=== PATIENT | male | born 1950 | race Caucasian/White ===

== ENCOUNTER → 2017-10-02 10:00 | Outpatient (CLI) | payer MEDICARE, OTHER, MEDICAID, SELFPAY ==
--- NOTE | 2017-10-02 10:11 | CT_ITS ---
CT abdomen pelvis wo con CLINICAL INDICATION: Lower abdominal pain ITS.REASON: LOW BD PAIN ORDERING PHYSICIAN: Emir Almodovar MD PATIENT AGE: 66 years COMPARISON: None TECHNIQUE: Axial images obtained with sagittal and coronal reformats. PROCEDURE: Oral Contrast: None IV Contrast: None . FINDINGS: No acute finding in the lung bases. The liver, gallbladder, spleen, adrenal glands, and pancreas have an unremarkable unenhanced CT appearance. There is moderate to severe bilateral hydronephrosis and hydroureter. The ureters are dilated throughout their course. Urinary bladder is distended with mildly thickened wall. The prostate is not enlarged. No obstructing renal or ureteral calculi. There is mild fusiform dilatation of the infrarenal abdominal aorta measuring up to 3.3 cm. There is a moderate amount retained colonic feces. The appendix is unremarkable. No evidence of diverticulitis. There are scattered fluid-filled loops of small bowel nonspecific without significant distention. There are degenerative changes of the lumbar spine. No acute bony findings. IMPRESSION: Mildly distended gallbladder with concentrically thickened wall with moderate to severe bilateral hydronephrosis and hydroureter consistent with chronic bladder outlet obstruction/neurogenic bladder 3.3 cm fusiform infrarenal abdominal aortic aneurysm
== END ==
PROVIDERS: Family Provider Internal Medicine Adolescent Medicine; PCP Internal Medicine Adolescent Medicine; Visit Provider Internal Medicine Adolescent Medicine
DX: R10.30 Lower abdominal pain, unspecified (principal)
CPT/HCPCS: 74176

== ENCOUNTER → 2018-04-20 06:14 | Outpatient (CLI) | payer MEDICARE, OTHER, MEDICAID, SELFPAY ==
--- NOTE | 2018-04-20 06:29 | NM_ITS ---
History and Indications: Hyperlipidemia, tobacco use, chest pain, shortness of breath and syncope Procedure: Patient received a 0.4 mg of Lexiscan, resting heart rate was 67 bpm, resting blood pressure 116/70, with Lexiscan maximum heart rate achieved was 92 bpm which is less than 85% of the maximum predicted heart rate and a blood pressure was 85/51. With Lexiscan patient complained of dizziness. Electrocardiogram: Resting electrocardiogram showed sinus rhythm, with Lexiscan there is less than 1.[address] segment depression noted from the baseline EKG. The EKG portion of the Lexiscan Myoview is nondiagnostic. Cardiac stress and resting SPECT images: Cardiac stress and rest SPECT images were obtained using technetium 99 Myoview 31.5 mCi at stress and the 0.1 mCi at stress. Gated SPECT further analysis of segmental wall motion and calculation of the ejection fraction also done. Cardiac stress and rest SPECT images show a fixed defect involving the inferior, apex and posterobasal wall with normal contractility in the gated SPECT is likely secondary to soft tissue attenuation, no reversible ischemia seen. Computer derived ejection fraction is 50% with no obvious regional wall motion abnormality, right ventricle is mildly enlarged with normal contractility. Conclusion: 1. The EKG portion of the Lexiscan Myoview is nondiagnostic. 2. No obvious scintigraphic evidence of reversible ischemia seen, a fixed defect seen inferiorly is likely secondary to soft tissue attenuation, computer derived ejection fraction is 50% with no obvious regional wall motion abnormality, right ventricle is mildly enlarged with normal contractility.
--- NOTE | 2018-04-20 06:56 | CA_ITS ---
PROCEDURE: 2-D M-mode and color Doppler study INDICATIONS FOR THE TEST: Chest pain COPD Heart Murmur Tobacco Smoking + Palpitations Fatigue Syncope Edema Hypertension Diabetes Mellitus Rheumatic Fever SOB GRIFFIN Obesity Hyperlipidemia+ Family History HD Additional History PATIENT INFORMATION HEIGHT: 72 WEIGHT:189 GENDER: Male B/P:124/76 2-D/M-MODE INTERPRETATION: 2-D MEASUREMENTS OBSERVED VALUES IN CMS Right Ventricular Dimension (RVDd) 3.0 Interventricular Septum (Thickness)(IVsd) 1.8 Left Ventricular Internal Dimensions(LVIDd) 5.1 Left Ventricular Posterior Wall (Thickness)(LVPWd) 1.3 Aortic Root 4.5 Aortic Cusp Separation 1.9 Left Atrial Dimensions (LAD) 3.0 2D 1. Left atrium is mildly enlarged, left ventricle is normal size, there is mild concentric left ventricular hypertrophy, visually estimated ejection fraction 50% with no obvious regional wall motion abnormality. 2. The right atrium and right ventricle are mildly enlarged with normal contractility. 3. The aortic valve is thickened and calcified with restriction the leaflet mobility. 4. The mitral valve has mitral calcification, mitral leaflets are minimally thickened. 5. The tricuspid valve is minimally thickened. 6. The pulmonic valve is poorly visualized. 7. No significant pericardial effusion noted. DOPPLER INTERROGATION: Doppler interrogation of the aortic, mitral and tricuspid valvular presence of moderate to severe aortic insufficiency, moderate mitral regurgitation, there is mild tricuspid regurgitation noted, tricuspid regurgitant jet velocity is insufficient for calculation of the right ventricular systolic pressure. CONCLUSION: 1. Mildly enlarged left atrium, normal left ventricular size, mild concentric left ventricular hypertrophy, visually estimated ejection fraction 50% with no obvious regional wall motion abnormality. Diastolic parameters are inconclusive. 2. Thickened and calcified aortic valve without significant aortic stenosis, there is moderate to severe aortic insufficiency present. 3. Moderate mitral and mild tricuspid regurgitation 4. No significant pericardial effusion noted.
--- NOTE | 2018-04-20 07:42 | HMH.ITSHM ---
gabapentin LIVALO TAMSULOSIN ASA FINASTERIDE LEVOTHYROXINE BREO COMBIVENT
== END ==
PROVIDERS: Family Provider Internal Medicine Adolescent Medicine; PCP Internal Medicine Adolescent Medicine; Visit Provider Internal Medicine Adolescent Medicine
DX: R06.09 Other forms of dyspnea (principal); R42 Dizziness and giddiness; R94.31 Abnormal electrocardiogram [ECG] [EKG]
CPT/HCPCS: 78452; 93017; 93306; A9502; J2785

== ENCOUNTER → 2018-06-24 09:39 | Outpatient (CLI) | payer MEDICARE, OTHER, MEDICAID, SELFPAY ==
[2018-06-25 10:05] LABS: PSA, Free 0.11 ng/mL; Prostate Specific Ag 0.9 ng/mL (0.0-4.0)
== END ==
PROVIDERS: Family Provider Internal Medicine Adolescent Medicine; PCP Internal Medicine Adolescent Medicine; Visit Provider Urology
DX: Z12.5 Encounter for screening for malignant neoplasm of prostate (principal); N39.9 Disorder of urinary system, unspecified; N40.0 Benign prostatic hyperplasia without lower urinary tract symptoms
CPT/HCPCS: 36415; 84153; 84154

== ENCOUNTER → 2019-03-29 13:46 | Outpatient (CLI) | payer MEDICARE, OTHER, SELFPAY ==
--- NOTE | 2019-03-29 13:52 | XR_ITS ---
XR ribs LT min 3V w CXR1V HISTORY: Fall with pain, left posterior rib pain ITS.REASON: THORACIC BACK PAIN ORDERING PHYSICIAN: Emir Almodovar MD PATIENT AGE: 68 years Comparison: None FINDINGS: A frontal view of the chest shows no acute finding. Multiple views of the Left ribs were obtained. No fracture or dislocation. No lytic or blastic change. IMPRESSION: Negative RIBS. If pain persists, consider follow-up exam in 7-[address] with 3-D reformats.
--- NOTE | 2019-03-29 13:52 | XR_ITS ---
XR chest 2V HISTORY: ITS.REASON: THORACIC BACK PAIN ORDERING PHYSICIAN: Emir Almodovar MD PATIENT AGE: 68 years COMPARISON: None FINDINGS: The cardiomediastinal silhouette and pulmonary vascularity are within normal limits. Changes of COPD. The lungs are clear without infiltrates, suspicious nodules, or pleural effusions. No acute bony abnormalities. IMPRESSION: COPD, no acute finding
--- NOTE | 2019-03-29 13:52 | XR_ITS ---
EXAM: XR thoracic spine 3V HISTORY: ITS.REASON: THORACIC BACK PAIN Comparison: 06/27/2016 FINDINGS: There is mild kyphosis of the thoracic spine with minimal wedging of T11 T9 T8 and T7 probably unchanged from 06/27/2016 CT scan. There is generalized osteopenia. No acute fracture or dislocation. No lytic or blastic change. IMPRESSION: Chronic kyphosis with degenerative change in the midthoracic spine and minimal wedging of several dorsal vertebral bodies which do not appear significantly changed.
== END ==
PROVIDERS: PCP Internal Medicine Adolescent Medicine; Visit Provider Internal Medicine Adolescent Medicine
DX: M54.6 Pain in thoracic spine (principal)
CPT/HCPCS: 71046; 71101; 72072

== ENCOUNTER → 2019-09-28 08:03 | Outpatient (CLI) | payer MEDICARE, OTHER, MEDICAID, SELFPAY ==
--- NOTE | 2019-09-28 08:08 | CT_ITS ---
PROCEDURE: CT LUNG SCREENING CLINICAL INDICATION: CURRENT TOBACCO USE Ninety-four pack-year smoking history, asymptomatic for lung cancer COMPARISON: CHW CT CHEST W/ CONTRAST from 06/27/2016 TECHNIQUE: The exam was performed on a GE Light Speed [address] scanner using 2.90 mGy CTDI. A low dose helical CT CHEST was performed on a multi-detector scanner. All CT scans at the facility use one or more dose reduction, viz: automated exposure control, ma/kV adjustment per patient size (including targeted exams where dose is matched to indication, i.e. head), or iterative reconstruction technique. The LDCT was performed in a facility that meets the criteria for the screening program. Data regarding this exam was submitted to ACR which is an approved registry. The order for this exam indicates that it came as a result of a lung cancer screening counseling shard decision-making visit that included all the elements required of such a visit including smoking cessation. The radiologist interpreting this exam meets the CMS criteria for the LDCT lung cancer screening program. The exam is reported using the Lung-RADS classification scale and reported to the ACR registry. NOTE: This study was performed for the specific purposes of lung cancer screening and is not an alternative to diagnostic chest CT. RADIATION DOSE: CTDI vol(CT dose Index-volume) = 2.90mG DLP (Dose Length Product) = 109.82 mGcm Lung Rads Category FINDINGS: COPD changes. There are scattered small nodular opacities most of which are stable. There are 3 small nodular opacities in the right upper lobe centrally the largest of which measures approximately 6 mm. Image 38 series 4. There is a stable 6 mm nodule right lower lobe image 50 series 4. An additional stable 6 mm nodule right lower lobe posteriorly image 62 series 4. There are some mild atelectatic changes in the right lung base posteriorly. OTHER FINDINGS: There is a healing fracture involving the left 10th rib posteriorly which was not present on the previous exam. Upper abdominal images show bilateral hydronephrosis moderate to severe. There are degenerative changes in the thoracic spine there are coronary artery calcifications IMPRESSION: Lung rads category 3 probably benign. There are 3 new small nodular opacities in the right upper lobe centrally. The largest is at 6 mm. Recommend 3 month follow-up. Dictated by: Noe Bender MD 10/10/2019 07:25 Electronically signed by Noe Bender MD in [place] 10/10/2019 07:25
== END ==
PROVIDERS: PCP Internal Medicine Adolescent Medicine; Visit Provider Internal Medicine Adolescent Medicine
DX: Z87.891 Personal history of nicotine dependence (principal); Z12.2 Encounter for screening for malignant neoplasm of respiratory organs

== ENCOUNTER → 2019-10-20 15:17 | Outpatient (CLI) | payer MEDICARE, OTHER, MEDICAID, SELFPAY | PROVIDERS: Visit Provider Urology | DX: N13.9 Obstructive and reflux uropathy, unspecified (principal) | CPT/HCPCS: 87086; 87088; 87186 ==

== ENCOUNTER 2020-04-18 13:30 | Outpatient (RCR) | payer MEDICARE, OTHER, MEDICAID, SELFPAY ==
--- NOTE | 2020-04-18 14:45 | HMH.PTOPWND ---
Rehab Outpt Wound Evaluation Rehab OP Wound Evaluation Start: 04/18/20 14:08 Freq: Status: Active Protocol: Document 04/18/20 14:36 PHOSHASHI (Rec: 04/18/20 14:45 PHORNE [id number]) Electronically Signed By Elio Faithe, PT 04/18/20 14:36 Subjective/History History History Pt is 69 yowm who presents with c/o chronic B buttock sores x several years. He states, Sometimes they get hot and bust open and leak, but most of the time they are just sore. He reports hx of COPD, HL, HTN. He c/o tenderness to palpation in the eve-wound area, and only gets relief with laying down. Subjective Subjective No c/o pain at this time. Wound Eval Wound Right Buttock Wound Type Pressure Ulcer Is This a Chronic Wound Yes Wound Staging Stage II Query Text:Stage I - Unbroken, red skin, no blanching. Stage II - Skin broken, superficial skin loss involving epidermis alone or also dermis. Partial loss of skin layers. Stage III - Pressure area involves epidermis, dermis and subcutaneous tissue, full thickness skin loss. Stage IV - Pressure area involves epidermis, subcutaneous tissue, bone and other supportive tissue. Full thickness skin loss with extensive destruction of underlying tissue and structures. Wound Length (cm) 2.7 Wound Width (cm) 3.5 Wound Bed Appearance [place] Wound Margins Description Well Defined Surrounding Tissue Appearance [place] Drainage Description Serous Drainage Amount Small Primary Dressing Hydrocolloid Wound Debridement Amount of Tissue None Removed Left Buttock Wound Type Pressure Ulcer Is This a Chronic Wound Yes Wound Staging Stage I Query Text:Stage I - Unbroken, red skin, no blanching. Stage II - Skin broken, superficial skin loss involving epidermis alone or also dermis. Partial loss of skin layers. Stage III - Pressure area involves epidermis, dermis and subcutaneous tissue, full thickness skin loss. Stage IV - Pressure area involves epidermis, subcutaneous tissue, bone and other supportive tissue. Full thickness skin loss with extensive destr
== END 2020-04-18 13:35 | disposition home or self-care (01) ==
LOC: PT 13:30
PROVIDERS: PCP Internal Medicine Adolescent Medicine; Visit Provider Internal Medicine Adolescent Medicine
DX: L89.301 Pressure ulcer of unspecified buttock, stage 1 (principal)
CPT/HCPCS: 97162

== ENCOUNTER → 2020-07-04 14:07 | Outpatient (CLI) | payer MEDICARE, OTHER, SELFPAY ==
[2020-07-04 14:23] LABS: Basophils # 0.1 K/mm3 (0-0.2); Basophils % 0.4 % (0.1-2.0); Eosinophils # 0.3 K/mm3 (0.0-0.4); Hematocrit 36.9 % (42.0-52.0); Hemoglobin 11.3 g/dL (14.1-18.0); Lymphocytes # 2.4 K/mm3 (0.7-4.5); Lymphocytes % 18.1 % (10-50); Mean Corpuscular HGB Conc 30.7 g/dL (31.8-35.4); Mean Corpuscular Hemoglobin 28.9 pg (27.0-31.2); Mean Corpuscular Volume 93.9 fl (80-94); Monocytes # 0.6 K/mm3 (0.1-1.0); Monocytes % 4.3 % (1.7-9.3); Neutrophils # 9.9 K/mm3 (1.8-7.8); Neutrophils % 75.1 % (37.0-80.0); Platelet Count 278 K/mm3 (142-424); Red Blood Count 3.93 M/mm3 (4.60-6.20); Red Cell Distribution Width 15.1 % (11.5-17.5); White Blood Count 13.1 K/mm3 (4.8-10.8)
--- NOTE | 2020-07-04 14:31 | ECG_ITS ---
APPROVED REPORT Exam: Resting ECG HR:72 bpm ECG Measurements Heart Rate 72 AXES VT 114 P 40 QRSd 104 QRS 11 QT 406 T 79 QTc 444 Conclusion Normal sinus rhythm Late r wave progression Abnormal ECG Electronically signed by : Emir Almodovar, 07/05/2020 07:29:58
[2020-07-04 15:01] LABS: Alanine Aminotransferase 11 U/L (12-78); Albumin Level 3.9 g/dl (3.5-5.0); Albumin/Globulin Ratio 1.2 (1.1-1.8); Alkaline Phosphatase 91 U/L (38-126); Anion Gap 13.5 mEq/L (5-15); Aspartate Amino Transferase 22 U/L (17-59); Bilirubin,Total 0.3 mg/dl (0.2-1.3); Blood Urea Nitrogen 29 mg/dl (9-20); Calcium 8.9 mg/dl (8.4-10.2); Carbon Dioxide 23 mmol/L (22.0-30.0); Chloride 111 mmol/L (98-107); Estimated Glomerular Filt Rate 19 ml/min (>60); GFR (African American) 23 ML/MIN (>60); Globulin 3.3 g/dL (1.3-3.2); Glucose 96 mg/dl (74-100); Potassium 4.5 mmoL/L (3.5-5.1); Sodium 143 mmol/L (136-145); Total Protein,Serum 7.2 g/dl (6.3-8.2)
[2020-07-04 15:51] LABS: Coronavirus 19 IgG Antibody Negative (Negative); Coronavirus 19 IgM Antibody Negative (Negative)
== END ==
PROVIDERS: Visit Provider Surgery
DX: L73.2 Hidradenitis suppurativa (principal); Z01.818 Encounter for other preprocedural examination
CPT/HCPCS: 36415; 80053; 85025; 86328; 93005

== ENCOUNTER 2020-07-06 10:01 | Day surgery (SDC) | payer MEDICARE, OTHER, SELFPAY ==
[2020-07-06] VITALS (12 sets, daily range): BP systolic 106–155; BP diastolic 62–96; PULSE 61–69; RESP 14–20; TEMP 36.4–37.1; O2SAT 95–98; BMI 24.9
--- NOTE | 2020-07-06 13:01 | P.OP_ITS ---
Date of procedure: 07/06/20 Pre-op Diagnosis:: Abscessed hidradenitis of left buttock Post-op Diagnosis:: Same Procedure performed:: Incision and drainage of left buttock hidradenitis Surgeon:: Yousif Anglin MD [employer] COUNSEL:: Emir Flores Anesthesia: LMA Estimated blood loss (mL): 5 Operative findings:: Multiple coalescing pockets of purulence Operative note:: After informed consent was obtained the patient was taken to the operating room and placed in the supine position. General anesthesia with laryngeal mask airway was achieved. He was transferred to the right lateral decubitus position. His left buttock was prepped and draped in a sterile fashion. An elliptical incision around the central area was made after fluid was obtained for Gram stain/culture. The underlying tissue was carefully dissected. Multiple coalescing microabscesses were encountered. These were carefully evacuated. The remaining wound was packed open with moistened Kerlix. Dressings were applied and the patient was transferred to recovery in stable condition after removal of his laryngeal mask airway. Condition: stable Disposition: PACU Specimens:: Fluid for Gram stain/culture Left buttock tissue (abscessed hidradenitis) Complications:: No immediate
--- NOTE | 2020-07-06 13:05 | P.PN_ITS ---
[facility] Anesthesia Checklist - Patient Identification Patient Identification: Arm Band, Verbal (Name & ) - Structural Data Admitted From: Home Planned Operative Procedure/s: i and d butt Consent for Planned Operative Procedure(s) Verified: Yes Verified Documents: History and Physical - NPO Status Verified Time NPO: 00:00 - Chart Verification Results Verified: CBC, BMP - Additional verifications Patient : No Anesthesia Reactions: No Hx Blood Transfusions: No Blood Transfusion Reaction: No Cephalosporin Allergy: No Previous Colonoscopy: No - Cardiovascular Assessment Heart Sounds: S1 & S2 Pulse Strength: Baseline Pulse Rhythm: Regular Peripheral Edema: No - Airway Assessment C-Spine Mobility Assessed: Yes TMJ Mobility Assessed: Yes Dentition: Edentulous - Neurological Assessment Level of Consciousness: Awake, Alert, Appropriate Hx Seizures: No Numbness or tingling in extremities: No - Anesthesia Plan Anesthesia Risk discussed: Yes Anesthesia Plan: Verified ASA Class: III Anesthesia Type: General [facility] History I have reviewed the patient's past medical history: Yes Medical History: Reports:: Chronic Obstructive Pulmonary Disease (COPD), Hyperlipidemia, Hypertension, Lung Disease Denies:: Cancer, Diabetes Mellitus Type 1, Diabetes Mellitus Type 2, Internal Pacemaker, MRSA, Seizures *Have you ever received a pneumonia vaccine?: No *Have you received a flu vaccine this season?: Yes Other Medical History: Reports: Thyroid Disease. Denies: Blood Transfusion Reaction Anesthesia experience/problems:: none Other Surgeries: Yes: No Previous Surgery, Colonoscopy, Hernia Repair, Other. No: Pacemaker Amputation: No Fractures: No - *Social History Last grade of school completed: 9th or 10th Smoking Status: Current every day smoker Tobacco Type: cigarettes # Packs/Day (cigarettes): 1 Alcohol Intake: never Substance Use Type: denies use *Occupational Status:: retired Housing: house *Travel in the last 8 weeks: Inside the [facility] Family Hx:: Hyperlipidemia, Diabetes
--- NOTE | 2020-07-06 13:06 | HMH.ANESI ---
[facility] Anesthesia Record Part I Intake, IV Amount: 500 Estimated blood loss (mL): 10 Urine output (mL): 0 Blood Products used (#): none Blood Pressure: 106/66 SaO2: 95 Pulse Rate: 61 Respiratory Rate: 18 Temperature: 97.5 F Patient is:: Drowsy, Stable Stable to PACU at:: 13:04
--- NOTE | 2020-07-06 14:12 | SW/DCPLANNER ---
Addendum entered by Phuong Thompson 07/06/20 14:16: Prasanna from [facility] has stated that patient information has been reviewed and services will begin tomorrow. Original Note: Patient information and order for BID dressing changes has been faxed to [facility]. I did speak with patient and his this afternoon in post op. stated that she could be educated on dressing changes and complete when home health could not. and patient understand that home health will only come about three times a week. I will follow up with [facility] once patient information is reviewed.
--- NOTE | 2020-07-06 14:48 | SUR.PHASEII ---
working Home phone number- [phone]
--- NOTE | 2020-07-06 18:11 | P.PN_ITS ---
[facility] Anesthesia Record Part II Discharge Time: 12:29 Destination: Surgical Day Care (OP Surgery) PACU nurse assessment reviewed?: Yes Patient Condition:: Good Anesthesia Complications:: None Swallowing reflex intact?: Yes Cyanosis?: No Blood Pressure: 139/62 Pulse Rate: 67 Temperature: 98.7 F Mental Status: Alert & Oriented Pain level:: 8 Nausea and/or vomitting:: None Intake, IV Amount: 25
== END 2020-07-06 14:36 | disposition home or self-care (01) ==
LOC: OR 10:02
PROVIDERS: PCP Internal Medicine Adolescent Medicine; Visit Provider Surgery
PROC: (CPT 10061; principal; 2020-07-06 11:45)
DX: L73.2 Hidradenitis suppurativa (principal); L02.31 Cutaneous abscess of buttock; Z79.82 Long term (current) use of aspirin; Z79.899 Other long term (current) drug therapy; J44.9 Chronic obstructive pulmonary disease, unspecified; E78.5 Hyperlipidemia, unspecified; I10 Essential (primary) hypertension; E07.9 Disorder of thyroid, unspecified; Z72.0 Tobacco use; Z83.3 Family history of diabetes mellitus; Z83.438 Family history of other disorder of lipoprotein metabolism and other lipidemia
CPT/HCPCS: 10061; 87070; 87075; 87077; 87186; 87205; 88304; 96374; J2405

== ENCOUNTER → 2021-02-20 16:09 | Outpatient (CLI) | payer MEDICARE, OTHER, MEDICAID, SELFPAY ==
[2021-02-20 18:32] LABS: Basophils # 0.1 K/mm3 (0-0.2); Basophils % 0.6 % (0.1-2.0); Eosinophils # 0.1 K/mm3 (0.0-0.4); Eosinophils % 0.8 % (0.1-12.0); Hematocrit 38.5 % (42.0-52.0); Lymphocytes # 1.6 K/mm3 (0.7-4.5); Lymphocytes % 11.6 % (10-50); Mean Corpuscular Hemoglobin 29.9 pg (27.0-31.2); Mean Corpuscular Volume 96.5 fl (80-94); Mean Platelet Volume 11.1 fl (7.4-10.4); Monocytes # 0.6 K/mm3 (0.1-1.0); Monocytes % 4.1 % (1.7-9.3); Neutrophils # 11.7 K/mm3 (1.8-7.8); Neutrophils % 82.9 % (37.0-80.0); Platelet Count 265 K/mm3 (142-424); Red Cell Distribution Width 14.9 % (11.5-17.5); White Blood Count 14.2 K/mm3 (4.8-10.8)
[2021-02-20 19:34] LABS: Alanine Aminotransferase 12 U/L (12-78); Albumin Level 4.2 g/dl (3.5-5.0); Albumin/Globulin Ratio 1.3 (1.1-1.8); Alkaline Phosphatase 96 U/L (38-126); Anion Gap 16.4 mEq/L (5-15); Aspartate Amino Transferase 24 U/L (17-59); Bilirubin,Total 0.5 mg/dl (0.2-1.3); Blood Urea Nitrogen 36 mg/dl (9-20); Carbon Dioxide 23 mmol/L (22.0-30.0); Chloride 106 mmol/L (98-107); Chol/HDL Ratio 3.6 (1-3.5); Cholesterol 167 mg/dl (140-200); Estimated Glomerular Filt Rate 22 ml/min (>60); GFR (African American) 26 ML/MIN (>60); Globulin 3.2 g/dL (1.3-3.2); Glucose 96 mg/dl (74-100); HDL Cholesterol 46 mg/dl (40-60); Potassium 5.4 mmoL/L (3.5-5.1); Sodium 140 mmol/L (136-145); Total Protein,Serum 7.4 g/dl (6.3-8.2); Triglycerides 95 mg/dl (30-150); VLDL Cholesterol 19 mg/dL (0-40)
[2021-02-20 19:45] LABS: Direct LDL Cholesterol 85.54 mg/dL (100-129)
[2021-02-20 20:04] LABS: Prostate Specific Ag Screen 0.3 ng/ml (0.0-4.0)
[2021-02-20 20:07] LABS: Thyroid Stimulating Hormone 2.65 uIU/mL (0.465-4.68)
== END ==
PROVIDERS: Visit Provider Internal Medicine Adolescent Medicine
DX: E78.5 Hyperlipidemia, unspecified (principal); E03.9 Hypothyroidism, unspecified; N40.1 Benign prostatic hyperplasia with lower urinary tract symptoms; J43.1 Panlobular emphysema; Z12.5 Encounter for screening for malignant neoplasm of prostate
CPT/HCPCS: 80053; 80061; 84443; 85025; G0103

== ENCOUNTER → 2021-06-28 07:08 | Outpatient (CLI) | payer MEDICARE, OTHER, MEDICAID, SELFPAY ==
--- NOTE | 2021-06-28 07:12 | CT_ITS ---
PROCEDURE: CT LUNG SCREENING CLINICAL INDICATION: H/O NICOTINE DEPENDENCE COMPARISON: CT CT LUNG SCREENING from 09/28/2019 TECHNIQUE: The exam was performed on a GE Light Speed [address] scanner using 2.90 mGy CTDI. A low dose helical CT CHEST was performed on a multi-detector scanner. All CT scans at the facility use one or more dose reduction, viz: automated exposure control, ma/kV adjustment per patient size (including targeted exams where dose is matched to indication, i.e. head), or iterative reconstruction technique. The LDCT was performed in a facility that meets the criteria for the screening program. Data regarding this exam was submitted to ACR which is an approved registry. The order for this exam indicates that it came as a result of a lung cancer screening counseling shard decision-making visit that included all the elements required of such a visit including smoking cessation. The radiologist interpreting this exam meets the [facility] criteria for the LDCT lung cancer screening program. The exam is reported using the Lung-RADS classification scale and reported to the ACR registry. NOTE: This study was performed for the specific purposes of lung cancer screening and is not an alternative to diagnostic chest CT. RADIATION DOSE: CTDI vol(CT dose Index-volume) = 2.90mG DLP (Dose Length Product) = 116.20 mGcm FINDINGS: Previously noted small nodular opacities in the right upper lobe are not significantly changed. There are COPD changes. There is evidence of old granulomatous disease. There are 2 new small nodules in the right lower lobe posteriorly at 5 and 3 mm image 60 series 4 faint area of ground-glass attenuation is present in the superior segment of the right lower lobe posteriorly nonspecific. The there is a stable 5 mm nodule in the left lower lobe centrally image 74 series 4 OTHER FINDINGS: Mild prominence of the main pulmonary artery with a pulmonary artery/aorta ratio slightly greater than 1. Coronary artery calcifications present. COPD changes. Mild bronchial thickening. There is a small pneumatocele in the right upper lobe medially to the right lateral aspect of the esophagus. There is bilateral hydronephrosis IMPRESSION: Lung-RADS Category 3 Probably Benign Follow-up: Six-month CT follow-up without contrast suggested regarding the new pulmonary nodules. Faint infiltrate in the superior segment of the right lower lobe Dictated by: Neo Bender MD 07/16/2021 19:13 Noe Bender MD in [place] 07/16/2021 19:13
== END ==
PROVIDERS: PCP Internal Medicine Adolescent Medicine; Visit Provider Internal Medicine Adolescent Medicine
DX: Z87.891 Personal history of nicotine dependence (principal); Z12.2 Encounter for screening for malignant neoplasm of respiratory organs
CPT/HCPCS: 71271

== ENCOUNTER 2021-07-02 16:55 | Observation (INO) | payer MEDICARE, OTHER, MEDICAID, SELFPAY ==
[2021-07-02] VITALS (10 sets, daily range): BP systolic 114–159; BP diastolic 63–90; PULSE 68–87; RESP 18–20; TEMP 36.8–37.4; O2SAT 91–99; BMI 23.4; BMI 23.0
--- NOTE | 2021-07-02 16:56 | ECG_ITS ---
APPROVED REPORT Exam: Resting ECG HR:77 bpm ECG Measurements Heart Rate 77 AXES DC 148 P -22 QRSd 102 QRS 58 QT 392 T 82 QTc 443 Conclusion Normal sinus rhythm Old anteroseptal changes Abnormal ECG Electronically signed by : Emir Almodovar MD 07/03/2021 17:27:59
--- NOTE | 2021-07-02 17:03 | XR_ITS ---
PROCEDURE INFORMATION: Exam: XR Chest Exam date and time: 07/02/2021 5:03 PM Age: 70 years old Clinical indication: Left-sided; Patient HX: Left sided chest pain; . Smoker TECHNIQUE: Imaging protocol: XR of the chest. Views: 1 view. Total images: 2 COMPARISON: W CT CHEST W/ CONTRAST 06/27/2016 9:47 AM, CT lung screening 06/28/2021. FINDINGS: Lungs: Moderate hyperexpansion and hyperlucency with diaphragmatic flattening suggesting COPD. Mild central vascular congestion. No gross pulmonary infiltrates or edema pattern. Pleural spaces: No pleural effusion. No pneumothorax. Heart/Mediastinum: Heart size normal. No tracheal/mediastinal shift. Vasculature: The aorta demonstrates moderate ectasia/tortuosity and mild calcific atherosclerosis with aneurysmal dilatation of the ascending segment grossly unchanged. Bones/joints: No acute osseous abnormalities are identified. Osteopenia. IMPRESSION: 1. No acute process is evident. 2. Evidence of COPD. 3. Ascending aortic aneurysm appears grossly unchanged radiographically.
--- NOTE | 2021-07-02 17:05 | HMH.EDGENADL ---
ED Disposition Clinical Impression: Pancreatitis Qualifiers: Chronicity: acute Pancreatitis type: unspecified pancreatitis type Acute pancreatitis complication: no infection or necrosis Qualified Code(s): K85.90 - Acute pancreatitis without necrosis or infection, unspecified Disposition: Admitted as Observation Condition on Discharge: Fair Referrals: Provider,Referral, [Referring] - - Critical Care Critical Care Time: No Attestation: On 07/02/21, the high probability of a clinically significant, sudden or life threatening deterioration of the following system(s) required my full and direct attention, intervention and personal management. The time I documented below is in addition to time spent performing reported procedures but includes the following listed in this critical care notation. Medical Decision Making - Medical Records Medical records reviewed: Yes: I reviewed the patient's medical records. MR Comment: Reviewed prior abdominal/pelvic CT results from 2018, see below. - Frantz Inquiry Pt receiving controlled substance: Yes Frantz was queried for this patient: Yes Risks and benefits of using a controlled substance: were not discussed with pt by me Vital Signs: 07/02/21 16:57 07/02/21 17:30 07/02/21 18:40 Temperature 98.4 F Temperature Source Oral Pulse Rate 69 68 Pulse Rate [Radial] 83 Respiratory Rate 18 20 20 Blood Pressure 142/77 H 120/66 Blood Pressure [Right Arm] 159/90 H Blood Pressure Mean [Right Arm] 113 Blood Pressure Position Sitting Sitting Blood Pressure Position [Right Arm] Sitting 02 Sat by Pulse Oximetry 94 L 95 95 Oxygen Delivery Method Room Air Room Air Room Air - Lab Data Lab Results 07/02/21 17:03: WBC 15.6 H, RBC 3.93 L, Hgb 11.6 L, Hct 38.0 L, MCV 96.8 H, MCH 29.7, MCHC 30.6 L, RDW 14.1, Plt Count 292, MPV 7.9, Neut % (Auto) 77.9, Lymph % (Auto) 14.4, Caswell % (Auto) 6.0, Eos % (Auto) 1.4, Baso % (Auto) 0.4, Neut # (Auto) 12.2 H, Lymph # (Auto) 2.2, Caswell # (Auto) 0.9, Eos # (Auto) 0.2, Baso # (Auto) 0.1, Total Counted 100, Neutrophils % (Manual) 77 H, Lymphocytes % (Manual) 17, Monocytes % (Manual) 5, Eosinophils % (Manual) 1, Platelet Estimate Normal 07/02/21 17:03: Sodium 137, Potassium 4.2, Chloride 104, Carbon Dioxide 25, Anion Gap 12.2, BUN 28 H, Creatinine 2.40 H, Estimated Creat Clear 32, Estimated GFR 27 L, Est GFR ( Amer) 33 L, Glucose 95, Calcium 8.5, Troponin I < 0.01 07/02/21 17:03: Total Bilirubin 0.3, Direct Bilirubin 0.3, Conjugated Bilirubin 0.0, Indirect Bilirubin 0.0, Unconjugated Bilirubin 0.0, AST 27, ALT 13, Alkaline Phosphatase 78, Total Protein 7.1, Albumin 3.7, Lipase 532 H 07/02/21 18:32: SARS-CoV-2 (PCR) Not detected, Influenza A Untype (PCR) Not detected, Influenza Type B (PCR) Not detected Result diagrams: 07/02/21 17:03 07/02/21 17:03 Orders (Tests/Meds): ED MEDICATIONS Discontinued Medications Generic Name Dose Route Start Last Admin Trade Name Freq PRN Reason Stop Dose Admin Belladonna Alkaloids 60 ml 07/02/21 17:01 07/02/21 17:02 Gi Cocktail 60ml Udc PO 07/02/21 17:02 60 ml ONCE ONE Administration Hydromorphone HCl 1 mg 07/02/21 18:36 07/02/21 18:36 Hydromorphone 2mg/Ml Syringe IV 07/02/21 18:37 1 mg ONCE ONE Administration Morphine Sulfate 4 mg 07/02/21 17:24 07/02/21 17:30 Morphine 4mg/Ml Syringe IV 07/02/21 17:25 4 mg ONCE ONE Administration Ondansetron HCl 4 mg 07/02/21 17:24 07/02/21 17:30 Ondansetron 4mg/2ml Vial IV 07/02/21 17:25 4 mg ONCE ONE Administration ORDERS Category Date Time Status Troponin I Q3H Lab 07/02/21 20:00 Ordered Troponin I Q3H Lab 07/02/21 23:[address] ADOMEN/PELVIS: CT abdomen pelvis wo con CLINICAL INDICATION: Lower abdominal pain ITS.REASON: LOW BD PAIN ORDERING PHYSICIAN: Emir Almodovar MD PATIENT AGE: 66 years COMPARISON: None TECHNIQUE: Axial images obtained with sagittal and rubio
[2021-07-02 17:11] LABS: Basophils # 0.1 K/mm3 (0-0.2); Basophils % 0.4 % (0.1-2.0); Eosinophils # 0.2 K/mm3 (0.0-0.4); Eosinophils % 1.4 % (0.1-12.0); Hemoglobin 11.6 g/dL (14.1-18.0); Lymphocytes # 2.2 K/mm3 (0.7-4.5); Lymphocytes % 14.4 % (10-50); Mean Corpuscular HGB Conc 30.6 g/dL (31.8-35.4); Mean Corpuscular Hemoglobin 29.7 pg (27.0-31.2); Mean Corpuscular Volume 96.8 fl (80-94); Mean Platelet Volume 7.9 fl (7.4-10.4); Monocytes # 0.9 K/mm3 (0.1-1.0); Neutrophils # 12.2 K/mm3 (1.8-7.8); Neutrophils % 77.9 % (37.0-80.0); Platelet Count 292 K/mm3 (142-424); Red Blood Count 3.93 M/mm3 (4.60-6.20); Red Cell Distribution Width 14.1 % (11.5-17.5); White Blood Count 15.6 K/mm3 (4.8-10.8)
[2021-07-02 17:14] LABS: MANUAL DIFFERENTIAL MANUAL DIFFERENTIAL (MANUAL DIFF)
[2021-07-02 17:27] LABS: Chloride 104 mmol/L (98-107); Sodium 137 mmol/L (136-145)
[2021-07-02 17:28] LABS: Potassium 4.2 mmoL/L (3.5-5.1)
[2021-07-02 17:30] LABS: Blood Urea Nitrogen 28 mg/dl (9-20); Creatinine Clearance Estimated 32 mL/min (50-200); Estimated Glomerular Filt Rate 27 ml/min (>60); GFR (African American) 33 ML/MIN (>60)
[2021-07-02 17:31] LABS: Anion Gap 12.2 mEq/L (5-15); Calcium 8.5 mg/dl (8.4-10.2); Carbon Dioxide 25 mmol/L (22.0-30.0); Glucose 95 mg/dl (74-100)
[2021-07-02 17:35] LABS: Alanine Aminotransferase 13 U/L (12-78); Albumin Level 3.7 g/dl (3.5-5.0); Alkaline Phosphatase 78 U/L (38-126); Aspartate Amino Transferase 27 U/L (17-59); Bilirubin,Direct 0.3 mg/dl (0.0-0.4); Bilirubin,Total 0.3 mg/dl (0.2-1.3); Lipase 532 U/L (23-300); Total Protein,Serum 7.1 g/dl (6.3-8.2)
--- NOTE | 2021-07-02 17:37 | CT_ITS ---
PROCEDURE INFORMATION: Exam: CT Abdomen And Pelvis Without Contrast Exam date and time: 07/02/2021 5:37 PM Age: 70 years old Clinical indication: Abdominal pain; Epigastric; Prior surgery; Surgery date: 6+ months; Surgery type: Inguinal hernia repair; Additional info: Pancreatitis TECHNIQUE: Imaging protocol: Computed tomography of the abdomen and pelvis without contrast. Total images: 299 Radiation optimization: All CT scans at this facility use at least one of these dose optimization techniques: automated exposure control; mA and/or kV adjustment per patient size (includes targeted exams where dose is matched to clinical indication); or iterative reconstruction. COMPARISON: [facility] CT abdomen pelvis wo con 10/02/2017 10:24 AM FINDINGS: Lungs: Mild bilateral bronchial wall thickening suggesting an element of bronchitis or bronchial edema, with no evidence of bronchiectasis or bronchial occlusions. Moderate atelectasis in the lung bases. Heart: Heart size normal. Moderate coronary artery calcification.There is moderate calcification of the aortic valve. Mediastinal space: The visualized distal esophagus is largely contracted without gross abnormality. Liver: Normal contour. No mass lesions. No intrahepatic biliary ductal dilatation. Gallbladder and bile ducts: Normal. No calcified stones. No ductal dilation. Pancreas: Moderate pancreatic atrophy without acute abnormality. No pancreatic ductal dilatation. 5 mm cystic appearing lesion in the pancreatic neck on series 3, image 30 is not clearly identified on comparison exam 10/02/2017. Reimaging every 2 years for 10 years is recommended. (Reference: Eneida, 2017) Spleen: Granulomatous calcifications in the spleen without acute splenic abnormality. Adrenal glands: 18 mm left adrenal adenoma measuring -24 Hounsfield units. This does not require further evaluation. Right adrenal gland is unremarkable. Kidneys and ureters: Moderate-severe chronic bilateral hydronephrosis and ureterectasis again noted, similar to comparison exam 10/02/2017. Mild bilateral perinephric stranding is also similar to prior exam and may relate to chronic perirenal scarring or edema. No urolithiasis. Stomach and bowel: The stomach is unremarkable. The small bowel is nondilated with no gross abnormality. There is a moderate amount of stool and gas distributed throughout the colon suggesting possible constipation. Appendix: The appendix is normal in caliber and demonstrates no evidence of appendicitis. Intraperitoneal space: Trace intrapelvic simple free fluid. No free air. Vasculature: Moderate calcific atherosclerosis in the abdominal aorta and iliac vessels. Fusiform aneurysmal dilatation of the mid abdominal aortic segment measuring up to 4.2 cm transverse which is increased in size since 10/02/2017, previously 3.3 cm. No evidence of acute rupture or aortic dissection. Lymph nodes: No adenopathy. Urinary bladder: Severe bladder distension measuring 17.5 x 9.8 by 10.1 cm, estimated bladder volume 900 mL. Mild generalized bladder wall thickening is similar to 10/02/2017, likely chronic changes of bladder outlet obstruction. Reproductive: Mild-moderate prostate enlargement with central fluid density consistent with prior TURP. Given the changes of chronic bladder outlet obstruction and bilateral chronic postobstructive hydronephrosis, consider consultation and evaluation for ongoing or recurrent bladder outlet obstruction at the lower prostate or possibly urethral stricture. Bones/joints: No acute osseous abnormalities. Osteopenia and mild rightward convexity thoracolumbar scoliosis. Soft tissues: Unrema
--- NOTE | 2021-07-02 17:38 | PC.NURSE ---
Notified rad of CT
[2021-07-02 17:45] LABS: Troponin I < 0.01 ng/ml (0.00-0.034)
[2021-07-02 17:50] LABS: Eosinophils % 1 % (0-3); Lymphocytes % 17 % (10-50); Monocytes % 5 % (2-9); Neutrophils % 77 % (42-76); Total Cells Counted 100
[2021-07-02 17:51] LABS: Platelet Estimate Normal
[2021-07-02 18:37] LABS: Coronavirus 19, PCR Not Detected (NotDetected); Influenza A, PCR Not Detected (NotDetected); Influenza B, PCR Not Detected (NotDetected)
[2021-07-02 20:52] LABS: Microscopic, Urine URINE MICROSCOPIC (MICROSCOPIC)
[2021-07-02 20:57] LABS: Appearance,Urine SL CLOUDY (Clear); Bilirubin,Urine Negative (Negative); Blood, Urine TRACE-I (Negative); Color,Urine YELLOW (Yellow); Glucose,Urine (UA) Negative (Negative); Ketones,Urine Negative (Negative); Leukocyte Esterase,Urine 2+ (Negative); Nitrate,Urine Negative (Negative); Protein,Urine Negative (Negative); Urobilinogen,Urine 0.2 EU/dl (0.2)
--- NOTE | 2021-07-02 20:57 | PC.NURSE ---
PT ARRIVED TO FLOOR VIA STRETCHER FROM ED W/STAFF AT [id number]
[2021-07-02 21:15] LABS: Bacteria,Urine 1+ /lpf; RBC,Urine Occasional #/hpf (0-3); Squamous Epithelial Cell,Urine Occasional #/hpf (0-5)
[2021-07-02 21:26] LABS: Troponin I < 0.01 ng/ml (0.00-0.034)
[2021-07-03] VITALS (8 sets, daily range): BP systolic 106–134; BP diastolic 64–88; PULSE 86–100; RESP 16–20; TEMP 36.6–37.3; O2SAT 93–95; BMI 23.0
--- NOTE | 2021-07-03 06:39 | PC.NURSE ---
Per patient he straight caths himself at home 4 times daily.
--- NOTE | 2021-07-03 07:24 | P.CONPHA_ITS ---
[facility] Pharmacy VTE Monitoring - Patient Demographics Admission date: 07/02/21 Report Date: 07/03/21 Time: 07:24 Allergies/Adverse Reactions: Patient Allergies No Known Allergies Allergy (Verified 02/07/21 11:14) Height: 1.83 m Weight: 77.111 kg Patient Problems: Current Active Problems Pancreatitis (Acute) - VTE Risk Labs: VTE Related Lab Results Hgb 11.6 g/dL (14.1-18.0) L 07/02/21 17:03 Hct 38.0 % (42.0-52.0) L 07/02/21 17:03 Plt Count 292 K/mm3 (142-424) 07/02/21 17:03 BUN 28 mg/dl (9-20) H 07/02/21 17:03 Creatinine 2.40 mg/dl (0.66-1.25) H 07/02/21 17:03 Estimated Creat Clear 32 mL/min (50-200) 07/02/21 17:03 - Prophylaxis VTE Prophylaxis Ordered?: Yes Types of VTE Prophylaxis: TEDS Knee High Location of Applied Device: Bilateral Lower Extremeties
--- NOTE | 2021-07-03 07:31 | HMH.PHAINT ---
MEDICATION RECONCILIATION COMPLETE USING SURESCRIPTS AND PREVIOUS OFFICE VISIT
--- NOTE | 2021-07-03 07:39 | US_ITS ---
PROCEDURE: US ABDOMEN COMPLETE CLINICAL INDICATION: pancreatitis The COMPARISON: CT CT ABDOMEN PELVIS WO CON from 07/02/2021 FINDINGS: PANCREAS: Pancreas is not adequately demonstrated due to overlying bowel gas. LIVER: No focal liver lesion demonstrated. Liver evaluation is somewhat limited. There is hyper echogenicity of the portal triads with a starry night appearance of the liver which may be seen with hepatitis. RIGHT KIDNEY: Unremarkable. Previously noted hydronephrosis of the right kidney on the previous abdomen CT is not apparent on today's exam LEFT KIDNEY: Mild left hydronephrosis GALLBLADDER: Gallbladder is distended measuring 11 x 4 cm. No gallstones apparent. No pericholecystic fluid. Common bile duct is normal at 4 mm. AORTA: Mild dilatation of the mid abdominal aorta at 3.5 cm SPLEEN: Unremarkable. Normal size and echogenicity ASCITES: None demonstrated. IMPRESSION: Distended gallbladder with no stones apparent. Common bile duct is normal in diameter. Starry night appearance of the liver nonspecific but could be seen with hepatitis Improvement in bilateral hydronephrosis compared to the recent CT scan 3.5 cm abdominal aortic aneurysm Nonvisualization of the pancreas Dictated by: Noe Bender MD 07/03/2021 19:18 Noe Bender MD in [place] 07/03/2021 19:18
--- NOTE | 2021-07-03 07:39 | HMH.HP ---
*Admission Date: 07/02/21 *Chief complaint: Epigastric abdominal pain *History of present illness: 70-year-old white male with multiple medical problems including oxygen requiring COPD, chronic urinary retention with bladder outlet obstruction doing self caths 3 times a day at home along with chronic kidney disease stage IV with baseline creatinine 2.4, who came to the emergency department with upper epigastric pain and nausea with mild vomiting. Found to be in fairly significant pain, labs were at baseline with the exception of elevated lipase. Interestingly CT scan did not show evidence of pancreatitis, but given clinical symptoms and elevated lipase diagnosis of acute pancreatitis was made and he was admitted to hospital for IV pain control and fluids. Patient states that he feels a little better this morning but continues to have epigastric pain. Has tolerated clear liquids fairly well [facility] History I have reviewed the patient's past medical history: Yes Medical History: Reports:: Chronic Obstructive Pulmonary Disease (COPD), Diabetes Mellitus Type 2, Hyperlipidemia, Hypertension, Lung Disease Denies:: Cancer, Diabetes Mellitus Type 1, Internal Pacemaker, MRSA, Seizures *Have you ever received a pneumonia vaccine?: No *Have you received a flu vaccine this season?: No Other Medical History: Reports: Thyroid Disease. Denies: Blood Transfusion Reaction Other Surgeries: Yes: No Previous Surgery, Colonoscopy, Hernia Repair, Other. No: Pacemaker Amputation: No Fractures: No - *Social History Smoking Status: Current every day smoker Tobacco Type: cigarettes # Packs/Day (cigarettes): 1 Alcohol Intake: never Substance Use Type: denies use *Occupational Status:: retired Housing: house Household Members: spouse *Travel in the last 8 weeks: None Family Hx:: No significant family history Review of Systems - Review of Systems Review of systems:: pertinent systems reviewed and negative unless documented below Patient also notes a cough has been productive of green sputum. Meds Home Medications Medication Instructions Recorded Confirmed Type finasteride 1 mg tablet 1 mg PO ONCE 10/22/17 07/02/21 History Aspirin [Aspir 81] 81 mg PO DAILY 05/25/19 07/02/21 History budesonide-formoterol HFA 160 2 puffs INHALATION BID MDD . 01/02/21 07/02/21 History mcg-4.5 mcg/actuation aerosol inhaler gabapentin 800 mg tablet 800 mg PO TID tab 01/02/21 07/02/21 History ipratropium 20 mcg-albuterol 100 2 puffs INHALATION BID 01/02/21 07/02/21 History mcg/actuation mist for inhalation levothyroxine 50 mcg tablet 50 mcg PO DAILY tab 01/02/21 07/02/21 History oxybutynin chloride 5 mg tablet 10 mg PO HS tab 01/02/21 07/03/21 History Pitavastatin Calcium [Livalo] 4 mg PO DAILY 07/03/21 07/03/21 History Allergies Allergy/AdvReac Type Severity Reaction Status Date / Time No Known Allergies Allergy Verified 02/07/21 11:14 Exam Vital signs and Labs for Last 24 Hours: Temp Pulse Resp BP Pulse Ox 99.1 F 95 H 20 111/64 95 07/03/21 04:27 07/03/21 04:27 07/03/21 04:27 07/03/21 04:27 07/03/21 06:35 Laboratory Results - last 24 hr 07/02/21 17:03: WBC 15.6 H, RBC 3.93 L, Hgb 11.6 L, Hct 38.0 L, MCV 96.8 H, MCH 29.7, MCHC 30.6 L, RDW 14.1, Plt Count 292, MPV 7.9, Neut % (Auto) 77.9, Lymph % (Auto) 14.4, [place]arro % (Auto) 6.0, Eos % (Auto) 1.4, Baso % (Auto) 0.4, Neut # (Auto) 12.2 H, Lymph # (Auto) 2.2, [place]arro # (Auto) 0.9, Eos # (Auto) 0.2, Baso # (Auto) 0.1, Total Counted 100, Neutrophils % (Manual) 77 H, Lymphocytes % (Manual) 17, Monocytes % (Manual) 5, Eosinophils % (Manual) 1, Platelet Estimate Normal 07/02/21 17:03: Sodium 137, Potassium 4.2, Chloride 104, Carbon Dioxide 25, Anion Gap 12.2, BUN 28 H, Creatinine 2.40 H, Estimated Creat Clear 32, Estimated GFR 27 L, Est GFR ( Amer) 33 L, Glucose 95, Calcium 8.5, Troponin I < 0.01 07/02/21 17:03: Total Bilirubin 0.3, Direct Bilirubin 0.3, Conjugated Bilirubin 0.0, Indirect Biliru
--- NOTE | 2021-07-03 10:32 | ECG_ITS ---
APPROVED REPORT Exam: Resting ECG HR:94 bpm ECG Measurements Heart Rate 94 AXES QRSd 98 QRS 6 QT 348 T 17 QTc 435 Conclusion Accelerated Junctional rhythm Old anteroseptal changes Abnormal ECG Electronically signed by : Emir Almodovar MD 07/03/2021 17:27:37
[2021-07-03 11:48] LABS: Troponin I 0.03 ng/ml (0.00-0.034)
--- NOTE | 2021-07-03 12:05 | CA_ITS ---
APPROVED REPORT EXAM: Comprehensive 2D, Doppler, and color-flow Echocardiogram Car Ferrier: DADA Sanchez, RVS Ht: 6 ft 0 in Wt: 170lbs BSA: 1.99 BP: 106/65 mmHg Indications: Pancreatitis, Elevated troponin, COPD, HTN, HLD, DM,Smoker Echo Enhancing Agent Comments: Technically limited exam: Patient unable to be positioned, Lung impedence 2D Dimensions LVDd 5.42 cm LA Volume 54.50 mL Aortic Root 4.08 cm LA Volume Index 27.40 mL/m2 (M/F) 16-34 Left Atrium 2.82 cm LVOT 1.90 cm (M/F) 1.5-2.5 M-Mode Dimensions RVDd 4.27 cm (0.9-2.6) LA Diam 3.11 cm (1.9-4.0) LVDd 5.82 cm (3.5-5.7) Ao Diam 4.00 cm (2.0-3.7) LVDs 4.24 cm (3.5-5.7) IVSd 1.55 cm (0.6-1.1) PWd 1.13 cm (0.6-1.1) EF (Teich) 50.60% EPSs 2.17 cm FS 26.10% EDV (Teich) 162.60 mL TAPSE 1.66 (<1.7) ESV (Teich) 80.40 mL LV Diastology E Decel Time 202.00 (160-240 msec) E/A Ratio 1.06 MED E' 6.70 (< 7 cm/sec) MED A' 11.90 cm/s E'/MED E' Ratio 13.54 (>14) LAT E' 9.30 (<10 cm/sec) LAT A' 8.10 cm/s E/LAT E' Ratio 9.75 (>14) Aortic Valve LVOT Max 113.00 (70-110 cm/s) LVOT VTI 21.04 cm AoV Peak Arnold. 221.00 (50-130 cm/s) AI PHT 405.00 ms AO Peak GR. 19.50 mmHg AO Mean GR. 9.90 (<5 mmHg) AO VTI 39.47 (18-25 cm) CARLOS (VTI) 1.51 (2.5-4.5 cm2) Mitral Valve MV A Velocity 86.00 (40-130 cm/s) E/A Ratio 1.06 MV Decel. Time 202.00 (160-240 ms) MV Mean Gr. 1.90 (<2mmHg) Tricuspid Valve TR P. Velocity 221.00 cm/s RAP Estimate 10.00 mmHg RVSP 29.60 mmHg Left Ventricle Left atrium is mildly enlarged, left ventricle is normal size, mild concentric left ventricular hypertrophy, visually estimated ejection fraction 50% with no regional wall motion abnormality, endocardial surfaces are poorly visualized, grade 1 diastolic dysfunction seen without tissue Doppler evidence of raise left atrial pressure. Right Ventricle Right atrium and right ventricle are mildly enlarged with normal contractility. Aortic Valve Aortic valve is thickened and calcified, mean gradient across valve is 10, valve area is 1.51 cm??? represents mild aortic stenosis, there is mild aortic insufficiency. Mitral Valve Mitral valve leaflets are minimally thickened, there is mild mitral regurgitation. Tricuspid Valve Tricuspid valve grossly normal, there is mild tricuspid regurgitation, tricuspid regurgitation jet velocity is inadequate for calculation of the right ventricular systolic pressure. Pulmonic Valve Pulmonic valve is poorly visualized. Great Vessels Aortic root is normal size. Inferior vena cava is mildly dilated without significant inspiratory collapse. Pericardium No significant pericardial effusion noted. Conclusion 1. Biatrial enlargement, normal left ventricular size, mild concentric left ventricular hypertrophy, visually estimated ejection fraction 50% with no regional wall motion abnormality, grade 1 diastolic dysfunction seen without tissue Doppler evidence of raise left atrial pressure. 2. Mildly enlarged right ventricle with normal contractility. 3. Thickened and calcified aortic valve with mild aortic stenosis, there is mild aortic insufficiency. 4. No significant pericardial effusion noted. 5. Inferior vena cava is mildly dilated without significant inspiratory collapse. Electronically signed by : Zion Davila MD 07/04/2021 10:16:05
--- NOTE | 2021-07-03 12:31 | HMH.CNCARD ---
History of Present Illness Consult date: 07/03/21 Requesting physician: Emir Almodovar Chief complaint: Elevated troponin History of present illness: 70-year-old male admitted to [facility] with epigastric pain and nausea. Patient has had some vomiting. Patient is poor historian. Patient was giving pain medication prior to this assessment, therefore patient was very drowsy and was very limited on answering questions. Nursing staff states patient had been transported to imaging for ultrasound of the gallbladder. While patient was at imaging, he developed chest pain in which he pointed to the epigastric area. Patient denies chest pain tightness or pressure at this time. Patient does have dyspnea. Patient does have chronic obstructive pulmonary disease in which she requires continuous O2 supplement. No swelling noted of the lower extremities. Patient does have chronic urinary retention in which he does have to catheterize himself 3 times a day. Patient denies any dizziness or palpitations. Patient denies any history of coronary artery disease. Last Myoview stress test was in 2018 which was read as normal. Last echocardiogram was in 2018 which revealed EF 50% with no regional wall motion abnormality. Moderate to severe aortic insufficiency. Moderate mitral and mild TR noted. Patient does have history of diabetes. History of hyperlipidemia and hypertension. EKG reveals sinus rhythm with a heart rate of 80 bpm. patient is hypotensive. Patient is receiving IV fluids and pain medications. This is managed by PCP. Patient does have history of abdominal aortic aneurysm measuring up to 4.2 cm in diameter which has increased in size since 2018. Cardiology was consulted due to slight elevated troponin and patient's complaint of chest pain. There is a small leak troponin possibly due to episodes of hypotension and moderate to severe aortic insufficiency. Lipase noted as elevated. Creatinine level elevated 2.4. This may be the baseline creatinine level for patient. Patient does have history of chronic kidney disease. WBC is elevated at 15.6. Patient states he is a smoker. States he may smoke 1 to 2 packs/day of cigarettes. Patient states while he has been in the hospital he has not smoked. CTA:IMPRESSION: 1. No gross changes of acute pancreatitis. No pancreatic ductal dilatation or fluid collections. 2. Severe bladder distension with estimated bladder volume 900 mL. Generalized bladder wall thickening probably representing chronic changes of bowel obstruction. There is severe bilateral chronic hydronephrosis/hydroureter which is not substantially changed from 2018 and is likely postobstructive in nature. There is evidence of prior TURP in the prostate. Consider the possibility of ongoing chronic or recurrent bladder outlet obstruction , which might be due to extrinsic compression in the lower prostate or possibly urethral stricture, consider consultation. Nonemergent VCUG or RUG may be helpful. 3. Abdominal aortic aneurysm measuring up to 4.2 cm diameter, increased in size since 10/02/2017. No evidence of acute rupture or dissection. 4. Moderate gas and stool throughout the colon suggesting constipation. 5. There is a 5 mm cystic lesion in the pancreatic neck which is new since 2018. Please see follow-up recommendations above. 6. Age indeterminate mild bronchial wall thickening in the lung bases suggesting an element of bronchitis or bronchial edema. 7. Additional nonemergent findings detailed above. CXR:IMPRESSION: 1. No acute process is evident. 2. Evidence of COPD. 3. Ascending aortic aneurysm appears grossly unchanged radiographically. Discussed plan of care with Dr. Garcia. Orders and recommendations received from Dr. Garcia. Due to patient being hemodynamically unstable, due to elevated renal function and hypotension, will defer left heart catheterization at t
--- NOTE | 2021-07-03 14:51 | PC.NURSE ---
PT IS RESTING IN BED. PT HAS BEEN VERY DROWSY THIS SHIFT. WHILE OFF THE FLOOR FOR ULTRASOUND PT STARTED TO COMPLAIN OF CHEST PAIN. RADIOLOGY BROUGHT PT BACK TO THE FLOOR. STAFF DID A STAT EKG, VSS, AND MEDICATED PT FOR PAIN. NO COMPLAINTS OF SOA AND PAIN WAS NOT RADIATING TO JAW/ARM. AFTER DOSE OF DILAUDID PT'S BP WAS LOW 80'S SYSTOLIC. NOTIFIED PCP. ORDERS RECEIVED TO GET TROPONINS, 2 L IVF BOLUS AND CARDIOLOGY CONSULT. PT WILL HAVE A REPEAT TROPONIN AT 1600. BP 107/71 AFTER 2 L IVF BOLUS'S. PT IS STILL VERY DROWSY BUT WILL AWAKEN EASILY. ULTRASOUND AND ECHO WAS DONE AT BEDSIDE. WILL CONTINUE TO MONITOR.
[2021-07-03 16:58] LABS: Troponin I 0.05 ng/ml (0.00-0.034)
[2021-07-04] VITALS: BP 102/68; PULSE 84; PULSE 90; RESP 23; TEMP 36.7; O2SAT 92
[2021-07-04 04:00] VITALS: BP 116/73; PULSE 80; RESP 15; TEMP 38; O2SAT 95
--- NOTE | 2021-07-04 04:52 | PC.NURSE ---
pt A&Ox4, has remained on 2L NC with no complaints of soa and O2 sats 92-95%, no complaints of abdominal pain or chest pain, systolic BPs 102-134, HR 80-93, telemetry shows junctional rhythm
[2021-07-04 05:00] VITALS: BMI 24.3
[2021-07-04 06:16] LABS: Basophils # 0.1 K/mm3 (0-0.2); Basophils % 0.4 % (0.1-2.0); Eosinophils # 0.1 K/mm3 (0.0-0.4); Eosinophils % 0.4 % (0.1-12.0); Hematocrit 33.6 % (42.0-52.0); Hemoglobin 10.1 g/dL (14.1-18.0); Lymphocytes # 1.8 K/mm3 (0.7-4.5); Lymphocytes % 11.1 % (10-50); Mean Corpuscular HGB Conc 30.1 g/dL (31.8-35.4); Mean Corpuscular Hemoglobin 29.6 pg (27.0-31.2); Mean Corpuscular Volume 98.5 fl (80-94); Mean Platelet Volume 7.8 fl (7.4-10.4); Monocytes # 1.2 K/mm3 (0.1-1.0); Monocytes % 7.7 % (1.7-9.3); Neutrophils # 12.8 K/mm3 (1.8-7.8); Neutrophils % 80.4 % (37.0-80.0); Platelet Count 202 K/mm3 (142-424); Red Blood Count 3.41 M/mm3 (4.60-6.20); Red Cell Distribution Width 14.1 % (11.5-17.5)
[2021-07-04 06:20] VITALS: O2SAT 97
[2021-07-04 06:23] LABS: MANUAL DIFFERENTIAL MANUAL DIFFERENTIAL (MANUAL DIFF)
[2021-07-04 06:26] LABS: Chloride 111 mmol/L (98-107)
[2021-07-04 06:27] LABS: Potassium 4.6 mmoL/L (3.5-5.1); Sodium 137 mmol/L (136-145)
[2021-07-04 06:29] LABS: Alanine Aminotransferase 9 U/L (12-78); Alkaline Phosphatase 79 U/L (38-126); Anion Gap 12.6 mEq/L (5-15); Aspartate Amino Transferase 28 U/L (17-59); Bilirubin,Total 0.3 mg/dl (0.2-1.3); Blood Urea Nitrogen 31 mg/dl (9-20); Carbon Dioxide 18 mmol/L (22.0-30.0); Creatinine Clearance Estimated 28 mL/min (50-200); Estimated Glomerular Filt Rate 23 ml/min (>60); GFR (African American) 27 ML/MIN (>60)
[2021-07-04 06:30] LABS: Calcium 8.5 mg/dl (8.4-10.2); Globulin 3.1 g/dL (1.3-3.2); Glucose 87 mg/dl (74-100); Total Protein,Serum 6.1 g/dl (6.3-8.2)
[2021-07-04 07:31] LABS: Eosinophils % 1 % (0-3); Lymphocytes % 6 % (10-50); Monocytes % 4 % (2-9); Neutrophils % 89 % (42-76); Platelet Estimate Normal; RBC Morphology Normal; Total Cells Counted 100
[2021-07-04 08:00] VITALS: BP 107/70; PULSE 80; PULSE 83; RESP 18; TEMP 36.9; O2SAT 88
--- NOTE | 2021-07-04 08:49 | HMH.DCSUM ---
General - General Admission date:: 07/02/21 Discharge date: 07/04/21 HPI HPI: 70-year-old white male with multiple medical problems including oxygen requiring COPD, chronic urinary retention with bladder outlet obstruction doing self caths 3 times a day at home along with chronic kidney disease stage IV with baseline creatinine 2.4, who came to the emergency department with upper epigastric pain and nausea with mild vomiting. Found to be in fairly significant pain, labs were at baseline with the exception of elevated lipase. Interestingly CT scan did not show evidence of pancreatitis, but given clinical symptoms and elevated lipase diagnosis of acute pancreatitis was made and he was admitted to hospital for IV pain control and fluids. Patient states that he feels a little better this morning but continues to have epigastric pain. Has tolerated clear liquids fairly well Hospital Course Hospital Course: Patient was admitted, found to have elevation of lipase, ER evaluation revealed pancreas was normal on CT scan with no evidence of acute pancreatitis. Following morning patient was subjected to abdominal ultrasound which revealed no biliary ductal dilatation, dilated gallbladder but without stones or wall thickening. Pancreas was not visualized. Patient did have an episode of some very atypical chest pain with some dyspnea. Cardiac enzymes showed a very slight bump in his troponin levels but this was in the context of pancreatitis as well as his chronic renal insufficiency with elevated creatinine. Cardiology consult was obtained, appreciate the input, echocardiogram was obtained which revealed EF of 45%. Not significantly changed from prior, along with aortic and mitral insufficiency/regurgitation respectively. Patient improved very nicely with fluids and his abdominal pain resolved and he was able to tolerate a full liquid diet yesterday and this morning. Wishes to be discharged home and his exam has nicely improved. Plan okay to discharge home, low-fat diet. Tylenol for pain control. I will see him in my office on next Thursday and we will set up follow-up with cardiology for his heart failure with reduced ejection fraction, his creatinine chronic elevation certainly will make treatment somewhat challenging, we will also discuss possible HIDA scan of his gallbladder to evaluate whether or not his pancreatitis was from this. Objective Vital signs: Temp Pulse Resp BP Pulse Ox 100.4 F H 80 15 116/73 97 07/04/21 04:00 07/04/21 04:00 07/04/21 04:00 07/04/21 04:00 07/04/21 06:20 no acute distress - *Routine HEENT Exam Head: Present: normocephalic Eye: Present: EOMI, PERRL ENT: Present: mucous membranes moist - *Routine Neck Exam Present: supple - *Routine Respiratory Exam Present: rhonchi Comments: Bronchitic rhonchi are at baseline. - *Routine Cardiovascular Exam Present: RRR - *Routine Abdominal Exam Present: soft, normoactive bowel sounds. Absent: tenderness - *Routine Exam Comments: Juárez catheter draining clear urine. - *Routine Extremities Exam Absent: cyanosis, clubbing, edema - *Routine Skin Exam Present: warm. Absent: rash - Detailed Eye Exam Eyelids: Bilateral normal inspection Results Labs on day of discharge: Labs from last 24 hours 07/04/21 07/04/21 07/03/21 05:26 05:26 23:04 WBC 16.0 H RBC 3.41 L Hgb 10.1 L Hct 33.6 L MCV 98.5 H MCH 29.6 MCHC 30.1 L RDW 14.1 Plt Count 202 D MPV 7.8 Neut % (Auto) 80.4 H Lymph % (Auto) 11.1 Candler % (Auto) 7.7 Eos % (Auto) 0.4 Baso % (Auto) 0.4 Neut # (Auto) 12.8 H Lymph # (Auto) 1.8 Candler # (Auto) 1.2 H Eos # (Auto) 0.1 Baso # (Auto) 0.1 Total Counted 100 Neutrophils % (Manual) 89 H Lymphocytes % (Manual) 6 L Monocytes % (Manual) 4 Eosinophils % (Manual) 1 Platelet Estimate Normal RBC Morphology Normal Sodium 137 Pota
[2021-07-04 09:20] LABS: Chol/HDL Ratio 2.8 (1-3.5); Cholesterol 119 mg/dl (140-200); HDL Cholesterol 42 mg/dl (40-60); Triglycerides 105 mg/dl (30-150); VLDL Cholesterol 21 mg/dL (0-40)
[2021-07-04 09:31] LABS: Direct LDL Cholesterol 40.64 mg/dL (100-129)
--- NOTE | 2021-07-04 09:42 | HMH.PHAINT ---
MEDICATION DISCHARGE EDUCATION COMPLETE. PATIENT DID NOT HAVE ANY QUESTIONS
[2021-07-04 12:00] VITALS: BP 142/79; PULSE 80; PULSE 84; RESP 17; TEMP 36.7; O2SAT 88
--- NOTE | 2021-07-04 14:20 | PC.NURSE ---
PT HAS BEEN RESTING IN BED T/O THE MORNING . TOLERATED FULL LIQUIDS FOR BREAKFAST. DIET WAS ADVANCED TO LOW FAT AT LUNCH TIME. PT ATE 50% AND STARTED TO HAVE RUQ PAIN. NOTIFIED PCP AND HE STATED PT COULD TAKE TYLENOL FOR PAIN AND TO ONLY EAT A FULL LIQUID DIET WHEN HE WENT HOME. FOLLOW UP ON THURSDAY. PT RECEIVED 1300 DOSE OF GABAPENTIN AND TYLENOL BEFORE DISCHARGE.
== END 2021-07-04 13:55 | disposition home or self-care (01) ==
LOC: ER 20:04 → 2ND 21:04
PROVIDERS: Admitting Provider Emergency Medicine; Emergency Provider Emergency Medicine; PCP Internal Medicine Adolescent Medicine; Visit Provider Internal Medicine Adolescent Medicine
DX: K85.90 Acute pancreatitis without necrosis or infection, unspecified (principal); E11.22 Type 2 diabetes mellitus with diabetic chronic kidney disease; J44.0 Chronic obstructive pulmonary disease with (acute) lower respiratory infection; Z99.81 Dependence on supplemental oxygen; F17.210 Nicotine dependence, cigarettes, uncomplicated; Z79.899 Other long term (current) drug therapy; E03.9 Hypothyroidism, unspecified; Z20.822 Contact with and (suspected) exposure to COVID-19; N18.4 Chronic kidney disease, stage 4 (severe); I13.0 Hypertensive heart and chronic kidney disease with heart failure and stage 1 through stage 4 chronic kidney disease, or unspecified chronic kidney disease; J20.9 Acute bronchitis, unspecified; N32.0 Bladder-neck obstruction; I50.22 Chronic systolic (congestive) heart failure
CPT/HCPCS: G0378; 36415; 71045; 74176; 76700; 80048; 80053; 80061; 80076; 81001; 83690; 84484; 85007; 85025; 87086; 93005; 93306; 94640; 94760; 96374; 96375; 99284; C9803; J1956; J2405; U0003; U0005

== ENCOUNTER → 2021-07-10 07:27 | Outpatient (CLI) | payer MEDICARE, OTHER, MEDICAID, SELFPAY ==
[2021-07-10 07:53] LABS: Basophils # 0.1 K/mm3 (0-0.2); Basophils % 0.6 % (0.1-2.0); Eosinophils # 0.3 K/mm3 (0.0-0.4); Hematocrit 34.8 % (42.0-52.0); Hemoglobin 10.7 g/dL (14.1-18.0); Lymphocytes # 1.8 K/mm3 (0.7-4.5); Lymphocytes % 11.7 % (10-50); Mean Corpuscular HGB Conc 30.8 g/dL (31.8-35.4); Mean Corpuscular Volume 97.4 fl (80-94); Mean Platelet Volume 9.2 fl (7.4-10.4); Monocytes # 1.2 K/mm3 (0.1-1.0); Neutrophils # 11.8 K/mm3 (1.8-7.8); Neutrophils % 77.7 % (37.0-80.0); Platelet Count 358 K/mm3 (142-424); Red Blood Count 3.57 M/mm3 (4.60-6.20); Red Cell Distribution Width 14.1 % (11.5-17.5); White Blood Count 15.3 K/mm3 (4.8-10.8)
[2021-07-10 07:57] LABS: MANUAL DIFFERENTIAL MANUAL DIFFERENTIAL (MANUAL DIFF)
[2021-07-10 08:24] LABS: Eosinophils % 5 % (0-3); Hypochromasia 1+; Lymphocytes % 17 % (10-50); Macrocytosis 1+; Monocytes % 3 % (2-9); Neutrophils % 75 % (42-76); Platelet Estimate Normal; Total Cells Counted 100
[2021-07-10 08:57] LABS: Chloride 102 mmol/L (98-107)
[2021-07-10 08:58] LABS: Sodium 135 mmol/L (136-145)
[2021-07-10 09:00] LABS: Alanine Aminotransferase 17 U/L (12-78); Aspartate Amino Transferase 31 U/L (17-59); Blood Urea Nitrogen 26 mg/dl (9-20); Estimated Glomerular Filt Rate 27 ml/min (>60); GFR (African American) 33 ML/MIN (>60)
[2021-07-10 09:01] LABS: Albumin Level 3.5 g/dl (3.5-5.0); Albumin/Globulin Ratio 1.1 (1.1-1.8); Alkaline Phosphatase 88 U/L (38-126); Bilirubin,Total 0.2 mg/dl (0.2-1.3); Calcium 8.8 mg/dl (8.4-10.2); Carbon Dioxide 22 mmol/L (22.0-30.0); Globulin 3.3 g/dL (1.3-3.2); Glucose 100 mg/dl (74-100); Total Protein,Serum 6.8 g/dl (6.3-8.2)
== END ==
PROVIDERS: Visit Provider Internal Medicine Adolescent Medicine
DX: R07.9 Chest pain, unspecified (principal)
CPT/HCPCS: 36415; 80053; 85007; 85025

== ENCOUNTER 2021-07-11 10:59 | Day surgery (SDC) | payer MEDICARE, OTHER, SELFPAY ==
[2021-07-11] VITALS (10 sets, daily range): BP systolic 106–119; BP diastolic 63–77; PULSE 61–74; RESP 17–20; TEMP 36.6; O2SAT 95–99; BMI 23.4
--- NOTE | 2021-07-11 | IR_ITS ---
APPROVED REPORT Patient Location: Outpatient Word Processor Operator: DELROY Cardenas RT (R) PROCEDURES Left heart catheterization Left ventriculogram Selective coronary angiogram INDICATION Angina pectoris, High pretest likelihood for coronary disease Informed consent was obtained prior to the procedure. COMPLICATIONS NONE Estimated Blood Loss: LESS THAN 10 ML TECHNIQUE One percent lidocaine used to anesthetize the right anterior aspect of the wrist. The right radial artery was accessed via the Seldinger technique. A 6 Ghanaian sheath was placed in the right radial artery. 2.5 mg of verapamil, 800 mcg of nitroglycerin, 1mg Lidocaine and 5000 U Heparin were given through the arterial sheath. The trap catheter and 6 Ghanaian JL 3 guide catheter were also used to perform left heart catheterization, left ventriculogram and selective coronary angiogram. At the end of the procedure the sheath was removed good hemostasis was achieved using Traclet band, patient was transferred to the postop holding area in stable condition. ANGIOGRAPHIC RESULTS The left main artery Normal and gives rise to an LAD moderate sized ramus intermedius and a small nondominant circumflex artery. The ramus intermedius is normal The left anterior descending artery Mild 10% proximal mid vessel luminal irregularities The circumflex artery Is a nondominant vessel and occluded after a small first obtuse marginal artery. The occluded vessel was small in caliber and supplies a small amount of myocardium and fills via left to left collaterals. The right coronary artery Is a large dominant vessel and has mild mid vessel 10 to 20% stenoses with distal 10 to 20% stenoses and one focal 30% stenosis The EDDY ventriculogram reveals Slight dilatation with ejection fraction of 45% The left ventricular end-diastolic pressure 10 mmHg IMPRESSION Occluded small nondominant right coronary artery which fills via left to left collaterals with otherwise nonflow limiting coronary artery disease Left ventricular dilatation with reduced ejection fraction likely secondary to chronic nonischemic disease such as hypertensive heart disease etc. Normal left ventricular end-diastolic pressure PLAN 1. Given the degree of patient's renal failure as well as the small amount of myocardium supplied by the occluded circumflex artery, I strongly recommend medical management. There is no survival benefit to attempting revascularizing such as small occluded vessel. Furthermore left to left collaterals have already formed and patient has only mild mitral regurgitation therefore there is no evidence that this lesion is producing papillary muscle ischemia which would otherwise be an indication to open a chronically occluded vessel. 2. Patient should respond favorably to medical management and this should be maximized 3. It is unlikely the atypical chest pain patient is experiencing stems from angina pectoris 4. Aggressive risk factor modification with goal DL less than 55 Electronically signed by : Zach Gallo MD 07/11/2021 12:44:52
== END 2021-07-11 15:01 | disposition home or self-care (01) ==
LOC: CATHLAB 11:02
PROVIDERS: PCP Internal Medicine Adolescent Medicine; Visit Provider Internal Medicine
DX: I25.119 Atherosclerotic heart disease of native coronary artery with unspecified angina pectoris (principal); I10 Essential (primary) hypertension; E78.5 Hyperlipidemia, unspecified; J44.9 Chronic obstructive pulmonary disease, unspecified; F17.201 Nicotine dependence, unspecified, in remission
CPT/HCPCS: 93458; 99152; C1725; C1769; J1644; Q9967

== ENCOUNTER → 2021-07-26 09:18 | Outpatient (CLI) | payer MEDICARE, OTHER, SELFPAY ==
--- NOTE | 2021-07-26 09:18 | US_ITS ---
PROCEDURE: US ABD. AORTA SCREENING CLINICAL INDICATION: known aaa 4.2 cm, creatinine too elevated for cta COMPARISON: CT CT ABDOMEN PELVIS WO CON from 07/02/2021 FINDINGS: There is fusiform aneurysmal dilatation the mid abdominal aorta measuring up to 3.7 cm in maximum AP dimension. There is a mild amount plaque present within the aorta. Proximal common iliacs are nondilated. IMPRESSION: Fusiform abdominal aortic aneurysm measuring up to 3.7 cm in maximum dimension. Dictated by: Noe Bender MD 07/27/2021 07:41 Noe Bender MD in OV 07/27/2021 07:41
== END ==
PROVIDERS: PCP Internal Medicine Adolescent Medicine; Visit Provider Nurse Practitioner Family
DX: I25.10 Atherosclerotic heart disease of native coronary artery without angina pectoris (principal); I34.0 Nonrheumatic mitral (valve) insufficiency; I35.1 Nonrheumatic aortic (valve) insufficiency; I50.22 Chronic systolic (congestive) heart failure; I71.4 Abdominal aortic aneurysm, without rupture; I73.9 Peripheral vascular disease, unspecified; N18.9 Chronic kidney disease, unspecified; R10.9 Unspecified abdominal pain; R42 Dizziness and giddiness; R94.31 Abnormal electrocardiogram [ECG] [EKG]
CPT/HCPCS: 76705

== ENCOUNTER → 2022-03-27 20:06 | Outpatient (CLI) | payer MEDICARE, SELFPAY ==
[2022-03-27 21:09] LABS: Anion Gap 14.7 mEq/L (5-15); Blood Urea Nitrogen 35 mg/dl (9-20); Calcium 8.7 mg/dl (8.4-10.2); Carbon Dioxide 22 mmol/L (22.0-30.0); Chloride 101 mmol/L (98-107); Estimated Glomerular Filt Rate 23 ml/min (>60); GFR (African American) 28 ML/MIN (>60); Glucose 98 mg/dl (74-100); Potassium 4.7 mmoL/L (3.5-5.1); Sodium 133 mmol/L (136-145)
== END ==
PROVIDERS: PCP Internal Medicine Adolescent Medicine; Visit Provider Internal Medicine Adolescent Medicine
DX: I10 Essential (primary) hypertension (principal)
CPT/HCPCS: 80048

== ENCOUNTER → 2022-06-25 08:45 | Outpatient (CLI) | payer MEDICARE, SELFPAY ==
[2022-06-25 19:57] LABS: Basophils # 0.1 K/mm3 (0-0.2); Basophils % 0.8 % (0.1-2.0); Eosinophils # 0.1 K/mm3 (0.0-0.4); Eosinophils % 0.8 % (0.1-12.0); Hematocrit 37.4 % (42.0-52.0); Hemoglobin 11.7 g/dL (14.1-18.0); Lymphocytes # 1.8 K/mm3 (0.7-4.5); Lymphocytes % 11.8 % (10-50); Mean Corpuscular HGB Conc 31.3 g/dL (31.8-35.4); Mean Corpuscular Hemoglobin 29.2 pg (27.0-31.2); Mean Corpuscular Volume 93.3 fl (80-94); Mean Platelet Volume 9.6 fl (7.4-10.4); Monocytes # 0.8 K/mm3 (0.1-1.0); Monocytes % 5.4 % (1.7-9.3); Neutrophils # 12.3 K/mm3 (1.8-7.8); Neutrophils % 81.3 % (37.0-80.0); Platelet Count 396 K/mm3 (142-424); Red Blood Count 4.01 M/mm3 (4.60-6.20); Red Cell Distribution Width 14.5 % (11.5-17.5); White Blood Count 15.1 K/mm3 (4.8-10.8)
[2022-06-25 20:01] LABS: MANUAL DIFFERENTIAL MANUAL DIFFERENTIAL (MANUAL DIFF)
[2022-06-25 20:05] LABS: Alanine Aminotransferase 13 U/L (12-78); Albumin Level 3.6 g/dl (3.5-5.0); Albumin/Globulin Ratio 1.1 (1.1-1.8); Alkaline Phosphatase 101 U/L (38-126); Anion Gap 14.8 mEq/L (5-15); Aspartate Amino Transferase 27 U/L (17-59); Bilirubin,Total 0.5 mg/dl (0.2-1.3); Blood Urea Nitrogen 38 mg/dl (9-20); Calcium 8.6 mg/dl (8.4-10.2); Carbon Dioxide 24 mmol/L (22.0-30.0); Chloride 97 mmol/L (98-107); Chol/HDL Ratio 3.3 (1-3.5); Cholesterol 155 mg/dl (140-200); Estimated Glomerular Filt Rate 24 ml/min (>60); GFR (African American) 30 ML/MIN (>60); Globulin 3.4 g/dL (1.3-3.2); Glucose 105 mg/dl (74-100); HDL Cholesterol 47 mg/dl (40-60); Potassium 4.8 mmoL/L (3.5-5.1); Sodium 131 mmol/L (136-145); Triglycerides 65 mg/dl (30-150); VLDL Cholesterol 13 mg/dL (0-40)
[2022-06-25 20:15] LABS: Direct LDL Cholesterol 78.43 mg/dL (100-129)
[2022-06-25 20:33] LABS: Thyroid Stimulating Hormone 2.65 uIU/mL (0.465-4.68)
[2022-06-25 21:47] LABS: Eosinophils % 2 % (0-3); Lymphocytes % 16 % (10-50); Monocytes % 4 % (2-9); Neutrophils % 78 % (42-76); Total Cells Counted 100
[2022-06-25 21:48] LABS: Burr Cells 1+; Platelet Estimate Normal
== END ==
PROVIDERS: PCP Family Medicine; Visit Provider Family Medicine
DX: E03.9 Hypothyroidism, unspecified (principal); E78.5 Hyperlipidemia, unspecified; Z00.00 Encounter for general adult medical examination without abnormal findings; I10 Essential (primary) hypertension
CPT/HCPCS: 80053; 80061; 84443; 85007; 85025

== ENCOUNTER → 2022-07-02 13:40 | Outpatient (CLI) | payer MEDICARE, SELFPAY ==
--- NOTE | 2022-07-02 | US_ITS ---
FINAL REPORT CLINICAL HISTORY: RT ed=1.0 RT TPI=0.67 Pulses and waveforms WNL-bilaterally. Lt ED=1.06 LT TPI=0.63 FINDINGS: ANKLE-BRACHIAL PRESSURE INDICES Pressure indices are as follows: RIGHT LOWER EXTREMITY: Ankle-brachial pressure index: 1.07 Comments: Normal LEFT LOWER EXTREMITY: Ankle-brachial pressure index: 1.09 Comments: Normal CONCLUSION: No evidence of significant obstructive peripheral vascular disease of the lower extremities Reviewed, Interpreted and Dictated by Clay Morales III, MD Transcribed by Carolyn Phelps Authenticated and [facility]
--- NOTE | 2022-07-02 13:46 | CT_ITS ---
FINAL REPORT TECHNIQUE: Axial CT images were performed from the lung apices through the upper abdomen. Coronal reformats were submitted. This study was performed with techniques to keep radiation doses as low as reasonably achievable (ALARA). Individualized dose reduction techniques using automated exposure control or adjustment of mA and/or kV according to the patient's size were employed. CLINICAL HISTORY: ascending aortic aneurysm f/u,ckr, no contrast due to labs COMPARISON: [id number] FINDINGS: There is no axillary adenopathy. There is no hilar or mediastinal mass or adenopathy. Heart size is normal. There is no pericardial or pleural effusion. There is ectasia of the abdominal aorta measuring 4 cm, stable. There is moderate coronary artery calcification. There is diffuse bronchial wall thickening, likely bronchitis. Mild atelectasis or scar is seen in the lung bases. There are multiple small pulmonary nodules which are stable. IMPRESSION: Stable ectasia of the abdominal aorta. Diffuse bronchial wall thickening, likely bronchitis. Multiple small pulmonary nodules, stable. Reviewed, Interpreted and Dictated by Clay Morales III, MD Transcribed by Pallavi Aguilar Authenticated and [facility]
--- NOTE | 2022-07-02 13:46 | CT_ITS ---
FINAL REPORT TECHNIQUE: Axial images through the abdomen and pelvis were performed without contrast. This study was performed with techniques to keep radiation doses as low as reasonably achievable, (ALARA). Individualized dose reduction techniques using automated exposure control or adjustment of mA and/or kV according to the patient's size were employed. CLINICAL HISTORY: AAA f/u, ckr, no contrast due to labs COMPARISON: 07/02/2021 FINDINGS: ABDOMEN: The heart size is normal. Limited images of the liver are unremarkable. The gallbladder is present. The spleen is normal. No adrenal mass is identified. There is a 4.1 cm infrarenal abdominal aortic aneurysm, stable. There is no significant free fluid or adenopathy. There is no nephrolithiasis. There is moderate bilateral hydronephrosis and hydroureter, partially improved. Moderate vascular calcification is identified. PELVIS: The appendix is not identified. There is diffuse bladder wall thickening, likely inflammatory. There is no significant free fluid or adenopathy. IMPRESSION: Stable infrarenal abdominal aortic aneurysm. Bilateral hydronephrosis and hydroureter, partially improved. Reviewed, Interpreted and Dictated by Clay Morales III, MD Transcribed by Pallavi Aguilar Authenticated and [facility]
== END ==
PROVIDERS: PCP Family Medicine; Visit Provider Family Medicine
DX: I71.21 Aneurysm of the ascending aorta, without rupture (principal); I70.213 Atherosclerosis of native arteries of extremities with intermittent claudication, bilateral legs
CPT/HCPCS: 71250; 74176; 93923

== ENCOUNTER → 2022-10-31 09:24 | Outpatient (CLI) | payer MEDICARE, SELFPAY ==
--- NOTE | 2022-10-31 09:28 | XR_ITS ---
FINAL REPORT CLINICAL HISTORY: low back pain COMPARISON: none FINDINGS: Three views of the lumbar spine were obtained. There is no prior exam for comparison. There is no acute fracture or malalignment. There is multilevel degenerative disc disease. There is large amount of retained stool. The paraspinal soft tissues are normal. IMPRESSION: Degenerative changes with no acute osseous abnormality of the lumbar spine. Large amount of retained stool. Reviewed, Interpreted and Dictated by Yesica Wright MD Transcribed by Keya Jiang Authenticated and [facility]
== END ==
LOC: RAD 09:25
PROVIDERS: PCP Family Medicine; Visit Provider Family Medicine
DX: M54.50 Low back pain, unspecified (principal)
CPT/HCPCS: 72100

== ENCOUNTER → 2022-12-01 23:29 | Outpatient (CLI) | payer MEDICARE, SELFPAY ==
[2022-12-01 16:52] LABS: Basophils # 0.2 K/mm3 (0-0.2); Chloride 96 mmol/L (98-107); Eosinophils # 0.5 K/mm3 (0.0-0.4); Eosinophils % 3.2 % (0.1-12.0); Hematocrit 38.3 % (42.0-52.0); Hemoglobin 12.5 g/dL (14.1-18.0); Lymphocytes # 1.4 K/mm3 (0.7-4.5); Lymphocytes % 9.2 % (10-50); Mean Corpuscular HGB Conc 32.8 g/dL (31.8-35.4); Mean Corpuscular Hemoglobin 30.2 pg (27.0-31.2); Mean Corpuscular Volume 92.1 fl (80-94); Mean Platelet Volume 8.5 fl (7.4-10.4); Monocytes # 0.7 K/mm3 (0.1-1.0); Monocytes % 4.9 % (1.7-9.3); Neutrophils # 12.1 K/mm3 (1.8-7.8); Neutrophils % 81.7 % (37.0-80.0); Platelet Count 216 K/mm3 (142-424); Red Blood Count 4.15 M/mm3 (4.60-6.20); Red Cell Distribution Width 14.1 % (11.5-17.5); Sodium 130 mmol/L (136-145); White Blood Count 14.8 K/mm3 (4.8-10.8)
[2022-12-01 16:53] LABS: Potassium 4.8 mmoL/L (3.5-5.1)
[2022-12-01 16:55] LABS: Blood Urea Nitrogen 36 mg/dl (9-20); Estimated Glomerular Filt Rate 26 ml/min (>60); GFR (African American) 31 ML/MIN (>60)
[2022-12-01 16:56] LABS: Anion Gap 12.8 mEq/L (5-15); Calcium 7.7 mg/dl (8.4-10.2); Carbon Dioxide 26 mmol/L (22.0-30.0); Glucose 103 mg/dl (74-100)
[2022-12-01 17:01] LABS: C-Reactive Protein 2.6 mg/L (0-4)
[2022-12-01 17:51] LABS: Erythrocyte Sedimentation Rate 19 mm/hr (0-20)
[2022-12-04 23:52] LABS: Antinuclear Antibodies (ANA) NEGATIVE
== END ==
PROVIDERS: PCP Family Medicine; Visit Provider Family Medicine
DX: M79.89 Other specified soft tissue disorders (principal)
CPT/HCPCS: 80048; 85025; 85651; 86038; 86140

== ENCOUNTER → 2023-01-27 16:25 | Outpatient (CLI) | payer MEDICARE, SELFPAY | PROVIDERS: PCP Family Medicine; Visit Provider Family Medicine | DX: R10.9 Unspecified abdominal pain (principal) | CPT/HCPCS: 87086 ==

== ENCOUNTER → 2023-01-28 14:12 | Outpatient (CLI) | payer MEDICARE, SELFPAY ==
--- NOTE | 2023-01-28 14:13 | CA_ITS ---
FINAL REPORT CLINICAL HISTORY: ACUTE discoloration of fingers today with resolve. No Pain, smoker COMPARISON: none FINDINGS: Spectral and Doppler waveform evaluations of the bilateral wrists were performed. Spectral analysis was performed. Waveforms are triphasic throughout the bilateral upper extremities without evidence of significant stenosis. IMPRESSION: No evidence of significant stenosis. If symptoms persist CTA may be helpful. Reviewed, Interpreted and Dictated by Clay Morales III, MD Transcribed by Keya Jiang Authenticated and [facility]
== END ==
LOC: RT 14:13
PROVIDERS: PCP Family Medicine; Visit Provider Family Medicine
DX: I73.9 Peripheral vascular disease, unspecified (principal)
CPT/HCPCS: 93930

== ENCOUNTER → 2023-03-18 09:05 | Outpatient (CLI) | payer MEDICARE, SELFPAY ==
[2023-03-18 17:24] LABS: Alanine Aminotransferase 14 U/L (12-78); Albumin Level 3.7 g/dl (3.5-5.0); Albumin/Globulin Ratio 1.2 (1.1-1.8); Alkaline Phosphatase 95 U/L (38-126); Anion Gap 19.3 mEq/L (5-15); Aspartate Amino Transferase 22 U/L (17-59); Bilirubin,Total 0.4 mg/dl (0.2-1.3); Blood Urea Nitrogen 36 mg/dl (9-20); Calcium 8.8 mg/dl (8.4-10.2); Carbon Dioxide 19 mmol/L (22.0-30.0); Chloride 100 mmol/L (98-107); Chol/HDL Ratio 3.8 (1-3.5); Cholesterol 152 mg/dl (140-200); Estimated Glomerular Filt Rate 23 ml/min (>60); GFR (African American) 28 ML/MIN (>60); Globulin 3.2 g/dL (1.3-3.2); Glucose 96 mg/dl (74-100); HDL Cholesterol 40 mg/dl (40-60); Potassium 5.3 mmoL/L (3.5-5.1); Sodium 133 mmol/L (136-145); Total Protein,Serum 6.9 g/dl (6.3-8.2); Triglycerides 108 mg/dl (30-150); VLDL Cholesterol 22 mg/dL (0-40)
[2023-03-18 17:30] LABS: Basophils # 0.1 K/mm3 (0-0.2); Basophils % 0.3 % (0.1-2.0); Eosinophils # 0.2 K/mm3 (0.0-0.4); Eosinophils % 0.8 % (0.1-12.0); Hematocrit 37.5 % (42.0-52.0); Hemoglobin 11.9 g/dL (14.1-18.0); Lymphocytes # 1.3 K/mm3 (0.7-4.5); Lymphocytes % 6.7 % (10-50); Mean Corpuscular HGB Conc 31.8 g/dL (31.8-35.4); Mean Corpuscular Hemoglobin 29.2 pg (27.0-31.2); Mean Corpuscular Volume 91.9 fl (80-94); Mean Platelet Volume 9.8 fl (7.4-10.4); Monocytes # 1.5 K/mm3 (0.1-1.0); Monocytes % 7.8 % (1.7-9.3); Neutrophils % 84.4 % (37.0-80.0); Platelet Count 322 K/mm3 (142-424); Red Blood Count 4.08 M/mm3 (4.60-6.20); Red Cell Distribution Width 15.3 % (11.5-17.5)
[2023-03-18 17:33] LABS: MANUAL DIFFERENTIAL MANUAL DIFFERENTIAL (MANUAL DIFF)
[2023-03-18 17:54] LABS: Thyroid Stimulating Hormone 1.06 uIU/mL (0.465-4.68)
[2023-03-18 18:17] LABS: Lymphocytes % 11 % (10-50); Monocytes % 8 % (2-9); Neutrophils % 81 % (42-76); Platelet Estimate Normal; RBC Morphology Normal; Total Cells Counted 100
[2023-03-21 15:51] LABS: Peripheral Smear Review Scanned Result
== END ==
PROVIDERS: PCP Family Medicine; Visit Provider Family Medicine
DX: L73.2 Hidradenitis suppurativa (principal); I50.22 Chronic systolic (congestive) heart failure; I25.10 Atherosclerotic heart disease of native coronary artery without angina pectoris
CPT/HCPCS: 80053; 80061; 84443; 85007; 85025

== ENCOUNTER → 2023-03-27 11:00 | Outpatient (CLI) | payer MEDICARE, SELFPAY | PROVIDERS: PCP Family Medicine; Visit Provider Family Medicine | DX: D72.829 Elevated white blood cell count, unspecified (principal) ==

== ENCOUNTER → 2023-03-27 16:26 | Outpatient (CLI) | payer MEDICARE, SELFPAY ==
[2023-03-27 16:18] LABS: Basophils # 0.1 K/mm3 (0-0.2); Basophils % 0.4 % (0.1-2.0); Eosinophils # 0.2 K/mm3 (0.0-0.4); Hematocrit 33.2 % (42.0-52.0); Hemoglobin 10.4 g/dL (14.1-18.0); Lymphocytes # 1.7 K/mm3 (0.7-4.5); Lymphocytes % 7.6 % (10-50); Mean Corpuscular HGB Conc 31.4 g/dL (31.8-35.4); Mean Corpuscular Hemoglobin 28.2 pg (27.0-31.2); Mean Platelet Volume 10.3 fl (7.4-10.4); Monocytes # 1.5 K/mm3 (0.1-1.0); Monocytes % 6.8 % (1.7-9.3); Neutrophils # 18.3 K/mm3 (1.8-7.8); Neutrophils % 84.2 % (37.0-80.0); Platelet Count 368 K/mm3 (142-424); Red Blood Count 3.69 M/mm3 (4.60-6.20); Red Cell Distribution Width 15.2 % (11.5-17.5); White Blood Count 21.8 K/mm3 (4.8-10.8)
[2023-03-27 16:26] LABS: MANUAL DIFFERENTIAL MANUAL DIFFERENTIAL (MANUAL DIFF)
[2023-03-27 16:38] LABS: Chloride 94 mmol/L (98-107); Potassium 5.1 mmoL/L (3.5-5.1); Sodium 125 mmol/L (136-145)
[2023-03-27 16:40] LABS: Blood Urea Nitrogen 44 mg/dl (9-20); Estimated Glomerular Filt Rate 23 ml/min (>60); GFR (African American) 28 ML/MIN (>60)
[2023-03-27 16:41] LABS: Alanine Aminotransferase 14 U/L (12-78); Albumin Level 3.3 g/dl (3.5-5.0); Albumin/Globulin Ratio 1.1 (1.1-1.8); Alkaline Phosphatase 84 U/L (38-126); Anion Gap 15.1 mEq/L (5-15); Aspartate Amino Transferase 21 U/L (17-59); Calcium 8.4 mg/dl (8.4-10.2); Carbon Dioxide 21 mmol/L (22.0-30.0); Glucose 87 mg/dl (74-100); Total Protein,Serum 6.3 g/dl (6.3-8.2)
[2023-03-27 16:44] LABS: Bilirubin,Total 0.1 mg/dl (0.2-1.3)
[2023-03-27 17:42] LABS: Eosinophils % 2 % (0-3); Lymphocytes % 16 % (10-50); Monocytes % 4 % (2-9); Neutrophils % 78 % (42-76); Total Cells Counted 100
[2023-03-27 17:43] LABS: Burr Cells 1+; Platelet Estimate Normal
== END ==
PROVIDERS: PCP Family Medicine; Visit Provider Family Medicine
DX: D72.829 Elevated white blood cell count, unspecified (principal); N18.9 Chronic kidney disease, unspecified
CPT/HCPCS: 80053; 85007; 85025

== ENCOUNTER 2023-03-31 09:28 | Observation (INO) | payer MEDICARE, SELFPAY ==
[2023-03-31] VITALS (15 sets, daily range): BP systolic 102–162; BP diastolic 58–77; PULSE 61–74; RESP 11–20; TEMP 36.5–36.8; O2SAT 96–100; BMI 20.9; BMI 21.2
--- NOTE | 2023-03-31 09:32 | PC.NURSE ---
pt ambulatory to ED room 5 without complications. Pt hooked up to monitor and Farnaz Mayo, RN at for traige
--- NOTE | 2023-03-31 09:35 | PC.NURSE ---
BIB SHEPHERD at
--- NOTE | 2023-03-31 09:36 | CT_ITS ---
FINAL REPORT TECHNIQUE: Thin section axial images were obtained from the lung apices through the upper abdomen without contrast. This study was performed with techniques to keep radiation doses as low as reasonably achievable (ALARA). Individualized dose reduction techniques using automated exposure control or adjustment of mA and/or kV according to the patient's size were employed. CLINICAL HISTORY: soa, increased wbc, hx smoking COMPARISON: 07/02/2022 FINDINGS: There is a stable 2.2 cm anterior mediastinal node present. There are trace bilateral pleural effusions, with no evidence of a pericardial effusion. The heart is enlarged. 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 There is a stable less than 5 mm in size right upper lobe nodule seen best on axial image #19. There is a subpleural right upper lobe nodule of 5 mm, seen best on image #40, also stable. There are new ground glass opacities noted in the right lower lobe, compatible with infection or inflammatory process. There is incomplete imaging of the upper abdomen, and intravenous contrast was not administered secondary to the patient's low GFR. Bilateral hydronephrosis is present. There is a large amount of stool noted in the colon. There is no acute osseous abnormality. IMPRESSION: Stable subcentimeter nodules as described above. New ground glass opacity in the right lower lobe, may represent pneumonia. Incomplete imaging of the upper abdomen, but bilateral hydronephrosis is present. There is also a large amount of stool present in the colon. Reviewed, Interpreted and Dictated by Yesica Wright MD Transcribed by Celia Saha Authenticated and [facility]
--- NOTE | 2023-03-31 09:36 | XR_ITS ---
FINAL REPORT CLINICAL HISTORY: soa COMPARISON: 07/02/2021 FINDINGS: A portable view of the chest was obtained. Cardiac and mediastinal silhouettes are within normal limits. The lungs are clear. There is no pleural effusion or pneumothorax. IMPRESSION: No acute process on this portable exam. Reviewed, Interpreted and Dictated by Yesica Wright MD Transcribed by Aldo Martinez Authenticated and [facility]
--- NOTE | 2023-03-31 09:41 | ECG_ITS ---
APPROVED REPORT Exam: Resting ECG HR:60 bpm ECG Measurements Heart Rate 60 AXES QRSd 114 QRS 31 QT 434 T 156 QTc 434 Conclusion Junctional rhythm MODERATE INTRAVENTRICULAR CONDUCTION DELAY [110+ ms QRS DURATION] Poor r wave progression NONSPECIFIC T-WAVE ABNORMALITY ABNORMAL ECG UNCONFIRMED REPORT Electronically signed by : Emir Almodovar MD 04/01/2023 21:22:22
--- NOTE | 2023-03-31 09:48 | PC.NURSE ---
respiratory aware of green top in lab
[2023-03-31 09:55] LABS: VBG Base Excess -7.5 mmol/L (-2.4-2.3); VBG HCO3 19.4 mmol/L (23-30); VBG Oxygen Saturation 62.6 % (50-70); VBG PCO2 42.9 mmol/L (35-51); VBG PH 7.27 mmol/L (7.31-7.41); VBG PO2 32.5 mmol/L (28-40); VBG Total CO2 20.7 mmol/L (23-27)
[2023-03-31 09:59] LABS: Basophils # 0.1 K/mm3 (0-0.2); Basophils % 0.4 % (0.1-2.0); Eosinophils # 0.1 K/mm3 (0.0-0.4); Eosinophils % 0.5 % (0.1-12.0); Hematocrit 35.9 % (42.0-52.0); Hemoglobin 11.3 g/dL (14.1-18.0); Lymphocytes # 1.4 K/mm3 (0.7-4.5); Lymphocytes % 6.2 % (10-50); Mean Corpuscular HGB Conc 31.6 g/dL (31.8-35.4); Mean Corpuscular Hemoglobin 28.6 pg (27.0-31.2); Mean Corpuscular Volume 90.5 fl (80-94); Mean Platelet Volume 8.1 fl (7.4-10.4); Monocytes % 4.4 % (1.7-9.3); Neutrophils # 20.3 K/mm3 (1.8-7.8); Neutrophils % 88.5 % (37.0-80.0); Platelet Count 343 K/mm3 (142-424); Red Blood Count 3.96 M/mm3 (4.60-6.20); Red Cell Distribution Width 15.2 % (11.5-17.5)
[2023-03-31 10:00] LABS: MANUAL DIFFERENTIAL MANUAL DIFFERENTIAL (MANUAL DIFF)
[2023-03-31 10:14] LABS: Alanine Aminotransferase 17 U/L (12-78); Albumin Level 3.7 g/dl (3.5-5.0); Albumin/Globulin Ratio 1.1 (1.1-1.8); Alkaline Phosphatase 89 U/L (38-126); Anion Gap 12.5 mEq/L (5-15); Aspartate Amino Transferase 22 U/L (17-59); Bilirubin,Total 0.2 mg/dl (0.2-1.3); Blood Urea Nitrogen 32 mg/dl (9-20); Calcium 8.4 mg/dl (8.4-10.2); Carbon Dioxide 24 mmol/L (22.0-30.0); Chloride 97 mmol/L (98-107); Creatinine Clearance Estimated 25 mL/min (50-200); Estimated Glomerular Filt Rate 24 ml/min (>60); GFR (African American) 30 ML/MIN (>60); Globulin 3.4 g/dL (1.3-3.2); Glucose 99 mg/dl (74-100); Potassium 4.5 mmoL/L (3.5-5.1); Sodium 129 mmol/L (136-145); Total Protein,Serum 7.1 g/dl (6.3-8.2)
[2023-03-31 10:15] LABS: Lymphocytes % 7 % (10-50); Monocytes % 2 % (2-9); Neutrophils % 91 % (42-76); Platelet Estimate Normal; RBC Morphology Normal; Total Cells Counted 100
--- NOTE | 2023-03-31 10:19 | PC.NURSE ---
pt given a warm blanket. No other needs at this time. Call kendall within reach
--- NOTE | 2023-03-31 10:19 | PC.NURSE ---
per radiology pt GFR is 24, unable to perform scan order with contrast, MD aware, change order to do without contrast.
[2023-03-31 10:26] LABS: NT Pro Brain Natriuretic Pep. 2600 pg/mL (0-125)
[2023-03-31 10:27] LABS: Troponin I < 0.01 ng/ml (0.00-0.034)
--- NOTE | 2023-03-31 10:33 | PC.NURSE ---
BIB SHEPHERD at for update on POC
--- NOTE | 2023-03-31 10:40 | HMH.EDGENADL ---
Discharge Plan Disposition Chief Complaint: Shortness of Breath/Dyspnea Discharge ED Provider: Nelia Ellis Adult HPI General Chief complaint: Shortness of Breath/Dyspnea Stated complaint: follow up on blood work Time Seen by Provider: 03/31/23 09:32 Mode of Arrival: Ambulatory Source of Information: Patient Limitations: No Limitations Description of Symptoms (Recalled from ER Triage Doc. by RN): c/o change in Na and WBC at MD office. PER PCP pt had labs on 03/18 and 03/27 with a NA change of 133-125 and WBC 19-21.8, pt states that he has been feeling weak and soa and chest pains at times, denies any coughing, fever at this time. History of Present Illness HPI narrative: This 72-year-old male with a history of COPD, CKD, CAD with multiple stents, CHF, abdominal aortic aneurysm presents to the emergency department with concerns of shortness of breath, intermittent chest pain. He also has concerns from his PCP of sodium changes and elevated white count. Reportedly per his PCP he had labs on 03/18 and 03/27. His sodium went from 133-125 in that time and his WBC went from 19-21.8. Patient reports feeling of generalized fatigue, however no fevers. Patient does not have any chest pain at rest. He describes intermittent, random chest pain with exertion. He states he has COPD and is currently out of his red inhaler which we believed to be albuterol. He states he is taking his other medications as prescribed. Related Data Home Medications Medication Instructions Recorded Confirmed aspirin 81 mg tablet,delayed 81 mg PO DAILY Blood thinner 05/25/19 03/31/23 release ascorbate calcium (vitamin C) 500 500 mg PO DAILY . 03/27/22 03/31/23 mg tablet docusate sodium 50 mg capsule 100 mg PO DAILY . 03/27/22 03/31/23 tamsulosin 0.4 mg capsule 0.4 mg PO DAILY . 03/27/22 03/31/23 budesonide-formoterol HFA 160 1 puff inhalation BID . 11/27/22 03/31/23 mcg-4.5 mcg/actuation aerosol inhaler diclofenac sodium 25 mg 25 mg PO TID PRN Pain 03/31/23 03/31/23 tablet,delayed release fluticasone furoate 200 1 inh inhalation DAILY . 03/31/23 03/31/23 mcg-vilanterol 25 mcg/dose inhalation powder (Breo Ellipta) levothyroxine 50 mcg tablet 50 mcg PO DAILY Thyroid 03/31/23 03/31/23 lovastatin 20 mg tablet 20 mg PO HS Cholesterol 03/31/23 03/31/23 metoprolol succinate 25 mg 25 mg PO DAILY Blood Pressure 03/31/23 03/31/23 tablet,extended release 24 hr omeprazole 40 mg capsule,delayed 40 mg PO DAILY Acid Reflux 03/31/23 03/31/23 release oxybutynin chloride 10 mg 10 mg PO DAILY Bladder 03/31/23 03/31/23 tablet,extended release 24 hr pregabalin 25 mg capsule (Lyrica) 25 mg PO BID Pain 03/31/23 03/31/23 Previous Rx's Medication Instructions Recorded finasteride 5 mg tablet 5 mg PO DAILY PROSTATE 90 days #90 09/11/22 tabs ipratropium 20 mcg-albuterol 100 2 puff inhalation BID UNKNOWN 30 01/12/23 mcg/actuation mist for inhalation days #4 grams tizanidine 2 mg capsule (Zanaflex) 2 mg PO TID PRN muscle pain 30 02/19/23 days #90 caps Allergies Allergy/AdvReac Type Severity Reaction Status Date / Time No Known Allergies Allergy Verified 03/18/23 08:19 [facility] Disclaimer: The information contained in this section may have been updated after the patient was seen, as this information can be updated by other users. Medical History Abdominal aortic aneurysm (AAA) Abnormal electrocardiography Aortic insufficiency Bladder outlet obstruction Chronic kidney disease COPD (chronic obstructive pulmonary disease) with acute bronchitis Coronary artery disease Medical mgt JUN 2021 Elevated troponin Hidradenitis suppurativa Hidradenitis alone bilateral buttock and upper thigh region. Abscessed hidradenitis along mid left buttock. History of inguinal hernia Hypotension Mitral regurgitation PAD (peripheral artery disease) Pancreatitis Personal history of nicotine dependence
[2023-03-31 10:52] LABS: Microscopic, Urine URINE MICROSCOPIC (MICROSCOPIC)
[2023-03-31 10:55] LABS: Appearance,Urine SL CLOUDY (Clear); Bilirubin,Urine Negative (Negative); Blood, Urine 1+ (Negative); Color,Urine YELLOW (Yellow); Glucose,Urine (UA) Negative (Negative); Ketones,Urine Negative (Negative); Leukocyte Esterase,Urine 3+ (Negative); Nitrate,Urine POSITIVE (Negative); Protein,Urine 1+ (Negative); Urobilinogen,Urine 0.2 EU/dl (0.2)
[2023-03-31 10:57] LABS: Lactic Acid 0.8 mmol/L (0.7-2.1)
[2023-03-31 11:06] LABS: WBC,Urine TNTC #/hpf (0-3)
[2023-03-31 11:07] LABS: Squamous Epithelial Cell,Urine Occasional #/hpf (0-5)
--- NOTE | 2023-03-31 11:25 | PC.NURSE ---
Rounded on patient; no needs at this time. Family at BS and call kendall within reach
[2023-03-31 11:45] LABS: Coronavirus 19, PCR Not Detected (NotDetected); Influenza A, PCR Not Detected (NotDetected); Influenza B, PCR Not Detected (NotDetected)
--- NOTE | 2023-03-31 12:22 | PC.NURSE ---
DR SMITH SPEAKING WITH HOSPITALIST FOR ADMISSION
--- NOTE | 2023-03-31 12:26 | PC.NURSE ---
CARE MANAGEMENT NOTIFIED OF ADMISSION
--- NOTE | 2023-03-31 13:32 | PC.NURSE ---
Rounded on patient; no needs at this time. Awaiting to be transferred to 2nd floor for hospital stay. Call light within reach
[2023-03-31 13:42] LABS: Troponin I < 0.01 ng/ml (0.00-0.034)
--- NOTE | 2023-03-31 14:12 | PC.NURSE ---
CALLED REPORT TO MARIA DEL CARMEN CASTELLANO.
--- NOTE | 2023-03-31 14:51 | HMH.PHAINT1 ---
Pharmacy Intervention Comments: Patient's home medications reviewed and verified with external pharmacy and patient. -Ge Melo, Pharm Student
--- NOTE | 2023-03-31 16:20 | EXP.HP ---
History of Present Illness *Admission Date: 03/31/23 *History of present illness: Mr. Ryder is a 72 year old male with a past medical history of CAD, HFpEF, AAA, PAD, stage 4 CKD, htn, hld, BPH, bladder outlet obstruction (self catheterizes QID), COPD, active cigarette smoker (1ppd x 50 years), hydradenitis suppurativa, and hypothyroidism. He presented to the ED because his PCP had instructed him because of a CXR concerning for pneumonia. CT Chest obtained in the ER reveals RLL pneumonia. He denies any new symptoms. No new cough, fever or shortness of breath. No recent hospitalization. He hasn't recently taken any antibiotics. Initial vitals: BP 128/65- P 61 - RR18 - T 97.8 F - SpO2 100% RA Initial workup: CBC with 23k WBCs, hgb 11.3 vbg ph 7.27 pco2 42 cmp with na 129, cr 2.6 (baseline cr ~2.6) troponin <0.01 - <0.01 ProBNP 2600 UA TNTC wbcs covid/flu pcr studies are negative Chest ct: Stable subcentimeter nodules as described above. New ground glass opacity in the right lower lobe, may represent pneumonia. Incomplete imaging of the upper abdomen, but bilateral hydronephrosis is present. There is also a large amount of stool present in the colon. urine and blood cultures were collected ekg possible afib [facility] Disclaimer: The information contained in this section may have been updated after the patient was seen, as this information can be updated by other users. Medical History Abdominal aortic aneurysm (AAA) Abnormal electrocardiography Aortic insufficiency Bladder outlet obstruction Chronic kidney disease COPD (chronic obstructive pulmonary disease) with acute bronchitis Coronary artery disease Medical mgt JUN 2021 Elevated troponin Hidradenitis suppurativa Hidradenitis alone bilateral buttock and upper thigh region. Abscessed hidradenitis along mid left buttock. History of inguinal hernia Hypotension Mitral regurgitation PAD (peripheral artery disease) Pancreatitis Personal history of nicotine dependence Systolic CHF, chronic Surgical History No significant past surgical history Family History (Updated 03/31/23 @ 14:35 by Katie Jackson RN) Other No significant family history Social History (Updated 03/31/23 @ 14:35 by Katie Jackson RN) Smoking Status: Current every day smoker tobacco type: cigarettes packs per day: 1 second hand exposure: No alcohol intake: never substance use type: denies use current occupational status: retired Travel in the last 8 weeks: None household members: spouse housing: house current occupational exposures/hazards: No caffeine: No Review of Systems Review of Systems Review of systems:: pertinent systems reviewed and negative unless documented below Constitutional Constitutional: Denies headache(s) and Reports weakness (Generalized) ENT Ears, Nose, Mouth, and Throat: Denies dizziness and Denies headache(s) *Musculoskeletal Musculoskeletal: Denies numbness and Denies tingling *Neurologic Neurologic: Denies dizziness, Denies headache(s), Denies numbness, Denies tingling and Reports weakness (Generalized) Meds Home Medications and Allergies Home Medications Medication Instructions Recorded Confirmed Type aspirin 81 mg tablet,delayed 81 mg PO DAILY Heart Health 05/25/19 03/31/23 History release ascorbate calcium (vitamin C) 500 500 mg PO DAILY Supplement 03/27/22 03/31/23 History mg tablet docusate sodium 50 mg capsule 100 mg PO DAILY Constipation 03/27/22 03/31/23 History tamsulosin 0.4 mg capsule 0.4 mg PO DAILY Bladder 03/27/22 03/31/23 History finasteride 5 mg tablet 5 mg PO DAILY PROSTATE 90 days #90 09/11/22 03/31/23 Rx tabs tizanidine 2 mg capsule (Zanaflex) 2 mg PO TID PRN muscle pain 30 02/19/23 03/31/23 Rx days #90 caps diclofenac sodium 25 mg 25 mg PO TID PRN Pain 03/31/23 03/31/23 History tabl
[2023-03-31 16:24] LABS: Troponin I < 0.01 ng/ml (0.00-0.034)
--- NOTE | 2023-03-31 19:43 | ECG_ITS ---
APPROVED REPORT Exam: Resting ECG HR:71 bpm ECG Measurements Heart Rate 71 AXES OH 194 P 98 QRSd 114 QRS 40 QT 397 T 86 QTc 420 Conclusion SINUS RHYTHM PROBABLE INFERIOR MYOCARDIAL INFARCTION , PROBABLY OLD [35 ms Q WAVE IN II/aVF] ABNORMAL ECG UNCONFIRMED REPORT Electronically signed by : Emir Almodovar MD 04/01/2023 21:18:29
[2023-04-01 04:00] VITALS: BP 99/66; PULSE 70; RESP 18; TEMP 36.7; O2SAT 97; BMI 20.5
[2023-04-01 06:47] LABS: Basophils # 0.1 K/mm3 (0-0.2); Basophils % 0.4 % (0.1-2.0); Eosinophils # 0.1 K/mm3 (0.0-0.4); Eosinophils % 0.8 % (0.1-12.0); Hematocrit 34.5 % (42.0-52.0); Hemoglobin 10.7 g/dL (14.1-18.0); Lymphocytes % 11.9 % (10-50); Mean Corpuscular HGB Conc 30.9 g/dL (31.8-35.4); Mean Corpuscular Volume 90.5 fl (80-94); Mean Platelet Volume 8.2 fl (7.4-10.4); Monocytes # 1.1 K/mm3 (0.1-1.0); Monocytes % 6.6 % (1.7-9.3); Neutrophils # 13.3 K/mm3 (1.8-7.8); Neutrophils % 80.2 % (37.0-80.0); Platelet Count 359 K/mm3 (142-424); Red Blood Count 3.81 M/mm3 (4.60-6.20); Red Cell Distribution Width 15.1 % (11.5-17.5); White Blood Count 16.6 K/mm3 (4.8-10.8)
[2023-04-01 06:49] LABS: MANUAL DIFFERENTIAL MANUAL DIFFERENTIAL (MANUAL DIFF)
[2023-04-01 07:00] LABS: Blood Urea Nitrogen 40 mg/dl (9-20); Calcium 8.7 mg/dl (8.4-10.2); Carbon Dioxide 24 mmol/L (22.0-30.0); Chloride 103 mmol/L (98-107); Creatinine Clearance Estimated 23 mL/min (50-200); Estimated Glomerular Filt Rate 22 ml/min (>60); GFR (African American) 27 ML/MIN (>60); Glucose 98 mg/dl (74-100); Sodium 135 mmol/L (136-145)
[2023-04-01 07:10] VITALS: BP 119/71; PULSE 71; RESP 16; TEMP 37.1; O2SAT 97
[2023-04-01 07:18] LABS: Lymphocytes % 4 % (10-50); Monocytes % 2 % (2-9); Neutrophils % 94 % (42-76); Platelet Estimate Normal; RBC Morphology Normal; Total Cells Counted 100
[2023-04-01 10:45] VITALS: BP 134/72; PULSE 66; RESP 16; TEMP 36.8; O2SAT 96
--- NOTE | 2023-04-01 11:24 | PC.NURSE ---
courtesy tech round: pt states he does not want a bath with hopes of going home. he also states that is he doesn't go home then he will take one. staff will ask about bathing again in a few hours. family is at BS and pt is resting sitting up in the bed.
--- NOTE | 2023-04-01 11:56 | EXP.DC.SUM ---
General Admission date:: 03/31/23 Discharge date: 04/01/23 HPI HPI HPI: Mr. Ryder is a 72 year old male with a past medical history of CAD, HFpEF, AAA, PAD, stage 4 CKD, htn, hld, BPH, bladder outlet obstruction (self catheterizes QID), COPD, active cigarette smoker (1ppd x 50 years), hydradenitis suppurativa, and hypothyroidism. He presented to the ED because his PCP had instructed him because of a CXR concerning for pneumonia. CT Chest obtained in the ER reveals RLL pneumonia. He denies any new symptoms. No new cough, fever or shortness of breath. No recent hospitalization. He hasn't recently taken any antibiotics. Initial vitals: BP 128/65- P 61 - RR18 - T 97.8 F - SpO2 100% RA Initial workup: CBC with 23k WBCs, hgb 11.3 vbg ph 7.27 pco2 42 cmp with na 129, cr 2.6 (baseline cr ~2.6) troponin <0.01 - <0.01 ProBNP 2600 UA TNTC wbcs covid/flu pcr studies are negative Chest ct: Stable subcentimeter nodules as described above. New ground glass opacity in the right lower lobe, may represent pneumonia. Incomplete imaging of the upper abdomen, but bilateral hydronephrosis is present. There is also a large amount of stool present in the colon. urine and blood cultures were collected ekg possible afib Hospital Course Hospital Course Hospital Course: #acute right lower lobe pneumonia #asymptomatic pyuria #pulmonary nodules, stable #leukocytosis #hyponatremia #hypothyroidism #cigarette nicotine dependence The patient received azithromycin and Rocephin x 2 days. wbc count decreased from 23K to 16k, na increased from 129 to 135. On day of discharge the patient did not have any complaints. He did not develop any worsening shortness of breath or cough. He will need to take 3 more days of azithromycin to complete a 5 day course; and will need to take 5 days of augmentin (renally dosed) starting tomorrow. He will need to f/u with his pcp in 1 week. Exam Data for Last 24 hours Vital signs and Labs for Last 24 Hours: Temp Pulse Resp BP Pulse Ox O2 Del Method 98.3 F 66 16 134/72 96 Room Air 04/01/23 10:45 04/01/23 10:45 04/01/23 10:45 04/01/23 10:45 04/01/23 10:45 04/01/23 11:00 Laboratory Results - last 24 hr 03/31/23 12:49: Troponin I < 0.01 03/31/23 15:43: Troponin I < 0.01 04/01/23 05:39: WBC 16.6 H D, RBC 3.81 L, Hgb 10.7 L, Hct 34.5 L, MCV 90.5, MCH 28.0, MCHC 30.9 L, RDW 15.1, Plt Count 359, MPV 8.2, Neut % (Auto) 80.2 H, Lymph % (Auto) 11.9, [place] % (Auto) 6.6, Eos % (Auto) 0.8, Baso % (Auto) 0.4, Neut # (Auto) 13.3 H, Lymph # (Auto) 2.0, [place] # (Auto) 1.1 H, Eos # (Auto) 0.1, Baso # (Auto) 0.1, Total Counted 100, Neutrophils % (Manual) 94 H, Lymphocytes % (Manual) 4 L, Monocytes % (Manual) 2, Platelet Estimate Normal, RBC Morphology Normal, Sodium 135 L, Potassium 5.0, Chloride 103, Carbon Dioxide 24, Anion Gap 13.0, BUN 40 H, Creatinine 2.80 H, Estimated Creat Clear 23, Estimated GFR 22 L, Est GFR ( Amer) 27 L, Glucose 98, Calcium 8.7 I & O for Last 24 hours: Intake & Output 03/29/23 03/30/23 03/31/23 04/01/23 23:59 23:59 23:59 23:59 Intake Total 240 / 240 240 / 240 Output Total 0 / 0 0 / 0 Balance 240 / 240 240 / 240 Weight 70.789 kg 68.634 kg Microbiology Reports for the Last 24 Hours: Microbiology 03/31/23 10:49 Urine,Catheterized Urine Culture - Preliminary NO GROWTH AFTER 24 HOURS 03/31/23 10:49 Urine,Catheterized Urine Culture - Preliminary NO GROWTH AFTER 24 HOURS Constitutional Constitutional: no acute distress *Routine HEENT Exam Head: Present normocephalic Eye: Present EOMI and PERRL ENT: Present mucous membranes moist *Routine Neck Exam Neck: Present supple; Absent lymphadenopathy *Routine Respiratory Exam Respiratory: Present CTA bilaterally *Routine Cardiovascular Exam Cardiovascular: Present RRR *Routine Abdominal Exam Abdominal: Present soft and normoactive bowel sounds; Absent te
--- NOTE | 2023-04-01 12:13 | HMH.PHAINT1 ---
Pharmacy Intervention Comments: Patient home discharge medications discussed and reviewed with patient and patient's : - Augmentin (Antibiotic, take until completion, may cause GI upset) - Azithromycin (Antibiotic, take until completion, may cause GI upset) Patient had no further questions. -Ge Melo, Pharm Student
--- NOTE | 2023-04-03 14:26 | CARE MANAGER ---
Attempted to contact patient x2 related to hospital discharge. No VM option. GRAY Hendrix
== END 2023-04-01 12:45 | disposition home or self-care (01) ==
LOC: ER 09:47 → 2ND 12:53
PROVIDERS: Admitting Provider Internal Medicine; Emergency Provider Emergency Medicine; PCP Family Medicine; Visit Provider Internal Medicine
DX: J18.9 Pneumonia, unspecified organism (principal); E03.9 Hypothyroidism, unspecified; N32.0 Bladder-neck obstruction; J44.0 Chronic obstructive pulmonary disease with (acute) lower respiratory infection; J20.9 Acute bronchitis, unspecified; N18.4 Chronic kidney disease, stage 4 (severe); I25.118 Atherosclerotic heart disease of native coronary artery with other forms of angina pectoris; Z79.899 Other long term (current) drug therapy; F17.210 Nicotine dependence, cigarettes, uncomplicated; I70.213 Atherosclerosis of native arteries of extremities with intermittent claudication, bilateral legs; R06.9 Unspecified abnormalities of breathing
CPT/HCPCS: G0378; 36415; 71045; 71250; 80048; 80053; 81001; 82803; 83605; 83880; 84484; 85007; 85025; 87040; 87086; 87636; 93005; 94640; 99285; J0696

== ENCOUNTER → 2023-04-08 23:23 | Outpatient (CLI) | payer MEDICARE, SELFPAY ==
[2023-04-08 18:38] LABS: Basophils # 0.1 K/mm3 (0-0.2); Basophils % 0.3 % (0.1-2.0); Eosinophils # 0.1 K/mm3 (0.0-0.4); Eosinophils % 0.7 % (0.1-12.0); Hematocrit 32.8 % (42.0-52.0); Hemoglobin 10.2 g/dL (14.1-18.0); Lymphocytes % 13.5 % (10-50); Mean Corpuscular HGB Conc 31.1 g/dL (31.8-35.4); Mean Corpuscular Hemoglobin 28.5 pg (27.0-31.2); Mean Corpuscular Volume 91.5 fl (80-94); Mean Platelet Volume 9.7 fl (7.4-10.4); Monocytes # 0.6 K/mm3 (0.1-1.0); Monocytes % 4.2 % (1.7-9.3); Neutrophils # 12.2 K/mm3 (1.8-7.8); Neutrophils % 81.4 % (37.0-80.0); Platelet Count 294 K/mm3 (142-424); Red Blood Count 3.58 M/mm3 (4.60-6.20); Red Cell Distribution Width 15.6 % (11.5-17.5)
[2023-04-08 19:05] LABS: White Blood Count 14.9 K/mm3 (4.8-10.8)
[2023-04-08 19:08] LABS: NT Pro Brain Natriuretic Pep. 2910 pg/mL (0-125)
== END ==
PROVIDERS: PCP Family Medicine; Visit Provider Family Medicine
DX: I50.22 Chronic systolic (congestive) heart failure (principal); I25.10 Atherosclerotic heart disease of native coronary artery without angina pectoris; L73.2 Hidradenitis suppurativa; R79.89 Other specified abnormal findings of blood chemistry
CPT/HCPCS: 83880; 85025

== ENCOUNTER → 2023-04-15 18:35 | Outpatient (CLI) | payer MEDICARE, SELFPAY ==
[2023-04-15 18:59] LABS: Chloride 94 mmol/L (98-107); Sodium 127 mmol/L (136-145)
[2023-04-15 19:00] LABS: Basophils # 0.1 K/mm3 (0-0.2); Basophils % 0.4 % (0.1-2.0); Eosinophils # 0.2 K/mm3 (0.0-0.4); Eosinophils % 1.3 % (0.1-12.0); Hematocrit 35.1 % (42.0-52.0); Hemoglobin 10.9 g/dL (14.1-18.0); Lymphocytes # 1.6 K/mm3 (0.7-4.5); Lymphocytes % 9.1 % (10-50); Mean Corpuscular HGB Conc 31.1 g/dL (31.8-35.4); Mean Corpuscular Hemoglobin 28.4 pg (27.0-31.2); Mean Corpuscular Volume 91.3 fl (80-94); Mean Platelet Volume 10.4 fl (7.4-10.4); Monocytes # 1.1 K/mm3 (0.1-1.0); Monocytes % 6.4 % (1.7-9.3); Neutrophils # 14.6 K/mm3 (1.8-7.8); Neutrophils % 82.8 % (37.0-80.0); Platelet Count 301 K/mm3 (142-424); Potassium 4.9 mmoL/L (3.5-5.1); Red Blood Count 3.84 M/mm3 (4.60-6.20); White Blood Count 17.7 K/mm3 (4.8-10.8)
[2023-04-15 19:02] LABS: Blood Urea Nitrogen 32 mg/dl (9-20); Estimated Glomerular Filt Rate 24 ml/min (>60); GFR (African American) 30 ML/MIN (>60)
[2023-04-15 19:03] LABS: Anion Gap 15.9 mEq/L (5-15); Calcium 8.6 mg/dl (8.4-10.2); Carbon Dioxide 22 mmol/L (22.0-30.0); Glucose 85 mg/dl (74-100)
[2023-04-15 19:09] LABS: MANUAL DIFFERENTIAL MANUAL DIFFERENTIAL (MANUAL DIFF)
[2023-04-15 19:12] LABS: NT Pro Brain Natriuretic Pep. 4570 pg/mL (0-125)
[2023-04-15 20:21] LABS: Eosinophils % 1 % (0-3); Lymphocytes % 16 % (10-50); Monocytes % 4 % (2-9); Neutrophils % 79 % (42-76); Total Cells Counted 100
[2023-04-15 20:22] LABS: Platelet Estimate Normal; RBC Morphology Normal
== END ==
PROVIDERS: PCP Family Medicine; Visit Provider Family Medicine
DX: I73.9 Peripheral vascular disease, unspecified (principal); I25.118 Atherosclerotic heart disease of native coronary artery with other forms of angina pectoris; I50.22 Chronic systolic (congestive) heart failure; R06.09 Other forms of dyspnea
CPT/HCPCS: 80048; 83880; 85007; 85025

== ENCOUNTER → 2023-04-20 17:20 | Outpatient (CLI) | payer MEDICARE, SELFPAY ==
[2023-04-20 16:39] LABS: Basophils # 0.1 K/mm3 (0-0.2); Basophils % 0.4 % (0.1-2.0); Eosinophils # 0.2 K/mm3 (0.0-0.4); Eosinophils % 1.1 % (0.1-12.0); Hematocrit 35.5 % (42.0-52.0); Hemoglobin 11.1 g/dL (14.1-18.0); Lymphocytes # 2.1 K/mm3 (0.7-4.5); Lymphocytes % 11.8 % (10-50); MANUAL DIFFERENTIAL MANUAL DIFFERENTIAL (MANUAL DIFF); Mean Corpuscular HGB Conc 31.3 g/dL (31.8-35.4); Mean Corpuscular Hemoglobin 28.8 pg (27.0-31.2); Mean Platelet Volume 10.1 fl (7.4-10.4); Monocytes # 1.3 K/mm3 (0.1-1.0); Monocytes % 7.3 % (1.7-9.3); Neutrophils # 14.1 K/mm3 (1.8-7.8); Neutrophils % 79.3 % (37.0-80.0); Platelet Count 310 K/mm3 (142-424); Red Blood Count 3.85 M/mm3 (4.60-6.20); Red Cell Distribution Width 15.9 % (11.5-17.5); White Blood Count 17.8 K/mm3 (4.8-10.8)
[2023-04-20 16:46] LABS: Anion Gap 12.5 mEq/L (5-15); Blood Urea Nitrogen 29 mg/dl (9-20); Calcium 8.7 mg/dl (8.4-10.2); Carbon Dioxide 22 mmol/L (22.0-30.0); Chloride 101 mmol/L (98-107); Estimated Glomerular Filt Rate 24 ml/min (>60); GFR (African American) 30 ML/MIN (>60); Glucose 101 mg/dl (74-100); Potassium 5.5 mmoL/L (3.5-5.1); Sodium 130 mmol/L (136-145)
[2023-04-20 16:52] LABS: NT Pro Brain Natriuretic Pep. 4340 pg/mL (0-125)
[2023-04-20 17:28] LABS: Lymphocytes % 23 % (10-50); Monocytes % 2 % (2-9); Neutrophils % 75 % (42-76); Platelet Estimate Normal; RBC Morphology Normal; Total Cells Counted 100
== END ==
PROVIDERS: PCP Family Medicine; Visit Provider Family Medicine
DX: I25.118 Atherosclerotic heart disease of native coronary artery with other forms of angina pectoris (principal); I50.22 Chronic systolic (congestive) heart failure
CPT/HCPCS: 80048; 83880; 85007; 85025

== ENCOUNTER → 2023-05-07 09:20 | Outpatient (CLI) | payer MEDICARE, SELFPAY ==
--- NOTE | 2023-05-07 09:24 | XR_ITS ---
FINAL REPORT CLINICAL HISTORY: bilateral leg pains, mainly right leg COMPARISON: 10/31/2022 FINDINGS: LUMBOSACRAL SPINE SERIES Five views of the lumbosacral spine were obtained. There is no fracture present. There is no malalignment. Vertebrae are normal in height. There is mild anterior osteophyte formation at L1-2 and L2-3. There is mild lumbar scoliosis convex to the right measuring about 15 degrees. IMPRESSION: Degenerative changes without acute process. Reviewed, Interpreted and Dictated by Jordan Van MD Transcribed by Keya Jiang Authenticated and [facility]
== END ==
LOC: RAD 09:22
PROVIDERS: PCP Family Medicine; Visit Provider Family Medicine
DX: M54.50 Low back pain, unspecified (principal); M79.604 Pain in right leg; M79.605 Pain in left leg
CPT/HCPCS: 72110

== ENCOUNTER → 2023-05-25 23:35 | Outpatient (CLI) | payer MEDICARE, SELFPAY | PROVIDERS: PCP Family Medicine; Visit Provider Family Medicine | DX: L73.2 Hidradenitis suppurativa (principal); R82.90 Unspecified abnormal findings in urine | CPT/HCPCS: 87086 ==

== ENCOUNTER 2023-10-08 08:45 | Outpatient (CLI) | payer MEDICARE, SELFPAY ==
--- NOTE | 2023-10-08 08:49 | XR_ITS ---
FINAL REPORT TECHNIQUE: Chest PA & Lateral CLINICAL HISTORY: sternal pain x 3 days Shortness of breath smoker x 52 yrs COMPARISON: 03/31/2023 FINDINGS: 2 views of the chest were performed. The heart size is normal. The mediastinum is within normal limits. There are mild chronic changes in both lung bases. There is no acute cardiopulmonary process. There are no pleural effusions. There is no pneumothorax. The bony thorax appears intact. IMPRESSION: Changes without acute cardiopulmonary process. Reviewed, Interpreted and Dictated by Jordan Van MD Transcribed by Keya Jiang Authenticated and . [facility]
== END 2023-10-08 23:59 ==
LOC: RAD 08:47
PROVIDERS: PCP Family Medicine; Visit Provider Family Medicine
DX: R07.9 Chest pain, unspecified (principal)
CPT/HCPCS: 71046

== ENCOUNTER 2023-10-30 19:46 | Outpatient (CLI) | payer MEDICARE, SELFPAY ==
[2023-10-30 17:21] LABS: Alanine Aminotransferase 12 U/L (12-78); Albumin/Globulin Ratio 1.4 (1.1-1.8); Alkaline Phosphatase 89 U/L (38-126); Anion Gap 13.5 mEq/L (5-15); Aspartate Amino Transferase 22 U/L (17-59); Bilirubin,Total 0.4 mg/dl (0.2-1.3); Blood Urea Nitrogen 40 mg/dl (9-20); Calcium 8.8 mg/dl (8.4-10.2); Carbon Dioxide 23 mmol/L (22.0-30.0); Chloride 102 mmol/L (98-107); Estimated Glomerular Filt Rate 22 ml/min (>60); GFR (African American) 27 ML/MIN (>60); Globulin 2.8 g/dL (1.3-3.2); Glucose 93 mg/dl (74-100); Potassium 5.5 mmoL/L (3.5-5.1); Sodium 133 mmol/L (136-145); Total Protein,Serum 6.8 g/dl (6.3-8.2)
[2023-10-30 17:35] LABS: Basophils # 0.1 K/mm3 (0-0.2); Basophils % 0.3 % (0.1-2.0); Eosinophils # 0.1 K/mm3 (0.0-0.4); Eosinophils % 0.9 % (0.1-12.0); Hematocrit 38.1 % (42.0-52.0); Hemoglobin 12.7 g/dL (14.1-18.0); Lymphocytes # 2.5 K/mm3 (0.7-4.5); Lymphocytes % 16.3 % (10-50); Mean Corpuscular HGB Conc 33.3 g/dL (31.8-35.4); Mean Platelet Volume 9.3 fl (7.4-10.4); Monocytes # 0.7 K/mm3 (0.1-1.0); Monocytes % 4.4 % (1.7-9.3); Neutrophils # 12.2 K/mm3 (1.8-7.8); Neutrophils % 78.1 % (37.0-80.0); Platelet Count 215 K/mm3 (142-424); Red Blood Count 4.09 M/mm3 (4.60-6.20); Red Cell Distribution Width 14.9 % (11.5-17.5); White Blood Count 15.6 K/mm3 (4.8-10.8)
[2023-10-30 17:37] LABS: MANUAL DIFFERENTIAL MANUAL DIFFERENTIAL (MANUAL DIFF)
[2023-10-30 18:08] LABS: Vitamin B12 622 pg/mL (239-931)
[2023-10-30 19:43] LABS: Eosinophils % 1 % (0-3); Lymphocytes % 21 % (10-50); Monocytes % 1 % (2-9); Neutrophils % 77 % (42-76); Platelet Estimate Normal; RBC Morphology Normal; Total Cells Counted 100
[2023-10-30 19:52] LABS: Hemoglobin A1C 5.5 % (4.0-6.0)
== END 2023-10-30 23:59 ==
PROVIDERS: PCP Nurse Practitioner Family; Visit Provider Nurse Practitioner Family
DX: R20.2 Paresthesia of skin (principal); R73.09 Other abnormal glucose
CPT/HCPCS: 80053; 82607; 83036; 85007; 85025

== ENCOUNTER 2023-11-09 11:57 | Outpatient (CLI) | payer MEDICARE, SELFPAY ==
--- NOTE | 2023-11-09 12:06 | XR_ITS ---
FINAL REPORT CLINICAL HISTORY: Foot Pain..pain at toenails COMPARISON: None FINDINGS: AP, oblique and lateral views of the left foot were obtained. There is no prior exam for comparison. There is no acute fracture or dislocation. Multijoint degenerative change, mild, is present. Soft tissues are normal. IMPRESSION: No acute osseous abnormality of the left foot. Mild degenerative change left foot. Reviewed, Interpreted and Dictated by Yesica Wright MD Transcribed by Celia Saha Authenticated and [facility]
--- NOTE | 2023-11-09 12:06 | XR_ITS ---
FINAL REPORT CLINICAL HISTORY: Foot Pain..pain at toenails COMPARISON: None FINDINGS: AP, oblique and lateral views of the right foot were obtained. There is no prior exam for comparison. There is no acute fracture or dislocation. There is slight deformity of the distal tuft of the great toe, favor chronic. The joint spaces are preserved. Soft tissues are normal. IMPRESSION: No acute osseous abnormality of the right foot. Slight deformity of the distal tuft of the great toe, favor chronic. Reviewed, Interpreted and Dictated by Yesica Wright MD Transcribed by Celia Saha Authenticated and [facility]
== END 2023-11-09 23:59 ==
PROVIDERS: PCP Family Medicine; Visit Provider Podiatrist
DX: M79.671 Pain in right foot (principal); M79.672 Pain in left foot
CPT/HCPCS: 73630

== ENCOUNTER 2023-11-16 15:15 | Outpatient (CLI) | payer MEDICARE, SELFPAY ==
--- NOTE | 2023-11-16 15:16 | US_ITS ---
FINAL REPORT CLINICAL HISTORY: Peripheral Artery Disease, current smoker, bilateral rest pain, bilateral ingrown toenails great toes with inflammation noted. COMPARISON: None FINDINGS: ANKLE-BRACHIAL PRESSURE INDICES Pressure indices are as follows: RIGHT LOWER EXTREMITY: Ankle-brachial pressure index: 1.1 Comments: Normal LEFT LOWER EXTREMITY: Ankle-brachial pressure index: 1.0 Comments: Normal IMPRESSION: No evidence of significant obstructive peripheral vascular disease of the lower extremities Reviewed, Interpreted and Dictated by Clay Morales III, MD Transcribed by Keya Jiang Authenticated and [facility]
== END 2023-11-16 23:59 ==
PROVIDERS: PCP Family Medicine; Visit Provider Podiatrist
DX: R09.89 Other specified symptoms and signs involving the circulatory and respiratory systems (principal); I73.9 Peripheral vascular disease, unspecified
CPT/HCPCS: 93923

== ENCOUNTER 2024-03-01 11:06 | Outpatient (CLI) | payer MEDICARE, SELFPAY ==
[2024-03-01 12:06] LABS: Basophils # 0.1 K/mm3 (0-0.2); Basophils % 0.4 % (0.1-2.0); Eosinophils # 0.1 K/mm3 (0.0-0.4); Eosinophils % 0.5 % (0.1-12.0); Hemoglobin 11.5 g/dL (14.1-18.0); Lymphocytes # 1.7 K/mm3 (0.7-4.5); Lymphocytes % 9.3 % (10-50); Mean Corpuscular HGB Conc 32.8 g/dL (31.8-35.4); Mean Corpuscular Hemoglobin 30.5 pg (27.0-31.2); Mean Corpuscular Volume 93.2 fl (80-94); Mean Platelet Volume 8.4 fl (7.4-10.4); Monocytes # 0.7 K/mm3 (0.1-1.0); Neutrophils # 15.4 K/mm3 (1.8-7.8); Neutrophils % 85.8 % (37.0-80.0); Platelet Count 245 K/mm3 (142-424); Red Blood Count 3.75 M/mm3 (4.60-6.20); Red Cell Distribution Width 15.5 % (11.5-17.5)
[2024-03-01 12:08] LABS: INR 1.07 (0.9-1.1); Prothrombin Time 11.5 seconds (10.1-12.5)
[2024-03-01 12:14] LABS: MANUAL DIFFERENTIAL MANUAL DIFFERENTIAL (MANUAL DIFF)
[2024-03-01 12:22] LABS: Alanine Aminotransferase 12 U/L (12-78); Albumin Level 3.9 g/dl (3.5-5.0); Albumin/Globulin Ratio 1.4 (1.1-1.8); Alkaline Phosphatase 84 U/L (38-126); Anion Gap 18.8 mEq/L (5-15); Aspartate Amino Transferase 21 U/L (17-59); Bilirubin,Total 0.6 mg/dl (0.2-1.3); Blood Urea Nitrogen 53 mg/dl (9-20); Calcium 8.8 mg/dl (8.4-10.2); Carbon Dioxide 16 mmol/L (22.0-30.0); Chloride 104 mmol/L (98-107); Estimated Glomerular Filt Rate 15 ml/min (>60); GFR (African American) 18 ML/MIN (>60); Globulin 2.8 g/dL (1.3-3.2); Glucose 87 mg/dl (74-100); Potassium 4.8 mmoL/L (3.5-5.1); Sodium 134 mmol/L (136-145); Total Protein,Serum 6.7 g/dl (6.3-8.2)
[2024-03-01 12:27] LABS: C-Reactive Protein 6.3 mg/L (0-4)
[2024-03-01 12:37] LABS: Iron 71 ug/dL (49-181)
[2024-03-01 12:38] LABS: Lymphocytes % 18 % (10-50); Monocytes % 4 % (2-9); Neutrophils % 78 % (42-76); RBC Morphology Normal; Total Cells Counted 100
[2024-03-01 12:39] LABS: Platelet Estimate Normal
[2024-03-01 12:41] LABS: Free Thyroxine Index 3.5 ug/dL (5.93-13.13); T4 (Thyroxine) 8.4 ug/dl (5.53-11.0); Triiodothryronine (T3) Uptake 42 % (23.5-40.5)
[2024-03-01 12:46] LABS: Total Iron Binding Capacity 277 ug/dL (261-462)
[2024-03-01 12:49] LABS: Erythrocyte Sedimentation Rate 49 mm/hr (0-20)
[2024-03-01 12:52] LABS: Prostate Specific Ag Screen 0.3 ng/ml (0.0-4.0)
[2024-03-01 12:55] LABS: Thyroid Stimulating Hormone 1.69 uIU/mL (0.465-4.68)
[2024-03-01 13:11] LABS: Vitamin B12 761 pg/mL (239-931)
[2024-03-02 08:56] LABS: Testosterone,Total 456 ng/dL (264-916)
[2024-03-03 15:16] LABS: Erythropoietin 7.2 mIU/mL (2.6-18.5)
== END 2024-03-01 23:59 | disposition home or self-care (01) ==
LOC: LAB 13:16
PROVIDERS: PCP Family Medicine; Visit Provider Nurse Practitioner Family
DX: Z12.5 Encounter for screening for malignant neoplasm of prostate (principal); R53.83 Other fatigue; D64.9 Anemia, unspecified; N18.4 Chronic kidney disease, stage 4 (severe); R58 Hemorrhage, not elsewhere classified; Z79.01 Long term (current) use of anticoagulants
CPT/HCPCS: 36415; 80053; 82607; 82668; 83540; 83550; 84403; 84436; 84443; 84479; 85007; 85025; 85027; 85044; 85610; 85651; 86140; G0103

== ENCOUNTER 2024-03-21 17:28 | Observation (INO) | payer MEDICARE, SELFPAY ==
[2024-03-21] VITALS (13 sets, daily range): BP systolic 98–144; BP diastolic 56–74; PULSE 60–92; RESP 16–18; TEMP 37.3–39.7; O2SAT 92–97; BMI 21.7
--- NOTE | 2024-03-21 18:01 | HMH.EDGENADL ---
Discharge Plan Disposition Patient Disposition: Xfer Short-Term Hosp Prescriptions Prescriptions: No Action gentamicin 0.1 % ointment 1 applic topical TID 30 Days Qty: 30 1RF ascorbate calcium (vitamin C) 500 mg tablet 500 mg PO DAILY lovastatin 20 mg tablet 20 mg PO HS 90 Days Qty: 90 1RF levothyroxine 50 mcg tablet See Rx Instructions PO DAILY Qty: 90 1RF Rx Instructions: TAKE 1 TABLET BY MOUTH EVERY MORNING ON AN EMPTY STOMACH orally daily; omeprazole 40 mg capsule,delayed release(DR/EC) 40 mg PO DAILY 90 Days Qty: 90 0RF sildenafil [Viagra] 100 mg tablet 100 mg PO DAILY Qty: 30 2RF metoprolol succinate 25 mg tablet extended release 24 hr 25 mg PO DAILY 30 Days Qty: 90 2RF oxybutynin chloride 10 mg tablet extended release 24hr 10 mg PO DAILY 30 Days Qty: 30 2RF pregabalin [Lyrica] 25 mg capsule 25 mg PO BID Qty: 60 2RF tizanidine [Zanaflex] 2 mg capsule 2 mg PO TID PRN (Reason: muscle pain) 30 Days Qty: 90 2RF Combivent Respimat 20-100 mcg/actuation mist See Rx Instructions .ROUTE .COMPLEX Qty: 4 1RF Dose Instruction: 2 PUFF INHALED TWICE A DAY FOR COPD FOR 30 DAYS Rx Instructions: 2 PUFF INHALED TWICE A DAY FOR COPD FOR 30 DAYS fluticasone furoate-vilanterol [Breo Ellipta] 200-25 mcg/dose blister with device See Rx Instructions .ROUTE .COMPLEX Qty: 60 1RF Dose Instruction: 1 INHALATIONS INHALED DAILY FOR COPD FOR 30 DAYS Rx Instructions: 1 INHALATIONS INHALED DAILY FOR COPD FOR 30 DAYS finasteride 5 mg tablet 5 mg PO DAILY 90 Days Qty: 90 2RF aspirin 81 MG tablet,delayed release (DR/EC) 81 mg PO DAILY Referrals Follow up/Referrals: David Mark MD [Primary Care Provider] - See instructions Clinical Impressions Clinical Impression: Sepsis, Hydronephrosis, Acute UTI, Neurogenic bladder, Acute hyponatremia Discharge ED Provider: Jonathan Douglas General Adult HPI General Chief complaint: Weakness Stated complaint: Fever,shaking Time Seen by Provider: 03/21/24 17:41 Mode of Arrival: Wheelchair Source of Information: Patient and Spouse Limitations: No Limitations Description of Symptoms (Recalled from ER Triage Doc. by RN): pt reports shakiness, weakness, cough and chest congestion since this am. pt also reports R lower back pain x2-3wks. pt has a hx of COPD, CKD, and self caths 2-3x daily. pt is hot to the touch but his oral temp is 99.1 F History of Present Illness HPI narrative: Patient is a 73-year-old male past medical history of CKD, hyperlipidemia, bladder outlet obstruction and neurogenic bladder of undetermined etiology that self caths who presents emergency department for evaluation of shakiness and abdominal pain. He has had worsening abdominal pain over the last 48 hours, he self caths 3 times a day and has had decreased urine output compared to baseline. He has history of abdominal aortic aneurysm. He had some shakiness and warmth of the bilateral upper extremities and due to all the symptoms presents here for continued evaluation. No chest pain. No trauma. No anticoagulants. There is a slight cough since this morning. Related Data Home Medications Medication Instructions Recorded Confirmed aspirin 81 mg tablet,delayed 81 mg PO DAILY Heart Health 05/25/19 03/09/24 release ascorbate calcium (vitamin C) 500 500 mg PO DAILY Supplement 03/27/22 03/09/24 mg tablet Previous Rx's Medication Instructions Recorded levothyroxine 50 mcg tablet See Rx Instructions PO DAILY 11/04/23 thyroid #90 tabs lovastatin 20 mg tablet 20 mg PO HS Cholesterol 90 days 11/04/23 #90 tabs gentamicin 0.1 % topical ointment 1 applic topical TID cellulitis 30 11/16/23 days #30 grams omeprazole 40 mg capsule,delayed 40 mg PO DAILY Acid Reflux 90 days 01/04/24 release #90 caps sildenafil 100 mg tablet (Viagra) 100 mg PO DAILY #30 tabs 01/04/24 metoprolol succinate 25 mg 25 mg PO DAILY Blood Pressure 30 01/29/24 tablet,extended release 24 hr days #90 tabs oxybutynin chloride 10 mg 10 mg PO DAILY Bladder 30 days #30 02/02/24 tablet,extended release 24 hr tabs pregabalin 25 mg capsule (Lyrica) 25 mg PO BID Pain #60 caps 02/03/24 tizanidine 2 mg capsule (Zanaflex) 2 mg PO TID PRN muscle pain 30 02/03/24 days #90 caps fluticasone furoate 200 See Rx Instructions .Route 02/25/24 mcg-vilanterol 25 mcg/dose .COMPLEX #60 ea inhalation powder (Breo Ellipta) ipratropium 20 mcg-albuterol 100 See Rx Instructions .Route 02/25/24 mcg/actuation mist for inhalation .COMPLEX #4 grams (Combivent Respimat) finasteride 5 mg tablet 5 mg PO DAILY PROSTATE 90 days #90 03/04/24 tabs Allergies Allergy/AdvReac Type Severity Reaction Status Date / Time No Known Allergies Allergy Verified 03/21/24 17:50 [facility] Disclaimer: The information contained in this section may have been updated after the patient was seen, as this information can be updated by other users. Medical History History of inguinal hernia Abdominal aortic aneurysm (AAA) PAD (peripheral artery disease) Coronary artery disease Medical mgt JUN 2021 Abnormal electrocardiography Systolic CHF, chronic Elevated troponin Hypotension Aortic insufficiency Mitral regurgitation Bladder outlet obstruction Personal history of nicotine dependence COPD (chronic obstructive pulmonary disease) with acute bronchitis Chronic kidney disease Pancreatitis Hidradenitis suppurativa Hidradenitis alone bilateral buttock and upper thigh region. Abscessed hidradenitis along mid left buttock. Surgical History No significant past surgical history Family History Other No significant family history Social History Smoking Status: Heavy tobacco smoker tobacco type: cigarettes packs per day: 1 second hand exposure: No alcohol intake: never substance use type: denies use current occupational status: retired Travel in the last 8 weeks: None household members: spouse housing: house current occupational exposures/hazards: No caffeine: No ROS Obtained: Yes Systems reviewed as appropriate & no additional complaints except as documented Physical Exam General General appearance: alert and in no apparent distress Head Head exam: atraumatic and normocephalic Eye Eye exam: Present PERRL and EOMI ENT ENT exam: Present mucous membranes moist Neck Neck exam: Present normal inspection Chest Chest inspection: Present normal inspection and symmetric chest wall rise Respiratory Respiratory exam: Present normal lung sounds bilaterally; Absent respiratory distress Cardiovascular Cardiovascular exam: Present regular rate and normal rhythm Abdominal Exam Abdominal exam: Present soft and tenderness (Mild, diffuse, slightly worse in the lower quadrants); Absent guarding or rebound Extremities Exam Extremities exam: Present normal inspection Neurological Exam Neurological exam: Present alert Psychiatric Psychiatric exam: Present normal affect Skin Skin exam: Present warm and dry Medical Decision Making Frantz Inquiry Pt receiving controlled substance: No Vital Signs: 03/21/24 17:38 03/21/24 17:42 03/21/24 18:00 Temperature 99.1 F Temperature Source Oral Pulse Rate 81 88 Pulse Rate [Right] 92 H Respiratory Rate 18 Blood Pressure 144/72 H 120/73 Blood Pressure [Right Arm] 144/72 H Blood Pressure Mean 89 Blood Pressure Mean [Right Arm] 96 Blood Pressure Source [Right Arm] Automatic Cuff Blood Pressure Position [Right Arm] Sitting 02 Sat by Pulse Oximetry 94 L 96 95 Oxygen Delivery Method Room Air Room Air Room Air 03/21/24 18:30 03/21/24 18:48 03/21/24 20:00 Temperature 103.5 F H Temperature Source Rectal Pulse Rate 82 78 Pulse Rate [Right] Respiratory Rate 18 Blood Pressure 123/56 L 115/64 Blood Pressure [Right Arm] Blood Pressure Mean 78 Blood Pressure Mean [Right Arm] Blood Pressure Source [Right Arm] Blood Pressure Position [Right Arm] 02 Sat by Pulse Oximetry 92 L 96 Oxygen Delivery Method Room Air Room Air 03/21/24 20:30 03/21/24 21:00 03/21/24 21:30 Temperature Temperature Source Pulse Rate 73 71 70 Pulse Rate [Right] Respiratory Rate 18 17 18 Blood Pressure 118/61 118/58 L 112/60 Blood Pressure [Right Arm] Blood Pressure Mean Blood Pressure Mean [Right Arm] Blood Pressure Source [Right Arm] Blood Pressure Position [Right Arm] 02 Sat by Pulse Oximetry 95 95 93 L Oxygen Delivery Method Room Air Room Air Room Air 03/21/24 22:00 Temperature Temperature Source Pulse Rate 60 Pulse Rate [Right] Respiratory Rate 16 Blood Pressure 98/57 L Blood Pressure [Right Arm] Blood Pressure Mean Blood Pressure Mean [Right Arm] Blood Pressure Source [Right Arm] Blood Pressure Position [Right Arm] 02 Sat by Pulse Oximetry 95 Oxygen Delivery Method Room Air Lab Data Lab Results 03/21/24 18:38: WBC 19.0 H, RBC 3.66 L, Hgb 11.3 L, Hct 34.0 L, MCV 92.9, MCH 30.9, MCHC 33.3, RDW 14.9, Plt Count 189, MPV 8.3, Neut % (Auto) 91.1 H, Lymph % (Auto) 3.6 L, Winston % (Auto) 4.5, Eos % (Auto) 0.6, Baso % (Auto) 0.2, Neut # (Auto) 17.3 H, Lymph # (Auto) 0.7, Winston # (Auto) 0.9, Eos # (Auto) 0.1, Baso # (Auto) 0.0, Total Counted 100, Neutrophils % (Manual) 93 H, Lymphocytes % (Manual) 3 L, Monocytes % (Manual) 4, Platelet Estimate Normal, RBC Morphology Normal, Sodium 128 L, Potassium 4.2, Chloride 100, Carbon Dioxide 17 L, Anion Gap 15.2 H, BUN 66 H, Creatinine 4.30 H, Estimated Creat Clear 16, Estimated GFR 14 L*, Est GFR ( Amer) 16 L*, Glucose 101 H, Calcium 8.9, Total Bilirubin 0.6, AST 27, ALT 15, Alkaline Phosphatase 74, Total Protein 7.1, Albumin 3.7, Globulin 3.4 H, Albumin/Globulin Ratio 1.1, Lipase 104 03/21/24 18:59: SARS-CoV-2 (PCR) Not detected, Influenza A Untype (PCR) Not detected, Influenza Type B (PCR) Not detected 03/21/24 19:52: Urine Color Yellow, Urine Appearance Clear, Urine pH 6.0, Ur Specific Bryant <= 1.005, Urine Protein 2+, Urine Glucose (UA) Negative, Urine Ketones Negative, Urine Blood 2+, Urine Nitrate Positive, Urine Bilirubin Negative, Urine Urobilinogen 0.2, Ur Leukocyte Esterase 3+ A, Urine RBC 10-20, Urine WBC 20-50, Ur Squamous Epith Cells Occasional, Urine Bacteria 2+ 03/21/24 18:38 03/21/24 18:38 Orders (Tests/Meds): ED MEDICATIONS Generic Name Dose Route Start Last Admin Trade Name Freq PRN Reason Stop Dose Admin Miscellaneous 1 each 03/21/24 19:15 03/21/24 19:17 Vancomycin Consult Request NOTAPPLIC 04/20/24 19:14 1 each CONSULT PHARMACY ANITA Administration Sodium Chloride 10 ml 03/21/24 19:30 03/21/24 19:31 Sodium Chloride 0.9% 10ml Syr (Rad Only) IV 04/20/24 19:29 10 ml NEEDED PRN Administration Maintain IV Site Discontinued Medications Generic Name Dose Route Start Last Admin Trade Name Jeanmarieq PRN Reason Stop Dose Admin Acetaminophen 1,000 mg 03/21/24 17:58 03/21/24 18:38 Acetaminophen 1,000mg/100ml Vial IV 03/21/24 17:59 1,000 mg ONCE ONE Administration Lactated Ringer's 1,000 mls @ 999 mls/hr 03/21/24 17:57 03/21/24 18:38 Lactated Ringer's 1000 Ml Bag IV 03/21/24 18:57 999 mls/hr .Q1H1M ONE Administration Lactated Ringer's 1,000 mls @ 999 mls/hr 03/21/24 19:12 03/21/24 19:26 Lactated Ringer's 1000 Ml Bag IV 03/21/24 20:12 999 mls/hr .Q1H1M ONE Administration Piperacillin Sod/Tazobactam 50 mls @ 100 mls/hr 03/21/24 19:13 03/21/24 19:26 Sod 3.375 gm/ Sodium Chloride IV 03/21/24 19:42 100 mls/hr ONCE ONE Administration Vancomycin/PEG/NADA/Lysine/Water 1.5 gm in 300 mls @ 150 mls/hr 03/21/24 19:30 03/21/24 19:40 Vancomycin 1.5gm/300ml (Peg) Premix IV 03/21/24 21:29 150 mls/hr ONCE ONE Administration Iopamidol 75 ml 03/21/24 19:30 03/21/24 19:31 Iopamidol-370 (76%);100ml Bottle IV 03/21/24 19:31 75 ml ONCE ONE Administration ORDERS Category Date Time Status CT abdomen pelvis w con Stat Cat Scan 03/21/24 18:04 Completed CXR --portable [XR chest portable] Stat Exams 03/21/24 18:20 Completed CBC w/Auto Diff [Complete Blood Count Auto Diff] Stat Lab 03/21/24 18:38 Completed CMP [Comprehensive Metabolic Panel] Stat Lab 03/21/24 18:38 Completed Lipase Stat Lab 03/21/24 18:38 Completed Rapid PCR Covid and Flu A/B Stat Lab 03/21/24 18:59 Completed UA [Urinalysis and Microscopic] Stat Lab 03/21/24 19:52 Completed Blood Culture Stat Micro 03/21/24 18:59 Received Urine Culture Stat Micro 03/21/24 19:52 Received Medical Decision Narrative: In summary patient is a 73-year-old male past medical history described above presents emergency department for evaluation of abdominal pain in setting of self-catheterization and AAA. Patient is hemodynamically stable nontoxic-appearing upon arrival, afebrile. Differential diagnosis includes appendicitis, intra-abdominal abscess, urinary tract infection, among others. Given the patient is febrile and diffusely tender with urinary symptoms much less likely ruptured AAA and workup will be conducted with hematologic labs, CT abdomen pelvis IV contrast, urinalysis. Initial inventions include crystalloid bolus, IV Ofirmev. Initial workup reviewed by me, hematologic labs remarkable for leukocytosis 19.0, hyponatremia sodium 128, creatinine 4.3, urinalysis pending. Patient has core temperature 103.5 degrees. At this point broad-spectrum antibiotics will be initiated with vancomycin and Zosyn. The benefits outweigh the risk for CT imaging which we will proceed with contrast. Sepsis bolus fluids were considered however we will be judicious given his significant elevated creatinine in an effort to not acutely volume overload him intravascularly. Juárez was anchored with 2000 out. Urinalysis interpreted by me, bacteria white blood cells, night trait positive consistent with overt infection. CT of the abdomen pelvis shows severe bilateral hydroureteronephrosis increased from comparison study. Moderate urinary bladder distention with bladder wall lobulation suggestive of neurogenic bladder. Given his significant metabolic derangement and obstructive uropathy. Interval update discussion with Dr. Garcia [facility] at approximately 9:30 PM they are on divert and cannot accept this patient. [facility] was contacted approximate 9:31 PM and they are on wait list as well. [facility] will be contacted. [facility] return my call at approximately 10:28 PM, Dr. Suarez graciously accepted patient for transfer for continued evaluation at this time. Critical Care Critical Care Time Critical Care Time: Yes Attestation: On 03/21/24, the high probability of a clinically significant, sudden or life threatening deterioration of the following system(s) required my full and direct attention, intervention and personal management. The time I documented below is in addition to time spent performing reported procedures but includes the following listed in this critical care notation. Total Time Total Critical Care Time: 40
--- NOTE | 2024-03-21 18:04 | CT_ITS ---
PROCEDURE INFORMATION: Exam: CT Abdomen And Pelvis With Contrast Exam date and time: 03/21/2024 7:27 PM Age: 73 years old Clinical indication: Abdominal pain; Additional info: Aaa, diffuse abd pain, inability to void self cath TECHNIQUE: Imaging protocol: Computed tomography of the abdomen and pelvis with contrast. Radiation optimization: All CT scans at this facility use at least one of these dose optimization techniques: automated exposure control; mA and/or kV adjustment per patient size (includes targeted exams where dose is matched to clinical indication); or iterative reconstruction. Contrast material: ISOVUE; Contrast volume: 75 ml; Contrast route: IV; COMPARISON: CT ABDOMEN PELVIS WO CON 07/02/2022 1:55 PM FINDINGS: Pleural spaces: Small bilateral pleural effusions with associated atelectasis. Liver: Mild hepatomegaly. Gallbladder and biliary ducts: Normal. Pancreas: Normal. Spleen: Splenic calcifications, compatible with prior granulomatous disease. Adrenal glands: Normal. No mass. Kidneys and ureters: Severe bilateral hydroureteronephrosis, increased from comparison study. Moderate bilateral renal cortical thinning, likely secondary to chronic bilateral hydroureteronephrosis. Stomach and bowel: Normal. Appendix: Appendix normal. Intraperitoneal space: Unremarkable. No free air. No significant fluid collection. Vasculature: Atherosclerotic calcification of the visualized right coronary artery and distal thoracic aorta. Atherosclerotic disease of the abdominal aorta and iliac arteries, with infrarenal fusiform abdominal aortic aneurysm measuring approximately 4.5 cm in AP diameter by 4.7 cm in transverse dimension. No evidence of leakage or rupture. Lymph nodes: Multiple small lymph nodes within the retroperitoneum, similar to comparison study, likely reactive, but nonspecific. Urinary bladder: No definite obstructive etiology identified, although likely secondary to neurogenic bladder. Moderate urinary bladder distension, with urinary bladder wall lobulation, suggesting neurogenic bladder. Reproductive: Unremarkable as visualized. Bones/joints: Multilevel thoracolumbar spine degenerative disc space narrowing and osteophyte formation. Soft tissues: Normal. IMPRESSION: 1. Severe bilateral hydroureteronephrosis, increased from comparison study. No definite obstructive etiology identified, although likely secondary to neurogenic bladder. 2. Moderate urinary bladder distension, with urinary bladder wall lobulation, suggesting neurogenic bladder.
--- NOTE | 2024-03-21 18:20 | XR_ITS ---
PROCEDURE INFORMATION: Exam: XR Chest Exam date and time: 03/21/2024 6:31 PM Age: 73 years old Clinical indication: Cough TECHNIQUE: Imaging protocol: Radiologic exam of the chest. Views: 1 view. COMPARISON: CR XR CHEST 2V 10/08/2023 9:08 AM FINDINGS: Lungs: No focal consolidations or pulmonary edema. Minimal bibasilar atelectasis and/or scarring. Pleural spaces: Unremarkable. No pleural effusion. No pneumothorax. Heart/Mediastinum: Normal. Vasculature: Atherosclerotic vascular disease. Bones/joints: No acute abnormality. IMPRESSION: No acute cardiopulmonary abnormality.
--- NOTE | 2024-03-21 18:36 | PC.NURSE ---
XR AT BEDSIDE
[2024-03-21] MEDS: ACETAMINOPHEN 1,000MG/100ML VIAL 1000 MG IV (18:38)
[2024-03-21] MEDS: LACTATED RINGERS 1000ML 1,000 ML 999 ML IV ×2 (18:38→19:26)
[2024-03-21 18:45] LABS: Basophils % 0.2 % (0.1-2.0); Eosinophils # 0.1 K/mm3 (0.0-0.4); Eosinophils % 0.6 % (0.1-12.0); Hemoglobin 11.3 g/dL (14.1-18.0); Lymphocytes # 0.7 K/mm3 (0.7-4.5); Lymphocytes % 3.6 % (10-50); Mean Corpuscular HGB Conc 33.3 g/dL (31.8-35.4); Mean Corpuscular Hemoglobin 30.9 pg (27.0-31.2); Mean Corpuscular Volume 92.9 fl (80-94); Mean Platelet Volume 8.3 fl (7.4-10.4); Monocytes # 0.9 K/mm3 (0.1-1.0); Monocytes % 4.5 % (1.7-9.3); Neutrophils # 17.3 K/mm3 (1.8-7.8); Neutrophils % 91.1 % (37.0-80.0); Platelet Count 189 K/mm3 (142-424); Red Blood Count 3.66 M/mm3 (4.60-6.20); Red Cell Distribution Width 14.9 % (11.5-17.5)
[2024-03-21 18:49] LABS: MANUAL DIFFERENTIAL MANUAL DIFFERENTIAL (MANUAL DIFF)
[2024-03-21 19:02] LABS: Alanine Aminotransferase 15 U/L (12-78); Albumin Level 3.7 g/dl (3.5-5.0); Albumin/Globulin Ratio 1.1 (1.1-1.8); Alkaline Phosphatase 74 U/L (38-126); Anion Gap 15.2 mEq/L (5-15); Aspartate Amino Transferase 27 U/L (17-59); Bilirubin,Total 0.6 mg/dl (0.2-1.3); Blood Urea Nitrogen 66 mg/dl (9-20); Calcium 8.9 mg/dl (8.4-10.2); Carbon Dioxide 17 mmol/L (22.0-30.0); Chloride 100 mmol/L (98-107); Creatinine Clearance Estimated 16 mL/min (50-200); Estimated Glomerular Filt Rate 14 ml/min (>60); GFR (African American) 16 ML/MIN (>60); Globulin 3.4 g/dL (1.3-3.2); Glucose 101 mg/dl (74-100); Lipase 104 U/L (23-300); Potassium 4.2 mmoL/L (3.5-5.1); Sodium 128 mmol/L (136-145); Total Protein,Serum 7.1 g/dl (6.3-8.2)
[2024-03-21 19:05] LABS: Coronavirus 19, PCR Not Detected (NotDetected); Influenza A, PCR Not Detected (NotDetected); Influenza B, PCR Not Detected (NotDetected)
--- NOTE | 2024-03-21 19:10 | PC.NURSE ---
aware of creat 4.3
[2024-03-21 19:12] LABS: Lymphocytes % 3 % (10-50); Monocytes % 4 % (2-9); Neutrophils % 93 % (42-76); Platelet Estimate Normal; RBC Morphology Normal; Total Cells Counted 100
--- NOTE | 2024-03-21 19:13 | HMH.ITSTN ---
GFR completion/results were overrode for the use of contrast media by the Physician on a risk vs. benefit situation with this patient.
[2024-03-21] MEDS: VANCOMYCIN CONSULT REQUEST 1 EACH NOTAPPLIC (19:17)
--- NOTE | 2024-03-21 19:17 | PC.NURSE ---
Spoke with Aditi from [facility] for vanc consult.
[2024-03-21] MEDS: PIPERACILLIN/TAZO 3.375 GM in 0.9 % SODIUM CHLORIDE 50 ML IV (19:26)
[2024-03-21] MEDS: IOPAMIDOL-370 (76%);100ML BOTTLE 75 ML IV (19:31)
[2024-03-21] MEDS: SODIUM CHLORIDE 0.9% 10ML SYR (RAD ONLY) 10 ML IV (19:31)
[2024-03-21] MEDS: VANCOMYCIN/WATER FOR INJ (PEG) 1.5 GM/300 ML PIGGYBACK IV (19:40)
--- NOTE | 2024-03-21 19:52 | PC.NURSE ---
Juárez cath inserted by GRAY Balderas. 1200ml emptied.
[2024-03-21 19:53] LABS: Microscopic, Urine URINE MICROSCOPIC (MICROSCOPIC)
[2024-03-21 19:56] LABS: Appearance,Urine CLEAR (Clear); Bilirubin,Urine Negative (Negative); Blood, Urine 2+ (Negative); Color,Urine YELLOW (Yellow); Glucose,Urine (UA) Negative (Negative); Ketones,Urine Negative (Negative); Leukocyte Esterase,Urine 3+ (Negative); Nitrate,Urine POSITIVE (Negative); Protein,Urine 2+ (Negative); Specific Gravity, Urine <= 1.005 (1.005-1.030); Urobilinogen,Urine 0.2 EU/dl (0.2)
[2024-03-21 20:09] LABS: WBC,Urine 20-50 #/hpf (0-3)
[2024-03-21 20:10] LABS: Bacteria,Urine 2+ /lpf; Squamous Epithelial Cell,Urine Occasional #/hpf (0-5)
--- NOTE | 2024-03-21 21:13 | PC.NURSE ---
Called [facility] about transferring the pt. Awaiting call back. CR
--- NOTE | 2024-03-21 21:40 | PC.NURSE ---
Ne beds available at or [facility] at this time. Called [facility] for possible transfer. Awaiting callback. CR
[2024-03-22] VITALS (10 sets, daily range): BP systolic 101–143; BP diastolic 52–74; PULSE 76–105; RESP 14–18; TEMP 37.3; O2SAT 92–97
[2024-03-22] MEDS: ACETAMINOPHEN 1,000MG/100ML VIAL 1000 MG IV (00:18)
[2024-03-22] MEDS: LACTATED RINGERS 1000ML 1,000 ML 999 ML IV (00:18)
[2024-03-22 00:31] LABS: Chloride 103 mmol/L (98-107)
[2024-03-22 00:32] LABS: Potassium 5.2 mmoL/L (3.5-5.1); Sodium 132 mmol/L (136-145)
[2024-03-22 00:34] LABS: Alanine Aminotransferase 19 U/L (12-78); Albumin Level 3.8 g/dl (3.5-5.0); Albumin/Globulin Ratio 1.2 (1.1-1.8); Alkaline Phosphatase 79 U/L (38-126); Anion Gap 16.2 mEq/L (5-15); Aspartate Amino Transferase 39 U/L (17-59); Bilirubin,Total 0.6 mg/dl (0.2-1.3); Blood Urea Nitrogen 63 mg/dl (9-20); Carbon Dioxide 18 mmol/L (22.0-30.0); Creatinine Clearance Estimated 16 mL/min (50-200); Estimated Glomerular Filt Rate 14 ml/min (>60); GFR (African American) 16 ML/MIN (>60); Globulin 3.3 g/dL (1.3-3.2); Total Protein,Serum 7.1 g/dl (6.3-8.2)
[2024-03-22 00:35] LABS: Calcium 9.1 mg/dl (8.4-10.2); Glucose 100 mg/dl (74-100); Magnesium 1.4 mg/dl (1.6-2.3); Phosphorous 5.9 mg/dl (2.5-4.5)
--- NOTE | 2024-03-22 01:26 | PC.NURSE ---
Patient placed in hospital bed for comfort.
[2024-03-22] MEDS: IPRATROPIUM/ALBUTEROL 3 ML NEB IH (01:50)
--- NOTE | 2024-03-22 01:53 | P.HP_ITS ---
History of Present Illness *Admission Date: 03/22/24 *Reason for visit:: uti *History of present illness: 73-year-old male past medical history described above presents emergency department for evaluation of abdominal pain in setting of failed self- catheterization. Today was febrile, hot sweaty. having difficulty cathing himself. Also having significant back pain b/l. on arrival febrile and diffusely tender with urinary symptoms. labs remarkable for leukocytosis 19.0, hyponatremia sodium 128, creatinine 4.3, urinalysis + Leuk esterase. Patient has core temperature 103.5 degrees. broad-spectrum antibiotics initiated. CT demonstrated severe b/l hydronephrosis. Juárez was anchored in ED. [facility] they [facility] divert and cannot accept this patient. [facility] was contacted approximate 9:31 PM and they are on wait list as well. [place] return call and accepted patient for transfer. hospitalist to admit for continued care until transfer. CT abdomen pelvis Severe bilateral hydroureteronephrosis, increased from comparison study. No definite obstructive etiology identified, although likely secondary to neurogenic bladder. 2. Moderate urinary bladder distension, with urinary bladder wall lobulation, suggesting neurogenic bladder. [facility] Disclaimer: The information contained in this section may have been updated after the patient was seen, as this information can be updated by other users. Medical History History of inguinal hernia Abdominal aortic aneurysm (AAA) PAD (peripheral artery disease) Coronary artery disease Medical mgt JUN 2021 Abnormal electrocardiography Systolic CHF, chronic Elevated troponin Hypotension Aortic insufficiency Mitral regurgitation Bladder outlet obstruction Personal history of nicotine dependence COPD (chronic obstructive pulmonary disease) with acute bronchitis Chronic kidney disease Pancreatitis Hidradenitis suppurativa Hidradenitis alone bilateral buttock and upper thigh region. Abscessed hidradenitis along mid left buttock. Surgical History No significant past surgical history Family History Other No significant family history Social History Smoking Status: Heavy tobacco smoker tobacco type: cigarettes packs per day: 1 second hand exposure: No alcohol intake: never substance use type: denies use current occupational status: retired Travel in the last 8 weeks: None household members: spouse housing: house current occupational exposures/hazards: No caffeine: No Review of Systems Review of Systems Review of systems:: pertinent systems reviewed and negative unless documented below Meds Home Medications and Allergies Home Medications Medication Instructions Recorded Confirmed Type aspirin 81 mg tablet,delayed 81 mg PO DAILY Heart Health 05/25/19 03/09/24 History release ascorbate calcium (vitamin C) 500 500 mg PO DAILY Supplement 03/27/22 03/09/24 History mg tablet levothyroxine 50 mcg tablet See Rx Instructions PO DAILY 11/04/23 03/09/24 Rx thyroid #90 tabs lovastatin 20 mg tablet 20 mg PO HS Cholesterol 90 days 11/04/23 03/09/24 Rx #90 tabs gentamicin 0.1 % topical ointment 1 applic topical TID cellulitis 30 11/16/23 03/09/24 Rx days #30 grams omeprazole 40 mg capsule,delayed 40 mg PO DAILY Acid Reflux 90 days 01/04/24 03/09/24 Rx release #90 caps sildenafil 100 mg tablet (Viagra) 100 mg PO DAILY #30 tabs 01/04/24 03/09/24 Rx metoprolol succinate 25 mg 25 mg PO DAILY Blood Pressure 30 01/29/24 03/09/24 Rx tablet,extended release 24 hr days #90 tabs oxybutynin chloride 10 mg 10 mg PO DAILY Bladder 30 days #30 02/02/24 03/09/24 Rx tablet,extended release 24 hr tabs pregabalin 25 mg capsule (Lyrica) 25 mg PO BID Pain #60 caps 02/03/24 03/09/24 Rx tizanidine 2 mg capsule (Zanaflex) 2 mg PO TID PRN muscle pain 30 02/03/24 03/09/24 Rx days #90 caps fluticasone furoate 200 See Rx Instructions .Route 02/25/24 03/09/24 Rx mcg-vilanterol 25 mcg/dose .COMPLEX #60 ea inhalation powder (Breo Ellipta) ipratropium 20 mcg-albuterol 100 See Rx Instructions .Route 02/25/24 03/09/24 Rx mcg/actuation mist for inhalation .COMPLEX #4 grams (Combivent Respimat) finasteride 5 mg tablet 5 mg PO DAILY PROSTATE 90 days #90 03/04/24 03/09/24 Rx tabs New Prescriptions to Start Prescriptions: Allergies Allergy/AdvReac Type Severity Reaction Status Date / Time No Known Allergies Allergy Verified 03/21/24 17:50 Exam Data for Last 24 hours Vital signs and Labs for Last 24 Hours: Temp Pulse Resp BP Pulse Ox O2 Del Method 101.4 F H 82 16 143/74 H 97 Room Air 03/21/24 23:38 03/22/24 01:50 03/21/24 23:00 03/21/24 23:00 03/21/24 23:00 03/21/24 23:00 Laboratory Results - last 24 hr 03/21/24 18:38: WBC 19.0 H, RBC 3.66 L, Hgb 11.3 L, Hct 34.0 L, MCV 92.9, MCH 30.9, MCHC 33.3, RDW 14.9, Plt Count 189, MPV 8.3, Neut % (Auto) 91.1 H, Lymph % (Auto) 3.6 L, [place] % (Auto) 4.5, Eos % (Auto) 0.6, Baso % (Auto) 0.2, Neut # (Auto) 17.3 H, Lymph # (Auto) 0.7, [place] # (Auto) 0.9, Eos # (Auto) 0.1, Baso # (Auto) 0.0, Total Counted 100, Neutrophils % (Manual) 93 H, Lymphocytes % (Manual) 3 L, Monocytes % (Manual) 4, Platelet Estimate Normal, RBC Morphology Normal, Sodium 128 L, Potassium 4.2, Chloride 100, Carbon Dioxide 17 L, Anion Gap 15.2 H, BUN 66 H, Creatinine 4.30 H, Estimated Creat Clear 16, Estimated GFR 14 L*, Est GFR ( Amer) 16 L*, Glucose 101 H, Calcium 8.9, Total Bilirubin 0.6, AST 27, ALT 15, Alkaline Phosphatase 74, Total Protein 7.1, Albumin 3.7, Globulin 3.4 H, Albumin/Globulin Ratio 1.1, Lipase 104 03/21/24 18:59: SARS-CoV-2 (PCR) Not detected, Influenza A Untype (PCR) Not detected, Influenza Type B (PCR) Not detected 03/21/24 19:52: Urine Color Yellow, Urine Appearance Clear, Urine pH 6.0, Ur Specific [place] <= 1.005, Urine Protein 2+, Urine Glucose (UA) Negative, Urine Ketones Negative, Urine Blood 2+, Urine Nitrate Positive, Urine Bilirubin Negative, Urine Urobilinogen 0.2, Ur Leukocyte Esterase 3+ A, Urine RBC 10-20, Urine WBC 20-50, Ur Squamous Epith Cells Occasional, Urine Bacteria 2+ 03/22/24 00:14: Sodium 132 L, Potassium 5.2 H D, Chloride 103, Carbon Dioxide 18 L, Anion Gap 16.2 H, BUN 63 H, Creatinine 4.30 H, Estimated Creat Clear 16, Estimated GFR 14 L*, Est GFR ( Amer) 16 L*, Glucose 100, Calcium 9.1, Phosphorus 5.9 H, Magnesium 1.4 L, Total Bilirubin 0.6, AST 39 D, ALT 19 D, Alkaline Phosphatase 79, Total Protein 7.1, Albumin 3.8, Globulin 3.3 H, Albumin/Globulin Ratio 1.2 I & O for Last 24 hours: Intake & Output 03/19/24 03/20/24 03/21/24 03/22/24 23:59 23:59 23:59 23:59 Output Total 1600 / 1600 Balance -1600 / -1600 Weight 74.843 kg Constitutional Constitutional: no acute distress *Routine HEENT Exam Head: Present normocephalic Eye: Present EOMI and PERRL ENT: Present mucous membranes moist *Routine Neck Exam Neck: Present supple; Absent lymphadenopathy *Routine Respiratory Exam Respiratory: Present CTA bilaterally *Routine Cardiovascular Exam Cardiovascular: Present RRR *Routine Abdominal Exam Abdominal: Present soft and normoactive bowel sounds; Absent tenderness *Routine Rectal Exam Rectal:: deferred *Routine Genitalia Exam Genitalia:: deferred *Routine Extremities Exam Extremities: Absent cyanosis, clubbing or edema Routine Back/Spine/Pelvis Exam Back/Spine: Present CVA tenderness *Routine Skin Exam Skin: Present warm; Absent rash *Routine Neurological Exam Neurological: Present alert and oriented X3 Assessment and Plan *Assessment and plan (1) Acute hyponatremia: Status: Acute Category: Medical Code(s): E87.1 - Hypo-osmolality and hyponatremia (2) Neurogenic bladder: Status: Acute Category: Medical Code(s): N31.9 - Neuromuscular dysfunction of bladder, unspecified (3) Acute UTI: Status: Acute Category: Medical Code(s): N39.0 - Urinary tract infection, site not specified (4) Hydronephrosis: Status: Acute Qualifiers: Hydronephrosis type: unspecified Qualified Code(s): N13.30 - Unspecified hydronephrosis Category: Medical Code(s): N13.30 - Unspecified hydronephrosis (5) Sepsis: Status: Acute Qualifiers: Severe sepsis acute organ dysfunction type: acute renal failure Sepsis type: sepsis due to unspecified organism Sepsis acute organ dysfunction status: with acute organ dysfunction Category: Medical Code(s): A41.9 - Sepsis, unspecified organism (6) Leukocytosis: Status: Acute Qualifiers: Leukocytosis type: unspecified Qualified Code(s): D72.829 - Elevated white blood cell count, unspecified Category: Medical Code(s): D72.829 - Elevated white blood cell count, unspecified Plan 73-year-old male with urosepsis on broad-spectrum antibiotic. Pending transfer to [place], bed accepted waiting till a.m. for transfer. Continue supportive management antibiotics Urosepsis Hydronephrosis -Vancomycin and cefepime -Supportive management -Juárez in place -Awaiting transfer to [place] -Follow-up cultures CARTER on CKD, likely obstructive -Juárez placed -Monitor lites and renal parameters -Will be seen by nephrology upon transfer to [place] Hyperkalemia -Per above, monitor Hypomagnesia -Replete
--- NOTE | 2024-03-22 02:14 | EXP.DC.SUM ---
General Admission date:: 03/22/24 Discharge date: 03/22/24 HPI HPI HPI: 73-year-old male past medical history described above presents emergency department for evaluation of abdominal pain in setting of failed self-catheterization. Today was febrile, hot sweaty. having difficulty cathing himself. Also having significant back pain b/l. on arrival febrile and diffusely tender with urinary symptoms. labs remarkable for leukocytosis 19.0, hyponatremia sodium 128, creatinine 4.3, urinalysis + Leuk esterase. Patient has core temperature 103.5 degrees. broad-spectrum antibiotics initiated. CT demonstrated severe b/l hydronephrosis. Juárez was anchored in ED. ED discussed with Dr. Jose López [place] at approximately 9:30 PM they are on divert and cannot accept this patient. [facility] was contacted approximate 9:31 PM and they are on wait list as well. [facility] return call and accepted patient for transfer. hospitalist to admit for continued care until transfer. CT abdomen pelvis Severe bilateral hydroureteronephrosis, increased from comparison study. No definite obstructive etiology identified, although likely secondary to neurogenic bladder. 2. Moderate urinary bladder distension, with urinary bladder wall lobulation, suggesting neurogenic bladder. Hospital Course Hospital Course Hospital Course: Pt was admitted anc continued on antibiotics. Juárez placed with adequate urine output. CT with severe b/l hydronephrosis. [facility] accepted patient and he was transferred Exam Data for Last 24 hours Vital signs and Labs for Last 24 Hours: Temp Pulse Resp BP Pulse Ox O2 Del Method 101.4 F H 82 16 143/74 H 97 Room Air 03/21/24 23:38 03/22/24 01:50 03/21/24 23:00 03/21/24 23:00 03/21/24 23:00 03/21/24 23:00 Laboratory Results - last 24 hr 03/21/24 18:38: WBC 19.0 H, RBC 3.66 L, Hgb 11.3 L, Hct 34.0 L, MCV 92.9, MCH 30.9, MCHC 33.3, RDW 14.9, Plt Count 189, MPV 8.3, Neut % (Auto) 91.1 H, Lymph % (Auto) 3.6 L, [place] % (Auto) 4.5, Eos % (Auto) 0.6, Baso % (Auto) 0.2, Neut # (Auto) 17.3 H, Lymph # (Auto) 0.7, [place] # (Auto) 0.9, Eos # (Auto) 0.1, Baso # (Auto) 0.0, Total Counted 100, Neutrophils % (Manual) 93 H, Lymphocytes % (Manual) 3 L, Monocytes % (Manual) 4, Platelet Estimate Normal, RBC Morphology Normal, Sodium 128 L, Potassium 4.2, Chloride 100, Carbon Dioxide 17 L, Anion Gap 15.2 H, BUN 66 H, Creatinine 4.30 H, Estimated Creat Clear 16, Estimated GFR 14 L*, Est GFR ( Amer) 16 L*, Glucose 101 H, Calcium 8.9, Total Bilirubin 0.6, AST 27, ALT 15, Alkaline Phosphatase 74, Total Protein 7.1, Albumin 3.7, Globulin 3.4 H, Albumin/Globulin Ratio 1.1, Lipase 104 03/21/24 18:59: SARS-CoV-2 (PCR) Not detected, Influenza A Untype (PCR) Not detected, Influenza Type B (PCR) Not detected 03/21/24 19:52: Urine Color Yellow, Urine Appearance Clear, Urine pH 6.0, Ur Specific [place] <= 1.005, Urine Protein 2+, Urine Glucose (UA) Negative, Urine Ketones Negative, Urine Blood 2+, Urine Nitrate Positive, Urine Bilirubin Negative, Urine Urobilinogen 0.2, Ur Leukocyte Esterase 3+ A, Urine RBC 10-20, Urine WBC 20-50, Ur Squamous Epith Cells Occasional, Urine Bacteria 2+ 03/22/24 00:14: Sodium 132 L, Potassium 5.2 H D, Chloride 103, Carbon Dioxide 18 L, Anion Gap 16.2 H, BUN 63 H, Creatinine 4.30 H, Estimated Creat Clear 16, Estimated GFR 14 L*, Est GFR ( Amer) 16 L*, Glucose 100, Calcium 9.1, Phosphorus 5.9 H, Magnesium 1.4 L, Total Bilirubin 0.6, AST 39 D, ALT 19 D, Alkaline Phosphatase 79, Total Protein 7.1, Albumin 3.8, Globulin 3.3 H, Albumin/Globulin Ratio 1.2 Temp Pulse Resp BP Pulse Ox O2 Del Method 98.3 F 66 16 134/72 96 Room Air 04/01/23 10:45 04/01/23 10:45 04/01/23 10:45 04/01/23 10:45 04/01/23 10:45 04/01/23 11:00 Laboratory Results - last 24 hr 03/31/23 12:49: Troponin I < 0.01 03/31/23 15:43: Troponin I < 0.01 04/01/23 05:39: WBC 16.6 H D, RBC 3.81 L, Hgb 10.7 L, Hct 34.5 L, MCV 90.5, MCH 28.0, MCHC 30.9 L, RDW 15.1, Plt Count 359, MPV 8.2, Neut % (Auto) 80.2 H, Lymph % (Auto) 11.9, [place] % (Auto) 6.6, Eos % (Auto) 0.8, Baso % (Auto) 0.4, Neut # (Auto) 13.3 H, Lymph # (Auto) 2.0, [place] # (Auto) 1.1 H, Eos # (Auto) 0.1, Baso # (Auto) 0.1, Total Counted 100, Neutrophils % (Manual) 94 H, Lymphocytes % (Manual) 4 L, Monocytes % (Manual) 2, Platelet Estimate Normal, RBC Morphology Normal, Sodium 135 L, Potassium 5.0, Chloride 103, Carbon Dioxide 24, Anion Gap 13.0, BUN 40 H, Creatinine 2.80 H, Estimated Creat Clear 23, Estimated GFR 22 L, Est GFR ( Amer) 27 L, Glucose 98, Calcium 8.7 I & O for Last 24 hours: Intake & Output 03/19/24 03/20/24 03/21/24 03/22/24 23:59 23:59 23:59 23:59 Output Total 1600 / 1600 Balance -1600 / -1600 Weight 74.843 kg Intake & Output 03/29/23 03/30/23 03/31/23 04/01/23 23:59 23:59 23:59 23:59 Intake Total 240 / 240 240 / 240 Output Total 0 / 0 0 / 0 Balance 240 / 240 240 / 240 Weight 70.789 kg 68.634 kg Microbiology Reports for the Last 24 Hours: Microbiology 03/31/23 10:49 Urine,Catheterized Urine Culture - Preliminary NO GROWTH AFTER 24 HOURS 03/31/23 10:49 Urine,Catheterized Urine Culture - Preliminary NO GROWTH AFTER 24 HOURS Constitutional Constitutional: no acute distress *Routine HEENT Exam Head: Present normocephalic Eye: Present EOMI and PERRL ENT: Present mucous membranes moist *Routine Neck Exam Neck: Present supple; Absent lymphadenopathy *Routine Respiratory Exam Respiratory: Present CTA bilaterally *Routine Cardiovascular Exam Cardiovascular: Present RRR *Routine Abdominal Exam Abdominal: Present soft and normoactive bowel sounds; Absent tenderness *Routine Extremities Exam Extremities: Absent cyanosis, clubbing or edema *Routine Skin Exam Skin: Present warm; Absent rash *Routine Neurological Exam Neurological: Present alert and oriented X3 Results Data Completed and Pending Labs on day of discharge: Labs from last 24 hours 03/22/24 03/21/24 03/21/24 00:14 19:52 18:59 WBC RBC Hgb Hct MCV MCH MCHC RDW Plt Count MPV Neut % (Auto) Lymph % (Auto) [place] % (Auto) Eos % (Auto) Baso % (Auto) Neut # (Auto) Lymph # (Auto) [place] # (Auto) Eos # (Auto) Baso # (Auto) Total Counted Neutrophils % (Manual) Lymphocytes % (Manual) Monocytes % (Manual) Platelet Estimate RBC Morphology Sodium 132 L Potassium 5.2 H D Chloride 103 Carbon Dioxide 18 L Anion Gap 16.2 H BUN 63 H Creatinine 4.30 H Estimated Creat Clear 16 Estimated GFR 14 L* Est GFR ( Amer) 16 L* Glucose 100 Calcium 9.1 Phosphorus 5.9 H Magnesium 1.4 L Total Bilirubin 0.6 AST 39 D ALT 19 D Alkaline Phosphatase 79 Total Protein 7.1 Albumin 3.8 Globulin 3.3 H Albumin/Globulin Ratio 1.2 Lipase Urine Color Yellow Urine Appearance Clear Urine pH 6.0 Ur Specific [place] <= 1.005 Urine Protein 2+ Urine Glucose (UA) Negative Urine Ketones Negative Urine Blood 2+ Urine Nitrate Positive Urine Bilirubin Negative Urine Urobilinogen 0.2 Ur Leukocyte Esterase 3+ A Urine RBC 10-20 Urine WBC 20-50 Ur Squamous Epith Cells Occasional Urine Bacteria 2+ SARS-CoV-2 (PCR) Not detected Influenza A Untype (PCR) Not detected Influenza Type B (PCR) Not detected 03/21/24 18:38 WBC 19.0 H RBC 3.66 L Hgb 11.3 L Hct 34.0 L MCV 92.9 MCH 30.9 MCHC 33.3 RDW 14.9 Plt Count 189 MPV 8.3 Neut % (Auto) 91.1 H Lymph % (Auto) 3.6 L [place] % (Auto) 4.5 Eos % (Auto) 0.6 Baso % (Auto) 0.2 Neut # (Auto) 17.3 H Lymph # (Auto) 0.7 [place] # (Auto) 0.9 Eos # (Auto) 0.1 Baso # (Auto) 0.0 Total Counted 100 Neutrophils % (Manual) 93 H Lymphocytes % (Manual) 3 L Monocytes % (Manual) 4 Platelet Estimate Normal RBC Morphology Normal Sodium 128 L Potassium 4.2 Chloride 100 Carbon Dioxide 17 L Anion Gap 15.2 H BUN 66 H Creatinine 4.30 H Estimated Creat Clear 16 Estimated GFR 14 L* Est GFR ( Amer) 16 L* Glucose 101 H Calcium 8.9 Phosphorus Magnesium Total Bilirubin 0.6 AST 27 ALT 15 Alkaline Phosphatase 74 Total Protein 7.1 Albumin 3.7 Globulin 3.4 H Albumin/Globulin Ratio 1.1 Lipase 104 Urine Color Urine Appearance Urine pH Ur Specific [place] Urine Protein Urine Glucose (UA) Urine Ketones Urine Blood Urine Nitrate Urine Bilirubin Urine Urobilinogen Ur Leukocyte Esterase Urine RBC Urine WBC Ur Squamous Epith Cells Urine Bacteria SARS-CoV-2 (PCR) Influenza A Untype (PCR) Influenza Type B (PCR) DS: Diagnosis Discharge Diagnosis (1) Acute hyponatremia: Status: Acute Code(s): E87.1 - Hypo-osmolality and hyponatremia (2) Neurogenic bladder: Status: Acute Code(s): N31.9 - Neuromuscular dysfunction of bladder, unspecified (3) Acute UTI: Status: Acute Code(s): N39.0 - Urinary tract infection, site not specified (4) Hydronephrosis: Status: Acute Code(s): N13.30 - Unspecified hydronephrosis Qualifiers: Hydronephrosis type: unspecified Qualified Code(s): N13.30 - Unspecified hydronephrosis (5) Sepsis: Status: Acute Code(s): A41.9 - Sepsis, unspecified organism Qualifiers: Sepsis acute organ dysfunction status: with acute organ dysfunction Sepsis type: sepsis due to unspecified organism Severe sepsis acute organ dysfunction type: acute renal failure (6) Leukocytosis: Status: Acute Code(s): D72.829 - Elevated white blood cell count, unspecified Qualifiers: Leukocytosis type: unspecified Qualified Code(s): D72.829 - Elevated white blood cell count, unspecified Meds Home Medications and Allergies Home Medications Medication Instructions Recorded Confirmed Type aspirin 81 mg tablet,delayed 81 mg PO DAILY Heart Health 05/25/19 03/09/24 History release ascorbate calcium (vitamin C) 500 500 mg PO DAILY Supplement 03/27/22 03/09/24 History mg tablet levothyroxine 50 mcg tablet See Rx Instructions PO DAILY 11/04/23 03/09/24 Rx thyroid #90 tabs lovastatin 20 mg tablet 20 mg PO HS Cholesterol 90 days 11/04/23 03/09/24 Rx #90 tabs gentamicin 0.1 % topical ointment 1 applic topical TID cellulitis 30 11/16/23 03/09/24 Rx days #30 grams omeprazole 40 mg capsule,delayed 40 mg PO DAILY Acid Reflux 90 days 01/04/24 03/09/24 Rx release #90 caps sildenafil 100 mg tablet (Viagra) 100 mg PO DAILY #30 tabs 01/04/24 03/09/24 Rx metoprolol succinate 25 mg 25 mg PO DAILY Blood Pressure 30 01/29/24 03/09/24 Rx tablet,extended release 24 hr days #90 tabs oxybutynin chloride 10 mg 10 mg PO DAILY Bladder 30 days #30 02/02/24 03/09/24 Rx tablet,extended release 24 hr tabs pregabalin 25 mg capsule (Lyrica) 25 mg PO BID Pain #60 caps 02/03/24 03/09/24 Rx tizanidine 2 mg capsule (Zanaflex) 2 mg PO TID PRN muscle pain 30 02/03/24 03/09/24 Rx days #90 caps fluticasone furoate 200 See Rx Instructions .Route 02/25/24 03/09/24 Rx mcg-vilanterol 25 mcg/dose .COMPLEX #60 ea inhalation powder (Breo Ellipta) ipratropium 20 mcg-albuterol 100 See Rx Instructions .Route 02/25/24 03/09/24 Rx mcg/actuation mist for inhalation .COMPLEX #4 grams (Combivent Respimat) finasteride 5 mg tablet 5 mg PO DAILY PROSTATE 90 days #90 03/04/24 03/09/24 Rx tabs New Prescriptions to Start Prescriptions: Allergies Allergy/AdvReac Type Severity Reaction Status Date / Time No Known Allergies Allergy Verified 03/21/24 17:50 Discharge Plan Disposition Patient Disposition: Admitted Follow up Plan Prescriptions/Medication Reconciliation: No Action gentamicin 0.1 % ointment 1 applic topical TID 30 Days Qty: 30 1RF ascorbate calcium (vitamin C) 500 mg tablet 500 mg PO DAILY lovastatin 20 mg tablet 20 mg PO HS 90 Days Qty: 90 1RF levothyroxine 50 mcg tablet See Rx Instructions PO DAILY Qty: 90 1RF Rx Instructions: TAKE 1 TABLET BY MOUTH EVERY MORNING ON AN EMPTY STOMACH orally daily; omeprazole 40 mg capsule,delayed release(DR/EC) 40 mg PO DAILY 90 Days Qty: 90 0RF sildenafil [Viagra] 100 mg tablet 100 mg PO DAILY Qty: 30 2RF metoprolol succinate 25 mg tablet extended release 24 hr 25 mg PO DAILY 30 Days Qty: 90 2RF oxybutynin chloride 10 mg tablet extended release 24hr 10 mg PO DAILY 30 Days Qty: 30 2RF pregabalin [Lyrica] 25 mg capsule 25 mg PO BID Qty: 60 2RF tizanidine [Zanaflex] 2 mg capsule 2 mg PO TID PRN (Reason: muscle pain) 30 Days Qty: 90 2RF Combivent Respimat 20-100 mcg/actuation mist See Rx Instructions .ROUTE .COMPLEX Qty: 4 1RF Dose Instruction: 2 PUFF INHALED TWICE A DAY FOR COPD FOR 30 DAYS Rx Instructions: 2 PUFF INHALED TWICE A DAY FOR COPD FOR 30 DAYS fluticasone furoate-vilanterol [Breo Ellipta] 200-25 mcg/dose blister with device See Rx Instructions .ROUTE .COMPLEX Qty: 60 1RF Dose Instruction: 1 INHALATIONS INHALED DAILY FOR COPD FOR 30 DAYS Rx Instructions: 1 INHALATIONS INHALED DAILY FOR COPD FOR 30 DAYS finasteride 5 mg tablet 5 mg PO DAILY 90 Days Qty: 90 2RF aspirin 81 MG tablet,delayed release (DR/EC) 81 mg PO DAILY Problem Reconciliation Problems Reviewed?: Yes Patient Discharge Instructions ACTIVITY: Continue current activity DIET: continue same diet Patient Instructions: Hydronephrosis -- Adult, Neurogenic Bladder -- Adult, DI for Urinary Tract Infection (UTI), DI for Hyponatremia, DI for Sepsis -- Adult Providers Primary Care Provider: David Mrak Admit Provider: Omer Javed Attending Provider: Omer Javed
--- OUTSIDE RECORDS SUMMARY | 2024-03-22 13:06 | XMS_ITS | Patient Health Record ---
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 Name Role Phone LouiseEmir selby Primary Care Provider [phone] ALLERGIES No Known Allergies MEDICATIONS Medication SIG (Take, Route, Frequency, Duration) Notes Start Date End Date Status Metoprolol Succinate ER 25 mg TAKE 1 TABLET BY MOUTH ONCE DAILY for 30 Active Livalo 4 mg 1 tab(s) orally once a day for 90 days Active Combivent Respimat 100 mcg-20 mcg/inh USE 1 PUFF BY MOUTH FOUR TIMES A DAY for 90 Active Symbicort 160 mcg-4.5 mcg/inh INHALE 2 PUFFS BY MOUTH 2 TIMES A DAY for 30 Active docusate-senna 50 mg-8.6 mg 2 cap(s) ora lly once a day (in the evening) for 30 day(s) 07/23/2021 Active finasteride 5 mg 1 tab(s) orally once a day for 90 days Active omeprazole 40 mg 1 cap(s) orally once a day for 90 days 07/09/2021 Active Tamsulosin Hydrochloride 0.4 mg 1 cap(s) orally once a day at night for 30 days 04/01/2016 Active Zinc Sulfate 220 mg one tab orally bid f or 30 days 04/10/2020 Active oxyBUTYnin 5 mg 2 tabs orally once a day at bedtime for 90 days 05/06/2019 Active Vitamin C 500 mg 1 tab(s) orally bid for 30 day(s) 04/10/2020 Active Synthroid 50 mcg (0.05 mg) 1 tab(s) oral ly once a day for 90 Active aspirin 81 mg 1 tab(s) orally once a day for 30 day(s) Active gabapentin 800 mg 1 tab(s) orally 3 ti mes a day for 30 days 03/20/2022 Active IMMUNIZATIONS Vaccine Route Administration Date Status Comme nts Fluvirin--Influenza vaccine 3+ year Unknown 07/14/2007 Administered Fluvirin--Influenza vaccine 3+ year IM Intramuscular 07/10/2008 Administered Fluvirin--Influenza vaccine 3+ year Unknown 10/22/2009 Administered Fluvirin--Influenza vaccine 3+ year Unknown 09/22/2011 Administered Fluvirin--Influenza vaccine 3+ year Unknown 07/12/2012 Administered Fluzone High Dose IM Intramuscular 05/04/2018 Administered Fluzone High Dose IM Intramuscular 08/02/2019 Administered Fluzone High Dose IM Intramuscular 06/05/2020 Administered Fluzone High Dose IM Intramuscular 06/18/2021 Administered Influenza (Fluzone)--Medicare only IM Intramuscular 06/24/2016 Administered Influenza (Fluzone)--Medicare only IM Intramuscular 06/25/2017 Administered Influenza-Fluzone 3+years (NON-MEDICARE) IM Intramuscular 07/17/2015 Administered Pneumococcal Vaccine IM Intramuscular 07/10/2008 Admingurindere ronald Pneumovax 23 IM Intramuscular 04/26/2019 Administered PPD ID Intradermal 08/26/2016 Administered Prevnar PCV-13 (Pneumococcal conjugate 13) IM Intramuscular 07/17/2015 Administered Tenivac (Td) 7 + yrs IM Intramuscular 03/13/2015 Adminjason cardenas SOCIAL HISTORY Tobacco Use: Social History Observation Description Date Details (start date - stop date) Current Smoker NA - NA Sex Assigned At : Social History Observation Description Sex Assigned At Unknown Smoking: Question Answer Notes Are you a: current smoker How often do you smoke cigarettes? every day How many cigarettes a day do you smoke? 21-30 PROBLEMS Problem Type ICD Code Onset Dates Problem Status W/U Status Risk SNOMED Code Notes Problem Type 2 diabetes mellitus with diabetic chronic kidney disease (E11.22) Active confirmed Diabetic renal disease (666553895) Problem Other chronic pain (G89.29) Active confirmed Chronic pain (19452510) Problem Panlobular emphysema (J43.1) Active confirmed 1397725 Problem Slow transit constipation (K59.01) Active confirmed 55566119 Problem Other specific arthropathies, not elsewhere classified, left shoulder (M12.812) Active confirmed 974351231 Problem Low back pain (M54.5) Active confirmed 410704909 Problem Unspecified rotator cuff tear or rupture of left shoulder, not specified as traumatic (M75.102) Active confirmed 38555003733817108 Problem Chronic kidney disease, stage 3 (moderate) (N18.3) Active confirmed 052791872 Problem Paresthesia of skin (R20.2) Active confirmed 94451716 Problem Personal history of nicotine dependence (Z87.891) Active confirmed 715542061 Problem Hypothyroidism (acquired) (E03.9) Active confirmed 547952587 Problem Hyperlipemia, 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 385020680 Problem Hypertension, essential (I10) Active confirmed 94500897 Problem Tobacco abuse (Z72.0) Active confirmed 10720613 Problem COPD exacerbation (J44.1) Active confirmed 739130216 Problem Chronic kidney disease (CKD) stage G4/A2, severely decreased glomerular filtration rate (GFR) between 15-29 mL/min/1.73 square meter and albuminuria creatinine ratio between 30-299 mg/g (N18.4) Active confirmed Chronic kidney disease stage 4 (894041481) Problem Coronary artery disease involving [place] coronary artery of [place] heart without angina pectoris (I25.10) Active confirmed 710749547 Problem Benign non-nodular prostatic hyperplasia with lower urinary tract symptoms (N40.1) Active confirmed 688294467 Problem Cigarette nicotine dependence without complication (F17.210) Active confirmed Tobacco user (527709060) Problem Pulmonary nodule (R91.1) Active confirmed 709677972 Problem Bronchitis, chronic obstructive w acute bronchitis (J44.0) Active confirmed Chronic obstruc tive pulmonary disease with acute lower respiratory infection (052524226) Problem 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) Active confirmed Dependence on supplemental oxygen (772036036254) Problem Bilateral hearing loss, unspecified hearing loss type (H91.93) Active confirmed 00666147 Problem Spinal osteophytosis (M25.78) Active confirmed 7678066 Problem Bladder neck obstruction (N32.0) Active confirmed Bladder neck obstruction (117538459) Problem Pressure injury of buttock, stage 1, unspecified laterality (L89.301) Active confirmed 18548223216076568 Problem Gastroesophageal reflux disease, unspecified whether esophagitis present (K21.9) Active confirmed 670334394 PLAN OF TREATMENT Pending Test Test Name Order Date N-CBC 09/08/2007 X-Lipid Profile 09/08/2007 Urinalysis 09/29/2017 N-PSA 08/10/2006 N-CMP 09/08/2007 Urine Drug Screen IH 03/21/2011 N-spep 10/26/2009 N-PSA Screening 09/08/2007 Physical Therapy : Wound Care 04/17/2020 H-24 HR CREATININE 06/30/2017 H-URINE 24 HOUR FOR PROTEIN 06/30/2017 C-TESTOSTERONE 09/22/2011 C-CBC 01/03/2013 C-CBC 09/22/2011 C-CBC 03/21/2011 C-CBC 09/12/2013 C-CBC 07/26/2014 C-CMP 07/26/2014 C-CMP 11/21/2014 C-CMP 07/17/2015 C-CMP 09/12/2013 C-CMP 03/28/2014 C-CMP 04/01/2013 C-CMP 03/21/2011 C-CMP 01/03/2013 C-CMP 07/12/2012 C-CMP 12/04/2020 C-LIPID PANEL 12/04/2020 C-LIPID PANEL 07/17/2015 C-LIPID PANEL 09/22/2011 C-LIPID PANEL 03/21/2011 C-LIPID PANEL 04/01/2013 C-LIPID PANEL 07/12/2012 C-LIPID PANEL 01/03/2013 C-LIPID PANEL 11/21/2014 C-LIPID PANEL 09/12/2013 C-LIPID PANEL 07/26/2014 C-TSH 07/26/2014 C-TSH 11/21/2014 C-TSH 07/17/2015 C-TSH 03/28/2014 C-TSH 09/12/2013 C-TSH 03/21/2011 C-TSH 09/22/2011 C-TSH 07/12/2012 C-TSH 01/03/2013 C-HIV 08/26/2016 C-VITAMIN B12 09/22/2011 N-blood smear 06/16/2008 N-blood smear 10/23/2009 N-UPEP 10/26/2009 VENIPUNCT, ROUTINE* 10/07/2016 VENIPUNCT, ROUTINE* 07/17/2015 NVC/EMG STUDY OF UPPER EXTREMITIES 10/28 H-24 hour creatinine clearance 7 M-Complete Blood Count Auto Diff 018 M-Cardiac Enzymes 04/13/2018 M-Comprehensive Metabolic Panel 04/13/20 18 M-Magnesium 04/13/2018 M-Prostate Specific Ag Screen 02/19/2021 Insurance Providers Payer Name Payer Address Payer Phone Subscriber Number Group Number Insured Name Patient Relationship to Insured Coverage Start Date Coverage End Date [place] [address] [place] [address] [id number] Louie Soto Self - [place] [address] [id number] Louie Soto Self - patient is the insured MEDICATIONS ADMINISTERED Medication Instructions Date of Administration Dosage Notes Kenalog 40mg 10/16/2017 40 mg Triamcinolone Acetonide 40mg Injection 09/26/2019 1 mL MEDICAL (GENERAL) HISTORY Medical History History ICD Code Hyperlipidemia COPD Tobacco Abuse Lumbar neuralgia - chronic Chronic pain syndrome Erectile dysfunction Hypothyroidism Urinary retention - BPH - with [facility]. Self -caths TID chest pain syndrome with neg ative nuclear stress testing March 2018, echocardiogram with EF 50% and mild left atrial enlargement colonoscopy May 2019 with multiple tubular adenoma Appropriate oral fluid drug screen 06/03 LDCT scan with nodules 07/04 - 6 month r echeck recommended Surgical History Surgery Date(Month/Year) hernia repair right knee cardiac cath 06/2021 Hospitalization History Reason Date(Month/Year) above chest pain 06/2021
== END 2024-03-22 02:45 | disposition short-term general hospital (02) ==
LOC: ER 21:11 → 2ND 03-22 01:12
PROVIDERS: Admitting Provider Family Medicine; Emergency Provider Emergency Medicine; PCP Family Medicine; Visit Provider Family Medicine
DX: E87.1 Hypo-osmolality and hyponatremia (principal); N31.9 Neuromuscular dysfunction of bladder, unspecified; N39.0 Urinary tract infection, site not specified; N13.30 Unspecified hydronephrosis; D72.829 Elevated white blood cell count, unspecified; I50.22 Chronic systolic (congestive) heart failure; Z79.899 Other long term (current) drug therapy
CPT/HCPCS: 51702; 71045; 74177; 80053; 81001; 83690; 83735; 84100; 85007; 85025; 85027; 87040; 87086; 87088; 87186; 87636; 94640; 99291; G0378; J0131; J2543; J7120; J7620; Q9967

== ENCOUNTER 2024-03-31 09:21 | Outpatient (CLI) | payer MEDICARE, SELFPAY ==
--- NOTE | 2024-03-31 09:24 | CA_ITS ---
FINAL REPORT CLINICAL HISTORY: lower right leg/ankle pain and edema x 3 days, recent 5 day stay in hospital due to kidney issues. nicotine patch x 7 days and continuing to smoke. COMPARISON: None FINDINGS: DUPLEX VENOUS SONOGRAPHY OF THE RIGHT LOWER EXTREMITY Multiple transverse and longitudinal scans were performed of the femoropopliteal deep venous system, with augmentation and compression maneuvers. HISTORY: Pain edema FINDINGS: Normal phasic flow was noted in the visualized deep venous system. No intraluminal increased echogenicity is noted to suggest thrombus. There is normal compression and augmentation of the venous structures. No abnormal venous collaterals are seen. IMPRESSION: No evidence of deep venous thrombosis of the right lower extremity. Reviewed, Interpreted and Dictated by Yesica Wright MD Transcribed by Celia Saha Authenticated and [facility]
== END 2024-03-31 23:59 | disposition home or self-care (01) ==
LOC: RT 09:22
PROVIDERS: PCP Family Medicine; Visit Provider Family Medicine
DX: M79.604 Pain in right leg (principal)
CPT/HCPCS: 93971

== ENCOUNTER 2024-06-14 21:13 | Emergency (ER) | payer MEDICARE, SELFPAY ==
[2024-06-14 21:13] VITALS: BP 91/60; PULSE 73; RESP 20; TEMP 36.6; O2SAT 100; BMI 19.0
--- NOTE | 2024-06-14 21:18 | ECG_ITS ---
APPROVED REPORT Exam: Resting ECG HR:76 bpm ECG Measurements Heart Rate 76 AXES LA 192 P 104 QRSd 108 QRS 66 QT 376 T 78 QTc 406 Conclusion SINUS RHYTHM NONSPECIFIC T-WAVE ABNORMALITY BORDERLINE ECG UNCONFIRMED REPORT Electronically signed by : BEATRIZ GORE, 06/15/2024 05:19:01
[2024-06-14 21:30] VITALS: BP 91/60; PULSE 75; RESP 18; O2SAT 79
--- NOTE | 2024-06-14 21:30 | XR_ITS ---
PROCEDURE INFORMATION: Exam: XR Chest Exam date and time: 06/14/2024 9:40 PM Age: 73 years old Clinical indication: Cough; Additional info: SOA, cachexia, cough TECHNIQUE: Imaging protocol: Radiologic exam of the chest. Views: 1 view. COMPARISON: CR XR CHEST PORTABLE 03/21/2024 6:31 PM FINDINGS: Lungs: Well aerated with no evidence of consolidations, interstitial patterns or mass. Pleural spaces: No evidence of effusions or pneumothorax. Heart/Mediastinum: The cardiomediastinal silhouette is normal in size and configuration. There is no evidence of cardiomegaly. Bones/joints: No acute fractures. IMPRESSION: No acute findings.
[2024-06-14] MEDS: LACTATED RINGERS 1000ML 1,910 ML 955 ML IV (21:46)
[2024-06-14] MEDS: VANCOMYCIN CONSULT REQUEST 1 EACH NOTAPPLIC (21:46)
[2024-06-14] MEDS: AMPICILLIN SODIUM/SULBACTAM 3 GM in 0.9 % SODIUM CHLORIDE 100 ML IV (21:47)
[2024-06-14 21:48] LABS: VBG Base Excess -17.2 mmol/L (-2.4-2.3); VBG Oxygen Saturation 63.3 % (50-70); VBG PCO2 29.4 mmol/L (35-51); VBG PO2 37.5 mmol/L (28-40); VBG Total CO2 11.9 mmol/L (23-27)
--- NOTE | 2024-06-14 21:49 | ED_ITS ---
Discharge Plan Disposition Patient Disposition: Xfer Short-Term Hosp Prescriptions Prescriptions: No Action gentamicin 0.1 % ointment 1 applic topical TID 30 Days Qty: 30 1RF levofloxacin 750 mg tablet 750 mg PO DAILY ascorbate calcium (vitamin C) 500 mg tablet 500 mg PO DAILY sildenafil [Viagra] 100 mg tablet 100 mg PO DAILY Qty: 30 2RF metoprolol succinate 25 mg tablet extended release 24 hr 25 mg PO DAILY 30 Days Qty: 90 2RF finasteride 5 mg tablet 5 mg PO DAILY 90 Days Qty: 90 2RF omeprazole 40 mg capsule,delayed release(DR/EC) 40 mg PO DAILY 90 Days Qty: 90 0RF fluticasone furoate-vilanterol [Breo Ellipta] 200-25 mcg/dose blister with device 1 inh inhalation DAILY 30 Days Qty: 60 2RF Combivent Respimat 20-100 mcg/actuation mist 2 puff inhalation BID 30 Days Qty: 4 2RF levothyroxine 50 mcg tablet See Rx Instructions PO DAILY Qty: 90 1RF Rx Instructions: TAKE 1 TABLET BY MOUTH EVERY MORNING ON AN EMPTY STOMACH orally daily; oxybutynin chloride 10 mg tablet extended release 24hr 10 mg PO DAILY 30 Days Qty: 30 2RF pregabalin [Lyrica] 25 mg capsule 25 mg PO BID Qty: 60 2RF tizanidine [Zanaflex] 2 mg capsule 2 mg PO TID PRN (Reason: muscle pain) 30 Days Qty: 90 2RF lovastatin 20 mg tablet 20 mg PO HS 90 Days Qty: 90 1RF aspirin 81 MG tablet,delayed release (DR/EC) 81 mg PO DAILY Referrals Follow up/Referrals: David Mark MD [Primary Care Provider] - See instructions Clinical Impressions Clinical Impression: Septic shock, Acute renal failure, Obstructive uropathy Print Language Print Language: [place] Discharge ED Provider: Osei Portillo General Adult HPI <Rafael Benoit MD - Last Filed: 06/14/24 22:56> General Chief complaint: Weakness Stated complaint: weakness Time Seen by Provider: 06/14/24 21:20 Mode of Arrival: Wheelchair Source of Information: Patient and Relative Limitations: No Limitations Description of Symptoms (Recalled from ER Triage Doc. by RN): pt was brought in by family for generalized weakness and overall decline, pt has lost appetite and is in kidney failure with hx of copd. pt is unable to perform adlsand family is concerned Related Data Home Medications ?Medication ?Instructions ?Recorded ?Confirmed aspirin 81 mg tablet,delayed 81 mg PO DAILY Heart Health 05/25/19 03/30/24 release ascorbate calcium (vitamin C) 500 500 mg PO DAILY Supplement 03/27/22 03/30/24 mg tablet levofloxacin 750 mg tablet 750 mg PO DAILY 03/30/24 03/30/24 Previous Rx's ?Medication ?Instructions ?Recorded gentamicin 0.1 % topical ointment 1 applic topical TID cellulitis 30 11/16/23 days #30 grams sildenafil 100 mg tablet (Viagra) 100 mg PO DAILY #30 tabs 01/04/24 metoprolol succinate 25 mg 25 mg PO DAILY Blood Pressure 30 01/29/24 tablet,extended release 24 hr days #90 tabs finasteride 5 mg tablet 5 mg PO DAILY PROSTATE 90 days #90 03/04/24 tabs omeprazole 40 mg capsule,delayed 40 mg PO DAILY Acid Reflux 90 days 04/06/24 release #90 caps fluticasone furoate 200 1 inh inhalation DAILY 30 days #60 04/28/24 mcg-vilanterol 25 mcg/dose ea inhalation powder (Breo Ellipta) ipratropium 20 mcg-albuterol 100 2 puff inhalation BID 30 days #4 04/28/24 mcg/actuation mist for inhalation grams (Combivent Respimat) levothyroxine 50 mcg tablet See Rx Instructions PO DAILY 05/04/24 thyroid #90 tabs oxybutynin chloride 10 mg 10 mg PO DAILY Bladder 30 days #30 05/04/24 tablet,extended release 24 hr tabs pregabalin 25 mg capsule (Lyrica) 25 mg PO BID Pain #60 caps 05/04/24 tizanidine 2 mg capsule (Zanaflex) 2 mg PO TID PRN muscle pain 30 05/04/24 days #90 caps lovastatin 20 mg tablet 20 mg PO HS Cholesterol 90 days 05/09/24 #90 tabs Allergies Allergy/AdvReac Type Severity Reaction Status Date / Time No Known Allergies Allergy Verified 03/30/24 11:05 [facility] <Rafael Benoit MD - Last Filed: 06/14/24 22:56> [facility] Disclaimer: The information contained in this section may have been updated after the patient was seen, as this information can be updated by other users. Medical History History of inguinal hernia Abdominal aortic aneurysm (AAA) PAD (peripheral artery disease) Coronary artery disease Medical mgt JUN 2021 Abnormal electrocardiography Systolic CHF, chronic Elevated troponin Hypotension Aortic insufficiency Mitral regurgitation Bladder outlet obstruction Personal history of nicotine dependence COPD (chronic obstructive pulmonary disease) with acute bronchitis Chronic kidney disease Pancreatitis Hidradenitis suppurativa Hidradenitis alone bilateral buttock and upper thigh region. Abscessed hidradenitis along mid left buttock. Surgical History No significant past surgical history Family History Other No significant family history Social History Smoking Status: Former smoker tobacco type: cigarettes packs per day: 1 second hand exposure: No alcohol intake: never substance use type: denies use current occupational status: retired Travel in the last 8 weeks: None household members: spouse housing: house current occupational exposures/hazards: No caffeine: No Other Medical History Have you received the Flu Vaccine for this season: Yes Have you received the Pneumonia Vaccine: Yes <Rafael Benoit MD - Last Filed: 06/14/24 22:56> ROS Obtained: Yes All systems reviewed & no additional complaints except as documented Physical Exam <Rafael Benoit MD - Last Filed: 06/14/24 22:56> General General appearance: alert, cachectic and other (Acutely on chronically ill) Eye Eye exam: Present other (Eyes are sunken) ENT ENT exam: Present mucous membranes dry Neck Neck exam: Present trachea midline Chest Chest inspection: Present normal inspection and symmetric chest wall rise Respiratory Respiratory exam: Present normal lung sounds bilaterally and other (Intermittently coughing); Absent respiratory distress, wheezes, stridor, accessory muscle use or prolonged expiratory phase Cardiovascular Cardiovascular exam: Present regular rate, normal rhythm and other (Pulses equal and symmetric in upper and lower extremities) Abdominal Exam Abdominal exam: Present soft; Absent distention or tenderness Extremities Exam Extremities exam: Absent edema Neurological Exam Neurological exam: Present alert and CN II-XII intact; Absent oriented X3 (Oriented only to person and place, not time or situation) Skin Skin exam: Present warm and dry; Absent cyanosis, diaphoresis or pallor Medical Decision Making <Rafael Benoit MD - Last Filed: 06/14/24 22:56> Medical Records Medical records reviewed: Yes I reviewed the patient's medical records. Screening: Per USPSTF and CDC recommendations, given the prevalence of disease in our region, it is our hospital?s policy to screen for HIV and viral Hepatitis for all patients aged 18 and over and those with ongoing risk factors. Frantz Inquiry Pt receiving controlled substance: No Frantz was queried for this patient: No Vital Signs: 06/14/24 21:13 06/14/24 21:30 06/14/24 22:00 Temperature 97.9 F Temperature Source Axillary Pulse Rate 75 54 L Pulse Rate [Right Radial] 73 Respiratory Rate 20 18 15 Blood Pressure 91/60 L 92/58 L Blood Pressure [Right Arm] 91/60 L Blood Pressure Mean [Right Arm] 70 02 Sat by Pulse Oximetry 100 79 L 93 L Oxygen Delivery Method Nasal Cannula Oxygen Flow Rate (LPM) 2 Lab Data Lab results reviewed: Yes I reviewed the patient's lab results. Lab Results 06/14/24 21:20: WBC 60.0 H*, RBC 3.57 L, Hgb 10.7 L, Hct 33.3 L, MCV 93.2, MCH 30.0, MCHC 32.2, RDW 16.2, Plt Count 366, MPV 10.7 H, Neut % (Auto) 96.4 H, L ymph % (Auto) 1.0 L, [place] % (Auto) 2.1, Eos % (Auto) 0.2, Baso % (Auto) 0.3, N eut # (Auto) 57.8 H, Lymph # (Auto) 0.6 L, [place] # (Auto) 1.3 H, Eos # (Auto) 0.1, Baso # (Auto) 0.2, Total Counted 100, Neutrophils % (Manual) 91 H, L ymphocytes % (Manual) 5 L, Atypical Lymphs % 2.0, Monocytes % (Manual) 2, Platelet Estimate Not Reportable, RBC Morphology Normal, Hypochromasia 1+, Anisocytosis 1+, Rouleaux 1+, APTT 38.5 H, Sodium 130 L, Potassium 5.0, Chloride 100, Carbon Dioxide 10 L, Anion Gap 25.0 H, BUN 150 H*, Creatinine 8.20 H, Estimated Creat Clear 7, Estimated GFR 6 L*, Est GFR ( Amer) 8 L*, G lucose 134 H, Hemoglobin A1c 6.1 H, Lactate 0.8, Calcium 8.6, Magnesium 1.7, Total Bilirubin 1.3, AST 44, ALT 34, Alkaline Phosphatase 146 H, Troponin I 0.03, NT-Pro-B Natriuret Pep 9990 H, Total Protein 7.8, Albumin 3.6, Globulin 4.2 H, Albumin/Globulin Ratio 0.9 L, Triglycerides 141, Cholesterol 107 L, LDL Cholesterol Direct 46.56 L, VLDL Cholesterol 28, HDL Cholesterol 24 L, C holesterol/HDL Ratio 4.5 H, Lipase 249, Procalcitonin 1.77 06/14/24 21:31: PT 11.9, INR 1.07, Urine Color Yellow, Urine Appearance Clear, Urine pH 6.0, Ur Specific Thompson 1.015, Urine Protein 2+ A, Urine Glucose (UA) Negative, Urine Ketones Negative, Urine Blood 2+ A, Urine Nitrate Positive, Urine Bilirubin Negative, Urine Urobilinogen 0.2, Ur Leukocyte Esterase 2+ A, Urine RBC 5-10, Urine WBC Tntc, Ur Squamous Epith Cells 5-10, Urine Bacteria 4+ 06/14/24 21:32: VBG pH 7.19 L, VBG pCO2 29.4 L, VBG pO2 37.5, VBG HCO3 11.0 L, V BG Total CO2 11.9 L, VBG O2 Saturation 63.3, VBG Base Excess -17.2 L, VBG Lactic Acid 2.4 H 06/14/24 21:20 06/14/24 21:20 Orders (Tests/Meds): ED MEDICATIONS Generic Name Dose Route Start Last Admin Trade Name Freq PRN Reason Stop Dose Admin Miscellaneous 1 each 06/14/24 21:30 06/14/24 21:46 Vancomycin Consult Request NOTAPPLIC 07/14/24 21:29 1 each CONSULT PHARMACY ANITA Administration Discontinued Medications Generic Name Dose Route Start Last Admin Trade Name Freq PRN Reason Stop Dose Admin Ampicillin Sodium/Sulbactam 100 mls @ 200 mls/hr 06/14/24 21:29 06/14/24 21:43 Sodium 3 gm/ Sodium Chloride IV 06/14/24 21:30 Not Given ONCE ONE Vancomycin/PEG/NADA/Lysine/Water 1.25 gm in 250 mls @ 125 mls/hr 06/14/24 21:45 06/14/24 21:51 Vancomycin 1.25gm/250ml (Peg) Premix IV 06/14/24 23:44 125 mls/hr ONCE ONE Administration Lactated Ringer's 1,910 mls @ 955 mls/hr 06/14/24 21:39 06/14/24 21:46 Lactated Ringer's 1000 Ml Bag 30 ml/kg infuse over 2 hr (1910 ml) 06/14/24 23:38 955 mls/hr IV Administration .Q2H ONE Ampicillin Sodium/Sulbactam 100 mls @ 200 mls/hr 06/14/24 21:43 06/14/24 21:47 Sodium 3 gm/ Sodium Chloride IV 06/14/24 21:44 200 mls/hr ONCE ONE Administration ORDERS Category Date Time Status XR chest portable Stat Exams 06/14/24 21:30 Completed Complete Blood Count Auto Diff Stat Lab 06/14/24 21:20 Completed Comprehensive Metabolic Panel Stat Lab 06/14/24 21:20 Completed Hemoglobin A1C Stat Lab 06/14/24 21:20 Completed Lactic Acid Stat Lab 06/14/24 21:20 Completed Lipase Stat Lab 06/14/24 21:20 Completed Lipid Panel Stat Lab 06/14/24 21:20 Completed Magnesium Stat Lab 06/14/24 21:20 Completed NT Pro Brain Natriuretic Pep. Stat Lab 06/14/24 21:20 Completed PT INR [Prothrombin Time INR] Stat Lab 06/14/24 21:31 Completed PTT [Activated Partial Thrombo Time] Stat Lab 06/14/24 21:20 Completed Peripheral Smear Review Stat Lab 06/14/24 21:02 Received Procalcitonin Stat Lab 06/14/24 21:20 Completed Troponin I Q3H Lab 06/15/24 00:45 Ordered Troponin I Q3H Lab 06/15/24 03:45 Ordered Troponin I Stat Lab 06/14/24 21:20 Completed Urinalysis and Microscopic Stat Lab 06/14/24 21:31 Completed Blood Culture Stat Micro 06/14/24 21:32 Received Urine Culture Stat Micro 06/14/24 21:31 Received Venous Blood Gas Stat RT 06/14/24 21:32 Completed Medical Decision Narrative: 73-year-old male history of hypertension, hyperlipidemia, end-stage COPD still smoking 1 pack/day, CAD, CHF, ischemic cardiomyopathy on anticoagulation, AAA, CKD, chronic urinary retention requiring self-catheterization presenting with failure to thrive. Patient has been getting worse over the period of weeks, per family. Patient largely noncontributory to history. States that he has been tolerating very little p.o. intake, noting 1 protein shake a day for the past couple of days with some coffee. Patient has had 15 pound weight loss over the last 2 weeks and has been interacting very minimally. They state that he is so weak he has been unable to cath himself. No fevers or chills, diarrhea, vomiting, patient does state that he has been feeling short of breath and had a cough that he feels should be productive, not strong enough to bring up sputum. Per family, patient fell and landed on his buttocks 2 days prior to this visit, but has been ambulatory without issue since that time. Largely just weak enough that they had been unable to help him get around the house without significant assistance, which is abnormal for him. History was obtained via conversation with patient and family. On arrival, patient hemodynamically stable, alert, oriented only to person and place, GCS 15, moving all extremities spontaneously, pupils equal and reactive to light. Full physical exam performed and significant for acutely on chronically ill-appearing male. He is pale, cool, dry. Eyes are sunken, dry mucous membranes. Cachectic, alert, but mouthing and open. Patient hypotensive, nontachycardic. Cardiac exam with right upper sternal border murmur. No lower extremity edema. Bilateral upper and lower extremity pulses are intact and symmetric. Lungs are clear to auscultation anteriorly and posterior bilaterally without focal breath sounds. Abdomen is soft, nontender, nondistended. No evidence of trauma about the head or neck or limbs. Differential includes failure to thrive, ACS, MD, pneumonia, sepsis, urinary tract infection, acute renal failure, end-stage comorbidities, among others. Patient placed on continuous cardiac monitoring and continuous pulse ox with initial blood pressure 91/60, heart rate 73, saturation 100% on 2 L nasal cannula. Independent interpretation of EKG shows sinus rhythm 76 beats a minute without ST changes concerning for acute ischemia. T wave inversions in inferior leads without reciprocal elevations. Normal axis. ME 192 QRS 108 QTc 406. Patient was given sepsis fluid bolus, empiric Unasyn and vancomycin for symptomatic management and correction of underlying abnormalities. Workup independently interpreted and significant for VBG with severe uncompensated metabolic acidosis HCO3 11.0, CO2 low at 29.4 and pH 7.19. Lactate 2.4. White count 60,000 with neutrophilia. Coags normal. Patient's chemistry concerning for intrarenal versus postrenal uropathy with BUN 150, creatinine 8.2, sodium 130. LFTs within normal limits. Urinalysis with concern for pyelonephritis with protein, blood, nitrates, leukocyte esterase, bacteria. On independent interpretation of imaging, no acute cardiopulmonary airspace disease, stable chronic findings. See radiology read for full review of final results. Goals of care discussion had with patient as well as daughter who is here and his medical decision maker as next of kin. Shared decision making finds that patient is agreeable to dialysis, should he need it. Because of this, [facility] was contacted. Will need to be transferred to outside facility capable of dialysis. Prior to final destination for transfer, care handed off to oncoming physician. Customer Engagement Manager disclaimer Much of this encounter note is an electronic mannequin decorator spoken language to printed text. Electronic mannequin decorator of the spoken language may permit errors. Although I have reviewed the note, some errors may still exist. <Osei Portillo MD - Last Filed: 06/15/24 00:29> Vital Signs: 06/14/24 21:13 06/14/24 21:30 06/14/24 22:00 Temperature 97.9 F Temperature Source Axillary Pulse Rate 75 54 L Pulse Rate [Right Radial] 73 Respiratory Rate 20 18 15 Blood Pressure 91/60 L 92/58 L Blood Pressure [Right Arm] 91/60 L Blood Pressure Mean [Right Arm] 70 02 Sat by Pulse Oximetry 100 79 L 93 L Oxygen Delivery Method Nasal Cannula Oxygen Flow Rate (LPM) 2 Lab Data Lab Results 06/14/24 21:20: WBC 60.0 H*, RBC 3.57 L, Hgb 10.7 L, Hct 33.3 L, MCV 93.2, MCH 30.0, MCHC 32.2, RDW 16.2, Plt Count 366, MPV 10.7 H, Neut % (Auto) 96.4 H, L ymph % (Auto) 1.0 L, [place] % (Auto) 2.1, Eos % (Auto) 0.2, Baso % (Auto) 0.3, N eut # (Auto) 57.8 H, Lymph # (Auto) 0.6 L, [place] # (Auto) 1.3 H, Eos # (Auto) 0.1, Baso # (Auto) 0.2, Total Counted 100, Neutrophils % (Manual) 91 H, L ymphocytes % (Manual) 5 L, Atypical Lymphs % 2.0, Monocytes % (Manual) 2, Platelet Estimate Not Reportable, RBC Morphology Normal, Hypochromasia 1+, Anisocytosis 1+, Rouleaux 1+, APTT 38.5 H, Sodium 130 L, Potassium 5.0, Chloride 100, Carbon Dioxide 10 L, Anion Gap 25.0 H, BUN 150 H*, Creatinine 8.20 H, Estimated Creat Clear 7, Estimated GFR 6 L*, Est GFR ( Amer) 8 L*, G lucose 134 H, Hemoglobin A1c 6.1 H, Lactate 0.8, Calcium 8.6, Magnesium 1.7, Total Bilirubin 1.3, AST 44, ALT 34, Alkaline Phosphatase 146 H, Troponin I 0.03, NT-Pro-B Natriuret Pep 9990 H, Total Protein 7.8, Albumin 3.6, Globulin 4.2 H, Albumin/Globulin Ratio 0.9 L, Triglycerides 141, Cholesterol 107 L, LDL Cholesterol Direct 46.56 L, VLDL Cholesterol 28, HDL Cholesterol 24 L, C holesterol/HDL Ratio 4.5 H, Lipase 249, Procalcitonin 1.77 06/14/24 21:31: PT 11.9, INR 1.07, Urine Color Yellow, Urine Appearance Clear, Urine pH 6.0, Ur Specific [place] 1.015, Urine Protein 2+ A, Urine Glucose (UA) Negative, Urine Ketones Negative, Urine Blood 2+ A, Urine Nitrate Positive, Urine Bilirubin Negative, Urine Urobilinogen 0.2, Ur Leukocyte Esterase 2+ A, Urine RBC 5-10, Urine WBC Tntc, Ur Squamous Epith Cells 5-10, Urine Bacteria 4+ 06/14/24 21:32: VBG pH 7.19 L, VBG pCO2 29.4 L, VBG pO2 37.5, VBG HCO3 11.0 L, V BG Total CO2 11.9 L, VBG O2 Saturation 63.3, VBG Base Excess -17.2 L, VBG Lactic Acid 2.4 H Orders (Tests/Meds): ED MEDICATIONS Generic Name Dose Route Start Last Admin Trade Name Freq PRN Reason Stop Dose Admin Miscellaneous 1 each 06/14/24 21:30 06/14/24 21:46 Vancomycin Consult Request NOTAPPLIC 07/14/24 21:29 1 each CONSULT PHARMACY [facility] Administration Discontinued Medications Generic Name Dose Route Start Last Admin Trade Name Freq PRN Reason Stop Dose Admin Ampicillin Sodium/Sulbactam 100 mls @ 200 mls/hr 06/14/24 21:29 06/14/24 21:43 Sodium 3 gm/ Sodium Chloride IV 06/14/24 21:30 Not Given ONCE ONE Vancomycin/PEG/NADA/Lysine/Water 1.25 gm in 250 mls @ 125 mls/hr 06/14/24 21:45 06/14/24 21:51 Vancomycin 1.25gm/250ml (Peg) Premix IV 06/14/24 23:44 125 mls/hr ONCE ONE Administration Lactated Ringer's 1,910 mls @ 955 mls/hr 06/14/24 21:39 06/14/24 21:46 Lactated Ringer's 1000 Ml Bag 30 ml/kg infuse over 2 hr (1910 ml) 06/14/24 23:38 955 mls/hr IV Administration .Q2H ONE Ampicillin Sodium/Sulbactam 100 mls @ 200 mls/hr 06/14/24 21:43 06/14/24 21:47 Sodium 3 gm/ Sodium Chloride IV 06/14/24 21:44 200 mls/hr ONCE ONE Administration ORDERS Category Date Time Status XR chest portable Stat Exams 06/14/24 21:30 Completed Complete Blood Count Auto Diff Stat Lab 06/14/24 21:20 Completed Comprehensive Metabolic Panel Stat Lab 06/14/24 21:20 Completed Hemoglobin A1C Stat Lab 06/14/24 21:20 Completed Lactic Acid Stat Lab 06/14/24 21:20 Completed Lipase Stat Lab 06/14/24 21:20 Completed Lipid Panel Stat Lab 06/14/24 21:20 Completed Magnesium Stat Lab 06/14/24 21:20 Completed NT Pro Brain Natriuretic Pep. Stat Lab 06/14/24 21:20 Completed PT INR [Prothrombin Time INR] Stat Lab 06/14/24 21:31 Completed PTT [Activated Partial Thrombo Time] Stat Lab 06/14/24 21:20 Completed Peripheral Smear Review Stat Lab 06/14/24 21:02 Received Procalcitonin Stat Lab 06/14/24 21:20 Completed Troponin I Q3H Lab 06/15/24 00:45 Ordered Troponin I Q3H Lab 06/15/24 03:45 Ordered Troponin I Stat Lab 06/14/24 21:20 Completed Urinalysis and Microscopic Stat Lab 06/14/24 21:31 Completed Blood Culture Stat Micro 06/14/24 21:32 Received Urine Culture Stat Micro 06/14/24 21:31 Received Venous Blood Gas Stat RT 06/14/24 21:32 Completed Tissue Perfus/Sepsis Re-Eval Sepsis Re-Evaluation Performed: Yes Date Performed: 06/15/24 Time Performed: 00:26 Medical Decision Narrative: 73-year-old male history of hypertension, hyperlipidemia, end-stage COPD still smoking 1 pack/day, CAD, CHF, ischemic cardiomyopathy on anticoagulation, AAA, CKD, chronic urinary retention requiring self-catheterization presenting with failure to thrive. Patient has been getting worse over the period of weeks, per family. Patient largely noncontributory to history. States that he has been tolerating very little p.o. intake, noting 1 protein shake a day for the past couple of days with some coffee. Patient has had 15 pound weight loss over the last 2 weeks and has been interacting very minimally. They state that he is so weak he has been unable to cath himself. No fevers or chills, diarrhea, vomiting, patient does state that he has been feeling short of breath and had a cough that he feels should be productive, not strong enough to bring up sputum. Per family, patient fell and landed on his buttocks 2 days prior to this visit, but has been ambulatory without issue since that time. Largely just weak enough that they had been unable to help him get around the house without significant assistance, which is abnormal for him. History was obtained via conversation with patient and family. On arrival, patient hemodynamically stable, alert, oriented only to person and place, GCS 15, moving all extremities spontaneously, pupils equal and reactive to light. Full physical exam performed and significant for acutely on chronically ill-appearing male. He is pale, cool, dry. Eyes are sunken, dry mucous membranes. Cachectic, alert, but mouthing and open. Patient hypotensive, nontachycardic. Cardiac exam with right upper sternal border murmur. No lower extremity edema. Bilateral upper and lower extremity pulses are intact and symmetric. Lungs are clear to auscultation anteriorly and posterior bilaterally without focal breath sounds. Abdomen is soft, nontender, nondistended. No evidence of trauma about the head or neck or limbs. Differential includes failure to thrive, ACS, MD, pneumonia, sepsis, urinary tract infection, acute renal failure, end-stage comorbidities, among others. Patient placed on continuous cardiac monitoring and continuous pulse ox with initial blood pressure 91/60, heart rate 73, saturation 100% on 2 L nasal cannula. Independent interpretation of EKG shows sinus rhythm 76 beats a minute without ST changes concerning for acute ischemia. T wave inversions in inferior leads without reciprocal elevations. Normal axis. ME 192 QRS 108 QTc 406. Patient was given sepsis fluid bolus, empiric Unasyn and vancomycin for symptomatic management and correction of underlying abnormalities. Workup independently interpreted and significant for VBG with severe uncompensated metabolic acidosis HCO3 11.0, CO2 low at 29.4 and pH 7.19. Lactate 2.4. White count 60,000 with neutrophilia. Coags normal. Patient's chemistry concerning for intrarenal versus postrenal uropathy with BUN 150, creatinine 8.2, sodium 130. LFTs within normal limits. Urinalysis with concern for pyelonephritis with protein, blood, nitrates, leukocyte esterase, bacteria. On independent interpretation of imaging, no acute cardiopulmonary airspace disease, stable chronic findings. See radiology read for full review of final results. Goals of care discussion had with patient as well as daughter who is here and his medical decision maker as next of kin. Shared decision making finds that patient is agreeable to dialysis, should he need it. Because of this, [facility] was contacted. Will need to be transferred to outside facility capable of dialysis. Prior to final destination for transfer, care handed off to oncoming physician. Customer Engagement Manager disclaimer Much of this encounter note is an electronic mannequin decorator spoken language to printed text. Electronic mannequin decorator of the spoken language may permit errors. Although I have reviewed the note, some errors may still exist. Lindsey SHEPHERD: I assumed care of the patient at the time of handoff from the prior provider. On reassessment patient remains hemodynamically stable after 2 L of fluid resuscitation. I do not feel the patient requires additional fluid resuscitation at this time. We called numerous facilities including [place], [facility], [facility] [facility], all of which reported they only had wait list available. I ultimately spoke with Dr. Woodson at [facility] who accepted the patient in transfer. Critical Care <Rafael Benoit MD - Last Filed: 06/14/24 22:56> Critical Care Time Critical Care Time: Yes (renal, ID) Attestation: On 06/14/24, the high probability of a clinically significant, sudden or life threatening deterioration of the following system(s) required my full and direct attention, intervention and personal management. The time I documented below is in addition to time spent performing reported procedures but includes the following listed in this critical care notation. Total Time Total Critical Care Time: 60
[2024-06-14] MEDS: VANCOMYCIN/WATER FOR INJ (PEG) 1.25 GM/250 ML PIGGYBACK IV (21:51)
[2024-06-14 21:55] LABS: Lactate Venous 2.4 mmol/L (0.4-2.0); VBG PH 7.19 mmol/L (7.31-7.41)
[2024-06-14 21:58] LABS: Microscopic, Urine URINE MICROSCOPIC (MICROSCOPIC)
[2024-06-14 22:00] VITALS: BP 92/58; PULSE 54; RESP 15; O2SAT 93
[2024-06-14 22:07] LABS: Appearance,Urine CLEAR (Clear); Bilirubin,Urine Negative (Negative); Blood, Urine 2+ (Negative); Color,Urine YELLOW (Yellow); Glucose,Urine (UA) Negative (Negative); Ketones,Urine Negative (Negative); Leukocyte Esterase,Urine 2+ (Negative); Nitrate,Urine POSITIVE (Negative); Protein,Urine 2+ (Negative); Specific Gravity, Urine 1.015 (1.005-1.030); Urobilinogen,Urine 0.2 EU/dl (0.2)
[2024-06-14 22:09] LABS: Albumin Level 3.6 g/dl (3.5-5.0); Basophils # 0.2 K/mm3 (0-0.2); Basophils % 0.3 % (0.1-2.0); Chloride 100 mmol/L (98-107); Eosinophils # 0.1 K/mm3 (0.0-0.4); Eosinophils % 0.2 % (0.1-12.0); Hematocrit 33.3 % (42.0-52.0); Hemoglobin 10.7 g/dL (14.1-18.0); Lymphocytes # 0.6 K/mm3 (0.7-4.5); Mean Corpuscular HGB Conc 32.2 g/dL (31.8-35.4); Mean Corpuscular Volume 93.2 fl (80-94); Mean Platelet Volume 10.7 fl (7.4-10.4); Monocytes # 1.3 K/mm3 (0.1-1.0); Monocytes % 2.1 % (1.7-9.3); Neutrophils # 57.8 K/mm3 (1.8-7.8); Neutrophils % 96.4 % (37.0-80.0); Platelet Count 366 K/mm3 (142-424); Red Blood Count 3.57 M/mm3 (4.60-6.20); Red Cell Distribution Width 16.2 % (11.5-17.5); Sodium 130 mmol/L (136-145)
[2024-06-14 22:12] LABS: Alanine Aminotransferase 34 U/L (12-78); Albumin/Globulin Ratio 0.9 (1.1-1.8); Alkaline Phosphatase 146 U/L (38-126); Aspartate Amino Transferase 44 U/L (17-59); Bilirubin,Total 1.3 mg/dl (0.2-1.3); Creatinine Clearance Estimated 7 mL/min (50-200); Estimated Glomerular Filt Rate 6 ml/min (>60); GFR (African American) 8 ML/MIN (>60); Globulin 4.2 g/dL (1.3-3.2); Total Protein,Serum 7.8 g/dl (6.3-8.2)
[2024-06-14 22:13] LABS: Calcium 8.6 mg/dl (8.4-10.2); Glucose 134 mg/dl (74-100)
[2024-06-14 22:16] LABS: MANUAL DIFFERENTIAL MANUAL DIFFERENTIAL (MANUAL DIFF)
[2024-06-14 22:17] LABS: Lactic Acid 0.8 mmol/L (0.7-2.1)
[2024-06-14 22:19] LABS: INR 1.07 (0.9-1.1); Prothrombin Time 11.9 seconds (10.1-12.5)
[2024-06-14 22:24] LABS: Carbon Dioxide 10 mmol/L (22.0-30.0)
[2024-06-14 22:25] LABS: Blood Urea Nitrogen 150 mg/dl (9-20)
[2024-06-14 22:33] LABS: Bacteria,Urine 4+ /lpf; WBC,Urine TNTC #/hpf (0-3)
[2024-06-14 22:39] LABS: Hemoglobin A1C 6.1 % (4.0-6.0)
[2024-06-14 22:41] LABS: Troponin I 0.03 ng/ml (0.00-0.034)
[2024-06-14 22:42] LABS: Lipase 249 U/L (23-300)
[2024-06-14 22:43] LABS: Chol/HDL Ratio 4.5 (1-3.5); Cholesterol 107 mg/dl (140-200); HDL Cholesterol 24 mg/dl (40-60); Magnesium 1.7 mg/dl (1.6-2.3); Triglycerides 141 mg/dl (30-150); VLDL Cholesterol 28 mg/dL (0-40)
[2024-06-14 22:54] LABS: Direct LDL Cholesterol 46.56 mg/dL (100-129)
[2024-06-14 23:00] VITALS: BP 97/60; PULSE 67; RESP 11; O2SAT 97
[2024-06-14 23:01] LABS: NT Pro Brain Natriuretic Pep. 9990 pg/mL (0-125)
[2024-06-14 23:21] LABS: Lymphocytes % 5 % (10-50); Monocytes % 2 % (2-9); Neutrophils % 91 % (42-76); Total Cells Counted 100
--- NOTE | 2024-06-14 23:21 | PC.NURSE ---
[facility] was called at 21:14
[2024-06-14 23:22] LABS: Rouleaux 1+
[2024-06-14 23:23] LABS: Anisocytosis 1+; Hypochromasia 1+; RBC Morphology Normal
[2024-06-14 23:29] LABS: Activated Partial Thrombo Time 38.5 seconds (22.8-30.6); Procalcitonin 1.77 ng/mL (0.0-2.0)
[2024-06-14 23:30] VITALS: BP 93/61; PULSE 67; RESP 11; O2SAT 97
--- NOTE | 2024-06-14 23:46 | PC.NURSE ---
[facility] was called regarding pt transfer to [facility]
[2024-06-14 23:50] VITALS: BP 80/53; PULSE 58; RESP 11; O2SAT 99
[2024-06-15] VITALS (8 sets, daily range): BP systolic 96–108; BP diastolic 61–66; PULSE 63–94; RESP 11–14; TEMP 36.6; O2SAT 58–98
--- NOTE | 2024-06-15 00:19 | PC.NURSE ---
rounded on pt at this time. 2nd troponin drawn and sent to lab. extra blanket given to pt
--- NOTE | 2024-06-15 00:52 | PC.NURSE ---
tried calling em[facility] twice, both time out on calls dispatch notified
[2024-06-15 01:00] LABS: Troponin I 0.03 ng/ml (0.00-0.034)
[2024-06-15 01:54] LABS: Reflex Lactic Add Lactic Reflex
[2024-06-16 22:28] LABS: Peripheral Smear Review Scanned Result
--- NOTE | 2024-06-18 10:17 | PC.NURSE ---
Faxed urine culture results to [facility]
== END 2024-06-15 02:15 | disposition short-term general hospital (02) ==
PROVIDERS: Emergency Medicine; Emergency Provider Emergency Medicine; PCP Family Medicine
DX: A41.9 Sepsis, unspecified organism (principal); R65.21 Severe sepsis with septic shock; N17.9 Acute kidney failure, unspecified; N13.0 Hydronephrosis with ureteropelvic junction obstruction
CPT/HCPCS: 51702; 71045; 80053; 80061; 81001; 82803; 83036; 83605; 83690; 83735; 83880; 84145; 84484; 85007; 85025; 85027; 85610; 85730; 87040; 87086; 87088; 87186; 93005; 96361; 96374; 96375; 99291; J0295; J7120

== ENCOUNTER 2024-07-21 13:30 | Outpatient (CLI) | payer MEDICARE, SELFPAY ==
[2024-07-21 16:20] LABS: Basophils # 0.1 K/mm3 (0-0.2); Basophils % 0.7 % (0.1-2.0); Eosinophils # 0.4 K/mm3 (0.0-0.4); Eosinophils % 2.9 % (0.1-12.0); Hematocrit 28.7 % (42.0-52.0); Hemoglobin 9.5 g/dL (14.1-18.0); Lymphocytes # 1.5 K/mm3 (0.7-4.5); Lymphocytes % 10.3 % (10-50); Mean Corpuscular HGB Conc 33.1 g/dL (31.8-35.4); Mean Corpuscular Hemoglobin 28.8 pg (27.0-31.2); Mean Platelet Volume 8.1 fl (7.4-10.4); Monocytes # 0.8 K/mm3 (0.1-1.0); Monocytes % 5.4 % (1.7-9.3); Neutrophils # 11.9 K/mm3 (1.8-7.8); Neutrophils % 80.6 % (37.0-80.0); Platelet Count 289 K/mm3 (142-424); Red Cell Distribution Width 17.1 % (11.5-17.5); White Blood Count 14.8 K/mm3 (4.8-10.8)
[2024-07-21 16:43] LABS: Alanine Aminotransferase 12 U/L (12-78); Albumin Level 3.3 g/dl (3.5-5.0); Alkaline Phosphatase 87 U/L (38-126); Anion Gap 16.1 mEq/L (5-15); Aspartate Amino Transferase 21 U/L (17-59); Bilirubin,Total 0.5 mg/dl (0.2-1.3); Blood Urea Nitrogen 52 mg/dl (9-20); Calcium 7.6 mg/dl (8.4-10.2); Carbon Dioxide 19 mmol/L (22.0-30.0); Chloride 101 mmol/L (98-107); Estimated Glomerular Filt Rate 16 ml/min (>60); GFR (African American) 20 ML/MIN (>60); Globulin 3.2 g/dL (1.3-3.2); Glucose 93 mg/dl (74-100); Potassium 5.1 mmoL/L (3.5-5.1); Sodium 131 mmol/L (136-145); Total Protein,Serum 6.5 g/dl (6.3-8.2)
== END 2024-07-21 23:59 | disposition home or self-care (01) ==
LOC: LAB.DROPOF 07-22 08:15
PROVIDERS: PCP Family Medicine; Visit Provider Family Medicine
DX: I25.118 Atherosclerotic heart disease of native coronary artery with other forms of angina pectoris (principal)
CPT/HCPCS: 80053; 85025

== ENCOUNTER 2024-07-25 13:35 | Outpatient (CLI) | payer MEDICARE, SELFPAY ==
--- NOTE | 2024-07-25 13:39 | CA_ITS ---
FINAL REPORT TECHNIQUE: Color Doppler, duplex Doppler and compression sonography of the right lower extremity venous system was performed. CLINICAL HISTORY: Rt knee pain and calf pain, pt fell 2 wks ago, smoker, PDV, AAA, CAD, COPD COMPARISON: None FINDINGS: There is no evidence of deep venous thrombosis from the level of the groin to the calf. The veins are patent and compressible. IMPRESSION: No evidence of deep venous thrombosis right lower extremity. Reviewed, Interpreted and Dictated by Clay Morales III, MD Transcribed by Celia Saha Authenticated and . [facility]
--- NOTE | 2024-07-25 13:44 | XR_ITS ---
FINAL REPORT CLINICAL HISTORY: right knee pain COMPARISON: None FINDINGS: Three views of the right knee reveal no evidence of fracture or dislocation. The bony alignment is normal. Mild degenerative change is present. There is no evidence of joint effusion. Meniscal calcifications are noted, as well as vascular calcifications. IMPRESSION: Mild degenerative change without acute bony abnormality. Reviewed, Interpreted and Dictated by Clay Morales III, MD Transcribed by Celia Saha Authenticated and . [facility]
[2024-07-25 14:48] LABS: Basophils # 0.1 K/mm3 (0-0.2); Basophils % 0.7 % (0.1-2.0); Eosinophils # 0.4 K/mm3 (0.0-0.4); Hematocrit 27.8 % (42.0-52.0); Hemoglobin 9.2 g/dL (14.1-18.0); Lymphocytes # 1.8 K/mm3 (0.7-4.5); Lymphocytes % 14.1 % (10-50); Mean Corpuscular Hemoglobin 29.2 pg (27.0-31.2); Mean Corpuscular Volume 88.3 fl (80-94); Mean Platelet Volume 7.8 fl (7.4-10.4); Monocytes # 0.8 K/mm3 (0.1-1.0); Monocytes % 6.5 % (1.7-9.3); Neutrophils # 9.7 K/mm3 (1.8-7.8); Neutrophils % 75.6 % (37.0-80.0); Platelet Count 274 K/mm3 (142-424); Red Blood Count 3.15 M/mm3 (4.60-6.20); Red Cell Distribution Width 17.5 % (11.5-17.5); White Blood Count 12.9 K/mm3 (4.8-10.8)
[2024-07-25 15:36] LABS: Albumin Level 3.3 g/dl (3.5-5.0); Blood Urea Nitrogen 50 mg/dl (9-20); Calcium 7.8 mg/dl (8.4-10.2); Carbon Dioxide 19 mmol/L (22.0-30.0); Estimated Glomerular Filt Rate 18 ml/min (>60); GFR (African American) 22 ML/MIN (>60); Globulin 3.3 g/dL (1.3-3.2); Glucose 102 mg/dl (74-100); Total Protein,Serum 6.6 g/dl (6.3-8.2)
[2024-07-25 15:37] LABS: Alanine Aminotransferase 12 U/L (12-78); Alkaline Phosphatase 78 U/L (38-126); Aspartate Amino Transferase 22 U/L (17-59); Bilirubin,Total 0.5 mg/dl (0.2-1.3); Sodium 136 mmol/L (136-145)
[2024-07-25 15:54] LABS: Chloride 106 mmol/L (98-107)
== END 2024-07-25 23:59 | disposition home or self-care (01) ==
LOC: RT 13:36
PROVIDERS: PCP Family Medicine; Visit Provider Family Medicine
DX: M79.89 Other specified soft tissue disorders (principal); M25.561 Pain in right knee; I25.118 Atherosclerotic heart disease of native coronary artery with other forms of angina pectoris
CPT/HCPCS: 73562; 80053; 85025; 93971

== ENCOUNTER 2024-08-09 09:00 | Outpatient (CLI) | payer MEDICARE, SELFPAY ==
[2024-08-09 16:33] LABS: Basophils # 0.1 K/mm3 (0-0.2); Basophils % 0.6 % (0.1-2.0); Eosinophils # 0.3 K/mm3 (0.0-0.4); Eosinophils % 2.3 % (0.1-12.0); Hematocrit 32.7 % (42.0-52.0); Hemoglobin 10.6 g/dL (14.1-18.0); Lymphocytes # 1.9 K/mm3 (0.7-4.5); Lymphocytes % 13.5 % (10-50); Mean Corpuscular HGB Conc 32.4 g/dL (31.8-35.4); Mean Corpuscular Hemoglobin 29.1 pg (27.0-31.2); Mean Platelet Volume 9.6 fl (7.4-10.4); Monocytes # 0.7 K/mm3 (0.1-1.0); Monocytes % 4.8 % (1.7-9.3); Neutrophils # 10.8 K/mm3 (1.8-7.8); Neutrophils % 78.7 % (37.0-80.0); Platelet Count 255 K/mm3 (142-424); Red Blood Count 3.63 M/mm3 (4.60-6.20); Red Cell Distribution Width 17.8 % (11.5-17.5); White Blood Count 13.8 K/mm3 (4.8-10.8)
[2024-08-09 16:55] LABS: Alanine Aminotransferase 10 U/L (12-78); Albumin Level 3.9 g/dl (3.5-5.0); Albumin/Globulin Ratio 1.1 (1.1-1.8); Alkaline Phosphatase 96 U/L (38-126); Anion Gap 16.8 mEq/L (5-15); Aspartate Amino Transferase 21 U/L (17-59); Bilirubin,Total 0.6 mg/dl (0.2-1.3); Blood Urea Nitrogen 53 mg/dl (9-20); Calcium 8.8 mg/dl (8.4-10.2); Carbon Dioxide 18 mmol/L (22.0-30.0); Chloride 106 mmol/L (98-107); Estimated Glomerular Filt Rate 16 ml/min (>60); GFR (African American) 20 ML/MIN (>60); Globulin 3.4 g/dL (1.3-3.2); Glucose 97 mg/dl (74-100); Potassium 4.8 mmoL/L (3.5-5.1); Sodium 136 mmol/L (136-145); Total Protein,Serum 7.3 g/dl (6.3-8.2)
== END 2024-08-09 23:59 | disposition home or self-care (01) ==
LOC: LAB.DROPOF 08-10 07:01
PROVIDERS: PCP Family Medicine; Visit Provider Family Medicine
DX: N18.4 Chronic kidney disease, stage 4 (severe) (principal); I25.10 Atherosclerotic heart disease of native coronary artery without angina pectoris
CPT/HCPCS: 80053; 85025

== ENCOUNTER 2024-08-24 09:39 | Outpatient (CLI) | payer MEDICARE, MEDICAID, SELFPAY ==
--- NOTE | 2024-08-24 09:46 | XR_ITS ---
FINAL REPORT CLINICAL HISTORY: left elbow pain FINDINGS: 3 views of the elbow were obtained. There is no acute fracture or dislocation. There are mild to moderate degenerative changes. There is a joint effusion or hemarthrosis noted. The joint spaces are intact. There is not soft tissue abnormality. IMPRESSION: No acute fracture Joint effusion or hemarthrosis with mild to moderate degenerative changes. Reviewed, Interpreted and Dictated by Clay Morales III, MD Transcribed by Morelia Chetser Authenticated and [facility]
== END 2024-08-24 23:59 | disposition home or self-care (01) ==
LOC: RAD 09:42
PROVIDERS: PCP Family Medicine; Visit Provider Family Medicine
DX: M25.522 Pain in left elbow (principal)
CPT/HCPCS: 73080

== ENCOUNTER 2024-09-13 16:24 | Outpatient (CLI) | payer MEDICARE, MEDICAID, SELFPAY | END 2024-09-13 23:59 | disposition home or self-care (01) | LOC: LAB.DROPOF 16:24 | PROVIDERS: PCP Family Medicine; Visit Provider Family Medicine | DX: N39.0 Urinary tract infection, site not specified (principal); B95.4 Other streptococcus as the cause of diseases classified elsewhere | CPT/HCPCS: 87086; 87088; 87186 ==

== ENCOUNTER 2024-12-15 09:14 | Outpatient (CLI) | payer MEDICARE, MEDICAID, SELFPAY ==
--- NOTE | 2024-12-15 09:31 | XR_ITS ---
FINAL REPORT CLINICAL HISTORY: right leg giving way, pain x a long time COMPARISON: 05/07/2023 FINDINGS: Three views of the lumbosacral spine were obtained. There is chronic mild wedge compression fracture of L1. No acute fracture identified. There are mild diffuse degenerative disc changes. Moderate facet arthropathy is noted. Alignment is normal. IMPRESSION: No acute findings. Reviewed, Interpreted and Dictated by Omer De Leon MD Transcribed by Keya Jiang Authenticated and [facility]
[2024-12-15 09:42] LABS: Blood Urea Nitrogen 77 mg/dl (9-20); Estimated Glomerular Filt Rate 10 ml/min (>60); GFR (African American) 12 ML/MIN (>60)
--- NOTE | 2024-12-15 10:26 | CT_ITS ---
FINAL REPORT TECHNIQUE: Axial CT without IV contrast administration. This study was performed with techniques to keep radiation doses as low as reasonably achievable, (ALARA). Individualized dose reduction techniques using automated exposure control or adjustment of mA and/or kV according to the patient''s size were employed. CLINICAL HISTORY: lung nodule COMPARISON: 03/31/2023 FINDINGS: There is a stable 3 mm right upper lobe nodule on image 16 of series 4. A new ovoid density is noted in the right upper lobe measuring 8 x 4 mm on image 24. There are multiple new opacities, some of which are nodular, in the periphery of the right middle lobe, right lower lobe, and inferior right upper lobe. These are most likely due to bronchopneumonia or bronchiolitis. Aspiration is not excluded. The left lung is clear. No pleural or pericardial effusion is seen. No adenopathy or mass lesion is present. IMPRESSION: Interval development of multifocal opacities right lung favored to represent bronchopneumonia. However, given nodular configuration, recommend CT chest follow-up in 2-3 months. Small previously noted right upper lobe nodules are stable. Reviewed, Interpreted and Dictated by Omer De Leon MD Transcribed by Keya Jiang Authenticated and . [facility]
--- NOTE | 2024-12-15 10:26 | CT_ITS ---
FINAL REPORT TECHNIQUE: Noncontrast CT exam of the abdomen and pelvis. This study was performed with techniques to keep radiation doses as low as reasonably achievable (ALARA). Individualized dose reduction techniques using automated exposure control or adjustment of mA and/or kV according to the patient''s size were employed. CLINICAL HISTORY: AAA COMPARISON: 03/21/2024 FINDINGS: Abdomen: There is moderate right hydronephrosis, improved from prior. Moderate right renal atrophy is noted. Mild left hydronephrosis is also improved from the previous exam. The remaining solid organs are normal. There is cholelithiasis. Infrarenal abdominal aortic aneurysm now measures 50 x 49 mm and previously measured 44 x 44 mm. The aneurysm terminates at the aortic bifurcation. Pelvis: The appendix is normal. Pelvic bowel loops are unremarkable. There is severe bladder wall thickening measuring up to 10 mm. Ureteral dilatation is noted to the level of the bladder. The prostate is normal. IMPRESSION: [id number] bilateral hydronephrosis, improved from previous exam. Interval enlargement of abdominal aortic aneurysm, now measuring up to 50 mm. Uncomplicated cholelithiasis. Reviewed, Interpreted and Dictated by Omer De Leon MD Transcribed by Keya Jiang Authenticated and [facility]
== END 2024-12-15 23:59 | disposition home or self-care (01) ==
LOC: RAD 09:15
PROVIDERS: PCP Family Medicine; Visit Provider Family Medicine
DX: M54.50 Low back pain, unspecified (principal); R91.1 Solitary pulmonary nodule; I71.40 Abdominal aortic aneurysm, without rupture, unspecified
CPT/HCPCS: 36415; 71250; 72100; 74176; 82565; 84520

== ENCOUNTER 2025-04-25 12:34 | Outpatient (CLI) | payer MEDICARE, MEDICAID, SELFPAY ==
--- OUTSIDE RECORDS SUMMARY | 2024-12-17 17:30 | XMS_ITS ---
Author Organization [facility] Address [address] [facility] [address] [place] [address] Care Team Providers Care Shuffle Board Operator Name Role Phone Emir Almodovar Primary Care Provider [phone] Migration, Provider Unavailable Unavailable REAS[facility] FOR VISIT [facility] Encounter Medications Medication SIG (Take, Route, [...] Active Encounters Encounter Location Date Provider Diagnosis [facility] [address] [place] [address] 12/17/2024 Provider Migration Plan Of Treatment Medication [...] * Louie GAUTAM CDOB:[birth year] (74 yo M)Acc No.[id number]:12/17/2024 Patient: Brayan Louie BLANK Provider: Mike ponce Migration :1950 A ge:74 Y S ex:Male Date:12/17/2024 Address:[address] Pcp:Emir Almodovar Subjective: * Chief Complaints: * [facility] . [facility]. * Medical History: * Medications: [...] *Please review and pick correct strength-formulation from Fyberspan options. If intended option is not shown, [...] Electronic signature of Bony uriarte Migration on 04/25/2025 at 12:36 PM EDT Sign off status: Pending * Provider: Mike ponce Migration Date: 0 12/17/2024 Generated for Cristina hidalgo/Chetna/Grupo on: 0 04/25/2025 12:36 PM EDT
--- NOTE | 2025-04-25 12:35 | XR_ITS ---
FINAL REPORT CLINICAL HISTORY: right elbow pain COMPARISON: Known FINDINGS: Three views of the right above were obtained. There is no acute fracture or dislocation. There are mild degenerative changes. Corticated calcification along the medial epicondyle is likely related to chronic epicondylitis. There is severe soft tissue swelling overlying the olecranon, likely bursitis. IMPRESSION: Degenerative changes without acute process. Reviewed, Interpreted and Dictated by Omer De Leon MD Transcribed by Keya Jiang Authenticated and [facility]
--- OUTSIDE RECORDS SUMMARY | 2025-04-25 12:37 | XMS_ITS | Clinical Summary ---
Author Organization [facility] Address [address] [place] [address] Care Team Providers Care Telegraph Installer Name Role Phone Unavailable Primary Care Provider Unavailabl e Social History Tobacco Use Types Packs/Day Years Used Date Smoking Tobacco: Never Assessed Sex and Gender Information Value Date Recorded Sex Assigned at Not on file Legal Sex Male 7:48 PM EDT Gender Identity Not on file Sexual Orientation Not on file Plan of Treatment Not on file
--- OUTSIDE RECORDS SUMMARY | 2025-04-25 12:37 | XMS_ITS | Clinical Summary ---
Author Organization [facility] ([place], [place], [place], [place]) Address [address] [place] [address] Care Team Providers Care Coil Spring Assembler Name Role Phone Unavailable Primary Care Provider Unavailabl e Allergies No known active allergies Medications finasteride (PROSCAR) 5 mg tablet Take 1 tablet (5 mg total) by mouth daily. 03/04/2024 Active Breo Ellipta 200-25 mcg/dose DsDv 1 puff daily. 02/25/2024 Active Combivent Respimat 20-100 mcg/actuation Mist inhaler 1 puff 4 (four) times daily. 02/25/2024 Active levothyroxine (SYNTHROID, LEVOTHROID) 50 MCG tablet Take 1 tablet (50 mcg total) by mouth daily. 01/29/2024 Active lovastatin (MEVACOR) 20 MG tablet Take 1 tablet (20 mg total) by mouth daily. 01/29/2024 Active omeprazole (PriLOSEC) 40 MG capsule Take 1 capsule (40 mg total) by mouth daily. 01/04/2024 Active oxybutynin (DITROPAN-XL) 10 MG 24 hr tablet Take 1 tablet (10 mg total) by mouth daily. 03/01/2024 Active pregabalin (LYRICA) 25 MG capsule Take 1 capsule (25 mg total) by mouth daily. 03/04/2024 Active tiZANidine (ZANAFLEX) 2 MG tablet Take 1 tablet (2 mg total) by mouth 3 (three) times daily. 03/04/2024 Active Active Problems Problem Noted Date Diagnosed Date CARTER (acute kidney injury) 03/22/2024 Social History Tobacco Use Types Packs/Day Years Used Date Smoking Tobacco: Every Day Cigarettes Smokeless Tobacco: Never Tobacco Cessation:Ready to Q uit: Not Asked; Counseling Given: Not Answered Alcohol Use Standard Drinks/Week Comments Never 0 (1 standard drink = 0.6 oz pur e alcohol) Utilities Answer Date Recorded In the past 12 months, has t he electric, gas, oil, or water company threatened to shut off services in your home? No 03/22/2024 Interpersonal Safety Answer Date Record ed How often does anyone, marii iniguez family and friends, physically hurt you? Never 03/22/2024 How often does anyone, marii iniguez family and friends, insult or talk down to you? Never 03/22/2024 How often does anyone, marii iniguez family and friends, threaten you with harm? Never 03/22/2024 How often does anyone, marii iniguez family and friends, scream or curse at you? Never 03/22/2024 Housing Stability Answer Date Recorded What is your living situation today? I have a [facility] place to live 03/22/[address] you li ve. Do you have problems with any of the following? None of the above 03/22/2024 Food Insecurity Answer Date Recorded Within the past 12 months, y ou worried that your food would run out before you got money to buy more. Never true 03/22/2024 Within the past 12 months, t he food you bought just didn't last and you didn't have money to get more. Never true 03/22/2024 Transportation Needs Answer Date Record ed In the past 12 months, has l ack of reliable transportation kept you from medical appointments, meetings, work or from getting things needed for daily living? No 03/22/2024 Financial Resource Strain Answer Date R ecorded How hard is it for you to pa y for the very basics like food, housing, medical care, and heating? Would you say it is: Not hard at all 03/22/2024 Employment Answer Date Recorded Do you want help finding or keeping work or a job? I do not need or want help 03/22/2024 Family and Community Support Answer Daquan e Recorded If for any reason you need h elp with day-to-day activities such as bathing, preparing meals, shopping, managing finances, etc., do you get the help you need? I don't need any help 03/22/2024 Feeling Lonely or Isolated 0 03/22 Educational Attainment Answer Date Syd rded Do you speak a language other than Maori at [facility]? No 03/22/2024 Do you want help with school or training? For example, starting or completing job training or getting a high school diploma, GED or equivalent. No 03/22/2024 Physical Activity Answer Date Recorded Number of minutes of exercise per week 0 03/22/2024 Self Management Answer Date Recorded Because of a physical, menta l, or emotional condition, do you have serious difficulty concentrating, remembering, or making decisions? (5 years or older) No 03/22/2024 Because of a physical, menta l, or emotional condition, do you have difficulty doing errands alone such as visiting a doctor's office or shopping? (15 years or older) No 03/22/2024 Substance Use Answer Date Recorded How many times in the past y ear have you used prescription drugs for non-medical reasons? Never 03/22/2024 How many times in the past year have you used [place] legal drugs? Never 03/22/2024 Mental Health Answer Date Recorded Calculation of above two rows 2 Sex and Gender Information Value Date Recorded Sex Assigned at Not on file Legal Sex Male 8:37 PM CDT Gender Identity Not on file Sexual Orientation Not on file Last Filed Vital Signs Vital Sign Reading Time Taken Comments Blood Pressure 133/32 03/25/2024 1:48 PM EDT Pulse 62 03/25/2024 1:48 PM EDT Temperature 36.7 C (98 F) 03/25/2024 1:48 PM EDT Respiratory Rate 16 03/25/2024 5:20 AM EDT Oxygen Saturation 95% 03/25/2024 1:48 PM EDT Inhaled Oxygen Concentration - - Weight 73.5 kg (162 lb 1.6 oz) 03/22/2024 4:23 A M EDT Height 182.9 cm (6') 03/22/2024 4:23 AM EDT Body Mass Index 21.98 03/22/2024 4:23 AM EDT Plan of Treatment Health Maintenance Due Date Last Done Comments CT Colonography 1950 Colonoscopy 1950 Colorectal Cancer Screening 1950 FOBT/FIT 1950 Fit-DNA (Cologuard) 1950 Sigmoidoscopy 1950 Depression Screening (12+) 1962 Hepatitis C Screening 1968 Shingles Vaccine (Zoster) (1 of 2) 2000 COVID-19 VACCINE (3 - 2023-2 5 season) 2024 12/06/2020, 11/08/2020 Falls Risk Screening 09/14/2024 Medicare Initial AWV [id number] 12/14/2024 DTAP/TDAP/TD VACCINES (2 - T d or Tdap) 03/13/2025 03/13/2015 Tobacco Cessation Counseling and Screening (12+) 03/22/2025 03/22/2024 Influenza Vaccine (#1) 2025 2, 06/18/2021, 06/05/2020, Additional history exists Respiratory Syncytial Virus (RSV) Adult or (1 - 1-dose 75+ series) 2025 Pneumococcal 50+ years Completed 3, 04/26/2019, 07/17/2015, Additional history exists [facility] Advance Directives For more information, please contact: [phone] * Full Code (Latest Code Status on File) Date Activated Date Inactivated Comments 03/22/2024 3:32 AM 03/25/2024 4:39 PM
--- OUTSIDE RECORDS SUMMARY | 2025-04-25 12:37 | XMS_ITS | Referral Summary ---
Author Organization [employer] ([place], [place], [place], [place]) Address [address] [place] [address] Care Team Providers Care Buzzsaw Operator Name Role Phone Unavailable Primary Care Provider [...] your living situation today? I have a [facility] place to live 03/22/2024 Think [...] Do you speak a language other than Georgian at [facility]? No 03/22/2024 Do you want help with [...] 03/22/2024 4:23 AM EDT Plan of Treatment Not on file Insurance [facility] ACCESS H[facility] MAP Advance Directives For more information, please contact: [phone] * Full Code (Latest Code Status on File) Date Activated Date Inactivated Comments 03/22/2024 3:32 AM 03/25/2024 4:39 PM
--- OUTSIDE RECORDS SUMMARY | 2025-04-25 12:37 | XMS_ITS | Patient Health Record ---
Author Organization [facility] PE [facility] Address [address] [facility] [address] [place] [address] Care Team Providers Care Senior Vice President Name Role Phone Emir Almodovar Primary Care Provider [phone] Migration, Provider Unavailable Unavailable Allergies No Known Allergies Medications Medication SIG (Take, Route, Frequency, Duration) Notes Start Date End Date Status Aspirin 81 MG 1 tab(s) orally once a day; Duration: 30 day(s) Active Zinc Sulfate 220 MG ONE TAB ORALLY BID; Duration: 30 DAYS *Please review and pick correct strength-formulatio n from [employer] options. If intended option is not shown, discontinue and re-order from Quick Search* 04/10/2020 Active Tamsulosin HCl 0.4 MG 1 cap(s) orally once a day at night; Duration: 30 days 04/01/2016 Active Senna-Docusate Sodium 50 MG-8.6 MG 2 CAP(S) ORALLY ONCE A DAY (IN THE EVENING); Duration: 30 DAY(S) *Please review and pick correct strength-formulatio n from [employer] options. If intended option is not shown, discontinue and re-order from Quick Search* 07/23/2021 Active Vitamin C 500 MG 1 tab(s) orally bid; Duration: 30 day(s) 04/10/2020 Active Gabapentin 800 MG 1 tab(s) orally 3 times a day; Duration: 30 days 03/20/2022 Active Metoprolol Succinate ER 25 MG TAKE 1 TABLET BY MOUTH ONCE DAILY; Duration: 30 Active Combivent Respimat 20-100 MCG/ACT USE 1 PUFF BY MOUTH FOUR TIMES A DAY; Duration: 90 Active Finasteride 5 MG 1 tab(s) orally once a day; Duration: 90 days Active Livalo 4 MG 1 tab(s) orally once a day; Duration: 90 days Active Omeprazole 40 MG 1 cap(s) orally once a day; Duration: 90 days 07/09/2021 Active Symbicort 160-4.5 MCG/ACT INHALE 2 PUFFS BY MOUTH 2 TIMES A DAY; Duration: 30 Active oxyBUTYnin Chloride 5 MG 2 tabs orally once a day at bedtime; Duration: 90 days 05/06/2019 Active Synthroid 50 MCG 1 tab(s) orally once a day; Duration: 90 Active Immunizations Vaccine Route Administration Date Status Comme nts Tenivac (Td) 7 + yrs IM Intramuscular 03/13/2015 Adminjason cardenas Prevnar PCV-13 (Pneumococcal conjugate 13) IM Intramuscular 07/17/2015 Administered PPD ID Intradermal 08/26/2016 Administered Pneumovax 23 IM Intramuscular 04/26/2019 Administered Pneumococcal Vaccine IM Intramuscular 07/10/2008 Adminjason cardenas Influenza-Fluzone 3+years (NON-MEDICARE) IM Intramuscular 07/17/2015 Administered Influenza (Fluzone)--Medicare only IM Intramuscular 06/24/2016 Administered Influenza (Fluzone)--Medicare only IM Intramuscular 06/25/2017 Administered Fluzone High Dose IM Intramuscular 05/04/2018 Administered Fluzone High Dose IM Intramuscular 08/02/2019 Administered Fluzone High Dose IM Intramuscular 06/05/2020 Administered Fluzone High Dose IM Intramuscular 06/18/2021 Administered Fluvirin--Influenza vaccine 3+ year Unknown 07/14/2007 Administered Fluvirin--Influenza vaccine 3+ year IM Intramuscular 07/10/2008 Administered Fluvirin--Influenza vaccine 3+ year Unknown 10/22/2009 Administered Fluvirin--Influenza vaccine 3+ year Unknown 09/22/2011 Administered Fluvirin--Influenza vaccine 3+ year Unknown 07/12/2012 Administered Social History Tobacco Use: Social History Observation Description Date Details (start date - stop date) Current Smoker NA - NA Smoking: Question Answer Notes Are you a: current smoker How often do you smoke cigarettes? every day How many cigarettes a day do you smoke? 21-30 Problems Problem Type SNOMED Code ICD Code Onset Dates Problem Status W/U Status Risk Notes Problem Diabetic renal disease (846319030) Type 2 diabetes mellitus with diabetic chronic kidney disease (E11.22) Active confirmed Problem Chronic pain (39048026) Other chronic pain (G89.29) Active confirmed Problem Panlobular emphysema (4756184) Panlobular emphysema (J43.1) Active confirmed Problem Slow transit constipation (09766690) Slow transit constipation (K59.01) Active confirmed Problem Rotator cuff arthropathy of left shoulder (disorder) (32568120257735640) Other specific arthropathies, not elsewhere classified, left shoulder (M12.812) Active confirmed Problem Low back pain (431959415) Low back pain (M54.5) Active confirmed Problem Nontraumatic rupture of muscle or tendon structure of rotator cuff of left shoulder (disorder) (7929656949067100) Unspecified rotator cuff tear or rupture of left shoulder, not specified as traumatic (M75.102) Active confirmed Problem Chronic kidney disease stage 3 (disorder) (945584315) Chronic kidney disease, stage 3 (moderate) (N18.3) Active confirmed Problem Paresthesia (finding) (54498847) Paresthesia of skin (R20.2) Active confirmed Problem Nicotine dependence (08887771) Personal history of nicotine dependence (Z87.891) Active confirmed Problem Hypothyroidism (38217139) Hypothyroidism (acquired) (E03.9) Active confirmed Problem Hyperlipidemia (39811806) Hyperlipemia, 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 Problem Essential hypertension (16067915) Hypertension, essential (I10) Active confirmed Problem Tobacco abuse (2874657670) Tobacco abuse (Z72.0) Active confirmed Problem Acute exacerbation of chronic obstructive airways disease (662960922) COPD exacerbation (J44.1) Active confirmed Problem Chronic kidney disease stage 4 (323463559) Chronic kidney disease (CKD) stage G4/A2, severely decreased glomerular filtration rate (GFR) between 15-29 mL/min/1.73 square meter and albuminuria creatinine ratio between 30-299 mg/g (N18.4) Active confirmed Problem Atherosclerotic heart disease of [place] coronary artery without angina pectoris (223551980146217) Coronary artery disease involving [place] coronary artery of [place] heart without angina pectoris (I25.10) Active confirmed Problem Lower urinary tract symptoms due to benign prostatic hypertrophy (47947545437298) Benign non-nodular prostatic hyperplasia with lower urinary tract symptoms (N40.1) Active confirmed Problem Tobacco user (066459316) Cigarette nicotine dependence without complication (F17.210) Active confirmed Problem Pulmonary nodule (141079093) Pulmonary nodule (R91.1) Active confirmed Problem Chronic obstructive pulmonary disease with acute lower respiratory infection (088217685) Bronchitis, chronic obstructive w acute bronchitis (J44.0) Active confirmed Problem Dependence on supplemental oxygen (119945475118) 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) Active confirmed Problem Hearing loss (05019177) Bilateral hearing loss, unspecified hearing loss type (H91.93) Active confirmed Problem Osteophyte of vertebra (disorder) (079850616176769) Spinal osteophytosis (M25.78) Active confirmed Problem Bladder neck obstruction (189066277) Bladder neck obstruction (N32.0) Active confirmed Problem Pressure injury of buttock stage I (disorder) (98944665201584538) Pressure injury of buttock, stage 1, unspecified laterality (L89.301) Active confirmed Problem Gastroesophageal reflux disease (768367542) Gastroesophageal reflux disease, unspecified whether esophagitis present (K21.9) Active confirmed Encounters Encounter Location Date Provider Diagnosis [facility] [address] [place] [address] 12/17/2024 Provider Migration Plan Of Treatment Pending Test Test Name Order Date N-CBC 09/08/2007 X-Lipid Profile 09/08/2007 Urinalysis 09/29/2017 N-PSA 08/10/2006 N-CMP 09/08/2007 Urine Drug Screen IH 03/21/2011 N-spep 10/26/2009 N-PSA Screening 09/08/2007 Physical Therapy : Wound Care 04/17/2020 H-24 HR CREATININE 06/30/2017 H-URINE 24 HOUR FOR PROTEIN 06/30/2017 C-TESTOSTERONE 09/22/2011 C-CBC 03/21/2011 C-CBC 01/03/2013 C-CBC 09/22/2011 C-CBC 07/26/2014 C-CBC 09/12/2013 C-CMP 09/12/2013 C-CMP 07/26/2014 C-CMP 03/28/2014 C-CMP 07/17/2015 C-CMP 11/21/2014 C-CMP 12/04/2020 C-CMP 01/03/2013 C-CMP 04/01/2013 C-CMP 07/12/2012 C-CMP 03/21/2011 C-LIPID PANEL 09/22/2011 C-LIPID PANEL 01/03/2013 C-LIPID PANEL 07/12/2012 C-LIPID PANEL 04/01/2013 C-LIPID PANEL 03/21/2011 C-LIPID PANEL 12/04/2020 C-LIPID PANEL 11/21/2014 C-LIPID PANEL 07/17/2015 C-LIPID PANEL 07/26/2014 C-LIPID PANEL 09/12/2013 C-TSH 09/12/2013 C-TSH 03/28/2014 C-TSH 07/26/2014 C-TSH 11/21/2014 C-TSH 07/17/2015 C-TSH 03/21/2011 C-TSH 01/03/2013 C-TSH 07/12/2012 C-TSH 09/22/2011 C-HIV 08/26/2016 C-VITAMIN B12 09/22/2011 N-blood smear 10/23/2009 N-blood smear 06/16/2008 N-UPEP 10/26/2009 VENIPUNCT, ROUTINE* 10/07/2016 VENIPUNCT, ROUTINE* [...] End Date MEDICARE [place] [address] [id number] Louie Soto Self - patient is the insured [facility] [place] [id number] Louie Soto Self - patient is the insured Medications Administered Medication Instructions Date of Administration Dosage Notes Kenalog 40mg 10/16/2017 40 mg Triamcinolone Acetonide 40mg Injection 09/26/2019 1 mL Medical (General) History Medical History History ICD Code Hyperlipidemia COPD [...]
--- OUTSIDE RECORDS SUMMARY | 2025-04-25 12:37 | XMS_ITS | Clinical Summary ---
Author Organization [facility] Address [address] [place] [address] Care Team Providers Care Cell Reliner Name Role Phone David Mark MD Primary Care Provider [phone]- [phone] Allergies No known active allergies Medications albuterol (ACCUNEB) 0.63 MG/3ML nebulizer solution Take 3 mL by nebulization Every 6 (Six) Hours As Needed. Active amoxicillin-cla vulanate (AUGMENTIN) 875-125 MG per tablet Take 1 tablet by mouth 3 (Three) Times a Day. Active carvedilol (COREG) 3.125 MG tablet Take 1 tablet by mouth 2 (Two) Times a Day With Meals. Active finasteride (PROSCAR) 5 MG tablet Take 1 tablet by mouth Daily. Active Breo Ellipta 200-25 MCG/ACT inhaler Inhale 1 puff Daily. 5 Active Combivent Respimat 20-100 MCG/ACT inhaler Inhale 1 puff 4 (Four) Times a Day. Active levothyroxine (SYNTHROID, LEVOTHROID) 50 MCG tablet Take 1 tablet by mouth Every Morning. Active lovastatin (MEVACOR) 20 MG tablet Take 1 tablet by mouth Every Night. Active metoprolol succinate XL (TOPROL-XL) 25 MG 24 hr tablet Take 1 tablet by mouth Daily. Active omeprazole (priLOSEC) 40 MG capsule Take 1 capsule by mouth Daily. Active oxybutynin (DITROPAN) 5 MG tablet Take 1 tablet by mouth Daily. Active pantoprazole (PROTONIX) 40 MG EC tablet Take 1 tablet by mouth Daily. Active pregabalin (LYRICA) 25 MG capsule Take 1 capsule by mouth 2 (Two) Times a Day. Active sildenafil (VIAGRA) 100 MG tablet Take 1 tablet by mouth As Needed. Active tiZANidine (ZANAFLEX) 2 MG tablet Take 1 tablet by mouth Every 8 (Eight) Hours As Needed. Active aspirin 81 MG EC tablet Take 1 tablet by mouth Daily. Active Active Problems Problem Noted Date Diagnosed Date Infrarenal abdominal aortic aneurysm (AAA) witho ut rupture 01/11/2025 Family History Medical History Relation Name Comments Diabetes Father Pneumonia Father Alzheimer's disease Mother Diabetes Mother Relation Name Status Comments Father Mother Social History Tobacco Use Types Packs/Day Years Used Date Smoking Tobacco: Every Day Cigarettes 1 54.6 Started: 1970 Smokeless Tobacco: Former Tobacco Cessation:Ready to Q uit: Not Asked; Counseling Given: Not Answered Comments:Has smoked up to 3 ppd in the past Alcohol Use Standard Drinks/Week Comments Not Currently 0 (1 standard drink = 0.6 oz pur e alcohol) Sex and Gender Information Value Date Recorded Sex Assigned at Not on file Legal Sex Male 1:26 PM EDT Gender Identity Not on file Sexual Orientation Not on file Occupation Industry Job Start Date Job End Date retired [employer] Not on file Not on file Not on aniket e Last Filed Vital Signs Vital Sign Reading Time Taken Comments Blood Pressure 130/80 01/12/2025 8:38 AM EDT Pulse 57 01/12/2025 8:37 AM EDT Temperature 36.3 C (97.3 F) 01/12/2025 8:37 AM EDT Respiratory Rate - - Oxygen Saturation 94% 01/12/2025 8:3 7 AM EDT Inhaled Oxygen Concentration - - Weight 71.7 kg (158 lb) 01/12/2025 8:37 AM EDT Height 182.9 cm (6') 01/12/2025 8:37 AM EDT patient reports Body Mass Index 21.43 01/12/2025 8:37 AM EDT Plan of Treatment Upcoming Encounters Date Type Department Care Team (Late st Contact Info) Description 07/20/2025 10:00 AM EST Office Visit [facility] [address] [address] Carole Francois APRN [address] [address] Health Maintenance Due Date Last Done Comments TDAP/TD VACCINES (1 - Tdap) 1969 COLOGUARD 1995 COLON CANCER SCREENING 5 YEA R SIGMOIDOSCOPY 1995 COLONOSCOPY 1995 COLORECTAL CANCER SCREENING 1995 CT COLONOGRAPHY 1995 FECAL OCCULT BLOOD TEST 1995 FIT Testing (1 year) 1995 LUNG CANCER SCREENING 2000 ZOSTER VACCINE (1 of 2) 2000 COVID-19 Vaccine (3 - 2023-2 5 season) 2024 12/06/2020, 11/08/2020 ANNUAL WELLNESS VISIT 01/11/2025 HEPATITIS C SCREENING 01/11/2025 INFLUENZA VACCINE 06/14/2025 04/21/2024, , 06/18/2021, Additional history exists Pneumococcal Vaccine 50+ Completed 04/21/2023, 04/14 AAA SCREEN ONCE Completed 01/12/2025, 01/11/2025 Insurance [employer]VANT[employer] HMO [place] MED[place] Care Teams Cell Reliner Relationship Specialty Start Date End Date David aMrk MD [address] [place] [address] PCP - General Family Medicine 12/23/24
== END 2025-04-25 23:59 | disposition home or self-care (01) ==
LOC: RAD 12:35
PROVIDERS: Visit Provider Physician Assistant
DX: M19.021 Primary osteoarthritis, right elbow (principal)
CPT/HCPCS: 73080

== ENCOUNTER 2025-05-30 10:06 | Outpatient (CLI) | payer MEDICARE, MEDICAID, SELFPAY ==
--- OUTSIDE RECORDS SUMMARY | 2024-12-17 17:30 | XMS_ITS ---
Author Organization [facility] Address [address] [facility] [address] [place] [address] Care Team Providers Care Whitewasher Name Role Phone Emir Almodovar Primary Care Provider Migration, Provider Unavailable Unavailable [facility] VISIT [facility] Encounter Medications Medication SIG (Take, Route, Frequency, Duration) Notes Start Date End Date Status Finasteride 5 MG 1 tab(s) orally once a day; Duration: 90 days Active Livalo 4 MG 1 tab(s) orally once a day; Duration: 90 days Active Omeprazole 40 MG 1 cap(s) orally once a day; Duration: 90 days 07/09/2021 Active oxyBUTYnin Chloride 5 MG 2 tabs orally once a day at bedtime; Duration: 90 days 05/06/2019 Active Synthroid 50 MCG 1 tab(s) orally once a day; Duration: 90 Active Combivent Respimat 20-100 MCG/ACT USE 1 PUFF BY MOUTH FOUR TIMES A DAY; Duration: 90 Active Symbicort 160-4.5 MCG/ACT INHALE 2 PUFFS BY MOUTH 2 TIMES A DAY; Duration: 30 Active Senna-Docusate Sodium 50 MG-8.6 MG 2 CAP(S) ORALLY ONCE A DAY (IN THE EVENING); Duration: 30 DAY(S) *Please review and pick correct strength-formulatio n from Medispan options. If intended option is not shown, discontinue and re-order from Quick Search* 07/23/2021 Active Vitamin C 500 MG 1 tab(s) orally bid; Duration: 30 day(s) 04/10/2020 Active Gabapentin 800 MG 1 tab(s) orally 3 times a day; Duration: 30 days 03/20/2022 Active Metoprolol Succinate ER 25 MG TAKE 1 TABLET BY MOUTH ONCE DAILY; Duration: 30 Active Aspirin 81 MG 1 tab(s) orally once a day; Duration: 30 day(s) Active Zinc Sulfate 220 MG ONE TAB ORALLY BID; Duration: 30 DAYS *Please review and pick correct strength-formulatio n from Medispan options. If intended option is not shown, discontinue and re-order from Quick Search* 04/10/2020 Active Tamsulosin HCl 0.4 MG 1 cap(s) orally once a day at night; Duration: 30 days 04/01/2016 Active Encounters Encounter Location Date Provider Diagnosis [facility] [address] [place] [address] 12/17/2024 Provider Migration Plan Of Treatment Medication Medication Name Sig Start Date Stop Date Notes Combivent Respimat 20-100 MCG/ACT USE 1 PUFF BY MOUTH FOUR TIMES A DAY; Duration: 90 Symbicort 160-4.5 MCG/ACT INHALE 2 PUFFS BY MOUTH 2 TIMES A DAY; Duration: 30 Gabapentin 800 MG 1 tab(s) orally 3 ti mes a day; Duration: 30 days 03/20/2022 Metoprolol Succinate ER 25 MG TAKE 1 TAB LET BY MOUTH ONCE DAILY; Duration: 30 Progress Notes * Louie GAUTAM CDOB:[birth year] (74 yo M)Acc No.[id number]:12/17/2024 Patient: Brayan Louie BLANK Provider: Mike ponce Migration :1950 A ge:74 Y S ex:Male Date:12/17/2024 Address:[address] Pcp:Emir Almodovar Subjective: * Chief Complaints: * [facility] . [facility] * Medical History: * Medications: T aking Aspirin 81 MG Tablet Delayed Release 1 tab(s) orally once a day , Taking Tamsulosin HCl 0.4 MG Capsule 1 cap(s) orally once a day at night , Taking Zinc Sulfate 220 MG ONE TAB ORALLY BID , Notes to Pharmacist: *Please review and pick correct strength-formulation from Medispan options. If intended option is not shown, discontinue and re-order from Quick Search*, Taking Vitamin C 500 MG Tablet 1 tab(s) orally bid , Taking Senna-Docusate Sodium 50 MG-8.6 MG CAPSULE 2 CAP(S) ORALLY ONCE A DAY (IN THE EVENING) , Notes to Pharmacist: *Please review and pick correct strength-formulation from Microlight Sensorsspan options. If intended option is not shown, discontinue and re-order from Quick Search*, Taking Finasteride 5 MG Tablet 1 tab(s) orally once a day , Taking Omeprazole 40 MG Capsule Delayed Release 1 cap(s) orally once a day , Taking Livalo 4 MG Tablet 1 tab(s) orally once a day , Taking Synthroid 50 MCG Tablet 1 tab(s) orally once a day , Taking oxyBUTYnin Chloride 5 MG Tablet 2 tabs orally once a day at bedtime Objective: * Vitals: Assessment: Plan: * Treatment: * * Electronic signature of Bony uriarte Migration on 05/30/2025 at 10:30 AM EDT Sign off status: Pending * Provider: Mike ponce Migration Date: 0 12/17/2024 Generated for Cristina hidalgo/Chetna/Grupo on: 0 05/30/2025 10:30 AM EDT
--- NOTE | 2025-05-30 10:23 | XR_ITS ---
FINAL REPORT CLINICAL HISTORY: abdominal pain FINDINGS: The abdomen exam demonstrates the visualized intestinal gas pattern to be unremarkable without evidence to suggest obstruction. There are a few air-fluid levels. There is no free intraperitoneal air. no abdominal radiopacities are seen in the abdomen. IMPRESSION: Nonspecific bowel gas pattern. Reviewed, Interpreted and Dictated by Omer De Leon MD Transcribed by Morelia Chester Authenticated and [facility]
--- NOTE | 2025-05-30 10:23 | XR_ITS ---
FINAL REPORT CLINICAL HISTORY: abdominal pain FINDINGS: 2 views of the chest were obtained . The heart is normal in size. The mediastinum is within normal limits. There is a left lower lobe density which represent pneumonia, atelectasis or mass. There is a trace left pleural effusion. There is no pneumothorax. Osseous structures are unremarkable. IMPRESSION: Abnormal left lower lobe density. Recommend continued follow-up. Reviewed, Interpreted and Dictated by Omer De Leon MD Transcribed by Morelia Chester Authenticated and [facility]
--- OUTSIDE RECORDS SUMMARY | 2025-05-30 10:30 | XMS_ITS | Clinical Summary ---
Author Organization [facility] Address [address] [place] [address] Care Team Providers Care Poultry Dressing Worker Name Role Phone David Mark MD Primary Care Provider [phone]- [phone] Allergies No known active allergies Medications albuterol [...] Date Smoking Tobacco: Every Day Cigarettes 1 54.7 Started: 1970 Smokeless Tobacco: Former Tobacco Cessation:Ready [...] Description 07/20/2025 10:00 AM EST Office Visit [facility]GERY [address] [address] Carole Francois APRN [address] [address] Health Maintenance Due Date Last Done Comments TDAP/TD VACCINES (1 - Tdap) 1969 COLOGUARD 1995 COLON CANCER SCREENING 5 YEA R SIGMOIDOSCOPY 1995 COLONOSCOPY 1995 COLORECTAL CANCER SCREENING 1995 CT COLONOGRAPHY 1995 FECAL OCCULT BLOOD TEST 1995 FIT Testing (1 year) 1995 LUNG CANCER SCREENING 2000 ZOSTER VACCINE (1 of 2) 2000 ANNUAL WELLNESS VISIT 01/11/2025 HEPATITIS C SCREENING 01/11/2025 INFLUENZA VACCINE 04/14/2025 04/21/2024, , 06/18/2021, Additional history exists COVID-19 Vaccine (3 - 2024-2 6 season) 2025 12/06/2020, 11/08/2020 Pneumococcal Vaccine 50+ Completed 04/21/2023, 04/14 AAA SCREEN ONCE Completed 04/25/2025, 0509/2024, 01/11/2025 Insurance [employer] HMO [place] Care Teams Poultry Dressing Worker Relationship Specialty Start Date End Date David Mark MD [address] [place] [address] PCP - General Family Medicine 12/23/24
--- OUTSIDE RECORDS SUMMARY | 2025-05-30 10:31 | XMS_ITS | Clinical Summary ---
Author Organization [employer] ([place], [place], [place], [place]) Address [address] [place] [address] Care Team Providers Care Director Of Collections Name Role Phone Unavailable Primary Care Provider [...] your living situation today? I have a [facility] place to live 03/22/2024 Think about the [...] Do you speak a language other than [place] at [facility]? No 03/22/2024 Do you want [...] Shingles Vaccine (Zoster) (1 of 2) 2000 Falls Risk Screening 09/14/2024 Medicare Initial AWV [id number] 12/14/2024 DTAP/TDAP/TD VACCINES (2 - T d or Tdap) 03/13/2025 03/13/2015 Tobacco Cessation Counseling and Screening (12+) 03/22/2025 03/22/2024 COVID-19 VACCINE (3 - 2024-2 6 season) 2025 12/06/2020, 11/08/2020 Influenza Vaccine (#1) 2025 2, 06/18/2021, 06/05/2020, Additional history exists Respiratory Syncytial Virus (RSV) Adult or (1 - 1-dose 75+ series) 2025 Pneumococcal 50+ years Completed 3, 04/26/2019, 07/17/2015, Additional history exists Insurance [facility] Advance Directives For more information, please contact: [phone] * Full Code (Latest Code Status on File) Date Activated Date Inactivated Comments 03/22/2024 3:32 AM 03/25/2024 4:39 PM
--- OUTSIDE RECORDS SUMMARY | 2025-05-30 10:31 | XMS_ITS | Clinical Summary ---
Author Organization [facility] Address [address] [place] [address] Care Team Providers Care Filament Maker Name Role Phone Unavailable Primary Care Provider [...]
--- OUTSIDE RECORDS SUMMARY | 2025-05-30 10:31 | XMS_ITS | Patient Health Record ---
Author Organization [facility] Address [address] [facility] [address] [place] [address] Care Team Providers Care Sour Bleaching Pleater Name Role Phone Emir Almodovar Primary Care Provider Migration, Provider Unavailable Unavailable Allergies No Known Allergies Medications Medication SIG (Take, Route, Frequency, Duration) Notes Start Date End Date Status Aspirin 81 MG 1 tab(s) orally once a day; Duration: 30 day(s) Active Zinc Sulfate 220 MG ONE TAB ORALLY BID; Duration: 30 DAYS *Please review and pick correct strength-formulatio n from [employer] options. If intended option is not shown, discontinue and re-order from Quick Search* 04/10/2020 Active Tamsulosin HCl 0.4 MG 1 cap(s) orally once a day at night; Duration: 30 days 04/01/2016 Active Senna-Docusate Sodium 50 MG-8.6 MG 2 CAP(S) ORALLY ONCE A DAY (IN THE EVENING); Duration: 30 DAY(S) *Please review and pick correct strength-formulatio n from [employer] options. If intended option is not shown, [...] Status Risk Notes Problem Diabetic renal disease (141500615) Type 2 diabetes mellitus with diabetic chronic kidney disease (E11.22) Active confirmed Problem Chronic pain (75977406) Other chronic pain (G89.29) Active confirmed Problem Panlobular emphysema (3513097) Panlobular emphysema (J43.1) Active confirmed Problem Slow transit constipation (89870050) Slow transit constipation (K59.01) Active confirmed Problem Rotator cuff arthropathy of left shoulder (disorder) (42302801268023382) Other specific arthropathies, not elsewhere classified, left shoulder (M12.812) Active confirmed Problem Low back pain (556020790) Low back pain (M54.5) Active confirmed Problem Nontraumatic rupture of muscle or tendon structure of rotator cuff of left shoulder (disorder) (1249991861276886) Unspecified rotator cuff tear or rupture of left shoulder, not specified as traumatic (M75.102) Active confirmed Problem Chronic kidney disease stage 3 (disorder) (760354506) Chronic kidney disease, stage 3 (moderate) (N18.3) Active confirmed Problem Paresthesia (finding) (34712947) Paresthesia of skin (R20.2) Active confirmed Problem Nicotine dependence (22748735) Personal history of nicotine dependence (Z87.891) Active confirmed Problem Hypothyroidism (80487367) Hypothyroidism (acquired) (E03.9) Active confirmed Problem Hyperlipidemia (32145352) Hyperlipemia, 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 Problem Essential hypertension (00094209) Hypertension, essential (I10) Active confirmed Problem Tobacco abuse (7528065908) Tobacco abuse (Z72.0) Active confirmed Problem Acute exacerbation of chronic obstructive airways disease (118477378) COPD exacerbation (J44.1) Active confirmed Problem Chronic kidney disease stage 4 (702862023) Chronic kidney disease (CKD) stage G4/A2, severely decreased glomerular filtration rate (GFR) between 15-29 mL/min/1.73 square meter and albuminuria creatinine ratio between 30-299 mg/g (N18.4) Active confirmed Problem Atherosclerotic heart disease of [place] coronary artery without angina pectoris (784744412125452) Coronary artery disease involving [place] coronary artery of [place] heart without angina pectoris (I25.10) Active confirmed Problem Lower urinary tract symptoms due to benign prostatic hypertrophy (99053239868206) Benign non-nodular prostatic hyperplasia with lower urinary tract symptoms (N40.1) Active confirmed Problem Tobacco user (835225683) Cigarette nicotine dependence without complication (F17.210) Active confirmed Problem Pulmonary nodule (741073643) Pulmonary nodule (R91.1) Active confirmed Problem Chronic obstructive pulmonary disease with acute lower respiratory infection (101656325) Bronchitis, chronic obstructive w acute bronchitis (J44.0) Active confirmed Problem Dependence on supplemental oxygen (171762659029) 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) Active confirmed Problem Hearing loss (06069330) Bilateral hearing loss, unspecified hearing loss type (H91.93) Active confirmed Problem Osteophyte of vertebra (disorder) (846284750044733) Spinal osteophytosis (M25.78) Active confirmed Problem Bladder neck obstruction (823714129) Bladder neck obstruction (N32.0) Active confirmed Problem Pressure injury of buttock stage I (disorder) (90179390250716348) Pressure injury of buttock, stage 1, unspecified laterality (L89.301) Active confirmed Problem Gastroesophageal reflux disease (972898407) Gastroesophageal reflux disease, unspecified whether esophagitis present (K21.9) Active confirmed Encounters Encounter Location Date Provider Diagnosis [facility] [address] [facility] [address] [place] [address] 12/17/2024 Provider Migration Plan Of Treatment Pending Test Test Name Order Date N-CBC 09/08/2007 X-Lipid Profile 09/08/2007 Urinalysis 09/29/2017 N-PSA 08/10/2006 N-CMP 09/08/2007 Urine Drug Screen IH 03/21/2011 N-spep 10/26/2009 N-PSA Screening 09/08/2007 Physical Therapy : Wound Care 04/17/2020 H-24 HR CREATININE 06/30/2017 H-URINE 24 HOUR FOR PROTEIN 06/30/2017 C-TESTOSTERONE 09/22/2011 C-CBC 07/26/2014 C-CBC 09/22/2011 C-CBC 03/21/2011 C-CBC 01/03/2013 C-CBC 09/12/2013 C-CMP 09/12/2013 C-CMP 07/17/2015 C-CMP 04/01/2013 C-CMP 01/03/2013 C-CMP 03/28/2014 C-CMP 11/21/2014 C-CMP 03/21/2011 C-CMP 07/26/2014 C-CMP 12/04/2020 C-CMP 07/12/2012 C-LIPID PANEL 07/12/2012 C-LIPID PANEL 12/04/2020 C-LIPID PANEL 07/26/2014 C-LIPID PANEL 09/22/2011 C-LIPID PANEL 03/21/2011 C-LIPID PANEL 11/21/2014 C-LIPID PANEL 01/03/2013 C-LIPID PANEL 09/12/2013 C-LIPID PANEL 04/01/2013 C-LIPID PANEL 07/17/2015 C-TSH 07/17/2015 C-TSH 09/12/2013 C-TSH 01/03/2013 C-TSH 11/21/2014 C-TSH 03/28/2014 C-TSH 09/22/2011 C-TSH 07/26/2014 C-TSH 03/21/2011 C-TSH 07/12/2012 C-HIV 08/26/2016 C-VITAMIN B12 09/22/2011 N-blood smear 10/23/2009 N-blood smear 06/16/2008 N-UPEP 10/26/2009 VENIPUNCT, ROUTINE* 07/17/2015 VENIPUNCT, ROUTINE* 10/07/2016 NVC/EMG STUDY OF UPPER EXTREMITIES 10/28 H-24 hour creatinine clearance 7 M-Complete Blood Count Auto Diff 018 M-Cardiac Enzymes 04/13/2018 M-Comprehensive Metabolic Panel 04/13/20 18 M-Magnesium 04/13/2018 M-Prostate Specific Ag Screen 02/19/2021 Insurance Providers Payer Name Payer Address Payer Phone Subscriber Number Group Number Insured Name Patient Relationship to Insured Coverage Start Date Coverage End Date [place] [place] [address] [id number] Louie Soto Self - patient is the insured [place] [id number] Louie Soto Self - patient is the [...]
--- OUTSIDE RECORDS SUMMARY | 2025-05-30 10:31 | XMS_ITS | Referral Summary ---
Author Organization [employer] ([place], [place], [place], [place]) Address [address] [place] [address] Care Team Providers Care Red Hat Linux Engineer Name Role Phone Unavailable Primary Care Provider [...] your living situation today? I have a [facility] place to live 03/22/2024 Think about [...] Do you speak a language other than Estonian at [facility]? No 03/22/2024 Do you want help with [...] Plan of Treatment Not on file Insurance [facility] Advance Directives For more information, please contact: [phone] * Full Code (Latest Code Status on File) Date Activated Date Inactivated Comments 03/22/2024 3:32 AM 03/25/2024 4:39 PM
[2025-05-30 10:37] LABS: Hematocrit 33.0 % (42.0-52.0); Hemoglobin 10.8 g/dL (14.1-18.0); Immature Granulocytes % 0.9 %; Mean Corpuscular HGB Conc 32.7 g/dL (31.8-35.4); Mean Corpuscular Hemoglobin 29.4 pg (27.0-31.2); Mean Corpuscular Volume 89.9 fl (80-94); Nucleated Red Blood Cells % 0 %; Platelet Count 215 K/mm3 (142-424); Red Blood Count 3.67 M/mm3 (4.60-6.20); Red Cell Distribution Width-SD 47.6 fL; White Blood Count 17.0 K/mm3 (4.8-10.8)
--- NOTE | 2025-05-30 11:00 | CT_ITS ---
FINAL REPORT TECHNIQUE: Axial images through the abdomen and pelvis were performed without contrast.This study was performed with techniques to keep radiation doses as low as reasonably achievable, (ALARA). Individualized dose reduction techniques using automated exposure control or adjustment of mA and/or kV according to the patient's size were employed. CLINICAL HISTORY: abdominal pain COMPARISON: 12/15/2024 FINDINGS: ABDOMEN: There is new, left lower lobe consolidation. Although this likely represents pneumonia, underlying mass is not excluded. Recommend CT follow-up with contrast. The heart size is normal. Limited images of the liver are unremarkable. The spleen is normal. There is cholelithiasis without evidence of cholecystitis. No adrenal mass is identified. There is no significant free fluid or adenopathy. There is moderate right and mild left renal atrophy. There is mild right hydroureteronephrosis which is significantly improved. There is also mild left hydroureter which has improved with resolution of left hydronephrosis. There is no bowel obstruction. Abdominal aortic aneurysm has increased now measuring 50 mm on coronal imaging, previously measured 37 mm. PELVIS: The appendix is not identified. There is chronic urinary bladder wall thickening. Trace free fluid is seen in the pelvis. There is no significant free fluid or adenopathy. IMPRESSION: 1. Improved bilateral upper urinary tract obstruction. 2. Chronic urinary bladder wall thickening. 3. Significantly increased abdominal aortic aneurysm without rupture. 4. No evidence of bowel obstruction. 5. Cholelithiasis without evidence of cholecystitis. Reviewed, Interpreted and Dictated by Omer De Leon MD Transcribed by Morelia Chester Authenticated and [facility]
[2025-05-30 11:24] LABS: Alanine Aminotransferase 11 U/L (12-78); Albumin Level 3.5 g/dl (3.5-5.0); Albumin/Globulin Ratio 1.2 (1.1-1.8); Alkaline Phosphatase 81 U/L (38-126); Anion Gap 14.3 mEq/L (5-15); Aspartate Amino Transferase 18 U/L (17-59); Bilirubin,Total 0.5 mg/dl (0.2-1.3); Blood Urea Nitrogen 55 mg/dl (9-20); Calcium 8.7 mg/dl (8.4-10.2); Carbon Dioxide 17 mmol/L (22.0-30.0); Chloride 100 mmol/L (98-107); Estimated Glomerular Filt Rate 15 ml/min (>60); GFR (African American) 18 ML/MIN (>60); Globulin 3.0 g/dL (1.3-3.2); Glucose 109 mg/dl (74-100); Potassium 4.3 mmoL/L (3.5-5.1); Sodium 127 mmol/L (136-145); Total Protein,Serum 6.5 g/dl (6.3-8.2)
[2025-05-30 11:38] LABS: Creatinine,Serum 4.00 mg/dl (0.66-1.25)
== END 2025-05-30 23:59 | disposition home or self-care (01) ==
PROVIDERS: PCP Family Medicine; Visit Provider Family Medicine
DX: N13.8 Other obstructive and reflux uropathy (principal); N32.89 Other specified disorders of bladder; I71.40 Abdominal aortic aneurysm, without rupture, unspecified; K80.20 Calculus of gallbladder without cholecystitis without obstruction; R91.8 Other nonspecific abnormal finding of lung field; R93.3 Abnormal findings on diagnostic imaging of other parts of digestive tract
CPT/HCPCS: 36415; 71046; 74019; 74176; 80053; 85025

== ENCOUNTER 2025-05-30 12:26 | Inpatient (IN) | payer MEDICARE, MEDICAID, SELFPAY ==
--- OUTSIDE RECORDS SUMMARY | 2024-12-17 17:30 | XMS_ITS ---
Author Organization [facility] Address [address] [facility] [address] [place] [address] Care Team Providers Care Floriculture Teacher Name Role Phone Emir Almodovar Primary Care Provider [phone] Migration, Provider Unavailable Unavailable REASON FOR VISIT [facility] Encounter Medications Medication SIG (Take, [...] Active Encounters Encounter Location Date Provider Diagnosis [facility] [address] [place] [address] 12/17/2024 Provider Migration Plan Of Treatment Medication [...] * Louie GAUTAM CDOB:[birth year] (74 yo M)Acc No.[id number]:12/17/2024 Patient: Brayan Louie BLANK Provider: Mike ponce Migration :1950 A ge:74 Y S ex:Male Date:12/17/2024 Address:[address] Pcp:Emir Almodovar Subjective: * Chief Complaints: * [facility] . [facility]. * Medical History: * [...] *Please review and pick correct strength-formulation from ubigratespan options. If intended option is not shown, [...] Electronic signature of Bony uriarte Migration on 05/31/2025 at 09:56 AM EDT Sign off status: Pending * Provider: Mike ponce Migration Date: 0 12/17/2024 Generated for Cristina hidalgo/Chetna/Grupo on: 0 05/31/2025 09:56 AM EDT
[2025-05-30] VITALS (17 sets, daily range): BP systolic 107–162; BP diastolic 63–82; PULSE 48–67; RESP 16–18; TEMP 36.4–36.6; O2SAT 93–99; BMI 20.7
--- OUTSIDE RECORDS SUMMARY | 2025-05-30 12:42 | XMS_ITS | Clinical Summary ---
Author Organization [employer] ([place], [place], [place], [place]) Address [address] [place] [address] Care Team Providers Care Machine Bookkeeper Name Role Phone Unavailable Primary Care Provider [...] your living situation today? I have a [facility] place to live 03/22/2024 Think about [...] Do you speak a language other than Norwegian at [facility]? No 03/22/2024 Do you want [...] 3, 04/26/2019, 07/17/2015, Additional history exists [facility] Advance Directives For more information, please contact: [phone] * Full Code (Latest Code Status on File) Date Activated Date Inactivated Comments 03/22/2024 3:32 AM 03/25/2024 4:39 PM
--- OUTSIDE RECORDS SUMMARY | 2025-05-30 12:42 | XMS_ITS | Clinical Summary ---
Author Organization [facility] Address [address] [place] [address] Care Team Providers Care Linoleum Mechanic Name Role Phone David Mark MD Primary Care Provider [phone] Allergies No known active allergies Medications albuterol [...] Description 07/20/2025 10:00 AM EST Office Visit [facility] CARDIOTHORACIC SURGERY [address] [address] Carole Francois APRN [address] [address] Health Maintenance Due Date Last Done Comments [...] ADVANTAGE HMO [place] [employer] Care Teams Linoleum Mechanic Relationship Specialty Start Date End Date David Mark MD [address] [place] [address] PCP - General Family Medicine 12/23/24
--- OUTSIDE RECORDS SUMMARY | 2025-05-30 12:42 | XMS_ITS | Clinical Summary ---
Author Organization [facility] Address [address] [place] [address] Care Team Providers Care Kitchen Supervisor Name Role Phone Unavailable Primary Care Provider [...]
--- OUTSIDE RECORDS SUMMARY | 2025-05-30 12:43 | XMS_ITS | Referral Summary ---
Author Organization [employer] ([place], [place], [place], [place]) Address [address] [place] [address] Care Team Providers Care Lap Regulator Name Role Phone Unavailable Primary Care Provider [...] your living situation today? I have a [facility] place to live 03/22/2024 Think about the [...] Do you speak a language other than Brazilian at [facility]? No 03/22/2024 Do you want help [...] Plan of Treatment Not on file Insurance [facility] Advance Directives For more information, please contact: [phone] * Full Code (Latest Code Status on File) Date Activated Date Inactivated Comments 03/22/2024 3:32 AM 03/25/2024 4:39 PM
[2025-05-30 13:02] LABS: Hematocrit 34.0 % (42.0-52.0); Hemoglobin 11.2 g/dL (14.1-18.0); Immature Granulocytes % 0.9 %; Mean Corpuscular HGB Conc 32.9 g/dL (31.8-35.4); Mean Corpuscular Hemoglobin 29.5 pg (27.0-31.2); Mean Corpuscular Volume 89.5 fl (80-94); Nucleated Red Blood Cells % 0 %; Platelet Count 240 K/mm3 (142-424); Red Blood Count 3.80 M/mm3 (4.60-6.20); Red Cell Distribution Width-SD 46.6 fL; White Blood Count 17.5 K/mm3 (4.8-10.8)
--- NOTE | 2025-05-30 13:08 | US_ITS ---
FINAL REPORT TECHNIQUE: Multiple transverse and longitudinal images CLINICAL HISTORY: pain COMPARISON: CT abdomen pelvis 05/30/2025 FINDINGS: Cholelithiasis is noted. No evidence of gallbladder wall thickening. No biliary obstruction is appreciated. No fluid collections are seen. Limited portions of the right liver are unremarkable. Mild right hydronephrosis is noted. Pancreas is largely obscured. Incidental note is made of a known abdominal aortic aneurysm measuring up to 4.9 cm. IMPRESSION: Cholelithiasis without biliary obstruction. Reviewed, Interpreted and Dictated by Omer De Leon MD Transcribed by Keya Jiang Authenticated and [facility]
[2025-05-30 13:09] LABS: Coronavirus 19, PCR Not Detected (NotDetected); Influenza A, PCR Not Detected (NotDetected); Influenza B, PCR Not Detected (NotDetected)
[2025-05-30 13:10] LABS: Activated Partial Thrombo Time 34.7 seconds (22.8-30.6); INR 1.02 (0.9-1.1); Prothrombin Time 11.3 seconds (10.1-12.5)
[2025-05-30 13:13] LABS: Alanine Aminotransferase 13 U/L (12-78); Albumin Level 4.1 g/dl (3.5-5.0); Albumin/Globulin Ratio 1.1 (1.1-1.8); Alkaline Phosphatase 89 U/L (38-126); Anion Gap 15.3 mEq/L (5-15); Aspartate Amino Transferase 24 U/L (17-59); Bilirubin,Total 0.5 mg/dl (0.2-1.3); Blood Urea Nitrogen 57 mg/dl (9-20); Calcium 8.9 mg/dl (8.4-10.2); Carbon Dioxide 17 mmol/L (22.0-30.0); Chloride 99 mmol/L (98-107); Creatine Kinase 40 U/L (55-170); Creatinine Clearance Estimated 15 mL/min (50-200); Estimated Glomerular Filt Rate 14 ml/min (>60); GFR (African American) 17 ML/MIN (>60); Globulin 3.6 g/dL (1.3-3.2); Glucose 141 mg/dl (74-100); Potassium 4.3 mmoL/L (3.5-5.1); Sodium 127 mmol/L (136-145); Total Protein,Serum 7.7 g/dl (6.3-8.2)
[2025-05-30 13:15] LABS: Creatinine,Serum 4.20 mg/dl (0.66-1.25)
[2025-05-30 13:18] LABS: C-Reactive Protein 69.1 mg/L (0-4)
--- NOTE | 2025-05-30 13:31 | PC.NURSE ---
pt was stuck multiple times for blood cultures. Lab was notified to assist to draw blood cultures at this time.
--- NOTE | 2025-05-30 13:57 | ED_ITS ---
<Statement entered by Vikas Laboy MD - 05/30/25 20:52> I was consulted by the CAIO, and we discussed the complexity of the problems being addressed. I approve the treatment and management plan for this patient's care in the emergency department, thus performing a substantive portion of the medical decision making. Vikas Laboy MD Discharge Plan Disposition Patient Disposition: Admitted Clinical Impressions Clinical Impression: Pneumonia Discharge ED Provider: Vikas Laboy General Adult HPI General Chief complaint: Shortness of Breath/Dyspnea Stated complaint: Sent back to ER per Dr. Mark due to lab work Time Seen by Provider: 05/30/25 12:38 Mode of Arrival: Ambulatory Source of Information: Patient Description of Symptoms (Recalled from ER Triage Doc. by RN): pt present to the ED with shortness of breath, chest pain, bilateral abdominal and back pain. Denies nausea and vomiting. pt's reports that she has noticed the pt has had loss of appetite and stumbling when walking. Pt's reports that they were sent back to the ED from his PCP for elevated WBC, abnormal creatine, and abnormal CT and x-rays showing possible pneumonia and increased size in previous aneurysm. History of Present Illness HPI narrative: 74-year-old male presents to the ED today with complaint of loss of appetite and stumbling for the past couple weeks. tells me that he saw his doctor yesterday with some abdominal pain and weight loss. Patient today tells me that he has no pain now. He does complain of some shortness of breath occasionally. Patient denies to me chest pain or back pain at this time. He said he went to the doctor for this step yesterday. He has no nausea or vomiting at this time. Patient came this morning for labs, x-rays and a CT scan. Before they were able to even get home their doctor called them and told them to come back to the emergency department. states that they were told that patient had an aneurysm that was significantly larger than it was previously. does also state that patient has had some confusion that is coming and going. also states that his doctor was concerned about his kidney function. Patient does self cath and the last time he self cath was this morning. Patient does have historically low renal function. His creatinine and BUN are historically low. Related Data Home Medications ?Medication ?Instructions ?Recorded ?Confirmed aspirin 81 mg tablet,delayed 81 mg PO DAILY Heart Heal th 05/25/19 05/29/25 release ascorbate calcium (vitamin C) 500 500 mg PO DAILY Supp lement 03/27/22 05/29/25 mg tablet albuterol sulfate 0.63 mg/3 mL 0.63 mg continuous nebu lization 08/02/24 05/29/25 solution for nebulization QID PRN Previous Rx's ?Medication ?Instructions ?Recorded sildenafil 100 mg tablet (Viagra) 100 mg PO DAILY #30 tabs 01/04/24 finasteride 5 mg tablet 5 mg PO DAILY PROSTATE 90 da ys #90 12/21/24 tabs metoprolol succinate 25 mg 25 mg PO DAILY Blood Pressu re 30 01/11/25 tablet,extended release 24 hr days #90 tabs pantoprazole 40 mg tablet,delayed 40 mg PO QAM 90 days #90 tabs 02/10/25 release tizanidine 2 mg capsule (Zanaflex) 2 mg PO TID PRN mus brendon pain 30 03/09/25 days #90 caps omeprazole 40 mg capsule,delayed 40 mg PO DAILY Acid R eflux 90 days 04/21/25 release #90 caps carvedilol 3.125 mg tablet 3.125 mg PO BID 30 days #60 tabs 05/05/25 fluticasone furoate 200 1 inh inhalation DAILY 30 da ys #60 05/05/25 mcg-vilanterol 25 mcg/dose ea inhalation powder (Breo Ellipta) ipratropium 20 mcg-albuterol 100 2 puff inhalation BID 30 days #4 05/05/25 mcg/actuation mist for inhalation grams (Combivent Respimat) pregabalin 25 mg capsule (Lyrica) 25 mg PO BID Pain #6 0 caps 05/05/25 levothyroxine 50 mcg tablet See Rx Instructions PO TYLER LY 05/18/25 thyroid #90 tabs oxybutynin chloride 10 mg 10 mg PO DAILY Bladder 30 da ys #30 05/18/25 tablet,extended release 24 hr tabs lovastatin 20 mg tablet 20 mg PO HS Cholesterol 90 d ays 05/22/25 #90 tabs Allergies Allergy/AdvReac Type Severity Reaction Status Date / Time No Known Allergies Allergy Verified 05/03/25 13:10 [facility] Disclaimer: The information contained in this section may have been updated after the patient was seen, as this information can be updated by other users. Medical History History of inguinal hernia Abdominal aortic aneurysm (AAA) PAD (peripheral artery disease) Coronary artery disease Medical mgt JUN 2021 Abnormal electrocardiography Systolic CHF, chronic Elevated troponin Hypotension Aortic insufficiency Mitral regurgitation Bladder outlet obstruction Personal history of nicotine dependence COPD (chronic obstructive pulmonary disease) with acute bronchitis Chronic kidney disease Pancreatitis Hidradenitis suppurativa Hidradenitis alone bilateral buttock and upper thigh region. Abscessed hidradenitis along mid left buttock. Surgical History No significant past surgical history Family History Other No significant family history Social History Smoking Status: Current every day smoker tobacco type: cigarettes packs per day: 1 second hand exposure: No alcohol intake: never substance use type: denies use current occupational status: retired Travel in the last 8 weeks?: None household members: spouse housing: house current occupational exposures/hazards: No caffeine: No Have you lived/traveled outside [place] in past 30 days?: No Contact w/someone who lives/traveled outside [place] past 30 days?: No Exposure to someone with infectious disease in past 14 days?: No Do you have a fever (greater than 100.4 F or 38 C)?: No Have you tested positive for COVID-19?: No Exposed to someone with COVID-19 in past 14 days?: No Do you have a sore throat?: No Do you have a cough?: No Do you have any weakness?: No Do you have any diarrhea?: No Are you experiencing any unusual bleeding?: No Do you have any muscle aches/pain?: No Do you have any abdominal pain?: No Are you experiencing loss of taste or smell?: No Other Medical History Have you received the Flu Vaccine for this season: Yes Have you received the Pneumonia Vaccine: Yes ROS Obtained: Yes Systems reviewed as appropriate & no additional complaints except as documented Constitutional Constitutional: Reports as per HPI Physical Exam General General appearance: alert and other (Appears weak) Head Head exam: normocephalic Eye Eye exam: Present EOMI and jaundice ENT ENT exam: Present mucous membranes moist Neck Neck exam: Present full ROM and trachea midline Respiratory Respiratory exam: Present wheezes Cardiovascular Cardiovascular exam: Present normal rhythm, bradycardia, normal heart sounds, +S1 and +S2 Abdominal Exam Abdominal exam: Present soft and normal bowel sounds Abdominal tenderness: Present diffuse and mild Extremities Exam Extremities exam: Present full ROM Neurological Exam Neurological exam: Present alert and oriented X3 Skin Skin exam: Present warm, dry and pallor Medical Decision Making Medical Records Screening: Per USPSTF and CDC recommendations, given the prevalence of disease in our region, it is our hospital?s policy to screen for HIV and viral Hepatitis for all patients aged 18 and over and those with ongoing risk factors. Frantz Inquiry Pt receiving controlled substance: No Frantz was queried for this patient: No Vital Signs: 05/30/25 12:39 05/30/25 12:46 05/30/25 12:46 Temperature 97.6 F 97.6 F Temperature Source Temporal Artery Scan Oral Pulse Rate 48 L 57 L Pulse Rate [Right] 57 L Respiratory Rate 17 17 Blood Pressure 117/77 117/77 Blood Pressure [Right Arm] 117/77 Blood Pressure Mean Blood Pressure Mean [Right Arm] 90 Blood Pressure Source Automatic Cuff Blood Pressure Source [Right Arm] Automatic Cuff Blood Pressure Position Supine Blood Pressure Position [Right Arm] Supine 02 Sat by Pulse Oximetry 95 99 99 Oxygen Delivery Method Room Air Room Air 05/30/25 12:51 05/30/25 13:00 05/30/25 13:02 Temperature Temperature Source Pulse Rate 53 L 52 L Pulse Rate [Right] Respiratory Rate Blood Pressure 111/67 129/67 Blood Pressure [Right Arm] Blood Pressure Mean Blood Pressure Mean [Right Arm] Blood Pressure Source Blood Pressure Source [Right Arm] Blood Pressure Position Blood Pressure Position [Right Arm] 02 Sat by Pulse Oximetry 99 98 99 Oxygen Delivery Method Room Air 05/30/25 14:44 05/30/25 14:45 05/30/25 14:50 Temperature Temperature Source Pulse Rate 59 L 54 L 54 L Pulse Rate [Right] Respiratory Rate Blood Pressure 137/74 144/78 H Blood Pressure [Right Arm] Blood Pressure Mean Blood Pressure Mean [Right Arm] Blood Pressure Source Blood Pressure Source [Right Arm] Blood Pressure Position Blood Pressure Position [Right Arm] 02 Sat by Pulse Oximetry 97 97 97 Oxygen Delivery Method 05/30/25 15:01 05/30/25 15:10 05/30/25 15:15 Temperature Temperature Source Pulse Rate 59 L 61 Pulse Rate [Right] Respiratory Rate Blood Pressure 154/80 H 162/79 H Blood Pressure [Right Arm] Blood Pressure Mean 106 Blood Pressure Mean [Right Arm] Blood Pressure Source Blood Pressure Source [Right Arm] Blood Pressure Position Blood Pressure Position [Right Arm] 02 Sat by Pulse Oximetry 95 97 Oxygen Delivery Method 05/30/25 16:34 Temperature 97.9 F Temperature Source Oral Pulse Rate 60 Pulse Rate [Right] Respiratory Rate 16 Blood Pressure 150/82 H Blood Pressure [Right Arm] Blood Pressure Mean Blood Pressure Mean [Right Arm] Blood Pressure Source Automatic Cuff Blood Pressure Source [Right Arm] Blood Pressure Position Supine Blood Pressure Position [Right Arm] 02 Sat by Pulse Oximetry Oxygen Delivery Method Room Air Lab Data Lab Results 05/30/25 12:36: WBC 17.5 H, RBC 3.80 L, Hgb 11.2 L, Hct 34.0 L, MCV 89.5, MCH 29.5, MCHC 32.9, RDW 14.5, Plt Count 240, MPV 10.5 H, Neut % (Auto) 83.6 H, L ymph % (Auto) 8.4 L, Dougherty % (Auto) 6.1, Eos % (Auto) 0.5, Baso % (Auto) 0.5, N eut # (Auto) 14.6 H, Lymph # (Auto) 1.5, Dougherty # (Auto) 1.1 H, Eos # (Auto) 0.1, Baso # (Auto) 0.1, ESR 79 H, PT 11.3, INR 1.02, APTT 34.7 H, D-Dimer 1.26 H, S odium 127 L, Potassium 4.3, Chloride 99, Carbon Dioxide 17 L, Anion Gap 15.3 H, BUN 57 H, Creatinine 4.20 H, Estimated Creat Clear 15, Estimated GFR 14 L*, Est GFR ( Amer) 17 L*, Glucose 141 H D, Lactate 0.7, Calcium 8.9, Total Bilirubin 0.5, AST 24 D, ALT 13, Alkaline Phosphatase 89, Total Creatine Kinase 40 L, Troponin I < 0.01, C-Reactive Protein 69.1 H, NT-Pro-B Natriuret Pep 6920 H, Total Protein 7.7, Albumin 4.1 D, Globulin 3.6 H, Albumin/Globulin Ratio 1.1 05/30/25 13:02: SARS-CoV-2 (PCR) Not detected, Influenza A Untype (PCR) Not detected, Influenza Type B (PCR) Not detected 05/30/25 12:36 05/30/25 12:36 Orders (Tests/Meds): ED MEDICATIONS Generic Name Dose Route Start Last Admin Trade Name Freq PRN Reason Stop Dose Admin Albuterol/Ipratropium 3 ml 05/30/25 18:00 Ipratropium/Albuterol 3 Ml Neb IH 06/29/25 17:59 Q6RT ANITA Heparin Sodium (Porcine) 5,000 unit 05/30/25 21:00 Heparin Sodium 5,000 Unit/Ml Vial SUBCUT 06/29/25 20:59 TID ANITA Azithromycin 500 mg/ Sodium 250 mls @ 250 mls/hr 05/30/25 16:00 Chloride IV 06/09/25 15:59 Q24H ANITA Cefepime HCl 2 gm/ Sodium 100 mls @ 200 mls/hr 05/31/25 14:30 Chloride IV 06/10/25 14:29 Q24H ANITA Nicotine 21 mg 05/30/25 15:45 Nicotine 21mg/24hr Patch TD 06/29/25 15:44 DAILYP PRN Nicotine Cravings Sodium Chloride 10 ml 05/30/25 15:51 Sodium Chloride 0.9% 10ml Flush Syringe IV 06/29/25 15:50 NEEDED PRN Maintain IV Site Discontinued Medications Generic Name Dose Route Start Last Admin Trade Name Freq PRN Reason Stop Dose Admin Cefepime HCl 2 gm/ Sodium 100 mls @ 200 mls/hr 05/30/25 12:54 05/30/25 15:08 Chloride IV 05/30/25 13:23 Infused ONCE ONE Infusion Azithromycin 500 mg/ Sodium 250 mls @ 250 mls/hr 05/30/25 12:54 Chloride IV 05/30/25 12:55 ONCE ONE Magnesium Sulfate 2 gm in 50 mls @ 50 mls/hr 05/30/25 14:25 05/30/25 16:33 Magnesium Sulfate 2gm/50ml Premix IV 05/30/25 15:24 Infused ONCE ONE Infusion Methylprednisolone Sodium Succinate 125 mg 05/30/25 14:25 05/30/25 15:24 Methylprednisolone Sod Succ 125mg Vial IV 05/30/25 14:26 125 mg ONCE ONE Administration ORDERS Category Date Time Status US gallbladder Stat Exams 05/30/25 13:08 Completed Activated Partial Thrombo Time Stat Lab 05/30/25 12:36 Completed BNP [NT Pro Brain Natriuretic Pep.] Stat Lab 05/30/25 12:36 Completed C-Reactive Protein Stat Lab 05/30/25 12:36 Completed Complete Blood Count Auto Diff AMLAB Lab 05/31/25 06:00 Ordered Complete Blood Count Auto Diff Stat Lab 05/30/25 12:36 Completed Comprehensive Metabolic Panel AMLAB Lab 05/31/25 06:00 Ordered Comprehensive Metabolic Panel Stat Lab 05/30/25 12:36 Completed Creatine Kinase Stat Lab 05/30/25 12:36 Completed D-Dimer Stat Lab 05/30/25 12:36 Completed Erythrocyte Sedimentation Rate Stat Lab 05/30/25 12:36 Completed Lactic Acid Stat Lab 05/30/25 12:36 Completed Magnesium AMLAB Lab 05/31/25 06:00 Ordered Prothrombin Time INR Stat Lab 05/30/25 12:36 Completed Rapid PCR Covid and Flu A/B Stat Lab 05/30/25 13:02 Completed Trop I [Troponin I] Stat Lab 05/30/25 12:36 Completed Troponin I Q3H Lab 05/30/25 17:15 Ordered Troponin I Q3H Lab 05/30/25 20:15 Ordered Urinalysis and Microscopic Stat Lab 05/30/25 15:50 Completed Blood Culture Stat Micro 05/30/25 14:16 Received Urine Culture Stat Micro 05/30/25 15:50 Received Medical Decision Narrative: patient is a 74-year-old male presenting to the emergency department for evaluation of abnormal scan, abnormal kidney function, elevated white count, loss of appetite. Patient is hemodynamically stable and pale appearing upon arrival, afebrile. Differential diagnosis includes pneumonia, kidney failure, leukocytosis, obstruction of gallbladder, etc. Workup will be conducted with hematologic labs, specific imaging. Initial inventions include crystalloid bolus, analgesics, antibiotics. I did start antibiotics and did sepsis workup however did not give sepsis bolus because patient has history of CHF, patient did have elevated BNP. I am waiting for the BNP to return before I give fluids. I did order Rocephin 2 g and azithromycin 500 mg IV. Also gave Solu-Medrol and magnesium for shortness of breath and pneumonia. I obtained an ultrasound for right upper quadrant abdominal pain that showed cholelithiasis without obstruction. My concern was obstruction due to the patient's jaundice. Initial workup reviewed by me hematologic labs are remarkable for BUN of 57 creatinine of 4.2 and GFR 14. Patient has a white count of 17.5. Discussed with Dr. Laboy and Dr Polnaco about admission for pneumonia due to leukocytosis and elevated renal function. Patient will be admitted per hospitalist service. Critical Care Critical Care Time Critical Care Time: No
--- NOTE | 2025-05-30 14:17 | PC.NURSE ---
Lab at pts bedside.
[2025-05-30 14:26] LABS: D-Dimer 1.26 ug/mL (0.0-0.5)
[2025-05-30 14:32] LABS: NT Pro Brain Natriuretic Pep. 6920 pg/mL (0-125)
[2025-05-30 14:36] LABS: Troponin I < 0.01 ng/ml (0.00-0.034)
[2025-05-30] MEDS: CEFEPIME HCL 2 GM in 0.9 % SODIUM CHLORIDE 100 ML IV (14:38)
--- NOTE | 2025-05-30 15:14 | PC.NURSE ---
Hospitalist at pts bedside.
[2025-05-30] MEDS: METHYLPREDNISOLONE SOD SUCC 125MG VIAL 125 MG IV (15:24)
[2025-05-30] MEDS: MAGNESIUM SULFATE IN WATER 2 GM/50 ML PIGGYBACK IV (15:25)
--- NOTE | 2025-05-30 15:38 | PC.NURSE ---
[facility] NOTIFIED OF ADMISSION
--- NOTE | 2025-05-30 15:47 | P.HP_ITS ---
History of Present Illness *Admission Date: 05/30/25 *Reason for visit:: dyspnea *History of present illness: Mr. Ryder is a 74-year-old male with significant history of renal failure about a year ago that necessitated ICU admission along with complicating sepsis. I struggled with poor renal function since. Continues to smoke. Has history of neuropathy and hypertension. Presented to the ER at the request of his PCP because of shortness of breath, chest discomfort, bilateral abdominal and back pain. states that he saw his PCP who recommended imaging. CT of abdomen was obtained that showed lower portion of left lung with pneumonia. Also known AAA but it is stable. Kidney function slightly worse from normal. Given his overall condition and image findings, recommended patient follow-up with the ER for further evaluation. On presentation to the ED, he denies nausea and vomiting. pt's reports that she has noticed the pt has had loss of appetite and stumbling when walking. States he had similar symptoms a year ago when he had sepsis and renal failure. Workup in the ER with creatinine of 4.2, baseline is in the mid 3 range. Still making urine. In-N-Out caths 3-4 times a day due to neurogenic bladder. Medicine consulted due to complexity of patient with comorbidities and high risk of decompensation. Initiated on Akins antibiotics in the ED. helped supplement history. On evaluation, patient is ill-appearing. states he looks so bad for so long it is hard for her to tell if he looks worse but does state that his weakness, lack of appetite, and 3 pound weight loss in the past few weeks are new and concerning to her. [facility] Disclaimer: The information contained in this section may have been updated after the patient was seen, as this information can be updated by other users. Medical History (Updated 05/30/25 @ 17:48 by Jose Polanco MD) CKD (chronic kidney disease) stage 4, GFR 15-29 ml/min History of inguinal hernia Abdominal aortic aneurysm (AAA) PAD (peripheral artery disease) Coronary artery disease Abnormal electrocardiography Systolic CHF, chronic Elevated troponin Hypotension Aortic insufficiency Mitral regurgitation Bladder outlet obstruction Personal history of nicotine dependence COPD (chronic obstructive pulmonary disease) with acute bronchitis Chronic kidney disease Pancreatitis Hidradenitis suppurativa Surgical History No significant past surgical history Family History Other No significant family history Social History Smoking Status: Current every day smoker tobacco type: cigarettes packs per day: 1 second hand exposure: No alcohol intake: never substance use type: denies use current occupational status: retired Travel in the last 8 weeks?: None household members: spouse housing: house current occupational exposures/hazards: No caffeine: No Other Medical History Have you received the Flu Vaccine for this season: Yes Have you received the Pneumonia Vaccine: Yes Meds Home Medications and Allergies Home Medications ?Medication ?Instructions ?Recorded ?Confirmed ?Type aspirin 81 mg tablet,delayed 81 mg PO DAILY Heart Heal th 05/25/19 05/29/25 History release ascorbate calcium (vitamin C) 500 500 mg PO DAILY Supp lement 03/27/22 05/29/25 History mg tablet sildenafil 100 mg tablet (Viagra) 100 mg PO DAILY #30 tabs 01/04/24 05/29/25 Rx albuterol sulfate 0.63 mg/3 mL 0.63 mg continuous nebu lization 08/02/24 05/29/25 History solution for nebulization QID PRN finasteride 5 mg tablet 5 mg PO DAILY PROSTATE 90 da ys #90 12/21/24 05/29/25 Rx tabs metoprolol succinate 25 mg 25 mg PO DAILY Blood Pressu re 30 01/11/25 05/29/25 Rx tablet,extended release 24 hr days #90 tabs pantoprazole 40 mg tablet,delayed 40 mg PO QAM 90 days #90 tabs 02/10/25 05/29/25 Rx release tizanidine 2 mg capsule (Zanaflex) 2 mg PO TID PRN mus brendon pain 30 03/09/25 05/29/25 Rx days #90 caps omeprazole 40 mg capsule,delayed 40 mg PO DAILY Acid R eflux 90 days 04/21/25 05/29/25 Rx release #90 caps carvedilol 3.125 mg tablet 3.125 mg PO BID 30 days #60 tabs 05/05/25 05/29/25 Rx fluticasone furoate 200 1 inh inhalation DAILY 30 da ys #60 05/05/25 05/29/25 Rx mcg-vilanterol 25 mcg/dose ea inhalation powder (Breo Ellipta) ipratropium 20 mcg-albuterol 100 2 puff inhalation BID 30 days #4 05/05/25 05/29/25 Rx mcg/actuation mist for inhalation grams (Combivent Respimat) pregabalin 25 mg capsule (Lyrica) 25 mg PO BID Pain #6 0 caps 05/05/25 05/29/25 Rx levothyroxine 50 mcg tablet See Rx Instructions PO TYLER LY 05/18/25 05/29/25 Rx thyroid #90 tabs oxybutynin chloride 10 mg 10 mg PO DAILY Bladder 30 da ys #30 05/18/25 05/29/25 Rx tablet,extended release 24 hr tabs lovastatin 20 mg tablet 20 mg PO HS Cholesterol 90 d ays 05/22/25 05/29/25 Rx #90 tabs New Prescriptions to Start Prescriptions: Allergies Allergy/AdvReac Type Severity Reaction Status Date / Time No Known Allergies Allergy Verified 05/03/25 13:10 Exam Data for Last 24 hours Vital signs and Labs for Last 24 Hours: Temp Pulse Resp BP Pulse Ox O2 Del Method 97.6 F 61 17 162/79 H 97 Room Air 05/30/25 12:46 05/30/25 15:15 05/30/25 12:46 05/30/25 15:10 05/30/25 15:15 05/30/25 13:02 Laboratory Results - last 24 hr 05/30/25 12:36: WBC 17.5 H, RBC 3.80 L, Hgb 11.2 L, Hct 34.0 L, MCV 89.5, MCH 29.5, MCHC 32.9, RDW 14.5, Plt Count 240, MPV 10.5 H, Neut % (Auto) 83.6 H, Lymph % (Auto) 8.4 L, Haakon % (Auto) 6.1, Eos % (Auto) 0.5, Baso % (Auto) 0.5, Neut # (Auto) 14.6 H, Lymph # (Auto) 1.5, Haakon # (Auto) 1.1 H, Eos # (Auto) 0.1, Baso # (Auto) 0.1, ESR 79 H, PT 11.3, INR 1.02, APTT 34.7 H, D-Dimer 1.26 H, Sodium 127 L, Potassium 4.3, Chloride 99, Carbon Dioxide 17 L, Anion Gap 15.3 H, BUN 57 H, Creatinine 4.20 H, Estimated Creat Clear 15, Estimated GFR 14 L*, Est GFR ( Amer) 17 L*, Glucose 141 H D, Lactate 0.7, Calcium 8.9, Total Bilirubin 0.5, AST 24 D, ALT 13, Alkaline Phosphatase 89, Total Creatine Kinase 40 L, Troponin I < 0.01, C-Reactive Protein 69.1 H, NT-Pro-B Natriuret Pep 6920 H, Total Protein 7.7, Albumin 4.1 D, Globulin 3.6 H, Albumin/Globulin Ratio 1.1 05/30/25 13:02: SARS-CoV-2 (PCR) Not detected, Influenza A Untype (PCR) Not detected, Influenza Type B (PCR) Not detected I & O for Last 24 hours: Intake & Output 05/27/25 05/28/25 05/29/25 05/30/25 23:59 23:59 23:59 23:59 Intake Total 100 / 100 Balance 100 / 100 Weight 69.4 kg Constitutional Constitutional: mild distress, thin, chronically ill appearing, disheveled and cooperative *Routine HEENT Exam Head: Present normocephalic Eye: Present EOMI and PERRL ENT: Present mucous membranes moist *Routine Neck Exam Neck: Present supple; Absent lymphadenopathy *Routine Respiratory Exam Respiratory: Present prolonged expiratory phase, wheezes and crackles (Lung base with deep inspiration); Absent CTA bilaterally or rhonchi *Routine Cardiovascular Exam Cardiovascular: Present RRR *Routine Abdominal Exam Abdominal: Present soft and normoactive bowel sounds; Absent tenderness *Routine Rectal Exam Rectal:: deferred *Routine Genitalia Exam Genitalia:: deferred *Routine Extremities Exam Extremities: Absent cyanosis, clubbing or edema Comments: Thin, sarcopenia *Routine Skin Exam Skin: Present intact, warm and jaundice; Absent rash *Routine Neurological Exam Neurological: Present alert, oriented X3 and moving all extremities; Absent altered mental status Comments: Hard of hearing on exam Assessment and Plan *Assessment and plan (1) LLL pneumonia: Status: Acute Category: Medical Code(s): J18.9 - Pneumonia, unspecified organism (2) CKD (chronic kidney disease) stage 4, GFR 15-29 ml/min: Status: Acute Category: Medical Code(s): N18.4 - Chronic kidney disease, stage 4 (severe) (3) UTI (urinary tract infection): Status: Acute Category: Medical Code(s): N39.0 - Urinary tract infection, site not specified (4) COPD (chronic obstructive pulmonary disease) with acute bronchitis: Status: Chronic Category: Medical Code(s): J44.0 - Chronic obstructive pulmonary disease with (acute) lower respiratory infection; J20.9 - Acute bronchitis, unspecified (5) Bladder outlet obstruction: Status: Chronic Category: Medical Code(s): N32.0 - Bladder-neck obstruction (6) Tobacco abuse: Status: Acute Category: Medical Code(s): Z72.0 - Tobacco use (7) Neuropathy: Status: Acute Category: Medical Code(s): G62.9 - Polyneuropathy, unspecified (8) Neurogenic bladder: Status: Acute Category: Medical Code(s): N31.9 - Neuromuscular dysfunction of bladder, unspecified (9) Acute hyponatremia: Status: Acute Category: Medical Code(s): E87.1 - Hypo-osmolality and hyponatremia Plan 74-year-old with CKD 4 who presented to the ER at the request of his PCP. Was seen today by his primary care because of weakness and fatigue. Sent for imaging of his abdomen out of concern for AAA. Found to have a pneumonia and some worsening of kidney function. Workup in the ER concerning for UTI and pneumonia. Discussed case with ER provider, request admission for further management of patient's pneumonia and urinary tract infection along with weakness. Patient overall high risk to discharge home and to further decompensate. Necessitating inpatient care. Initiated on broad-spectrum antib iotics. Further management pending culture results. Problems addressed as follows: Left lower lobe pneumonia COPD, does not appear to be in exacerbation - Per my review of CT of chest, patient is consolidation left lower lobe. White count elevated at 17.5. Necessitating inpatient care with PSI/port score of 124. Class IV risk. Scores for age of 74, male, renal disease history, BUN greater than 30 (57), sodium less than 130 (127). - Initiated on cefepime 2 g once in the ER. Continue every 24 hours renally dosing. Continue azithromycin 500 mg daily. - Sputum culture pending - DuoNebs every 6 hours scheduled. Chronic renal obstruction CKD 4 Chronic hydronephrosis Neurogenic bladder Hyponatremia -Urinalysis obtained with placement of Juárez catheter. Grossly abnormal concerning for UTI. Too numerous to count white cells, bacteria present. Leuk esterase and nitrate present. -Creatinine 4.2, BUN 57. Sodium 127. Potassium 4.3 - Covered with cefepime as stated above. Culture pending. Of note, urinalysis obtained after antibiotics were initiated. - Close monitoring of renal function. Will renally dose medications. Repeat CBC, CMP, magnesium ordered for the morning. - Continue oxybutynin 10 mg daily, finasteride 5 mg daily - Metabolic acidosis with bicarb of 17. Initiate sodium bicarbonate p.o. twice daily 1300 mg - Hemoglobin 11.2 Chronic conditions: Stable Continue Levothyroxine 50 mcg daily for hypothyroid Continue Pantoprazole 40 mg daily for GERD Continue Carvedilol 3.125 mg twice daily for hypertension Continue Lyrica 25 mg twice daily renally dosed for neuropathy Full code Heparin 5000 units 3 times daily Regular diet
[2025-05-30 15:56] LABS: Microscopic, Urine URINE MICROSCOPIC (MICROSCOPIC)
[2025-05-30 15:57] LABS: Bilirubin,Urine Negative (Negative); Color,Urine YELLOW (Yellow); Glucose,Urine (UA) Negative (Negative); Ketones,Urine Negative (Negative); Leukocyte Esterase,Urine 3+ (Negative); PH,Urine 6.0 (5.0-8.5); Protein,Urine 2+ (Negative); Specific Gravity, Urine <= 1.005 (1.005-1.030); Urobilinogen,Urine 0.2 EU/dl (0.2)
--- NOTE | 2025-05-30 16:03 | PC.NURSE ---
Report called to GRAY Murray.
[2025-05-30 16:23] LABS: WBC,Urine TNTC #/hpf (0-3)
[2025-05-30 16:24] LABS: Bacteria,Urine 4+ /lpf
--- NOTE | 2025-05-30 17:07 | PC.NURSE ---
arrived to floor by w/c at 1614
[2025-05-30 17:51] LABS: Troponin I < 0.01 ng/ml (0.00-0.034)
[2025-05-30] MEDS: AZITHROMYCIN 500 MG in 0.9 % SODIUM CHLORIDE 250 ML 250 MG IV (18:09)
[2025-05-30] MEDS: IPRATROPIUM/ALBUTEROL 3 ML NEB IH ×2 (18:52→23:54)
[2025-05-30] MEDS: SODIUM BICARBONATE 650MG TABLET 1300 MG PO (20:34)
[2025-05-30] MEDS: HEPARIN SODIUM 5,000 UNIT/ML VIAL 5000 UNIT SUBCUT (20:34)
[2025-05-30] MEDS: MORPHINE 2MG/ML SYRINGE 2 MG IV (20:48)
--- NOTE | 2025-05-30 20:59 | EXP.EVENT.NO ---
pt c/o pain overnight..... wrote for oxycodone 5mg po Q6hrs PRN mod pain and morphine 2mg IV q6hrs severe pain.
[2025-05-30 21:27] LABS: Troponin I < 0.01 ng/ml (0.00-0.034)
[2025-05-31] VITALS: BP 118/63; PULSE 65; RESP 16; TEMP 36.7; O2SAT 93
[2025-05-31 04:00] VITALS: BP 140/76; PULSE 69; RESP 18; TEMP 36.7; O2SAT 95; BMI 20.4
[2025-05-31 06:15] VITALS: PULSE 69; PULSE 71
[2025-05-31] MEDS: IPRATROPIUM/ALBUTEROL 3 ML NEB IH ×2 (06:15→11:32)
[2025-05-31 06:36] LABS: Hematocrit 31.2 % (42.0-52.0); Hemoglobin 10.2 g/dL (14.1-18.0); Immature Granulocytes % 1.5 %; Mean Corpuscular HGB Conc 32.7 g/dL (31.8-35.4); Mean Corpuscular Hemoglobin 28.7 pg (27.0-31.2); Mean Corpuscular Volume 87.6 fl (80-94); Nucleated Red Blood Cells % 0 %; Platelet Count 229 K/mm3 (142-424); Red Blood Count 3.56 M/mm3 (4.60-6.20); Red Cell Distribution Width-SD 46.1 fL; White Blood Count 10.9 K/mm3 (4.8-10.8)
[2025-05-31] MEDS: LEVOTHYROXINE 50MCG (0.05MG) TAB 50 MCG PO (06:41)
[2025-05-31 06:44] LABS: Alanine Aminotransferase 10 U/L (12-78); Albumin Level 3.5 g/dl (3.5-5.0); Albumin/Globulin Ratio 1.1 (1.1-1.8); Alkaline Phosphatase 79 U/L (38-126); Anion Gap 15.5 mEq/L (5-15); Aspartate Amino Transferase 21 U/L (17-59); Bilirubin,Total 0.4 mg/dl (0.2-1.3); Blood Urea Nitrogen 54 mg/dl (9-20); Calcium 8.5 mg/dl (8.4-10.2); Carbon Dioxide 15 mmol/L (22.0-30.0); Chloride 103 mmol/L (98-107); Creatinine Clearance Estimated 16 mL/min (50-200); Creatinine,Serum 3.90 mg/dl (0.66-1.25); Estimated Glomerular Filt Rate 15 ml/min (>60); GFR (African American) 18 ML/MIN (>60); Globulin 3.1 g/dL (1.3-3.2); Glucose 148 mg/dl (74-100); Magnesium 2.0 mg/dl (1.6-2.3); Potassium 4.5 mmoL/L (3.5-5.1); Sodium 129 mmol/L (136-145); Total Protein,Serum 6.6 g/dl (6.3-8.2)
[2025-05-31 08:00] VITALS: BP 106/64; PULSE 77; RESP 18; TEMP 36.4; O2SAT 92
--- NOTE | 2025-05-31 08:23 | HMH.PHAINT1 ---
Pharmacy Intervention Comments: MEDICATION RECONCILIATION COMPLETED ON PATIENT USING EXTERNAL FILL HISTORY FROM PHARMACY. -ROBE PATHAK, EILEEND
[2025-05-31] MEDS: HEPARIN SODIUM 5,000 UNIT/ML VIAL 5000 UNIT SUBCUT (08:46)
[2025-05-31] MEDS: SODIUM BICARBONATE 650MG TABLET 1300 MG PO (08:46)
--- OUTSIDE RECORDS SUMMARY | 2025-05-31 09:56 | XMS_ITS | Clinical Summary ---
Author Organization [facility] Address [address] [place] [address] Care Team Providers Care Calendering Machine Operator Name Role Phone David Mark MD Primary Care Provider [phone]- [phone] Allergies No known active allergies Medications albuterol [...] Description 07/20/2025 10:00 AM EST Office Visit [facility] CARD[facility]GERY [address] [address] Carole Francois APRN [address] [address] Health Maintenance Due Date Last Done Comments [...] ADVANTAGE HMO [place] Care Teams Calendering Machine Operator Relationship Specialty Start Date End Date David Mark MD [address] [place] [address] PCP - General Family Medicine 12/23/24
--- OUTSIDE RECORDS SUMMARY | 2025-05-31 09:57 | XMS_ITS | Referral Summary ---
Author Organization [employer] ([place], [place], [place], [place]) Address [address] [place] [address] Care Team Providers Care Maintenance Inspector Name Role Phone Unavailable Primary Care Provider [...] your living situation today? I have a [facility] place to live 03/22/2024 Think [...] Do you speak a language other than Tongan at [facility]? No 03/22/2024 Do you want help with [...] Plan of Treatment Not on file Insurance [facility] ACCESS H[employer] MAP Advance Directives For more information, please contact: [phone] * Full Code (Latest Code Status on File) Date Activated Date Inactivated Comments 03/22/2024 3:32 AM 03/25/2024 4:39 PM
--- OUTSIDE RECORDS SUMMARY | 2025-05-31 09:57 | XMS_ITS | Clinical Summary ---
Author Organization [facility] Address [address] [place] [address] Care Team Providers Care Sap Plant Maintenance Consultant Name Role Phone Unavailable Primary Care Provider [...]
--- OUTSIDE RECORDS SUMMARY | 2025-05-31 09:57 | XMS_ITS | Clinical Summary ---
Author Organization [employer] ([place], [place], [place], [place]) Address [address] [place] [address] Care Team Providers Care Oil Prospecting Observer Name Role Phone Unavailable Primary Care Provider [...] your living situation today? I have a [facility] place to live 03/22/2024 Think [...] Do you speak a language other than Yemeni at [facility]? No 03/22/2024 Do you want help with [...] 3, 04/26/2019, 07/17/2015, Additional history exists [facility] Advance Directives For more information, please contact: [phone] * Full Code (Latest Code Status on File) Date Activated Date Inactivated Comments 03/22/2024 3:32 AM 03/25/2024 4:39 PM
--- OUTSIDE RECORDS SUMMARY | 2025-05-31 09:57 | XMS_ITS | Patient Health Record ---
Author Organization [facility] Address [address] [facility] [address] [place] [address] Care Team Providers Care Svp Monetization Name Role Phone Emir Almodovar Primary Care Provider Migration, Provider Unavailable Unavailable Allergies No Known Allergies Medications Medication SIG (Take, Route, Frequency, Duration) Notes Start Date End Date Status Aspirin 81 MG 1 tab(s) orally once a day; Duration: 30 day(s) Active Zinc Sulfate 220 MG ONE TAB ORALLY BID; Duration: 30 DAYS *Please review and pick correct strength-formulatio n from [employer] options. If intended option is not shown, discontinue and re-order from Quick Search* 04/10/2020 Active Tamsulosin HCl 0.4 MG 1 cap(s) orally once a day at night; Duration: 30 days 04/01/2016 Active Senna-Docusate Sodium 50 MG-8.6 MG 2 CAP(S) ORALLY ONCE A DAY (IN THE EVENING); Duration: 30 DAY(S) *Please review and pick correct strength-formulatio n from [employer] options. If intended option is not shown, [...] Status Risk Notes Problem Diabetic renal disease (506955166) Type 2 diabetes mellitus with diabetic chronic kidney disease (E11.22) Active confirmed Problem Chronic pain (75999012) Other chronic pain (G89.29) Active confirmed Problem Panlobular emphysema (0950124) Panlobular emphysema (J43.1) Active confirmed Problem Slow transit constipation (39062979) Slow transit constipation (K59.01) Active confirmed Problem Rotator cuff arthropathy of left shoulder (disorder) (08978200641179930) Other specific arthropathies, not elsewhere classified, left shoulder (M12.812) Active confirmed Problem Low back pain (373195175) Low back pain (M54.5) Active confirmed Problem Nontraumatic rupture of muscle or tendon structure of rotator cuff of left shoulder (disorder) (9777355136192781) Unspecified rotator cuff tear or rupture of left shoulder, not specified as traumatic (M75.102) Active confirmed Problem Chronic kidney disease stage 3 (disorder) (595622446) Chronic kidney disease, stage 3 (moderate) (N18.3) Active confirmed Problem Paresthesia (finding) (47281146) Paresthesia of skin (R20.2) Active confirmed Problem Nicotine dependence (64009454) Personal history of nicotine dependence (Z87.891) Active confirmed Problem Hypothyroidism (74143004) Hypothyroidism (acquired) (E03.9) Active confirmed Problem Hyperlipidemia (26196470) Hyperlipemia, 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 Problem Essential hypertension (72941853) Hypertension, essential (I10) Active confirmed Problem Tobacco abuse (2298800519) Tobacco abuse (Z72.0) Active confirmed Problem Acute exacerbation of chronic obstructive airways disease (395534270) COPD exacerbation (J44.1) Active confirmed Problem Chronic kidney disease stage 4 (386062310) Chronic kidney disease (CKD) stage G4/A2, severely decreased glomerular filtration rate (GFR) between 15-29 mL/min/1.73 square meter and albuminuria creatinine ratio between 30-299 mg/g (N18.4) Active confirmed Problem Atherosclerotic heart disease of [place] coronary artery without angina pectoris (375605796367877) Coronary artery disease involving [place] coronary artery of [place] heart without angina pectoris (I25.10) Active confirmed Problem Lower urinary tract symptoms due to benign prostatic hypertrophy (06972094393649) Benign non-nodular prostatic hyperplasia with lower urinary tract symptoms (N40.1) Active confirmed Problem Tobacco user (113412585) Cigarette nicotine dependence without complication (F17.210) Active confirmed Problem Pulmonary nodule (978360482) Pulmonary nodule (R91.1) Active confirmed Problem Chronic obstructive pulmonary disease with acute lower respiratory infection (565096031) Bronchitis, chronic obstructive w acute bronchitis (J44.0) Active confirmed Problem Dependence on supplemental oxygen (957780520257) 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) Active confirmed Problem Hearing loss (75478442) Bilateral hearing loss, unspecified hearing loss type (H91.93) Active confirmed Problem Osteophyte of vertebra (disorder) (091858756988848) Spinal osteophytosis (M25.78) Active confirmed Problem Bladder neck obstruction (661762725) Bladder neck obstruction (N32.0) Active confirmed Problem Pressure injury of buttock stage I (disorder) (58834792597941197) Pressure injury of buttock, stage 1, unspecified laterality (L89.301) Active confirmed Problem Gastroesophageal reflux disease (016650187) Gastroesophageal reflux disease, unspecified whether esophagitis present (K21.9) Active confirmed Encounters Encounter Location Date Provider Diagnosis [facility] [address] [facility] [address] [place] [address] 12/17/2024 Provider Migration Plan Of Treatment Pending Test Test Name Order Date N-CBC 09/08/2007 X-Lipid Profile 09/08/2007 Urinalysis 09/29/2017 N-PSA 08/10/2006 N-CMP 09/08/2007 Urine Drug Screen IH 03/21/2011 N-spep 10/26/2009 N-PSA Screening 09/08/2007 Physical Therapy : Wound Care 04/17/2020 H-24 HR CREATININE 06/30/2017 H-URINE 24 HOUR FOR PROTEIN 06/30/2017 C-TESTOSTERONE 09/22/2011 C-CBC 09/22/2011 C-CBC 07/26/2014 C-CBC 03/21/2011 C-CBC 09/12/2013 C-CBC 01/03/2013 C-CMP 01/03/2013 C-CMP 04/01/2013 C-CMP 09/12/2013 C-CMP 03/28/2014 C-CMP 07/17/2015 C-CMP 03/21/2011 C-CMP 12/04/2020 C-CMP 07/26/2014 C-CMP 11/21/2014 C-CMP 07/12/2012 C-LIPID PANEL 09/22/2011 C-LIPID PANEL 11/21/2014 C-LIPID PANEL 07/12/2012 C-LIPID PANEL 07/26/2014 C-LIPID PANEL 12/04/2020 C-LIPID PANEL 03/21/2011 C-LIPID PANEL 07/17/2015 C-LIPID PANEL 09/12/2013 C-LIPID PANEL 01/03/2013 C-LIPID PANEL 04/01/2013 C-TSH 01/03/2013 C-TSH 09/12/2013 C-TSH 07/17/2015 C-TSH 03/28/2014 C-TSH 03/21/2011 C-TSH 07/26/2014 C-TSH 11/21/2014 C-TSH 07/12/2012 C-TSH 09/22/2011 C-HIV 08/26/2016 C-VITAMIN [...] End Date [place] [address] [place] [address] [id number] Louie Soto Self - patient is the insured [facility] [place] [address] [phone] [id number] Louie Soto Self - patient is the [...]
--- NOTE | 2025-05-31 10:44 | HMH.PTEV ---
Physical Therapy Evaluation Rehab PT IP Evaluation Start: 05/30/25 18:17 Freq: ONCE Status: Active Protocol: Document 05/31/25 10:37 AIMEE (Rec: 05/31/25 10:43 AIMEE [id number]) Subjective/History History History Per H&P: Mr. Ryder is a 74-year-old male with significant history of renal failure about a year ago that necessitated ICU admission along with complicating sepsis. I struggled with poor renal function since. Continues to smoke. Has history of neuropathy and hypertension. Presented to the ER at the request of his PCP because of shortness of breath, chest discomfort, bilateral abdominal and back pain. states that he saw his PCP who recommended imaging. CT of abdomen was obtained that showed lower portion of left lung with pneumonia. Also known AAA but it is stable. Kidney function slightly worse from normal. Given his overall condition and image findings, recommended patient follow-up with the ER for further evaluation. On presentation to the ED, he denies nausea and vomiting. pt's reports that she has noticed the pt has had loss of appetite and stumbling when walking. States he had similar symptoms a year ago when he had sepsis and renal failure. Workup in the ER with creatinine of 4.2, baseline is in the mid 3 range. Still making urine. In-N-Out caths 3-4 times a day due to neurogenic bladder. Medicine consulted due to complexity of patient with comorbidities and high risk of decompensation. Initiated on Akins antibiotics in the ED. helped supplement history. On evaluation, patient is ill-appearing. states he looks so bad for so long it is hard for her to tell if he looks worse but does state that his weakness, lack of appetite, and 3 pound weight loss in the past few weeks are new and concerning to her. Subjective Subjective Pt lives with his in a 2-story home and reports he is IND with mobility without an AD. New diagnosis of No cancer in past 12 months? [facility] How much help from another person do you currently need... Turning from your None back to your side while in a flat bed without using bedrails? Moving from lying on None back to sitting on the side of a flat bed without using bedrails? Moving to and from a None bed to a chair ( including a wheelchair)? Standing up from a None chair using your arms? (e.g., wheelchair, bedside chair) Walking in hospital None room? Climbing 3-5 steps A little with a railing? Mobility Score 23 Mobility Level [facility] Mobility 7 Walk 25 feet or more Mobility Calculator Rehab PT IP Eval Objective Appearance Patient Behavior Appropriate,Cooperative Patient Orientation Person,Place Difficulty following none instructions Speech Pattern Clear Ambulation Patient Able to Yes Ambulate Ambulation Observation IP General Gait No Deviations/Normal Pattern Observation Ambulation Distance 25 (feet) Ambulation Assistive None Device Ambulation Ability Independent Balance Ability to Arise Able, uses arms to help Sitting Balance Steady, safe Standing Balance Steady, wide stance Dynamic Sitting Good Balance Ability Dynamic Standing Good Balance Ability Transfers Bed Transfer Ability Independent Sit to Stand Bed Independent Transfer Ability Rehab PT IP prob,goals,plan Problems Date of Evaluation: 05/31/25 Rehab Potential Rehab Potential Innapropriate for Skilled Therapy Discharge Plan PT Discharge Plan Pt appears to be at his baseline in mobility and would not benefit from skilled acute care PT at this time. Eval Complexity Eval Charge Codes 95017 - Moderate Complexity PHYSICIAN CERTIFICATION: I certify the specified therapy services for Louie Ryder are required, authorized, and reviewed every 30 days.
--- NOTE | 2025-05-31 10:47 | EXP.DC.SUM ---
General Admission date:: 05/30/25 Discharge date: 05/31/25 HPI HPI HPI: Mr. Ryder is a 74-year-old male with significant history of renal failure about a year ago that necessitated ICU admission along with complicating sepsis. I struggled with poor renal function since. Continues to smoke. Has history of neuropathy and hypertension. Presented to the ER at the request of his PCP because of shortness of breath, chest discomfort, bilateral abdominal and back pain. states that he saw his PCP who recommended imaging. CT of abdomen was obtained that showed lower portion of left lung with pneumonia. Also known AAA but it is stable. Kidney function slightly worse from normal. Given his overall condition and image findings, recommended patient follow-up with the ER for further evaluation. On presentation to the ED, he denies nausea and vomiting. pt's reports that she has noticed the pt has had loss of appetite and stumbling when walking. States he had similar symptoms a year ago when he had sepsis and renal failure. Workup in the ER with creatinine of 4.2, baseline is in the mid 3 range. Still making urine. In-N-Out caths 3-4 times a day due to neurogenic bladder. Medicine consulted due to complexity of patient with comorbidities and high risk of decompensation. Initiated on Akins antibiotics in the ED. helped supplement history. On evaluation, patient is ill-appearing. states he looks so bad for so long it is hard for her to tell if he looks worse but does state that his weakness, lack of appetite, and 3 pound weight loss in the past few weeks are new and concerning to her. Hospital Course Hospital Course Hospital Course: 74-year-old with CKD 4 who presented to the ER at the request of his PCP. Was seen today by his primary care because of weakness and fatigue. Sent for imaging of his abdomen out of concern for AAA. Found to have a pneumonia and some worsening of kidney function. Workup in the ER concerning for UTI and pneumonia. Discussed case with ER provider, request admission for further management of patient's pneumonia and urinary tract infection along with weakness. Patient overall high risk to discharge home and to further decompensate. Necessitating inpatient care. Initiated on broad-spectrum antibiotics. Showing some improvement by morning. Stable on room air. Feeling better. Will transition to oral antibiotics to complete therapy for pneumonia and UTI. Problems addressed as follows: Left lower lobe pneumonia COPD, does not appear to be in exacerbation - Per my review of CT of chest, patient is consolidation left lower lobe. White count elevated at 17.5. Necessitating inpatient care with PSI/port score of 124. Class IV risk. Scores for age of 74, male, renal disease history, BUN greater than 30 (57), sodium less than 130 (127). Initiated on cefepime 2 g once in the ER. Received second dose prior to discharge. Renally dosed every 24 hours. Initiated on azithromycin 500 mg daily. Will transition to cefdinir to complete 5 days total of cephalosporin therapy for pneumonia and oral azithromycin to complete 3 days total of 500 mg daily. Sputum culture still pending. DuoNebs as needed. Given his clinical stability on room air and improvement in appearance along with normalization of white count from 17.5-10.9, stable to discharge home. Recommend close follow-up with PCP and labs within the next week. Chronic renal obstruction CKD 4 Chronic hydronephrosis Neurogenic bladder Hyponatremia -Urinalysis obtained with placement of Juárez catheter. Grossly abnormal concerning for UTI. Too numerous to count white cells, bacteria present. Leuk esterase and nitrate present. Creatinine 4.2, BUN 57. Sodium 127. Potassium 4.3 on admission. Improved by morning to sodium of 129, potassium 4.5, magnesium 2.0. BUN 54 and creatinine 3.9. Tolerating p.o. fluids. Feeling much better overall. Initially treated with cefepime. Cultures pending chart. Physicians to cefdinir to treat for both UTI and pneumonia above. Continue 300 mg daily. Also on azithromycin for pneumonia above 500 mg for 1 more day to complete 3 days total of therapy. - Continue oxybutynin 10 mg daily, finasteride 5 mg daily - Metabolic acidosis with bicarb of 17. Initiate sodium bicarbonate p.o. twice daily 1300 mg - Hemoglobin stable at approximately 11 during admission - Referred to nephrology with Dr. Cisneros as an outpatient to establish care given his severe chronic kidney disease. - Juárez removed prior to discharge, resume In-N-Out cathing per home regimen Chronic conditions: Stable Continue Levothyroxine 50 mcg daily for hypothyroid Continue Pantoprazole 40 mg daily for GERD Continue Carvedilol 3.125 mg twice daily for hypertension Continue Lyrica 25 mg twice daily renally dosed for neuropathy Total time spent on discharge 32 minutes in counseling, documentation, chart review, and direct care with patient. Exam Data for Last 24 hours Vital signs and Labs for Last 24 Hours: Temp Pulse Resp BP Pulse Ox O2 Del Method 97.5 F L 77 18 106/64 L 92 L Room Air 05/31/25 08:00 05/31/25 08:00 05/31/25 08:00 05/31/25 08:00 05/31/25 08:00 05/31/25 09:00 Laboratory Results - last 24 hr 05/30/25 12:36: WBC 17.5 H, RBC 3.80 L, Hgb 11.2 L, Hct 34.0 L, MCV 89.5, MCH 29.5, MCHC 32.9, RDW 14.5, Plt Count 240, MPV 10.5 H, Neut % (Auto) 83.6 H, Lymph % (Auto) 8.4 L, [place] % (Auto) 6.1, Eos % (Auto) 0.5, Baso % (Auto) 0.5, Neut # (Auto) 14.6 H, Lymph # (Auto) 1.5, [place] # (Auto) 1.1 H, Eos # (Auto) 0.1, Baso # (Auto) 0.1, ESR 79 H, PT 11.3, INR 1.02, APTT 34.7 H, D-Dimer 1.26 H, Sodium 127 L, Potassium 4.3, Chloride 99, Carbon Dioxide 17 L, Anion Gap 15.3 H, BUN 57 H, Creatinine 4.20 H, Estimated Creat Clear 15, Estimated GFR 14 L*, Est GFR ( Amer) 17 L*, Glucose 141 H D, Lactate 0.7, Calcium 8.9, Total Bilirubin 0.5, AST 24 D, ALT 13, Alkaline Phosphatase 89, Total Creatine Kinase 40 L, Troponin I < 0.01, C-Reactive Protein 69.1 H, NT-Pro-B Natriuret Pep 6920 H, Total Protein 7.7, Albumin 4.1 D, Globulin 3.6 H, Albumin/Globulin Ratio 1.1 05/30/25 13:02: SARS-CoV-2 (PCR) Not detected, Influenza A Untype (PCR) Not detected, Influenza Type B (PCR) Not detected 05/30/25 15:50: Urine Color Yellow, Urine Appearance Sl cloudy, Urine pH 6.0, Ur Specific [place] <= 1.005, Urine Protein 2+ A, Urine Glucose (UA) Negative, Urine Ketones Negative, Urine Blood 2+ A, Urine Nitrate Negative, Urine Bilirubin Negative, Urine Urobilinogen 0.2, Ur Leukocyte Esterase 3+ A, Urine RBC 3-5, Urine WBC Tntc, Ur Squamous Epith Cells 3-5, Urine Bacteria 4+ 05/30/25 17:15: Troponin I < 0.01 05/30/25 20:54: Troponin I < 0.01 05/31/25 05:35: WBC 10.9 H D, RBC 3.56 L, Hgb 10.2 L, Hct 31.2 L, MCV 87.6, MCH 28.7, MCHC 32.7, RDW 14.2, Plt Count 229, MPV 10.5 H, Neut % (Auto) 90.6 H, Lymph % (Auto) 6.9 L, [place] % (Auto) 0.8 L, Eos % (Auto) 0.0 L, Baso % (Auto) 0.2, Neut # (Auto) 9.9 H, Lymph # (Auto) 0.8, [place] # (Auto) 0.1, Eos # (Auto) 0.0, Baso # (Auto) 0.0, Sodium 129 L, Potassium 4.5, Chloride 103, Carbon Dioxide 15 L, Anion Gap 15.5 H, BUN 54 H, Creatinine 3.90 H, Estimated Creat Clear 16, Estimated GFR 15 L*, Est GFR ( Amer) 18 L*, Glucose 148 H, Calcium 8.5, Magnesium 2.0, Total Bilirubin 0.4, AST 21, ALT 10 L, Alkaline Phosphatase 79, Total Protein 6.6, Albumin 3.5 D, Globulin 3.1, Albumin/Globulin Ratio 1.1 I & O for Last 24 hours: Intake & Output 05/28/25 05/29/25 05/30/25 05/31/25 23:59 23:59 23:59 23:59 Intake Total 1330 / 1330 480 / 480 Output Total 625 / 625 1500 / 1500 Balance 705 / 705 -1020 / -1020 Weight 69.4 kg 68.493 kg Microbiology Reports for the Last 24 Hours: Microbiology 05/31/25 08:49 Sputum - Expectorated Sputum Gram Stain - Final Constitutional Constitutional: no acute distress, thin, chronically ill appearing and cooperative *Routine HEENT Exam Head: Present normocephalic Eye: Present EOMI and PERRL ENT: Present mucous membranes moist *Routine Neck Exam Neck: Present supple; Absent lymphadenopathy *Routine Respiratory Exam Respiratory: Present crackles (Interval improvement in crackles left lower base); Absent respiratory distress, stridor or wheezes *Routine Cardiovascular Exam Cardiovascular: Present RRR *Routine Abdominal Exam Abdominal: Present soft and normoactive bowel sounds; Absent tenderness *Routine Rectal Exam Patient deferred: visual exam *Routine Exam Patient deferred: penile exam *Routine Extremities Exam Extremities: Absent cyanosis, clubbing or edema *Routine Skin Exam Skin: Present warm and jaundice; Absent rash *Routine Neurological Exam Neurological: Present alert, oriented X3 and moving all extremities; Absent altered mental status Results Data Completed and Pending Labs on day of discharge: Labs from last 24 hours 05/31/25 05/30/25 05/30/25 05:35 20:54 17:15 WBC 10.9 H D RBC 3.56 L Hgb 10.2 L Hct 31.2 L MCV 87.6 MCH 28.7 MCHC 32.7 RDW 14.2 Plt Count 229 MPV 10.5 H Neut % (Auto) 90.6 H Lymph % (Auto) 6.9 L [place] % (Auto) 0.8 L Eos % (Auto) 0.0 L Baso % (Auto) 0.2 Neut # (Auto) 9.9 H Lymph # (Auto) 0.8 [place] # (Auto) 0.1 Eos # (Auto) 0.0 Baso # (Auto) 0.0 ESR PT INR APTT D-Dimer Sodium 129 L Potassium 4.5 Chloride 103 Carbon Dioxide 15 L Anion Gap 15.5 H BUN 54 H Creatinine 3.90 H Estimated Creat Clear 16 Estimated GFR 15 L* Est GFR ( Amer) 18 L* Glucose 148 H Lactate Calcium 8.5 Magnesium 2.0 Total Bilirubin 0.4 AST 21 ALT 10 L Alkaline Phosphatase 79 Total Creatine Kinase Troponin I < 0.01 < 0.01 C-Reactive Protein NT-Pro-B Natriuret Pep Total Protein 6.6 Albumin 3.5 D Globulin 3.1 Albumin/Globulin Ratio 1.1 Urine Color Urine Appearance Urine pH Ur Specific [place] Urine Protein Urine Glucose (UA) Urine Ketones Urine Blood Urine Nitrate Urine Bilirubin Urine Urobilinogen Ur Leukocyte Esterase Urine RBC Urine WBC Ur Squamous Epith Cells Urine Bacteria SARS-CoV-2 (PCR) Influenza A Untype (PCR) Influenza Type B (PCR) 05/30/25 05/30/25 05/30/25 15:50 13:02 12:36 WBC 17.5 H RBC 3.80 L Hgb 11.2 L Hct 34.0 L MCV 89.5 MCH 29.5 MCHC 32.9 RDW 14.5 Plt Count 240 MPV 10.5 H Neut % (Auto) 83.6 H Lymph % (Auto) 8.4 L [place] % (Auto) 6.1 Eos % (Auto) 0.5 Baso % (Auto) 0.5 Neut # (Auto) 14.6 H Lymph # (Auto) 1.5 [place] # (Auto) 1.1 H Eos # (Auto) 0.1 Baso # (Auto) 0.1 ESR 79 H PT 11.3 INR 1.02 APTT 34.7 H D-Dimer 1.26 H Sodium 127 L Potassium 4.3 Chloride 99 Carbon Dioxide 17 L Anion Gap 15.3 H BUN 57 H Creatinine 4.20 H Estimated Creat Clear 15 Estimated GFR 14 L* Est GFR ( Amer) 17 L* Glucose 141 H D Lactate 0.7 Calcium 8.9 Magnesium Total Bilirubin 0.5 AST 24 D ALT 13 Alkaline Phosphatase 89 Total Creatine Kinase 40 L Troponin I < 0.01 C-Reactive Protein 69.1 H NT-Pro-B Natriuret Pep 6920 H Total Protein 7.7 Albumin 4.1 D Globulin 3.6 H Albumin/Globulin Ratio 1.1 Urine Color Yellow Urine Appearance Sl cloudy Urine pH 6.0 Ur Specific [place] <= 1.005 Urine Protein 2+ A Urine Glucose (UA) Negative Urine Ketones Negative Urine Blood 2+ A Urine Nitrate Negative Urine Bilirubin Negative Urine Urobilinogen 0.2 Ur Leukocyte Esterase 3+ A Urine RBC 3-5 Urine WBC Tntc Ur Squamous Epith Cells 3-5 Urine Bacteria 4+ SARS-CoV-2 (PCR) Not detected Influenza A Untype (PCR) Not detected Influenza Type B (PCR) Not detected DS: Diagnosis Discharge Diagnosis (1) LLL pneumonia: Status: Acute Code(s): J18.9 - Pneumonia, unspecified organism (2) CKD (chronic kidney disease) stage 4, GFR 15-29 ml/min: Status: Acute Code(s): N18.4 - Chronic kidney disease, stage 4 (severe) (3) UTI (urinary tract infection): Status: Acute Code(s): N39.0 - Urinary tract infection, site not specified (4) COPD (chronic obstructive pulmonary disease) with acute bronchitis: Status: Chronic Code(s): J44.0 - Chronic obstructive pulmonary disease with (acute) lower respiratory infection; J20.9 - Acute bronchitis, unspecified (5) Bladder outlet obstruction: Status: Chronic Code(s): N32.0 - Bladder-neck obstruction (6) Tobacco abuse: Status: Acute Code(s): Z72.0 - Tobacco use (7) Neuropathy: Status: Acute Code(s): G62.9 - Polyneuropathy, unspecified (8) Neurogenic bladder: Status: Acute Code(s): N31.9 - Neuromuscular dysfunction of bladder, unspecified (9) Acute hyponatremia: Status: Acute Code(s): E87.1 - Hypo-osmolality and hyponatremia Meds Home Medications and Allergies Home Medications ?Medication ?Instructions ?Recorded ?Confirmed ?Type aspirin 81 mg tablet,delayed 81 mg PO DAILY 05/25/19 05/30/25 History release ascorbate calcium (vitamin C) 500 500 mg PO DAILY 03/27/22 05/30/25 History mg tablet carvedilol 3.125 mg tablet 3.125 mg PO BID 30 days #60 tabs 05/05/25 05/30/25 Rx fluticasone furoate 200 1 inh inhalation DAILY 30 days #60 05/05/25 05/30/25 Rx mcg-vilanterol 25 mcg/dose ea inhalation powder (Breo Ellipta) ipratropium 20 mcg-albuterol 100 2 puff inhalation BID 30 days #4 05/05/25 05/30/25 Rx mcg/actuation mist for inhalation grams (Combivent Respimat) levothyroxine 50 mcg tablet 50 mcg PO DAILY 05/30/25 05/30/25 History lovastatin 20 mg tablet 20 mg PO DAILY 05/30/25 05/30/25 History azithromycin 500 mg tablet 500 mg PO DAILY 1 day #1 tab 05/31/25 Rx cefdinir 300 mg capsule 300 mg PO DAILY 3 days #3 caps 05/31/25 Rx finasteride 5 mg tablet 5 mg PO DAILY 05/31/25 05/30/25 History oxybutynin chloride 10 mg 10 mg PO DAILY 05/31/25 05/30/25 History tablet,extended release 24 hr pantoprazole 40 mg tablet,delayed 40 mg PO DAILY 05/31/25 05/31/25 History release pregabalin 25 mg capsule (Lyrica) 25 mg PO BID 05/31/25 05/30/25 History sodium bicarbonate 650 mg tablet 1,300 mg (2 x 650 mg) PO BID 30 05/31/25 Rx days #120 tabs tizanidine 2 mg capsule (Zanaflex) 2 mg PO TIDP PRN muscle pain 05/31/25 05/31/25 History New Prescriptions to Start Prescriptions: freeman Polanco,Jose cefdinir Collin,Jose sodium bicarbonate Jose Polanco Allergies Allergy/AdvReac Type Severity Reaction Status Date / Time No Known Allergies Allergy Verified 05/03/25 13:10 Discharge Plan Disposition Patient Disposition: Home, Self-Care Condition: Fair Discharge Order Discharge Orders: Discharge Order (Routine); Ordered 05/31/25 Ordered By: Jose Polanco Follow up Plan Follow up with: David Mark MD [Primary Care Provider, Internal Medicine] - 06/07/25 11:30 am Maxx Cisneros MD [Referring, Nephrology] - 1 month Prescriptions/Medication Reconciliation: New sodium bicarbonate 650 mg Tablet 1,300 mg PO BID 30 Days Qty: 120 0RF azithromycin 500 mg tablet 500 mg PO DAILY 1 Days Qty: 1 0RF Rx Instructions: due afternoon of 06/01 cefdinir 300 mg capsule 300 mg PO DAILY 3 Days Qty: 3 0RF Rx Instructions: start afternoon of 06/01 Continued ascorbate calcium (vitamin C) 500 mg tablet 500 mg PO DAILY fluticasone furoate-vilanterol [Breo Ellipta] 200-25 mcg/dose blister with device 1 inh inhalation DAILY 30 Days Qty: 60 2RF Combivent Respimat 20-100 mcg/actuation mist 2 puff inhalation BID 30 Days Qty: 4 2RF carvedilol 3.125 mg tablet 3.125 mg PO BID 30 Days Qty: 60 2RF Rx Instructions: must administer with a meal/food aspirin 81 MG tablet,delayed release (DR/EC) 81 mg PO DAILY levothyroxine 50 mcg tablet 50 mcg PO DAILY lovastatin 20 mg tablet 20 mg PO DAILY oxybutynin chloride 10 mg tablet extended release 24hr 10 mg PO DAILY pantoprazole 40 mg tablet,delayed release (DR/EC) 40 mg PO DAILY finasteride 5 mg tablet 5 mg PO DAILY tizanidine [Zanaflex] 2 mg capsule 2 mg PO TIDP PRN (Reason: muscle pain) pregabalin [Lyrica] 25 mg capsule 25 mg PO BID Problem Reconciliation Problems Reviewed?: Yes Patient Discharge Instructions ACTIVITY: Continue current activity DIET: continue same diet Patient Instructions: Pneumonia--Adult, DI for Kidney Failure, Catheter-Associated Urinary Tract Infection, Stop Light Pneumonia, Stop Light Infection Print Language: Polish Providers Primary Care Provider: David Mark Admit Provider: Jose Polanco Attending Provider: Jose Polanco
--- NOTE | 2025-05-31 11:18 | HMH.OTEV ---
OT Evaluation Rehab OT IP Evaluation Start: 05/30/25 18:17 Freq: ONCE Status: Active Protocol: Document 05/31/25 11:13 ÁLVARO (Rec: 05/31/25 11:17 ÁLVARO [id number]) Rehab OT IP Assessment Subjective History Per H&P: Mr. Ryder is a 74-year-old male with significant history of renal failure about a year ago that necessitated ICU admission along with complicating sepsis. I struggled with poor renal function since. Continues to smoke. Has history of neuropathy and hypertension. Presented to the ER at the request of his PCP because of shortness of breath, chest discomfort, bilateral abdominal and back pain. states that he saw his PCP who recommended imaging. CT of abdomen was obtained that showed lower portion of left lung with pneumonia. Also known AAA but it is stable. Kidney function slightly worse from normal. Given his overall condition and image findings, recommended patient follow-up with the ER for further evaluation. On presentation to the ED, he denies nausea and vomiting. pt's reports that she has noticed the pt has had loss of appetite and stumbling when walking. States he had similar symptoms a year ago when he had sepsis and renal failure. Workup in the ER with creatinine of 4.2, baseline is in the mid 3 range. Still making urine. In-N-Out caths 3-4 times a day due to neurogenic bladder. Medicine consulted due to complexity of patient with comorbidities and high risk of decompensation. Initiated on Akins antibiotics in the ED. helped supplement history. On evaluation, patient is ill-appearing. states he looks so bad for so long it is hard for her to tell if he looks worse but does state that his weakness, lack of appetite, and 3 pound weight loss in the past few weeks are new and concerning to her. Subjective No one is gonna take my hat. Pt was supine in bed with present when therapy entered room. Pt orient x3. Pt reported they live with in 2 story home, but pt does not have to go upstairs as it is used for storage. Pt reported that they are ind in ADLs and IADLs and if needs assist is able to assist with driving and IADLs. Pt has 2 steps in back of house and 3 steps in front, both with rails. Pt reported they do not use any AD for functional mobility. Pt agreed to FM task. Pt went from supine to EOB ind. Pt then completed STS transfer ind. Pt then completed FM task of aprox 15 ft with Ind and no AD. Pt then sat on EOB and went to supine position Ind. Pt left with call light and all other needs present while supine in bed and present. Objective Patient Orientation Person,Place,Birthday Right Upper WFL Extremity Gross ROM Left Upper Extremity WFL Gross ROM Bed Mobility bed mobility-scooting,bed mobility - supine/sit Assist Level Independent Transfer Training Sit/Stand Transfer Assist Level Independent Chair Transfer Sit to/from Ambulatory Technique Decrease in No Endurance Rehab OT IP prob,goals,plan Problems Date of Evaluation: 05/31/25 Rehab Potential Rehab Potential Innapropriate for Skilled Therapy Discharge Plan OT Discharge Plan At this time, pt is at baseline with occupational performance and would not benefit from skilled acute OT services and interventions while admitted at [facility]. Once medically stable, pt is able to DC home. Eval Complexity Eval Charge Codes 55682 - Moderate Complexity PHYSICIAN CERTIFICATION: I certify the specified therapy services for Louie Ryder are required, authorized, and reviewed every 30 days.
[2025-05-31 11:31] VITALS: PULSE 74; PULSE 77
[2025-05-31] MEDS: AZITHROMYCIN 500 MG in 0.9 % SODIUM CHLORIDE 250 ML 250 MG IV (11:59)
[2025-05-31 12:49] VITALS: BMI 20.4
[2025-05-31] MEDS: CEFEPIME HCL 2 GM in 0.9 % SODIUM CHLORIDE 100 ML IV (13:00)
--- NOTE | 2025-06-02 08:25 | PC.NURSE ---
Urine culture forwarded to hospitalist.
--- NOTE | 2025-06-02 10:51 | SW/DCPLANNER ---
Phoned patient x2. Left messages with name and a call back number. Nehemias Pandya
== END 2025-05-31 13:37 | disposition home or self-care (01) | DRG 698 ==
LOC: ER 12:49 → 2ND 16:11
PROVIDERS: Nurse Practitioner; Admitting Provider Internal Medicine Adolescent Medicine; Emergency Provider Student in an Organized Health Care Education/Training Program; PCP Family Medicine; Visit Provider Internal Medicine Adolescent Medicine
DX: T83.511A Infection and inflammatory reaction due to indwelling urethral catheter, initial encounter (principal); J18.9 Pneumonia, unspecified organism; E87.1 Hypo-osmolality and hyponatremia; N13.6 Pyonephrosis; J44.0 Chronic obstructive pulmonary disease with (acute) lower respiratory infection; E87.20 Acidosis, unspecified; I13.0 Hypertensive heart and chronic kidney disease with heart failure and stage 1 through stage 4 chronic kidney disease, or unspecified chronic kidney disease; I50.22 Chronic systolic (congestive) heart failure; N18.4 Chronic kidney disease, stage 4 (severe); Y84.6 Urinary catheterization as the cause of abnormal reaction of the patient, or of later complication, without mention of misadventure at the time of the procedure; I71.40 Abdominal aortic aneurysm, without rupture, unspecified; J20.9 Acute bronchitis, unspecified; N32.0 Bladder-neck obstruction; G62.9 Polyneuropathy, unspecified; N31.9 Neuromuscular dysfunction of bladder, unspecified; E03.9 Hypothyroidism, unspecified; F17.210 Nicotine dependence, cigarettes, uncomplicated; K80.20 Calculus of gallbladder without cholecystitis without obstruction; K21.9 Gastro-esophageal reflux disease without esophagitis; Z79.82 Long term (current) use of aspirin; Z79.890 Hormone replacement therapy; Z79.899 Other long term (current) drug therapy; I25.10 Atherosclerotic heart disease of native coronary artery without angina pectoris; I73.9 Peripheral vascular disease, unspecified
CPT/HCPCS: 36415; 51702; 76705; 80053; 81001; 82550; 83605; 83735; 83880; 84484; 85025; 85378; 85610; 85651; 85730; 86140; 87040; 87070; 87086; 87088; 87186; 87205; 87636; 94640; 97162; 97166; 99285; J0456; J0692; J1644; J2270; J2919; J3475; J7050

== ENCOUNTER 2025-06-18 12:24 | Inpatient (IN) | payer MEDICARE, MEDICAID, SELFPAY ==
--- OUTSIDE RECORDS SUMMARY | 2024-12-17 17:30 | XMS_ITS ---
Author Organization [facility] Address [address] [facility] [address] [place] [address] Care Team Providers Care Turret Lathe Tender Name Role Phone Emir Almodovar Primary Care Provider [phone] Migration, Provider Unavailable Unavailable REAS[facility] FOR VISIT [facility] Encounter Medications Medication SIG (Take, Route, [...] Active Encounters Encounter Location Date Provider Diagnosis [facility] [address] [place] [address] 12/17/2024 Provider Migration Plan Of Treatment Medication [...] * Louie GAUTAM CDOB:[birth year] (74 yo M)Acc No.[id number]:12/17/2024 Patient: Brayan Louie BLANK Provider: Mike ponce Migration :1950 A ge:74 Y S ex:Male Date:12/17/2024 Address:[address] Pcp:Emir Almodovar Subjective: * Chief Complaints: * 1 . [facility]. * Medical History: * Medications: [...] *Please review and pick correct strength-formulation from Offerboardspan options. If intended option is not shown, [...] Electronic signature of Bony uriarte Migration on 06/18/2025 at 12:44 PM EDT Sign off status: Pending * Provider: Mike ponce Migration Date: 0 12/17/2024 Generated for Cristina hidalgo/Chetna/Grupo on: 1 12:44 PM EDT
--- OUTSIDE RECORDS SUMMARY | 2024-12-17 17:30 | XMS_ITS ---
Author Organization [facility] Address [address] [facility] [address] [place] [address] Care Team Providers Care Anode Worker Name Role Phone Emir Almodovar Primary Care Provider Migration, Provider Unavailable Unavailable REASON FOR VISIT [facility] Encounter Medications Medication SIG (Take, [...] Active Encounters Encounter Location Date Provider Diagnosis [facility] [address] [place] [address] 12/17/2024 Provider Migration Plan Of Treatment Medication [...] * Louie GAUTAM CDOB:[birth year] (74 yo M)Acc No.[id number]:12/17/2024 Patient: Brayan Louie BLANK Provider: Mike ponce Migration :1950 A ge:74 Y S ex:Male Date:12/17/2024 Address:[address] Pcp:Emir Almodovar Subjective: * Chief Complaints: * 1 . [facility]. * Medical History: * [...] *Please review and pick correct strength-formulation from OATSystemsspan options. If intended option is not shown, [...] Electronic signature of Bony uriarte Migration on 06/20/2025 at 11:43 AM EDT Sign off status: Pending * Provider: Mike ponce Migration Date: 0 12/17/2024 Generated for Cristina hidalgo/Chetna/Grupo on: 1 11:43 AM EDT
[2025-06-18] VITALS (33 sets, daily range): BP systolic 112–141; BP diastolic 56–90; PULSE 69–90; RESP 13–20; TEMP 36.4–36.8; O2SAT 73–100; BMI 20.5
--- NOTE | 2025-06-18 12:39 | XR_ITS ---
PROCEDURE INFORMATION: Exam: XR Chest Exam date and time: 06/18/2025 12:43 PM Age: 74 years old Clinical indication: Shortness of breath; Additional info: Short of breath TECHNIQUE: Imaging protocol: Radiologic exam of the chest. Views: 1 view. COMPARISON: CR XR CHEST 2V 05/30/2025 10:26 AM FINDINGS: Lungs: Increased interstitial lung markings in the mid and lower lung zones. No focal consolidation. Pleural spaces: Unremarkable. No pleural effusion. No pneumothorax. Heart/Mediastinum: Unremarkable. No cardiomegaly. Bones/joints: Unremarkable. IMPRESSION: Increased interstitial lung markings in the mid and lower lung zones.
--- OUTSIDE RECORDS SUMMARY | 2025-06-18 12:44 | XMS_ITS | Clinical Summary ---
Author Organization [facility] Address [address] [place] [address] Care Team Providers Care Admission Nurse Coordinator Name Role Phone David Mark MD Primary Care Provider [phone]- [phone] Allergies No known active allergies Medications albuterol [...] aortic aneurysm (AAA) witho ut rupture 01/11/2025 Encounters Date Type Department Care Team Description 06/07/2025 Telephone [facility] CARDIOTHORACIC SURGERY [address] [place] [address] [address] [place] [address] Carole Francois APRN from Last 3 Months Family History Medical History Relation Name Comments Diabetes Father Pneumonia Father Alzheimer's disease Mother Diabetes Mother Relation Name Status Comments Father Mother Social History Tobacco Use Types Packs/Day Years Used Date Smoking Tobacco: Every Day Cigarettes 1 54.8 Started: 1970 Smokeless Tobacco: Former Tobacco Cessation:Ready [...] 01/12/2025 8:37 AM EDT Plan of Treatment Health Maintenance [...] , 06/18/2021, Additional history exists COVID-19 Vaccine (2024-2 6 season) 2025 12/06/2020, 11/08/2020 Pneumococcal Vaccine 50+ Completed 04/21/2023, 04/14 AAA SCREEN ONCE Completed 04/25/2025, 0509/2024, 01/11/2025 Insurance [employer] HMO [place] MED[place] [employer] Care Teams Admission Nurse Coordinator Relationship Specialty Start Date End Date David Mark MD [address] [facility] [address] [place] [id number] PCP - General Family Medicine 12/23/24
--- OUTSIDE RECORDS SUMMARY | 2025-06-18 12:44 | XMS_ITS | Encounter Summary ---
[facility] Organization [facility] Address [address] [place] [address] Care Team Providers Care Weatherization Crew Leader Name Role Phone David Mark MD Primary Care Provider [phone]- [phone] Encounter Details Date Type Department Care Team (Late st Contact Info) Description 06/07/2025 Telephone [facility] CARDIOTHORACIC SURGERY [address] [address] Carole Francois, AUDITING CONTROL CLERK [address] [address] Social History Tobacco Use Types Packs/Day Years Used Date Smoking Tobacco: Every Day Cigarettes 1 54.8 Started: 1970 Smokeless Tobacco: Former Comments:Has smoked up to 3 ppd in [...] Job Start Date 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 I TRIED CALLING PATIENT BUT WASN'T ABLE TO LEAVE A VOICEMAIL. I LEFT PATIENT'S DAUGHTER A VOICEMAILABOUT SCHEDULING TESTING & THAT HIS FOLLOW UP APPOINTMENT WITH US WILL BE CANCELED DUE TO THE TEST NOT BEING SCHEDULED/COMPLETED. I GAVE HER CENTRAL SCHEDULING'S PHONE NUMBER documented in this encounter Plan of Treatment Not on file documented as of this encounter Visit Diagnoses Not on filedocumented in this encounter Care Teams Weatherization Crew Leader Relationship Specialty Start Date End Date David Mark MD [address] [place] [address] [place] [address] PCP - General Family Medicine 12/23/24 documented as of this encounter
--- OUTSIDE RECORDS SUMMARY | 2025-06-18 12:45 | XMS_ITS | Clinical Summary ---
Author Organization [employer] ([place], [place], [place], [place]) Address [address] [place] [address] Care Team Providers Care Corporate Receptionist Name Role Phone Unavailable Primary Care Provider [...] your living situation today? I have a [facility] place to live 03/22/2024 Think about the [...] Do you speak a language other than [place] at [facility]? No 03/22/2024 Do you want help with [...] you used [place] legal drugs? Never 03/22/2024 Sex and Gender Information Value Date Recorded [...] 3, 04/26/2019, 07/17/2015, Additional history exists [facility] Advance Directives For more information, please contact: [phone] * Full Code (Latest Code Status on File) Date Activated Date Inactivated Comments 03/22/2024 3:32 AM 03/25/2024 4:39 PM
--- OUTSIDE RECORDS SUMMARY | 2025-06-18 12:45 | XMS_ITS | Encounter Summary ---
Author Organization Healthcare Address [address] [place] [address] Care Team Providers Care Plant Anatomist Name Role Phone Unavailable Primary Care Provider Unavailabl e Encounter Details Date Type Department Care Team (Late Contact Info) Description 06/05/2025 Orders Only [facility] [address] [place] [address] Marquita Alba CARTER (acute kidney injury) (CMS/[facility]) (Primary Dx); Vitamin D insufficiency Social History Tobacco Use Types Packs/Day Years Used Date Smoking Tobacco: Never Assessed Sex and Gender Information Value Date Recorded Sex Assigned at Not on file Legal Sex Male 7:48 PM EDT Gender Identity Not on file Sexual Orientation Not on file documented as of this encounter Plan of Treatment Upcoming Encounters Date Type Department Care Team (Late st Contact Info) Description 07/05/2025 3:20 PM EDT Office Visit [facility] Nephrology, Bone & Mineral Metabolism [address], [address] [place] [address] Maxx Cisneros MD [address] [place] [address] Scheduled Orders Name Type Priority Associated Diagnoses Orde r Schedule Renal Function Panel, Plasma Lab Routine CARTER (acute kidney injury) ([facility]) Expected: 06/05/2025 (Approximate), Expires: 12/03/2026 CBC and Differential Lab Routine CARTER (acute kidney injury) ([facility]/HCC) Expected: 06/05/2025 (Approximate), Expires: 12/03/2026 Creatinine, Random, Urine Lab Routine CARTER (acute kidney injury) (CMS/HCC) Expected: 06/05/2025 (Approximate), Expires: 12/03/2026 Protein, Random, Urine with Creatinine Lab Routine CARTER (acute kidney injury) (CMS/HCC) Expected: 06/05/2025 (Approximate), Expires: 12/03/2026 Urinalysis with reflex microscopic (Culture NOT Included) Lab Routine CARTER (acute kidney injury) ([facility]) Expected: 06/05/2025 (Approximate), Expires: 12/03/2026 PTH Intact Total Lab Routine CARTER (acute kidney injury) ([facility]) Vitamin D insufficiency Expected: 06/05/2025 (Approximate), Expires: 12/03/2026 Vitamin D 25 Hydroxy Lab Routine CARTER (acute kidney injury) ([facility]) Vitamin D insufficiency Expected: 06/05/2025 (Approximate), Expires: 12/03/2026 documented as of this encounter Visit Diagnoses Diagnosis CARTER (acute kidney injury)- Primary Vitamin D insufficiency documented in this encounter
--- OUTSIDE RECORDS SUMMARY | 2025-06-18 12:45 | XMS_ITS | Patient Health Record ---
Author Organization [facility] Address [address] [facility] [address] [place] [address] Care Team Providers Care Shuttle Repairer Name Role Phone Emir Almodovar Primary Care Provider Migration, Provider Unavailable Unavailable Allergies No Known Allergies Medications Medication SIG (Take, Route, Frequency, Duration) Notes Start Date End Date Status Aspirin 81 MG 1 tab(s) orally once a day; Duration: 30 day(s) Active Zinc Sulfate 220 MG ONE TAB ORALLY BID; Duration: 30 DAYS *Please review and pick correct strength-formulatio n from [employer] options. If intended option is not shown, discontinue and re-order from Quick Search* 04/10/2020 Active Tamsulosin HCl 0.4 MG 1 cap(s) orally once a day at night; Duration: 30 days 04/01/2016 Active Senna-Docusate Sodium 50 MG-8.6 MG 2 CAP(S) ORALLY ONCE A DAY (IN THE EVENING); Duration: 30 DAY(S) *Please review and pick correct strength-formulatio n from path intelligencean options. If intended option is not shown, [...] Status Risk Notes Problem Diabetic renal disease (418047309) Type 2 diabetes mellitus with diabetic chronic kidney disease (E11.22) Active confirmed Problem Chronic pain (04476436) Other chronic pain (G89.29) Active confirmed Problem Panlobular emphysema (0412624) Panlobular emphysema (J43.1) Active confirmed Problem Slow transit constipation (99968084) Slow transit constipation (K59.01) Active confirmed Problem Rotator cuff arthropathy of left shoulder (disorder) (75606688900335171) Other specific arthropathies, not elsewhere classified, left shoulder (M12.812) Active confirmed Problem Low back pain (647351423) Low back pain (M54.5) Active confirmed Problem Nontraumatic rupture of muscle or tendon structure of rotator cuff of left shoulder (disorder) (7596429328934113) Unspecified rotator cuff tear or rupture of left shoulder, not specified as traumatic (M75.102) Active confirmed Problem Chronic kidney disease stage 3 (disorder) (311681612) Chronic kidney disease, stage 3 (moderate) (N18.3) Active confirmed Problem Paresthesia (finding) (56006026) Paresthesia of skin (R20.2) Active confirmed Problem Nicotine dependence (20558967) Personal history of nicotine dependence (Z87.891) Active confirmed Problem Hypothyroidism (33205532) Hypothyroidism (acquired) (E03.9) Active confirmed Problem Hyperlipidemia (77270279) Hyperlipemia, 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 Problem Essential hypertension (06561996) Hypertension, essential (I10) Active confirmed Problem Tobacco abuse (1977762407) Tobacco abuse (Z72.0) Active confirmed Problem Acute exacerbation of chronic obstructive airways disease (302607064) COPD exacerbation (J44.1) Active confirmed Problem Chronic kidney disease stage 4 (307281012) Chronic kidney disease (CKD) stage G4/A2, severely decreased glomerular filtration rate (GFR) between 15-29 mL/min/1.73 square meter and albuminuria creatinine ratio between 30-299 mg/g (N18.4) Active confirmed Problem Atherosclerotic heart disease of [place] coronary artery without angina pectoris (243790548604484) Coronary artery disease involving [place] coronary artery of [place] heart without angina pectoris (I25.10) Active confirmed Problem Lower urinary tract symptoms due to benign prostatic hypertrophy (41115016152012) Benign non-nodular prostatic hyperplasia with lower urinary tract symptoms (N40.1) Active confirmed Problem Tobacco user (263784092) Cigarette nicotine dependence without complication (F17.210) Active confirmed Problem Pulmonary nodule (117001070) Pulmonary nodule (R91.1) Active confirmed Problem Chronic obstructive pulmonary disease with acute lower respiratory infection (460817021) Bronchitis, chronic obstructive w acute bronchitis (J44.0) Active confirmed Problem Dependence on supplemental oxygen (627288561540) 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) Active confirmed Problem Hearing loss (72898313) Bilateral hearing loss, unspecified hearing loss type (H91.93) Active confirmed Problem Osteophyte of vertebra (disorder) (164163517483718) Spinal osteophytosis (M25.78) Active confirmed Problem Bladder neck obstruction (244762680) Bladder neck obstruction (N32.0) Active confirmed Problem Pressure injury of buttock stage I (disorder) (40270434034814513) Pressure injury of buttock, stage 1, unspecified laterality (L89.301) Active confirmed Problem Gastroesophageal reflux disease (604234234) Gastroesophageal reflux disease, unspecified whether esophagitis present (K21.9) Active confirmed Encounters Encounter Location Date Provider Diagnosis [facility] [address] [facility] [address] [place] [address] 12/17/2024 Provider Migration Plan Of Treatment Pending Test Test Name Order Date N-CBC 09/08/2007 X-Lipid Profile 09/08/2007 Urinalysis 09/29/2017 N-PSA 08/10/2006 N-CMP 09/08/2007 Urine Drug Screen IH 03/21/2011 N-spep 10/26/2009 N-PSA Screening 09/08/2007 Physical Therapy : Wound Care 04/17/2020 H-24 HR CREATININE 06/30/2017 H-URINE 24 HOUR FOR PROTEIN 06/30/2017 C-TESTOSTERONE 09/22/2011 C-CBC 09/22/2011 C-CBC 07/26/2014 C-CBC 03/21/2011 C-CBC 01/03/2013 C-CBC 09/12/2013 C-CMP 04/01/2013 C-CMP 01/03/2013 C-CMP 03/28/2014 C-CMP 09/12/2013 C-CMP 11/21/2014 C-CMP 07/17/2015 C-CMP 03/21/2011 C-CMP 07/26/2014 C-CMP 07/12/2012 C-CMP 12/04/2020 C-LIPID PANEL 12/04/2020 C-LIPID PANEL 07/12/2012 C-LIPID PANEL 07/26/2014 C-LIPID PANEL 09/22/2011 C-LIPID PANEL 01/03/2013 C-LIPID PANEL 07/17/2015 C-LIPID PANEL 11/21/2014 C-LIPID PANEL 03/21/2011 C-LIPID PANEL 04/01/2013 C-LIPID PANEL 09/12/2013 C-TSH 09/12/2013 C-TSH 03/28/2014 C-TSH 11/21/2014 C-TSH 07/17/2015 C-TSH 01/03/2013 C-TSH 03/21/2011 C-TSH 09/22/2011 C-TSH 07/26/2014 C-TSH 07/12/2012 C-HIV 08/26/2016 C-VITAMIN B12 09/22/2011 [...] End Date [place] [address] [place] [address] [id number] Louie Soto Self - patient is the insured [facility] [place] [address] [phone] [id number] Louie Soto Self - patient is the [...]
--- OUTSIDE RECORDS SUMMARY | 2025-06-18 12:45 | XMS_ITS | Data Portability ---
Author Organization [facility] Address [address] [address] [place] [address] Care Team Providers Care Milk Route Deliverer Name Role Phone ODELL VALE Primary Care Provider Assessment No assessment recorded. Plan of Treatment Reminders Order Date Submit Date Provider Last Modified By Organization Details Last Modified Time Details Appointments None recorded. Lab None recorded. Referral None recorded. Procedures None recorded. Surgeries None recorded. Imaging None recorded. Medication Orders Nasacort 55 mcg nasal spray aerosol 2018 019 [facility], [address] [place], [address], 9 12:48:22 betamethas one valerate 0.1 % topical ointment 2018 019 INTERFACE [facility], [address] [place], [address], 9 12:48:16 Patient TargetsNo targets recorded. Patient Instructions Encounter Date Encounter Id Patient Instructions Last Modified By Organization Details Last Modified Time 09/13/2019 [id number] [facility] [email or web address] Not available 09/13/2019 12:47:18 Quitting Tobacco : Care Instructions [email or web address] Not available 09/13/2019 12:47:18 1. Rx- Betamethasone 2. Rx- Nasacort 3. Recommend HAE 4. F/U PRN asalva Not available 09/13/2019 10:34:43 Reason for Referral None Reported. Results Created Date Observation Date Name Description Value Unit Range Abnormal Flag Note LastModifiedBy Organization Detail LastModifiedTime 09/01/20 19 09/01/2019 audio gram No observ ation record ed. BARCODE Not Available 2018 13:46:43 Result Notes None recorded. Problems No Known Problems Medical Equipment None Reported. Allergies No known drug allergies Medications Name Sig Start Date Stop Date Status Note LastModified by Organization Details LastModified Time betamethaso ne valerate 0.1 % topical ointment APPLY A THIN LAYER TO THE AFFECTED AREA(S) BY TOPICAL ROUTE ONCE DAILY 2018 active Not Available Not Available Not Avai lable neomycin-po lymyxin-hyd rocort 3.5 mg/mL-10,00 0 unit/mL-1 % ear solution 09/13 completed Not Available Not Available Not Available tizanidine 4 mg tablet 09/13 completed Not Available Not Available Not Available tamsulosin 0.4 mg capsule 09/13 completed Not Available Not Available Not Available gabapentin 800 mg tablet active Not Available Not Available Not Available levothyroxi ne 50 mcg tablet active Not Available Not Available Not Available hydrocortis one 2.5 % topical cream 09/13 completed Not Available Not Available Not Available Longs Adult Low Strength ASA 81 mg tablet,lalo yed release Take 1 tablet every day by oral route. active Not Available Not Available No t Available oxybutynin chloride 5 mg tablet active Not Available Not Available No t Available finasteride 5 mg tablet active Not Available Not Available Not Available Livalo 4 mg tablet active Not Available Not Available Not Available Suprep Bowel Prep Kit 17.5 gram-3.13 gram-1.6 gram oral solution 09/13 completed Not Available Not Available Not Available Combivent Respimat 20 mcg-100 mcg/actuati on solution for inhalation active Not Available Not Available N ot Available Nasacort 55 mcg nasal spray aerosol Take 1 spray 3 times a day by nasal route for 30 days. 2018 active Not Available Not Available Not Avai lable Breo Ellipta 200 mcg-25 mcg/dose powder for inhalation active Not Available Not Available N ot Available Vitals Date Recorded Body temperature Body weight Body mass index (BMI) Body height Heart rate Systolic And Diastolic Provider Name and Address Organization Details Last Updated DateTime 9 96.6 [degF] 86648.2 g 26.6 kg/m2 182.88 cm 77 /min 143/116 mm[Hg] Rhea Schulz [facility] 9 10:01:02 Social History Question Answer Notes LastModified by Organizat ion Details LastModified Time Tobacco Smoking Status Current Every Day Smoker Rhea Shculz [facility] 09/13/2019 09:57:34 How Much Tobacco Do You Smoke? 1.5 PPD [email or web address] Information not available 09/13/2019 How Many Years Have You Smoked Tobacco? 40 Information not available 09/13/2019 Sex: Unknown Functional Status Question Answer Note LastModified by Organization D etails LastModified Time What is your level of alcohol consumption? None [email or web address] Information not available 09/13/2019 Mental Status None recorded. Family History Relationship Description Onset Age of this Age Resolved Age Notes LastModified by Organization Details LastModified Time Brother Heart disease [email or web address] Not available 2018 09:57:17 Father Diabetes mellitus [email or web address] Not available 2018 09:57:28 Mother Diabetes mellitus [email or web address] Not available 2018 09:57:28 Medical History Condition Response Anesthesia Complications N Diabetes N Heart Disease Y Bleeding Disorder N Cancer N Thyroid Problems Y Kidney Disease Y Past Encounters Encounter ID Performer Location Encounter Start Date Encounter Closed Date Diagnosis/Indication Diagnosis SNOMED-CT Code Diagnosis ICD10 Code Diagnosis IMO Codes Diagnosis Note [id number] DIVINA CARR[facility]LL [facility] [address] [place] [address] 09/01/2019 10:35:50 09/01/2019 11:35:58 [id number] HELGA MOREL MD [facility] [address] [place] [address] 09/13/2019 09:46:54 09/13/2019 13:06:36 Asymmetrical hearing loss 941864816 H91.91 -severe; right ear Sensorineu ral hearing loss in left ear 6656116263 9109 H90.42 -moderate SNHL Dysfunctio n of right eustachian tube 5865918922 326505 H69.91 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 -right fossa Essential hypertension 63993400 I10 Nicotine dependence 5629 4008 F17.200 Health Concerns Section Related Observation LastModified by Organization Detai ls LastModified Time None Recorded Concern Status LastModified by Organization Details LastModified Time None Recorded Advance Directives Directive None Recorded Payers Insurance Date Sequence Insurance Name Policy Number Policy Mitchell Covered Member ID Mitchell Member ID Guarantor Name 09/01/2019 3 MEDICAID-[facility] - FFS/TRADITION [place] Louie Sutherland Livingood [id number] Louie Sutherland Livingood 04/15/2024 2 [employer] [place] (PPO) Louie Sutherland Livingood [id number] Louie Sutherland Livingood 04/14/2024 1 [place]ARE[place] Louie C Livingood [id number] Louie Sutherland Livingood 09/01/2019 1 [place] Louie Sutherland Livingood [id number] Louie Sutherland Livingood 04/14/2024 1 [place]MEDICARE REPLACEMENT HMO) [id number] Louie Sutherland Livingood [id number] Louie Sutherland Livingood 08/08/2020 1 MEDICAID-[facility] CHOICES - FFS/[place]ADITION [place] Louie Sutherland Livinggood [id number] Louie Sutherland Livingood Notes Date Note Type Note Provider Name and Address Organization Details Recorded Time 09/13/2019 text/html Louie is a 68 year old male being seen in the office in consultation at the request of Dr. Odell Vale for an evaluation of hearing loss. He had an audio on 09/01 that indicated asymetric hl in right and SNHl in the left ear. Louie states that he has been experiencing pressure in the right ear over the past 6 months. He has noticed a change in his hearing since the symptoms started. Louie states that he has not tried any OTC medications for improvement. He does not have history of ear infections. HELGA MOREL MD [address] [place] [address], [phone], [facility] 09/13/2019 12:47:21
--- OUTSIDE RECORDS SUMMARY | 2025-06-18 12:45 | XMS_ITS | Referral Summary ---
Author Organization [facility] ([place], [place], [place], [place]) Address [address] [place] [address] Care Team Providers Care Health Care Attorney Name Role Phone Unavailable Primary Care Provider [...] your living situation today? I have a [facility] place to live 03/22/2024 Think about [...] Do you speak a language other than [place] at [facility]? No 03/22/2024 Do you want help with [...] Plan of Treatment Not on file Insurance [facility] ACCESS HMO MAP Advance Directives For more information, please contact: [phone] * Full Code (Latest Code Status on File) Date Activated Date Inactivated Comments 03/22/2024 3:32 AM 03/25/2024 4:39 PM
--- OUTSIDE RECORDS SUMMARY | 2025-06-18 12:45 | XMS_ITS | Clinical Summary ---
Author Organization Healthcare Address [address] [place] [address] Care Team Providers Care Fly Maker Name Role Phone Unavailable Primary Care Provider Unavailabl e Encounters Date Type Department Care Team Description 06/05/2025 Orders Only [facility] [address] [place] [address] Marquita Alba CARTER (acute kidney injury) (CMS/HCC) (Primary Dx); Vitamin D insufficiency from Last 3 Months Social History Tobacco Use Types Packs/Day Years Used Date Smoking Tobacco: Never Assessed Sex and Gender Information Value Date Recorded Sex Assigned at Not on file Legal Sex Male 7:48 PM EDT Gender Identity Not on file Sexual Orientation Not on file Plan of Treatment Upcoming Encounters Date Type Department Care Team (Late st Contact Info) Description 07/05/2025 3:20 PM EDT Office Visit [facility] Nephrology, Bone & Mineral Metabolism [address] [place] [address] Maxx Cisneros MD [address] [place] [address] Health Maintenance Due Date Last Done Comments [facility]-Depression Screening 1950 [facility]-Hepatitis C Screening 1950 [facility]-/Child/Adol SDOH Screenings 1950 [facility]- SDOH Screenings 1968 [facility]-Adult SDOH Screenings 1968 [facility]-DTaP,Tdap,and Td Vaccines (1 - Tdap) 1969 CT Colonography 1995 Colonoscopy 1995 FIT-DNA 1995 FIT 1995 FOBT 1995 Sigmoidoscopy 1995 [facility]-Colorectal Cancer Screening 1995 [facility]-Zoster Vaccines (1 of 2) 2000 [id number]-11 Vaccine (3 - season) 2025 12/06/2020, 11/08/2020 [facility]-Influenza Vaccine (#1) 05/15/202507/01, 06/18/2021, 06/05/2020, Additional history exists [facility]-RSV Vaccine: 60+ Years or (1 - 1-dose 75+ series) 2025 [facility]-Pneumococcal Vaccine: 50+ Years Completed 04/21/2023, 04/26/2019 HPV Vaccines Aged Out No longer eligi ble based on patient's age to complete this topic [facility]-HIB Vaccines Aged Out No longer e ligible based on patient's age to complete this topic [facility]-Hepatitis A Vaccines Aged Out No longer eligible based on patient's age to complete this topic [facility]-IPV Vaccines Aged Out No longer e ligible based on patient's age to complete this topic [facility]-Rotavirus Vaccines Aged Out No lo nger eligible based on patient's age to complete this topic
--- NOTE | 2025-06-18 12:54 | ED_ITS ---
<Statement entered by Al Mora DO - 06/18/25 16:49> I was consulted by the CAIO, and we discussed the complexity of problems being addressed. I approved the treatment and management plan for this patient's care in the emergency department, thus performing a substantive portion of the medical decision making. 74-year-old male that is very comorbid with significant CKD as well as history of heart failure and COPD presented to the emergency department today for shortness of breath. On arrival he was experiencing significant increased work of breathing with wheezes inspiratory and expiratory. He was given 3 DuoNebs. VBG resulted showing hypercapnia with acidosis. We placed the patient on BiPAP and administered albuterol through the BiPAP machine. Patient underwent advanced imaging of the chest that showed pulmonary edema. He does have bilateral lower extremity edema as well. I feel that his clinical picture is most consistent with heart failure/ovation in addition to a COPD exacerbation. He was treated with ceftriaxone azithromycin as well as steroids. He was ultimately admitted to the internal medicine service on BiPAP Al Mora DO Discharge Plan Disposition Patient Disposition: Admitted Clinical Impressions Clinical Impression: Congestive heart failure (CHF), Acute hypercapnic respiratory failure, Acute renal failure Discharge ED Provider: Al Mora General Adult HPI General Chief complaint: Shortness of Breath/Dyspnea Stated complaint: AO-06/15-weakness, SOA, dizzyness, not eating, Time Seen by Provider: 06/18/25 12:34 Mode of Arrival: Wheelchair Source of Information: Relative Description of Symptoms (Recalled from ER Triage Doc. by RN): Patient has had a cough, progressive weakness for the last several days/weeks. Was admitted to our facility a couple of weeks ago for pneumonia. States he was doing ok when he originally went home, but then has gotten worse. Patient room air oxygen saturation 73%. Patient does not wear oxygen at home. patient with audible wheezes. Patient placed on 2LNC, SpO2 94%. History of Present Illness HPI narrative: 74-year-old male presents to the ED today for complaint of cough, wheezing, was admitted a couple weeks ago for pneumonia and falls. Patient is still falling, patient's room air oxygen sat was 73%. He does does not wear oxygen at home but currently is on 2 L with an O2 of 94%. Patient feels unwell and audibly wheezes Related Data Home Medications ?Medication ?Instructions ?Recorded ?Confirmed aspirin 81 mg tablet,delayed 81 mg PO DAILY 05/25/19 1 release ascorbate calcium (vitamin C) 500 500 mg PO DAILY 03/1406/18/25 mg tablet levothyroxine 50 mcg tablet 50 mcg PO DAILY 05/30/25 1 lovastatin 20 mg tablet 20 mg PO DAILY 05/30/2502/05 finasteride 5 mg tablet 5 mg PO DAILY 05/31/2506/18 oxybutynin chloride 10 mg 10 mg PO DAILY 05/31/2502/05 tablet,extended release 24 hr pantoprazole 40 mg tablet,delayed 40 mg PO DAILY 05/3106/18/25 release pregabalin 25 mg capsule (Lyrica) 25 mg PO BID 06/18/25 Previous Rx's ?Medication ?Instructions ?Recorded carvedilol 3.125 mg tablet 3.125 mg PO BID 30 days #60 tabs 05/05/25 fluticasone furoate 200 1 inh inhalation DAILY 30 da ys #60 05/05/25 mcg-vilanterol 25 mcg/dose ea inhalation powder (Breo Ellipta) ipratropium 20 mcg-albuterol 100 2 puff inhalation BID 30 days #4 05/05/25 mcg/actuation mist for inhalation grams (Combivent Respimat) sodium bicarbonate 650 mg tablet 1,300 mg (2 x 650 mg) PO BID 30 05/31/25 days #120 tabs tizanidine 2 mg capsule (Zanaflex) 2 mg PO TIDP PRN mu scle pain 30 06/01/25 days #90 caps Allergies Allergy/AdvReac Type Severity Reaction Status Date / Time No Known Allergies Allergy Verified 06/05/25 10:31 [facility] Disclaimer: The information contained in this section may have been updated after the patient was seen, as this information can be updated by other users. Medical History (Updated 06/18/25 @ 14:22 by Karina Murguia (ED), [employer]) CKD (chronic kidney disease) stage 4, GFR 15-29 ml/min History of inguinal hernia Abdominal aortic aneurysm (AAA) PAD (peripheral artery disease) Coronary artery disease Abnormal electrocardiography Systolic CHF, chronic Elevated troponin Hypotension Aortic insufficiency Mitral regurgitation Bladder outlet obstruction Personal history of nicotine dependence COPD (chronic obstructive pulmonary disease) with acute bronchitis Chronic kidney disease Pancreatitis Hidradenitis suppurativa Surgical History (Updated 06/18/25 @ 15:42 by Susie Valentin RN) H/O cataract removal with insertion of prosthetic lens History of arthroscopy of knee History of hernia surgery Family History No significant family history Social History (Updated 06/18/25 @ 15:39 by Susie Valentin RN) Smoking Status: Current every day smoker tobacco type: cigarettes packs per day: 1 second hand exposure: No alcohol intake: never substance use type: denies use current occupational status: retired Travel in the last 8 weeks?: None household members: spouse housing: house current occupational exposures/hazards: No caffeine: No Have you lived/traveled outside [place] in past 30 days?: No Contact w/someone who lives/traveled outside US past 30 days?: No Exposure to someone with infectious disease in past 14 days?: No Do you have a fever (greater than 100.4 F or 38 C)?: No Have you tested positive for COVID-19?: No Exposed to someone with COVID-19 in past 14 days?: No Do you have a sore throat?: No Do you have a cough?: Yes Do you have any weakness?: Yes Do you have any diarrhea?: No Are you experiencing any unusual bleeding?: No Do you have any muscle aches/pain?: No Do you have any abdominal pain?: No Are you experiencing loss of taste or smell?: No Other Medical History Have you received the Flu Vaccine for this season: No Have you received the Pneumonia Vaccine: Yes ROS Obtained: Yes Systems reviewed as appropriate & no additional complaints except as documented Constitutional Constitutional: Reports as per HPI Physical Exam General General appearance: alert and in distress Head Head exam: atraumatic and normocephalic Eye Eye exam: Present PERRL and EOMI ENT ENT exam: Present normal oropharynx and mucous membranes moist Neck Neck exam: Present full ROM and trachea midline Respiratory Respiratory exam: Present respiratory distress and wheezes Cardiovascular Cardiovascular exam: Present regular rate, normal rhythm, normal heart sounds, +S1 and +S2 Abdominal Exam Abdominal exam: Present soft and normal bowel sounds Extremities Exam Extremities exam: Present full ROM and normal capillary refill Neurological Exam Neurological exam: Present alert, oriented X3 and normal gait Skin Skin exam: Present warm, dry and intact Medical Decision Making Medical Records Screening: Per USPSTF and CDC recommendations, given the prevalence of disease in our region, it is our hospital?s policy to screen for HIV and viral Hepatitis for all patients aged 18 and over and those with ongoing risk factors. Frantz Inquiry Pt receiving controlled substance: No Frantz was queried for this patient: No Vital Signs: 06/18/25 12:33 06/18/25 13:01 06/18/25 13:30 Temperature 97.5 F L Temperature Source Oral Pulse Rate 75 80 Pulse Rate [Right Brachial] 79 Respiratory Rate 18 Blood Pressure 137/78 136/90 Blood Pressure [Right Arm] 112/81 Blood Pressure Mean [Right Arm] 91 02 Sat by Pulse Oximetry 73 L 98 100 Oxygen Delivery Method Room Air Aerosol Mask Aerosol Mask Oxygen Flow Rate (LPM) 8 8 Fraction of Inspired Oxygen 06/18/25 13:44 06/18/25 14:00 06/18/25 14:31 Temperature Temperature Source Pulse Rate 86 78 Pulse Rate [Right Brachial] Respiratory Rate 20 Blood Pressure 133/89 Blood Pressure [Right Arm] Blood Pressure Mean [Right Arm] 02 Sat by Pulse Oximetry 94 L 98 Oxygen Delivery Method Nasal Cannula BiPAP Oxygen Flow Rate (LPM) 2 30 Fraction of Inspired Oxygen 06/18/25 14:31 06/18/25 14:33 06/18/25 14:42 Temperature 98.2 F Temperature Source Pulse Rate 75 80 Pulse Rate [Right Brachial] Respiratory Rate 20 Blood Pressure 141/80 H Blood Pressure [Right Arm] Blood Pressure Mean [Right Arm] 02 Sat by Pulse Oximetry Oxygen Delivery Method BiPAP Oxygen Flow Rate (LPM) Fraction of Inspired Oxygen 30 06/18/25 15:00 Temperature Temperature Source Pulse Rate Pulse Rate [Right Brachial] Respiratory Rate Blood Pressure Blood Pressure [Right Arm] Blood Pressure Mean [Right Arm] 02 Sat by Pulse Oximetry Oxygen Delivery Method BiPAP Oxygen Flow Rate (LPM) Fraction of Inspired Oxygen Lab Data Lab Results 06/18/25 12:51: WBC 29.2 H*, RBC 3.15 L, Hgb 9.4 L, Hct 28.4 L, MCV 90.2, MCH 29.8, MCHC 33.1, RDW 14.4, Plt Count 148, MPV 10.2, Neut % (Auto) 92.1 H, Lymph % (Auto) 1.6 L, Motley % (Auto) 4.7, Eos % (Auto) 0.0 L, Baso % (Auto) 0.2, Neut # (Auto) 26.9 H, Lymph # (Auto) 0.5 L, Motley # (Auto) 1.4 H, Eos # (Auto) 0.0, Baso # (Auto) 0.1, Total Counted 100, Neutrophils % (Manual) 91 H, Lymphocytes % (Manual) 4 L, Monocytes % (Manual) 4, Eosinophils % (Manual) 1, Platelet Estimate Slight decrease, RBC Morphology Normal, ESR 100 H, PT 12.4, INR 1.13 H, APTT 39.0 H, D-Dimer 1.00 H, VBG pH 7.25 L, VBG pCO2 54.5 H, VBG pO2 50.7 H, VBG HCO3 23.6, VBG Total CO2 25.3, VBG O2 Saturation 81.7 H, VBG Base Excess -3.6 L, VBG Lactic Acid 1.5, Sodium 125 L, Potassium 4.3, Chloride 92 L, Carbon Dioxide 21 L, Anion Gap 16.3 H, BUN 42 H, Creatinine 3.40 H, Estimated Creat Clear 19, E stimated GFR 18 L*, Est GFR ( Amer) 22 L, Glucose 142 H, Calcium 7.7 L, M agnesium 1.2 L, Total Bilirubin 1.0, AST 25, ALT 15, Alkaline Phosphatase 118, Total Creatine Kinase 117, Troponin I 0.03, C-Reactive Protein 203.4 H, NT-Pro-B Natriuret Pep 54742 H, Total Protein 6.4, Albumin 3.6, Globulin 2.8, Albumin/Globulin Ratio 1.3, Lipase 49, TSH 1.41 06/18/25 13:26: Chlamy pneumoniae PCR Not detected, Adenovirus (PCR) Not detected, B. pertussis DNA (PCR) Not detected, Coronavirus OC43 (PCR) Not detected, Coronavirus HKU1 (PCR) Not detected, Coronavirus 229E (PCR) Not detected, SARS-CoV-2 (PCR) Not detected, Coronavirus NL63 (PCR) Not detected, Human Metapneumovir PCR Not detected, Influenza A (H1) PCR Not detected, Influ A (H1N1/09) PCR Not detected, Influenza A (H3) PCR Not detected, Influenza Type A (PCR) Not detected, Influenza Type B (PCR) Not detected, M. pneumoniae (PCR) Not detected, Parainfluenza 1 (PCR) Not detected, Parainfluenza 2 (PCR) Not detected, Parainfluenza 3 (PCR) Not detected, Parainfluenza 4 (PCR) Not detected, RSV (PCR) Not detected, Entero/Rhino (PCR) Not detected 06/18/25 12:51 06/18/25 12:51 Orders (Tests/Meds): ED MEDICATIONS Generic Name Dose Route Start Last Admin Trade Name Freq PRN Reason Stop Dose Admin Albuterol/Ipratropium 3 ml 06/18/25 18:00 Ipratropium/Albuterol 3 Ml [facility] 07/18/25 17:59 Q4RT [facility] Aspirin 81 mg 06/19/25 09:00 Aspirin Ec 81mg Tablet PO 07/19/25 08:59 DAILY [facility] Budesonide 0.5 mg 06/18/25 18:00 Budesonide 0.5mg/2ml [facility] 07/18/25 17:59 BIDRT [facility] Carvedilol 3.125 mg 06/18/25 21:00 Carvedilol 3.125mg Tablet PO 07/18/25 20:59 BID ANITA Finasteride 5 mg 06/19/25 09:00 Finasteride 5mg Tablet PO 07/19/25 08:59 DAILY [facility] Heparin Sodium (Porcine) 5,000 unit 06/18/25 21:00 Heparin Sodium 5,000 Unit/Ml Vial SUBCUT 07/18/25 20:59 TID ANITA Ceftriaxone Sodium 2 gm/ 100 mls @ 200 mls/hr 06/18/25 13:30 06/18/25 15:10 Sodium Chloride IV 06/28/25 13:29 Infused Q24H ANITA Infusion Azithromycin 500 mg/ Sodium 250 mls @ 250 mls/hr 06/18/25 13:30 06/18/25 16:29 Chloride IV 06/28/25 13:29 0 mls/hr Q24H ANITA Infusion Magnesium Sulfate 2 gm in 50 mls @ 50 mls/hr 06/18/25 16:15 Magnesium Sulfate 2gm/50ml Premix IV 06/18/25 18:14 Q1H ANITA Levothyroxine Sodium 50 mcg 06/19/25 07:00 Levothyroxine 50mcg (0.05mg) Tab PO 07/19/25 06:59 DAILYDM ANITA Nicotine 21 mg 06/18/25 14:19 Nicotine 21mg/24hr Patch TD 07/18/25 14:18 DAILYP PRN Nicotine Cravings Oxybutynin Chloride 5 mg 06/18/25 21:00 Oxybutynin 5mg Tab PO 07/18/25 20:59 BID ANITA Pantoprazole Sodium 40 mg 06/18/25 21:00 Pantoprazole 40mg Tablet PO 07/18/25 20:59 HS ANITA Prednisone 40 mg 06/19/25 09:00 Prednisone 20mg Tab PO 07/19/25 08:59 DAILY [facility] Pregabalin 25 mg 06/18/25 21:00 Pregabalin 25mg Capsule PO 07/18/25 20:59 BID ANITA Sodium Bicarbonate 1,300 mg 06/18/25 21:00 Sodium Bicarbonate 650mg Tablet PO 07/18/25 20:59 BID [facility] Sodium Chloride 10 ml 06/18/25 14:44 Sodium Chloride 0.9% 10ml Flush Syringe IV 07/18/25 14:43 NEEDED PRN Maintain IV Site Sodium Chloride 3 ml 06/18/25 15:12 Sodium Chloride 3% 15ml [facility] 07/18/25 15:11 ONCE PRN INDUCE SPUTUM COLLECTION Discontinued Medications Generic Name Dose Route Start Last Admin Trade Name Freq PRN Reason Stop Dose Admin Albuterol Sulfate 20 mg 06/18/25 13:59 06/18/25 14:31 Albuterol 0.083% 2.5 Mg/3 Ml [facility] 06/18/25 14:00 20 mg ONCE ONE Administration Albuterol/Ipratropium 9 ml 06/18/25 12:39 06/18/25 13:02 Ipratropium/Albuterol 3 Ml [facility] 06/18/25 12:40 9 ml ONCE ONE Administration Bumetanide 1 mg 06/18/25 14:15 06/18/25 14:29 Bumetanide 1mg/4ml Vial IV 06/18/25 14:16 1 mg ONCE ONE Administration Bumetanide 1 mg 06/18/25 14:24 06/18/25 14:35 Bumetanide 1mg/4ml Vial IV 06/18/25 14:25 1 mg ONCE ONE Administration Bumetanide 1 mg 06/18/25 16:15 Bumetanide 1mg/4ml Vial IV 06/18/25 16:16 ONCE ONE Magnesium Sulfate 2 gm in 50 mls @ 50 mls/hr 06/18/25 12:39 06/18/25 14:01 Magnesium Sulfate 2gm/50ml Premix IV 06/18/25 13:38 Infused ONCE ONE Infusion Methylprednisolone Sodium Succinate 125 mg 06/18/25 12:39 06/18/25 13:02 Methylprednisolone Sod Succ 125mg Vial IM 06/18/25 12:40 125 mg ONCE ONE Administration ORDERS Category Date Time Status CT abdomen pelvis wo con Stat Cat Scan 06/18/25 13:[address] chest wo con Stat Cat Scan 06/18/25 13:34 Completed Cardiology Consult [Consult to Cardiology] [CONS] Cons 06/18/25 14:22 Active Routine Pulmonology Consult [Consult to Pulmonology] [CONS] Cons 06/18/25 14:22 Active Routine Chest XR -- portable [XR chest portable] Stat Exams 06/18/25 12:39 Completed POCUS Point of Care (ER Only) Stat Exams 06/18/25 13:44 Completed Activated Partial Thrombo Time Stat Lab 06/18/25 12:51 Completed BNP [NT Pro Brain Natriuretic Pep.] Stat Lab 06/18/25 12:51 Completed C-Reactive Protein Stat Lab 06/18/25 12:51 Completed CBC [Complete Blood Count Auto Diff] Stat Lab 06/18/25 12:51 Completed Complete Blood Count Auto Diff AMLAB Lab 06/19/25 06:00 Ordered Comprehensive Metabolic Panel AMLAB Lab 06/19/25 06:00 Ordered Comprehensive Metabolic Panel Stat Lab 06/18/25 12:51 Completed Creatine Kinase Stat Lab 06/18/25 12:51 Completed D-Dimer Stat Lab 06/18/25 12:51 Completed Erythrocyte Sedimentation Rate Stat Lab 06/18/25 12:51 Completed Full Resp Panel w/COVID ([facility]) Routine Lab 06/18/25 13:26 Completed Lipase Stat Lab 06/18/25 12:51 Completed Magnesium AMLAB Lab 06/19/25 06:00 Ordered Magnesium Stat Lab 06/18/25 12:51 Completed Prothrombin Time INR Stat Lab 06/18/25 12:51 Completed TSH [Thyroid Stimulating Hormone] Routine Lab 06/18/25 12:51 Completed Trop I [Troponin I] Stat Lab 06/18/25 12:51 Completed Troponin I Q3H Lab 06/18/25 15:40 Completed Troponin I Q3H Lab 06/18/25 18:45 Ordered Urinalysis and Microscopic Stat Lab 06/18/25 14:30 Completed Blood Culture Stat Micro 06/18/25 13:47 Received VBG [Venous Blood Gas] Stat RT 06/18/25 12:51 Completed CA echo doppler complete Routine Y 06/18/25 14:22 Ordered Medical Decision Narrative: patient is a 74-year-old male presenting to the emergency department for evaluation of wheezing. Patient is afebrile, hypoxic at 74% on room air. Differential diagnosis includes viral illness, pneumonia, COPD, among others. Workup will be conducted with hematologic labs, specific imaging. Initial inventions include crystalloid bolus, analgesics. Patient declined contrast. Explained to him that we need contrast to diagnose PE and other etiologies. Patient does not want contrast for any reason. Initial workup reviewed by me hematologic labs are remarkable for white count of 29.2, D-dimer of 1, pH of 7.25, pCO2 of 54.5 and PaO2 of 50.7. Patient was placed on BiPAP by respiratory therapy. Patient's sodium was 125 today. Patient BUN and creatinine were 42 and 3.4. These were actually improved from 05/31/2025 when he was here. Calcium was 7.7 and mag was 1.2. Patient was given 2 g of mag down here in the ED. Patient had a 20,400 BNP today chest x-ray showed some pleural effusions but no pneumonia. The formal imaging has not resulted as our imaging results are hours behind. These were all read by myself and Dr. Polanco. Dr. Polanco was called for admission for this patient as he is in CHF exacerbation and respiratory failure as well as acute renal failure. Patient did refuse all contrast due to his renal function. CT scans were not resulted. The CT of his chest was completed and showed some pulmonary edema. Patient is stable and ready for admission to stepdown unit per Dr. Polanco Critical Care Critical Care Time Critical Care Time: No
[2025-06-18] MEDS: IPRATROPIUM/ALBUTEROL 3 ML NEB 9 ML IH (13:02)
[2025-06-18] MEDS: MAGNESIUM SULFATE IN WATER 2 GM/50 ML PIGGYBACK IV ×3 (13:02→17:34)
[2025-06-18] MEDS: METHYLPREDNISOLONE SOD SUCC 125MG VIAL 125 MG IM (13:02)
[2025-06-18 13:03] LABS: Lactate Venous 1.5 mmol/L (0.4-2.0); VBG HCO3 23.6 mmol/L (23-30); VBG PCO2 54.5 mmol/L (35-51); VBG PH 7.25 mmol/L (7.31-7.41); VBG PO2 50.7 mmol/L (28-40)
[2025-06-18 13:14] LABS: Hematocrit 28.4 % (42.0-52.0); Hemoglobin 9.4 g/dL (14.1-18.0); Immature Granulocytes % 1.4 %; Mean Corpuscular HGB Conc 33.1 g/dL (31.8-35.4); Mean Corpuscular Hemoglobin 29.8 pg (27.0-31.2); Mean Corpuscular Volume 90.2 fl (80-94); Nucleated Red Blood Cells % 0 %; Platelet Count 148 K/mm3 (142-424); Red Blood Count 3.15 M/mm3 (4.60-6.20); Red Cell Distribution Width-SD 47.8 fL; White Blood Count 29.2 K/mm3 (4.8-10.8)
[2025-06-18 13:21] LABS: Alanine Aminotransferase 15 U/L (12-78); Albumin Level 3.6 g/dl (3.5-5.0); Albumin/Globulin Ratio 1.3 (1.1-1.8); Alkaline Phosphatase 118 U/L (38-126); Anion Gap 16.3 mEq/L (5-15); Aspartate Amino Transferase 25 U/L (17-59); Bilirubin,Total 1.0 mg/dl (0.2-1.3); Blood Urea Nitrogen 42 mg/dl (9-20); Calcium 7.7 mg/dl (8.4-10.2); Carbon Dioxide 21 mmol/L (22.0-30.0); Chloride 92 mmol/L (98-107); Creatinine Clearance Estimated 19 mL/min (50-200); Creatinine,Serum 3.40 mg/dl (0.66-1.25); Estimated Glomerular Filt Rate 18 ml/min (>60); GFR (African American) 22 ML/MIN (>60); Globulin 2.8 g/dL (1.3-3.2); Glucose 142 mg/dl (74-100); Lipase 49 U/L (23-300); Magnesium 1.2 mg/dl (1.6-2.3); Potassium 4.3 mmoL/L (3.5-5.1); Sodium 125 mmol/L (136-145); Total Protein,Serum 6.4 g/dl (6.3-8.2)
[2025-06-18 13:26] LABS: D-Dimer 1.00 ug/mL (0.0-0.5)
[2025-06-18 13:32] LABS: NT Pro Brain Natriuretic Pep. 20400 pg/mL (0-125)
--- NOTE | 2025-06-18 13:34 | CT_ITS ---
PROCEDURE INFORMATION: Exam: CT Chest Without Contrast; Diagnostic Exam date and time: 06/18/2025 2:11 PM Age: 74 years old Clinical indication: Pain; Chest pressure; Additional info: Cp TECHNIQUE: Imaging protocol: Diagnostic computed tomography of the chest without contrast. Radiation optimization: All CT scans at this facility use at least one of these dose optimization techniques: automated exposure control; mA and/or kV adjustment per patient size (includes targeted exams where dose is matched to clinical indication); or iterative reconstruction. COMPARISON: CT CHEST WO CON 12/15/2024 10:36 AM FINDINGS: Lungs: Stable 3 mm pulmonary nodule lateral right apex (series 4, image 20). Resolution of previously described ovoid density in the right upper lobe. Increased bronchial wall thickening bilaterally and diffusely, with mild patchy airspace densities in both lower lobes. Suspect bronchopneumonia. Pleural spaces: Unremarkable. No pneumothorax. No pleural effusion. Heart: Unremarkable. No cardiomegaly. No pericardial effusion. Lymph nodes: Mediastinal lymphadenopathy, AP window lymph node measures 1.5 cm and subcarinal lymph node measures 1.7 cm. Vasculature: Unremarkable. No aortic aneurysm. Bones/joints: Unremarkable. No acute fracture. Soft tissues: Unremarkable. IMPRESSION: 1. Increased bronchial wall thickening bilaterally and diffusely, with mild patchy airspace densities in both lower lobes. Suspect bronchopneumonia. 2. Mediastinal lymphadenopathy.
[2025-06-18 13:35] LABS: Troponin I 0.03 ng/ml (0.00-0.034)
--- NOTE | 2025-06-18 13:38 | CT_ITS ---
PROCEDURE INFORMATION: Exam: CT Abdomen And Pelvis Without Contrast Exam date and time: 06/18/2025 2:13 PM Age: 74 years old Clinical indication: Abdominal pain TECHNIQUE: Imaging protocol: Computed tomography of the abdomen and pelvis without contrast. Radiation optimization: All CT scans at this facility use at least one of these dose optimization techniques: automated exposure control; mA and/or kV adjustment per patient size (includes targeted exams where dose is matched to clinical indication); or iterative reconstruction. COMPARISON: CT ABDOMEN PELVIS WO CON 05/30/2025 10:50 AM FINDINGS: Liver: Normal. No mass. Gallbladder and biliary ducts: Cholelithiasis. Pancreas: Normal. No ductal dilation. Spleen: Normal. No splenomegaly. Adrenal glands: Normal. No mass. Kidneys and ureters: Cortical renal scarring right kidney. No hydronephrosis. Stomach and bowel: Unremarkable. No obstruction. No mucosal thickening. Appendix: No evidence of appendicitis. Intraperitoneal space: Increased pelvic ascites. Vasculature: Stable infrarenal abdominal aortic aneurysm measures 5.1 x 5.5 cm, extending to the bifurcation. Lymph nodes: Unremarkable. No enlarged lymph nodes. Urinary bladder: Stable circumferential wall thickening of the urinary bladder, may relate to cystitis. Reproductive: Unremarkable as visualized. Bones/joints: Unremarkable. No acute fracture. Soft tissues: Unremarkable. IMPRESSION: 1. Stable circumferential wall thickening of the urinary bladder, may relate to cystitis. 2. Increased pelvic ascites. 3. Stable infrarenal abdominal aortic aneurysm measures 5.1 x 5.5 cm, extending to the bifurcation. 4. Cholelithiasis.
[2025-06-18 13:43] LABS: Adenovirus,PCR Not Detected (NotDetected); Chlamydophila Pneumoniae, PCR Not Detected (NotDetected); Coronavirus 19, PCR Not Detected (NotDetected); Coronovirus HKU1,PCR Not Detected (NotDetected); Influenza A, PCR Not Detected (NotDetected); Influenza AH1, 2009 Not Detected (NotDetected); Influenza AH1, PCR Not Detected (NotDetected); Influenza AH3,PCR Not Detected (NotDetected); Influenza B, PCR Not Detected (NotDetected); Mycoplasma Pneumoniae, PCR Not Detected (NotDetected); Parainfluenza 1, PCR Not Detected (NotDetected); Parainfluenza 2, PCR Not Detected (NotDetected); Parainfluenza 3, PCR Not Detected (NotDetected); Parainfluenza 4, PCR Not Detected (NotDetected)
--- NOTE | 2025-06-18 13:48 | ECG_ITS ---
APPROVED REPORT Exam: Resting ECG HR:85 bpm ECG Measurements Heart Rate 85 AXES TN 213 P 71 QRSd 117 QRS 62 QT 391 T 74 QTc 433 Conclusion Sinus rhythm First-degree AV block PVCs No STEMI Electronically signed by : Al Mora, 06/18/2025 16:41:59
[2025-06-18 14:11] LABS: RBC Morphology Normal; Total Cells Counted 100
--- NOTE | 2025-06-18 14:20 | EXP.HP ---
History of Present Illness *Admission Date: 06/18/25 *Reason for visit:: dyspnea, hypoxic *History of present illness: Mr. Ryder is a 74-year-old male with significant history of renal failure about a year ago that necessitated ICU admission along with complicating sepsis. He has struggled with poor renal function since. Continues to smoke. Has history of neuropathy and hypertension. He presented to the ER today at the urging of his due to shortness of breath, cough, wheeze. States has been getting worse for the past [address] of chest obtained showing no focal consolidation. Did have elevated BNP however and was hypoxic in the 70s on arrival. Placed on nasal cannula oxygen until his VBG was obtained showing pCO2 of 54 and pH of 7.25. Will initiate BiPAP. Given empiric antibiotics with azithromycin and ceftriaxone. Will admit to stepdown for further care. Patient denies nausea and vomiting. Was recently admitted a little over 3 weeks ago for similar presentation, at that time treated for left lower lobe pneumonia. Of note, has history of neurogenic bladder and In-N-Out caths 3-4 times a day. Medicine consulted due to complexity of patient with comorbidities and high risk of decompensation. helped supplement history. On evaluation, patient is ill-appearing. [facility] Disclaimer: The information contained in this section may have been updated after the patient was seen, as this information can be updated by other users. Medical History (Updated 06/18/25 @ 16:55 by Jose Polanco MD) CKD (chronic kidney disease) stage 4, GFR 15-29 ml/min History of inguinal hernia Abdominal aortic aneurysm (AAA) PAD (peripheral artery disease) Coronary artery disease Abnormal electrocardiography Systolic CHF, chronic Elevated troponin Hypotension Aortic insufficiency Mitral regurgitation Bladder outlet obstruction Personal history of nicotine dependence COPD (chronic obstructive pulmonary disease) with acute bronchitis Chronic kidney disease Pancreatitis Hidradenitis suppurativa Surgical History (Updated 06/18/25 @ 15:42 by Susie Valentin RN) H/O cataract removal with insertion of prosthetic lens History of arthroscopy of knee History of hernia surgery Family History No significant family history Social History (Updated 06/18/25 @ 15:39 by Susie Valentin RN) Smoking Status: Current every day smoker tobacco type: cigarettes packs per day: 1 second hand exposure: No alcohol intake: never substance use type: denies use current occupational status: retired Travel in the last 8 weeks?: None household members: spouse housing: house current occupational exposures/hazards: No caffeine: No Have you lived/traveled outside [place] in past 30 days?: No Contact w/someone who lives/traveled outside US past 30 days?: No Exposure to someone with infectious disease in past 14 days?: No Do you have a fever (greater than 100.4 F or 38 C)?: No Have you tested positive for COVID-19?: No Exposed to someone with COVID-19 in past 14 days?: No Do you have a sore throat?: No Do you have a cough?: Yes Do you have any weakness?: Yes Do you have any diarrhea?: No Are you experiencing any unusual bleeding?: No Do you have any muscle aches/pain?: No Do you have any abdominal pain?: No Are you experiencing loss of taste or smell?: No Other Medical History Have you received the Flu Vaccine for this season: No Have you received the Pneumonia Vaccine: Yes Review of Systems Review of Systems Review of systems (narrative): 14 point review of systems performed, pertinent positives and negatives as per HPI Meds Home Medications and Allergies Home Medications ?Medication ?Instructions ?Recorded ?Confirmed ?Type aspirin 81 mg tablet,delayed 81 mg PO DAILY 05/25/19 06/18/25 History release ascorbate calcium (vitamin C) 500 500 mg PO DAILY 03/27/22 06/18/25 History mg tablet carvedilol 3.125 mg tablet 3.125 mg PO BID 30 days #60 tabs 05/05/25 06/18/25 Rx fluticasone furoate 200 1 inh inhalation DAILY 30 days #60 05/05/25 06/18/25 Rx mcg-vilanterol 25 mcg/dose ea inhalation powder (Breo Ellipta) ipratropium 20 mcg-albuterol 100 2 puff inhalation BID 30 days #4 05/05/25 06/18/25 Rx mcg/actuation mist for inhalation grams (Combivent Respimat) levothyroxine 50 mcg tablet 50 mcg PO DAILY 05/30/25 06/18/25 History lovastatin 20 mg tablet 20 mg PO DAILY 05/30/25 06/18/25 History finasteride 5 mg tablet 5 mg PO DAILY 05/31/25 06/18/25 History oxybutynin chloride 10 mg 10 mg PO DAILY 05/31/25 06/18/25 History tablet,extended release 24 hr pantoprazole 40 mg tablet,delayed 40 mg PO DAILY 05/31/25 06/18/25 History release pregabalin 25 mg capsule (Lyrica) 25 mg PO BID 05/31/25 06/18/25 History sodium bicarbonate 650 mg tablet 1,300 mg (2 x 650 mg) PO BID 30 05/31/25 06/18/25 Rx days #120 tabs tizanidine 2 mg capsule (Zanaflex) 2 mg PO TIDP PRN muscle pain 06/01/25 06/18/25 Rx days #90 caps New Prescriptions to Start Prescriptions: Allergies Allergy/AdvReac Type Severity Reaction Status Date / Time No Known Allergies Allergy Verified 06/05/25 10:31 Exam Data for Last 24 hours Vital signs and Labs for Last 24 Hours: Temp Pulse Resp BP Pulse Ox O2 Del Method O2 Flow Rate 97.5 F L 80 18 136/90 94 L Nasal Cannula 2 06/18/25 12:33 06/18/25 13:30 06/18/25 12:33 06/18/25 13:30 06/18/25 13:44 06/18/25 13:44 06/18/25 13:44 Laboratory Results - last 24 hr 06/18/25 12:51: WBC 29.2 H*, RBC 3.15 L, Hgb 9.4 L, Hct 28.4 L, MCV 90.2, MCH 29.8, MCHC 33.1, RDW 14.4, Plt Count 148, MPV 10.2, Neut % (Auto) 92.1 H, Lymph % (Auto) 1.6 L, [place] % (Auto) 4.7, Eos % (Auto) 0.0 L, Baso % (Auto) 0.2, Neut # (Auto) 26.9 H, Lymph # (Auto) 0.5 L, [place] # (Auto) 1.4 H, Eos # (Auto) 0.0, Baso # (Auto) 0.1, Total Counted 100, Neutrophils % (Manual) 91 H, Lymphocytes % (Manual) 4 L, Monocytes % (Manual) 4, Eosinophils % (Manual) 1, Platelet Estimate Slight decrease, RBC Morphology Normal, D-Dimer 1.00 H, VBG pH 7.25 L, VBG pCO2 54.5 H, VBG pO2 50.7 H, VBG HCO3 23.6, VBG Total CO2 25.3, VBG O2 Saturation 81.7 H, VBG Base Excess -3.6 L, VBG Lactic Acid 1.5, Sodium 125 L, Potassium 4.3, Chloride 92 L, Carbon Dioxide 21 L, Anion Gap 16.3 H, BUN 42 H, Creatinine 3.40 H, Estimated Creat Clear 19, Estimated GFR 18 L*, Est GFR ( Amer) 22 L, Glucose 142 H, Calcium 7.7 L, Magnesium 1.2 L, Total Bilirubin 1.0, AST 25, ALT 15, Alkaline Phosphatase 118, Troponin I 0.03, NT-Pro-B Natriuret Pep 29769 H, Total Protein 6.4, Albumin 3.6, Globulin 2.8, Albumin/Globulin Ratio 1.3, Lipase 49 I & O for Last 24 hours: Intake & Output 06/15/25 06/16/25 06/17/25 06/18/25 23:59 23:59 23:59 23:59 Intake Total 50 / 50 Balance 50 / 50 Weight 70.76 kg Constitutional Constitutional: moderate distress, thin, chronically ill appearing, disheveled and cooperative *Routine HEENT Exam Head: Present normocephalic Eye: Present EOMI and PERRL ENT: Present mucous membranes moist *Routine Neck Exam Neck: Present supple; Absent lymphadenopathy *Routine Respiratory Exam Respiratory: Present accessory muscle use, prolonged expiratory phase, wheezes (Diffuse bilaterally both inspiratory and expiratory) and crackles (Lung base with deep inspiration); Absent CTA bilaterally or rhonchi *Routine Cardiovascular Exam Cardiovascular: Present RRR *Routine Abdominal Exam Abdominal: Present soft and normoactive bowel sounds; Absent tenderness *Routine Rectal Exam Rectal:: deferred *Routine Genitalia Exam Genitalia:: deferred Comment:: Juárez catheter in place *Routine Extremities Exam Extremities: Present edema (1+ at the ankles bilaterally); Absent cyanosis or clubbing Comments: Thin, sarcopenia *Routine Skin Exam Skin: Present intact, warm and jaundice; Absent rash Comments: Hidradenitis suppurativa on his left and right gluteus. No drainage or erythema. *Routine Neurological Exam Neurological: Present alert, oriented X3 and moving all extremities; Absent altered mental status Comments: Hard of hearing on exam Assessment and Plan *Assessment and plan (1) CKD (chronic kidney disease) stage 4, GFR 15-29 ml/min: Status: Acute Category: Medical Code(s): N18.4 - Chronic kidney disease, stage 4 (severe) (2) Neurogenic bladder: Status: Acute Category: Medical Code(s): N31.9 - Neuromuscular dysfunction of bladder, unspecified (3) Obstructive uropathy: Status: Acute Category: Medical Code(s): N13.9 - Obstructive and reflux uropathy, unspecified (4) CHF (congestive heart failure): Status: Acute Category: Medical Code(s): I50.9 - Heart failure, unspecified (5) Acute respiratory failure with hypoxia and hypercarbia: Status: Acute Category: Medical Code(s): J96.01 - Acute respiratory failure with hypoxia; J96.02 - Acute respiratory failure with hypercapnia (6) Hidradenitis suppurativa: Problem Comment: Hidradenitis alone bilateral buttock and upper thigh region. No visible abscess Status: Acute Category: Medical Code(s): L73.2 - Hidradenitis suppurativa (7) Abdominal aortic aneurysm (AAA): Status: Chronic Qualifiers: Presence of rupture: without rupture Qualified Code(s): I71.4 - Abdominal aortic aneurysm, without rupture Category: Medical Code(s): I71.40 - Abdominal aortic aneurysm, without rupture, unspecified (8) PAD (peripheral artery disease): Status: Chronic Category: Medical Code(s): I73.9 - Peripheral vascular disease, unspecified (9) Tobacco abuse: Status: Acute Category: Medical Code(s): Z72.0 - Tobacco use (10) LLL pneumonia: Status: Acute Category: Medical Code(s): J18.9 - Pneumonia, unspecified organism (11) UTI (urinary tract infection): Status: Acute Category: Medical Code(s): N39.0 - Urinary tract infection, site not specified (12) COPD (chronic obstructive pulmonary disease) with acute bronchitis: Status: Chronic Category: Medical Code(s): J44.0 - Chronic obstructive pulmonary disease with (acute) lower respiratory infection; J20.9 - Acute bronchitis, unspecified (13) Bladder outlet obstruction: Status: Chronic Category: Medical Code(s): N32.0 - Bladder-neck obstruction (14) Neuropathy: Status: Acute Category: Medical Code(s): G62.9 - Polyneuropathy, unspecified (15) Acute hyponatremia: Status: Acute Category: Medical Code(s): E87.1 - Hypo-osmolality and hyponatremia Plan Mr. Ryder is a 74-year-old male with history of CKD 4, tobacco use disorder, COPD. Was recently admitted a few weeks ago for COPD exacerbation, did well and was discharged home. Follow-up with PCP and had resolution of his symptoms. Presents today with worsening shortness of breath over the past 2 to 3 days. On arrival to the ER, found to be hypoxic in the 70s necessitating supplemental oxygen. Blood gas with hypercarbia. Discussed case with ER physician, request admission for treatment of acute respiratory failure with hypercarbia and hypoxia along with concern for CHF exacerbation. I decided to admit to stepdown level of care and initiate on BiPAP. Administered 2 mg IV Bumex. Monitor output closely. Will have pulmonology and cardiology consult on patient in the morning. Necessitating inpatient care. Problems addressed as follows: Acute hypoxic and hypercapnic respiratory failure COPD with exacerbation Tobacco use disorder Suspected CHF -Per my review of CT of chest, patient has pulmonary edema in lower lung waller. Scant thin effusion on the left side. No focal consolidation or airspace disease however. White count elevated at 29. In acute distress on arrival. -Initiated on BiPAP due to O2 sats in the 70s and pCO2 of 54 with pH of 7.25 on initial VBG. Will reevaluate in 2 hours. Patient alert and oriented on exam however. -Significant wheeze on exam, initiate DuoNebs every 4 hours scheduled, budesonide twice daily. -Received methylprednisolone 125 mg IV once in the ED. Will continue 40 mg prednisone daily p.o. -Pulmonology consulted to evaluate in the morning -Comprehensive respiratory panel negative for analytes. Sputum culture pending. Blood cultures obtained -Continue broad-spectrum antibiotics with azithromycin 500 mg daily and ceftriaxone 1 g daily - Suspect HFpEF given BNP elevated at 20,000. Echo ordered for the morning. Further management pending results Chronic renal obstruction CKD 4 Chronic hydronephrosis Neurogenic bladder Hyponatremia -Urinalysis obtained with placement of Juárez catheter. Urine somewhat abnormal. Previous culture from 3 weeks ago grew strep bovis. Patient has longstanding neurogenic bladder and catheterizes himself on a regular basis. Suspect he is colonized. - Culture from 3 weeks ago was resistant to gentamicin. Ceftriaxone should have some effect on this bacteria. Will consider penicillin G or clindamycin if concern symptoms are worsening. - Creatinine 3.4, BUN 42. At patient's baseline. Sodium 125, chloride 92. Potassium 4.3. Magnesium 1.2, will replace per protocol. - Close monitoring of renal function. Will renally dose medications. Repeat CBC, CMP, magnesium ordered for the morning. - Continue oxybutynin 10 mg daily, finasteride 5 mg daily - Metabolic acidosis improving with bicarb of 21. Continue p.o. sodium bicarbonate twice daily 1300 mg Anemia: Hemoglobin 9.4, most consistent with chronic disease. Transfusion threshold hemoglobin less than 7 Chronic conditions: Stable Continue Levothyroxine 50 mcg daily for hypothyroid Continue Pantoprazole 40 mg daily for GERD Continue Carvedilol 3.125 mg twice daily for hypertension Continue Lyrica 25 mg twice daily renally dosed for neuropathy Full code Heparin subcu 3 times a day 5000 units N.p.o. while on BiPAP, regular diet thereafter
--- NOTE | 2025-06-18 14:21 | PC.NURSE ---
supervisor mold cleaning and storage contacted for bed
[2025-06-18] MEDS: AZITHROMYCIN 500 MG in 0.9 % SODIUM CHLORIDE 250 ML 250 MG IV (14:28)
[2025-06-18] MEDS: BUMETANIDE 1MG/4ML VIAL 1 MG IV ×3 (14:29→16:32)
--- NOTE | 2025-06-18 14:29 | HMH.PHAINT1 ---
Pharmacy Intervention Comments: MEDICATION RECONCILIATION COMPLETED ON PATIENT USING EXTERNAL FILL HISTORY FROM PHARMACY AND DISCHARGE SUMMARY FROM PREVIOUS ADMISSION. -ROBE PATHAK, EILEEND
[2025-06-18] MEDS: ALBUTEROL 0.083% 2.5 MG/3 ML NEB 20 MG IH (14:31)
[2025-06-18 14:37] LABS: Creatine Kinase 117 U/L (55-170)
[2025-06-18 14:40] LABS: Activated Partial Thrombo Time 39.0 seconds (22.8-30.6); INR 1.13 (0.9-1.1); Prothrombin Time 12.4 seconds (10.1-12.5)
[2025-06-18 14:41] LABS: Microscopic, Urine URINE MICROSCOPIC (MICROSCOPIC)
[2025-06-18 14:43] LABS: C-Reactive Protein 203.4 mg/L (0-4)
[2025-06-18 15:09] LABS: Bilirubin,Urine Negative (Negative); Color,Urine YELLOW (Yellow); Glucose,Urine (UA) Negative (Negative); Ketones,Urine Negative (Negative); Leukocyte Esterase,Urine Negative (Negative); PH,Urine 6.5 (5.0-8.5); Protein,Urine 2+ (Negative); Specific Gravity, Urine 1.015 (1.005-1.030); Urobilinogen,Urine 1.0 EU/dl (0.2)
[2025-06-18 15:10] LABS: Thyroid Stimulating Hormone 1.41 uIU/mL (0.465-4.68)
--- NOTE | 2025-06-18 15:10 | PC.NURSE ---
Patient brought up to ICU by Primary RN and respiratory therapist. Patient arrived to ICU at this time. Respiratory therapist and Dr. Polanco at bedside. Continuation of care plan.
--- NOTE | 2025-06-18 15:12 | PC.NURSE ---
Respiratory therapist placed patient on Bipap at this time. Continuation of care plan.
--- NOTE | 2025-06-18 15:50 | PC.NURSE ---
WOUND ON LEFT BUTTOCK. NO DRAINAGE PRESENT. OPEN TO AIR UPON ARRIVAL TO UNIT.
--- NOTE | 2025-06-18 15:53 | PC.NURSE ---
WOUND ON FOLD OF LEFT BUTTOCK. NO DRAINAGE NOTED. OPEN TO AIR UPON ARRIVAL TO UNIT.
[2025-06-18 16:04] LABS: Bacteria,Urine 1+ /lpf
[2025-06-18 16:07] LABS: Troponin I 0.03 ng/ml (0.00-0.034)
--- NOTE | 2025-06-18 17:55 | PC.NURSE ---
states to order a cardiac diet. Per , patient may be placed on Nasal cannula at this time to allow patient to eat dinner. Patient placed on 2 L NC. Patients oxygen saturation of 95% on 2 L NC. Continuation of care plan.
[2025-06-18] MEDS: BUDESONIDE 0.5MG/2ML NEB 0.5 MG IH (18:38)
[2025-06-18] MEDS: IPRATROPIUM/ALBUTEROL 3 ML NEB IH ×2 (18:38→21:09)
[2025-06-18] MEDS: SODIUM CHLORIDE 3% 15ML NEB 3 ML IH (18:45)
[2025-06-18 18:59] LABS: Lactate Venous 1.2 mmol/L (0.4-2.0); VBG HCO3 21.3 mmol/L (23-30); VBG PCO2 39.1 mmol/L (35-51); VBG PH 7.35 mmol/L (7.31-7.41); VBG PO2 96.3 mmol/L (28-40)
[2025-06-18 19:44] LABS: Troponin I 0.04 ng/ml (0.00-0.034)
[2025-06-18] MEDS: PANTOPRAZOLE 40MG TABLET 40 MG PO (20:33)
[2025-06-18] MEDS: PREGABALIN 25MG CAPSULE 25 MG PO (20:34)
[2025-06-18] MEDS: HEPARIN SODIUM 5,000 UNIT/ML VIAL 5000 UNIT SUBCUT (20:34)
[2025-06-18] MEDS: SODIUM BICARBONATE 650MG TABLET 1300 MG PO (20:34)
[2025-06-19] VITALS (18 sets, daily range): BP systolic 92–161; BP diastolic 70–87; PULSE 70–81; RESP 12–22; TEMP 36.4–36.7; O2SAT 90–100; BMI 20.7
[2025-06-19] MEDS: IPRATROPIUM/ALBUTEROL 3 ML NEB IH ×6 (01:00→21:40)
[2025-06-19] MEDS: NICOTINE 21MG/24HR PATCH 21 MG TD ×2 (04:37→16:34)
[2025-06-19] MEDS: BUDESONIDE 0.5MG/2ML NEB 0.5 MG IH (06:24)
[2025-06-19 06:33] LABS: Hematocrit 29.5 % (42.0-52.0); Hemoglobin 9.8 g/dL (14.1-18.0); Immature Granulocytes % 1.3 %; Mean Corpuscular HGB Conc 33.2 g/dL (31.8-35.4); Mean Corpuscular Hemoglobin 29.4 pg (27.0-31.2); Mean Corpuscular Volume 88.6 fl (80-94); Nucleated Red Blood Cells % 0 %; Platelet Count 158 K/mm3 (142-424); Red Blood Count 3.33 M/mm3 (4.60-6.20); Red Cell Distribution Width-SD 45.1 fL; White Blood Count 22.5 K/mm3 (4.8-10.8)
[2025-06-19 07:53] LABS: RBC Morphology Normal; Total Cells Counted 100
[2025-06-19] MEDS: DEFINITY US ECHO CONTRAST 2ML INJ 2 MG IV (08:04)
[2025-06-19] MEDS: PREGABALIN 25MG CAPSULE 25 MG PO ×2 (08:33→20:39)
[2025-06-19] MEDS: ASPIRIN EC 81MG TABLET 81 MG PO (08:33)
[2025-06-19] MEDS: LEVOTHYROXINE 50MCG (0.05MG) TAB 50 MCG PO (08:33)
[2025-06-19] MEDS: SODIUM BICARBONATE 650MG TABLET 1300 MG PO ×2 (08:34→20:39)
[2025-06-19] MEDS: HEPARIN SODIUM 5,000 UNIT/ML VIAL 5000 UNIT SUBCUT ×2 (08:34→13:10)
[2025-06-19] MEDS: FINASTERIDE 5MG TABLET 5 MG PO (08:34)
--- NOTE | 2025-06-19 08:40 | EXP.PHA.PN ---
Subjective *Date: 06/19/25 *Time: 08:40 Medical Exam Vital signs and Labs for Last 24 Hours: Vital Signs Temp Pulse Pulse Resp BP BP Pulse Ox 06/19/25 08:01 97.9 F 81 15 141/78 H 91 L 06/19/25 06:48 06/19/25 06:25 72 06/19/25 06:25 75 06/19/25 06:25 95 06/19/25 06:00 79 19 154/87 H 96 06/19/25 05:00 06/19/25 04:00 70 06/19/25 04:00 97.9 F 79 13 125/80 96 06/19/25 03:00 06/19/25 02:00 76 13 92/70 L 92 L 06/19/25 02:00 73 92 L 06/19/25 01:01 71 06/19/25 01:01 76 06/19/25 01:00 06/19/25 00:00 96 06/19/25 00:00 70 06/19/25 00:00 97.8 F 74 14 124/73 95 06/18/25 23:00 06/18/25 22:00 118/76 06/18/25 22:00 82 14 118/76 95 06/18/25 21:09 76 06/18/25 21:09 80 06/18/25 21:00 06/18/25 20:00 80 06/18/25 20:00 79 94 L 06/18/25 20:00 97.7 F 81 16 117/56 L 91 L 06/18/25 19:00 83 15 116/77 100 06/18/25 18:57 06/18/25 18:46 86 20 06/18/25 18:45 77 14 97 06/18/25 18:38 90 06/18/25 18:38 86 06/18/25 18:38 94 L 06/18/25 18:30 79 16 92 L 06/18/25 18:15 78 18 93 L 06/18/25 18:01 81 15 131/69 90 L 06/18/25 18:00 78 13 92 L 06/18/25 17:45 70 14 96 06/18/25 17:30 71 16 94 L 06/18/25 17:15 76 17 94 L 06/18/25 17:00 69 14 122/74 95 10/05/25 17:00 06/18/25 16:45 74 16 96 06/18/25 16:30 73 15 96 06/18/25 16:15 73 17 94 L 06/18/25 16:01 74 17 123/79 96 06/18/25 16:00 74 14 96 06/18/25 16:00 74 06/18/25 15:57 79 06/18/25 15:50 96 06/18/25 15:30 77 97 06/18/25 15:15 85 95 06/18/25 15:11 20 114/75 96 06/18/25 15:00 06/18/25 14:42 98.2 F 80 20 141/80 H 06/18/25 14:33 06/18/25 14:31 75 06/18/25 14:31 78 06/18/25 14:00 86 20 133/89 98 06/18/25 13:44 94 L 06/18/25 13:30 80 136/90 100 06/18/25 13:01 75 137/78 98 06/18/25 12:33 97.5 F L 79 18 112/81 73 L O2 Del Method O2 Flow Rate FiO2 06/19/25 08:01 06/19/25 06:48 Nasal Cannula 2 06/19/25 06:25 06/19/25 06:25 06/19/25 06:25 Nasal Cannula 2 06/19/25 06:00 Nasal Cannula 2 06/19/25 05:00 Nasal Cannula 2 06/19/25 04:00 06/19/25 04:00 Nasal Cannula 2 06/19/25 03:00 Nasal Cannula 2 06/19/25 02:00 Nasal Cannula 2 06/19/25 02:00 Nasal Cannula 2 06/19/25 01:01 06/19/25 01:01 06/19/25 01:00 Nasal Cannula 2 06/19/25 00:00 Nasal Cannula 2 06/19/25 00:00 06/19/25 00:00 Nasal Cannula 2 06/18/25 23:00 Nasal Cannula 2 06/18/25 22:00 06/18/25 22:00 Nasal Cannula 2 06/18/25 21:09 06/18/25 21:09 06/18/25 21:00 Nasal Cannula 2 06/18/25 20:00 06/18/25 20:00 Nasal Cannula 2 06/18/25 20:00 Nasal Cannula 2 06/18/25 19:00 Nasal Cannula 2 06/18/25 18:57 Nasal Cannula 2 06/18/25 18:46 06/18/25 18:45 Nasal Cannula 2 06/18/25 18:38 06/18/25 18:38 06/18/25 18:38 Nasal Cannula 2 06/18/25 18:30 Nasal Cannula 2 06/18/25 18:15 Nasal Cannula 2 06/18/25 18:01 Nasal Cannula 2 06/18/25 18:00 Nasal Cannula 2 06/18/25 17:45 Nasal Cannula 2 06/18/25 17:30 BiPAP 06/18/25 17:15 BiPAP 06/18/25 17:00 BiPAP 06/18/25 17:00 BiPAP 06/18/25 16:45 BiPAP 06/18/25 16:30 BiPAP 06/18/25 16:15 BiPAP 06/18/25 16:01 BiPAP 06/18/25 16:00 BiPAP 06/18/25 16:00 06/18/25 15:57 06/18/25 15:50 BiPAP 06/18/25 15:30 BiPAP 06/18/25 15:15 BiPAP 06/18/25 15:11 BiPAP 06/18/25 15:00 BiPAP 06/18/25 14:42 BiPAP 06/18/25 14:33 30 06/18/25 14:31 06/18/25 14:31 06/18/25 14:00 BiPAP 30 06/18/25 13:44 Nasal Cannula 2 06/18/25 13:30 Aerosol Mask 8 06/18/25 13:01 Aerosol Mask 8 06/18/25 12:33 Room Air Intake and Output 06/18/25 06/19/25 06/19/25 23:59 07:59 15:59 Intake Total 554 / 704 Output Total 1900 / 1900 700 / 700 Balance -1346 / -1196 -700 / -700 Intake: Intake, Oral Amount 240 / 240 Intake, Total IV Amount 314 / 464 Azithromycin 500 mg In 0.9 % 240 / 240 Sodium Chloride 250 ml @ 250 mls/hr IV Q24H [facility] Rx#:[id number] Magnesium Sulfate in Water 2 gm 74 / 74 In 50 ml @ 50 mls/hr IV Q1H [facility] Rx#:[id number] Output: Output, Urine Amount 1050 / 1050 700 / 700 Output, Urine Amount (Catheter) 850 / 850 Juárez 850 / 850 Other: Number of Unmeasured Voids 0 0 Weight 70.9 kg Patient Weight 06/19/25 23:59 Weight 70.9 kg Laboratory Results - last 24 hr 06/18/25 12:51: WBC 29.2 H*, RBC 3.15 L, Hgb 9.4 L, Hct 28.4 L, MCV 90.2, MCH 29.8, MCHC 33.1, RDW 14.4, Plt Count 148, MPV 10.2, Neut % (Auto) 92.1 H, Lymph % (Auto) 1.6 L, [place] % (Auto) 4.7, Eos % (Auto) 0.0 L, Baso % (Auto) 0.2, Neut # (Auto) 26.9 H, Lymph # (Auto) 0.5 L, [place] # (Auto) 1.4 H, Eos # (Auto) 0.0, Baso # (Auto) 0.1, Total Counted 100, Neutrophils % (Manual) 91 H, Lymphocytes % (Manual) 4 L, Monocytes % (Manual) 4, Eosinophils % (Manual) 1, Platelet Estimate Slight decrease, RBC Morphology Normal, ESR 100 H, PT 12.4, INR 1.13 H, APTT 39.0 H, D-Dimer 1.00 H, VBG pH 7.25 L, VBG pCO2 54.5 H, VBG pO2 50.7 H, VBG HCO3 23.6, VBG Total CO2 25.3, VBG O2 Saturation 81.7 H, VBG Base Excess -3.6 L, VBG Lactic Acid 1.5, Sodium 125 L, Potassium 4.3, Chloride 92 L, Carbon Dioxide 21 L, Anion Gap 16.3 H, BUN 42 H, Creatinine 3.40 H, Estimated Creat Clear 19, Estimated GFR 18 L*, Est GFR ( Amer) 22 L, Glucose 142 H, Calcium 7.7 L, Magnesium 1.2 L, Total Bilirubin 1.0, AST 25, ALT 15, Alkaline Phosphatase 118, Total Creatine Kinase 117, Troponin I 0.03, C-Reactive Protein 203.4 H, NT-Pro-B Natriuret Pep 39275 H, Total Protein 6.4, Albumin 3.6, Globulin 2.8, Albumin/Globulin Ratio 1.3, Lipase 49, TSH 1.41 06/18/25 13:26: Chlamy pneumoniae PCR Not detected, Adenovirus (PCR) Not detected, B. pertussis DNA (PCR) Not detected, Coronavirus OC43 (PCR) Not detected, Coronavirus HKU1 (PCR) Not detected, Coronavirus 229E (PCR) Not detected, SARS-CoV-2 (PCR) Not detected, Coronavirus NL63 (PCR) Not detected, Human Metapneumovir PCR Not detected, Influenza A (H1) PCR Not detected, Influ A (H1N1/09) PCR Not detected, Influenza A (H3) PCR Not detected, Influenza Type A (PCR) Not detected, Influenza Type B (PCR) Not detected, M. pneumoniae (PCR) Not detected, Parainfluenza 1 (PCR) Not detected, Parainfluenza 2 (PCR) Not detected, Parainfluenza 3 (PCR) Not detected, Parainfluenza 4 (PCR) Not detected, RSV (PCR) Not detected, Entero/Rhino (PCR) Not detected 06/18/25 14:30: Urine Color Yellow, Urine Appearance Clear, Urine pH 6.5, Ur Specific [place] 1.015, Urine Protein 2+ A, Urine Glucose (UA) Negative, Urine Ketones Negative, Urine Blood 1+ A, Urine Nitrate Negative, Urine Bilirubin Negative, Urine Urobilinogen 1.0, Ur Leukocyte Esterase Negative, Urine RBC None, Urine WBC 5-10, Ur Squamous Epith Cells 3-5, Urine Bacteria 1+ 06/18/25 15:40: Troponin I 0.03 06/18/25 18:35: VBG pH 7.35, VBG pCO2 39.1, VBG pO2 96.3 H, VBG HCO3 21.3 L, VBG Total CO2 22.5 L, VBG O2 Saturation 97.1 H, VBG Base Excess -4.2 L, VBG Lactic Acid 1.2 06/18/25 18:53: Troponin I 0.04 H 06/19/25 05:50: WBC 22.5 H*, RBC 3.33 L, Hgb 9.8 L, Hct 29.5 L, MCV 88.6, MCH 29.4, MCHC 33.2, RDW 13.9, Plt Count 158, MPV 11.0 H, Neut % (Auto) 95.2 H, Lymph % (Auto) 2.3 L, [place] % (Auto) 1.1 L, Eos % (Auto) 0.0 L, Baso % (Auto) 0.1, Neut # (Auto) 21.4 H, Lymph # (Auto) 0.5 L, [place] # (Auto) 0.2, Eos # (Auto) 0.0, Baso # (Auto) 0.0, Total Counted 100, Neutrophils % (Manual) 96 H, Band Neutrophils % 3.0, Lymphocytes % (Manual) 1 L, Platelet Estimate Normal, RBC Morphology Normal I & O for Labs for Last 24 Hours: Intake & Output 06/16/25 06/17/25 06/18/25 06/19/25 23:59 23:59 23:59 23:59 Intake Total 704 / 704 Output Total 1900 / 1900 700 / 700 Balance -1196 / -1196 -700 / -700 Weight 70.76 kg 70.9 kg Microbiology Reports for the Last 24 Hours: Microbiology 06/18/25 20:37 Sputum - Expectorated Sputum Gram Stain - Final The patient's infection will respond to the chosen ABx?: Yes (BLOOD AND SPUTUM CX PENDING, AFEBRILE OVER 24 HR) Is the patient receiving the right drug, dose, and route?: Yes Could a more targeted ABx be ordered?: No How long ABx needed (days)?: 5
[2025-06-19 08:41] LABS: Albumin Level 3.4 g/dl (3.5-5.0); Chloride 92 mmol/L (98-107); Potassium 4.1 mmoL/L (3.5-5.1); Sodium 127 mmol/L (136-145)
[2025-06-19 08:43] LABS: Alanine Aminotransferase 15 U/L (12-78); Aspartate Amino Transferase 25 U/L (17-59)
[2025-06-19 08:44] LABS: Albumin/Globulin Ratio 1.0 (1.1-1.8); Alkaline Phosphatase 112 U/L (38-126); Anion Gap 16.1 mEq/L (5-15); Bilirubin,Total 0.3 mg/dl (0.2-1.3); Calcium 8.3 mg/dl (8.4-10.2); Carbon Dioxide 23 mmol/L (22.0-30.0); Globulin 3.3 g/dL (1.3-3.2); Glucose 160 mg/dl (74-100); Magnesium 2.2 mg/dl (1.6-2.3); Total Protein,Serum 6.7 g/dl (6.3-8.2)
[2025-06-19 08:49] LABS: Blood Urea Nitrogen 47 mg/dl (9-20); Creatinine Clearance Estimated 18 mL/min (50-200); Creatinine,Serum 3.70 mg/dl (0.66-1.25); Estimated Glomerular Filt Rate 16 ml/min (>60); GFR (African American) 20 ML/MIN (>60)
--- NOTE | 2025-06-19 09:46 | EXP.PULM.CON ---
History of Present Illness History of present illness: Mr. Ryder is a 74-year-old male with significant comorbidities including renal dysfunction neuropathy hypertension presented to ER with worsening respiratory distress and pulmonary was called for further evaluation and management. [facility] Disclaimer: The information contained in this section may have been updated after the patient was seen, as this information can be updated by other users. Medical History (Updated 06/19/25 @ 16:30 by Damion Waterman MD) Acute respiratory failure with hypoxia COPD exacerbation CKD (chronic kidney disease) stage 4, GFR 15-29 ml/min History of inguinal hernia Abdominal aortic aneurysm (AAA) PAD (peripheral artery disease) Coronary artery disease Abnormal electrocardiography Systolic CHF, chronic Elevated troponin Hypotension Aortic insufficiency Mitral regurgitation Bladder outlet obstruction Personal history of nicotine dependence COPD (chronic obstructive pulmonary disease) with acute bronchitis Chronic kidney disease Pancreatitis Hidradenitis suppurativa Surgical History (Updated 06/18/25 @ 15:42 by Susie Valentin RN) H/O cataract removal with insertion of prosthetic lens History of arthroscopy of knee History of hernia surgery Family History No significant family history Social History (Updated 06/18/25 @ 15:39 by Susie Valentin RN) Smoking Status: Current every day smoker tobacco type: cigarettes packs per day: 1 second hand exposure: No alcohol intake: never substance use type: denies use current occupational status: retired Travel in the last 8 weeks?: None household members: spouse housing: house current occupational exposures/hazards: No caffeine: No Have you lived/traveled outside [place] in past 30 days?: No Contact w/someone who lives/traveled outside US past 30 days?: No Exposure to someone with infectious disease in past 14 days?: No Do you have a fever (greater than 100.4 F or 38 C)?: No Have you tested positive for COVID-19?: No Exposed to someone with COVID-19 in past 14 days?: No Do you have a sore throat?: No Do you have a cough?: Yes Do you have any weakness?: Yes Do you have any diarrhea?: No Are you experiencing any unusual bleeding?: No Do you have any muscle aches/pain?: No Do you have any abdominal pain?: No Are you experiencing loss of taste or smell?: No Review of Systems Constitutional Constitutional: Reports anorexia, Reports body ache(s) and Reports fatigue Eyes Eyes: Denies eye discharge, Denies dry eyes, Denies irritation and Denies itchy eyes ENT Ears, Nose, Mouth, and Throat: Denies epistaxis, Denies facial pain, Denies lip swelling and Denies throat swelling *Cardiovascular Cardiovascular: Reports dyspnea and Reports dyspnea on exertion *Respiratory Respiratory: Reports change in phlegm color, Reports chest congestion, Reports cough, Reports dyspnea, Reports dyspnea on exertion, Reports excessive phlegm production, Denies hemoptysis, Denies pain on inspiration, Denies pain with cough and Reports wheezing *Gastrointestinal Gastrointestinal: Denies abdominal pain, Denies belching and Denies cramping *Musculoskeletal Musculoskeletal: Reports back pain, Reports myalgias and Reports other (No small joint swelling or Pain) Psychiatric Psychiatric: Denies homicidal ideation and Denies suicidal ideation Endocrine Endocrine: Reports fatigue and Denies heat intolerance Hematologic/Lymphatic Hematologic/Lymphatic: Denies easy bleeding and Denies lymphadenopathy Allergic/Immunologic Allergic/Immunologic: Denies itchy eyes, Denies lip swelling, Denies throat swelling and Reports wheezing Pulmonology Exam Inpatient Vital signs and Labs for Last 24 Hours: Temp Pulse Resp BP Pulse Ox O2 Del Method O2 Flow Rate 97.9 F 77 15 141/78 H 91 L Nasal Cannula 2 06/19/25 08:01 06/19/25 09:40 06/19/25 08:01 06/19/25 08:01 06/19/25 08:01 06/19/25 09:00 06/19/25 09:00 FiO2 30 06/18/25 14:33 Laboratory Results - last 24 hr 06/18/25 12:51: WBC 29.2 H*, RBC 3.15 L, Hgb 9.4 L, Hct 28.4 L, MCV 90.2, MCH 29.8, MCHC 33.1, RDW 14.4, Plt Count 148, MPV 10.2, Neut % (Auto) 92.1 H, Lymph % (Auto) 1.6 L, Cuming % (Auto) 4.7, Eos % (Auto) 0.0 L, Baso % (Auto) 0.2, Neut # (Auto) 26.9 H, Lymph # (Auto) 0.5 L, Cuming # (Auto) 1.4 H, Eos # (Auto) 0.0, Baso # (Auto) 0.1, Total Counted 100, Neutrophils % (Manual) 91 H, Lymphocytes % (Manual) 4 L, Monocytes % (Manual) 4, Eosinophils % (Manual) 1, Platelet Estimate Slight decrease, RBC Morphology Normal, ESR 100 H, PT 12.4, INR 1.13 H, APTT 39.0 H, D-Dimer 1.00 H, VBG pH 7.25 L, VBG pCO2 54.5 H, VBG pO2 50.7 H, VBG HCO3 23.6, VBG Total CO2 25.3, VBG O2 Saturation 81.7 H, VBG Base Excess -3.6 L, VBG Lactic Acid 1.5, Sodium 125 L, Potassium 4.3, Chloride 92 L, Carbon Dioxide 21 L, Anion Gap 16.3 H, BUN 42 H, Creatinine 3.40 H, Estimated Creat Clear 19, Estimated GFR 18 L*, Est GFR ( Amer) 22 L, Glucose 142 H, Calcium 7.7 L, Magnesium 1.2 L, Total Bilirubin 1.0, AST 25, ALT 15, Alkaline Phosphatase 118, Total Creatine Kinase 117, Troponin I 0.03, C-Reactive Protein 203.4 H, NT-Pro-B Natriuret Pep 21384 H, Total Protein 6.4, Albumin 3.6, Globulin 2.8, Albumin/Globulin Ratio 1.3, Lipase 49, TSH 1.41 06/18/25 13:26: Chlamy pneumoniae PCR Not detected, Adenovirus (PCR) Not detected, B. pertussis DNA (PCR) Not detected, Coronavirus OC43 (PCR) Not detected, Coronavirus HKU1 (PCR) Not detected, Coronavirus 229E (PCR) Not detected, SARS-CoV-2 (PCR) Not detected, Coronavirus NL63 (PCR) Not detected, Human Metapneumovir PCR Not detected, Influenza A (H1) PCR Not detected, Influ A (H1N1/09) PCR Not detected, Influenza A (H3) PCR Not detected, Influenza Type A (PCR) Not detected, Influenza Type B (PCR) Not detected, M. pneumoniae (PCR) Not detected, Parainfluenza 1 (PCR) Not detected, Parainfluenza 2 (PCR) Not detected, Parainfluenza 3 (PCR) Not detected, Parainfluenza 4 (PCR) Not detected, RSV (PCR) Not detected, Entero/Rhino (PCR) Not detected 06/18/25 14:30: Urine Color Yellow, Urine Appearance Clear, Urine pH 6.5, Ur Specific [place] 1.015, Urine Protein 2+ A, Urine Glucose (UA) Negative, Urine Ketones Negative, Urine Blood 1+ A, Urine Nitrate Negative, Urine Bilirubin Negative, Urine Urobilinogen 1.0, Ur Leukocyte Esterase Negative, Urine RBC None, Urine WBC 5-10, Ur Squamous Epith Cells 3-5, Urine Bacteria 1+ 06/18/25 15:40: Troponin I 0.03 06/18/25 18:35: VBG pH 7.35, VBG pCO2 39.1, VBG pO2 96.3 H, VBG HCO3 21.3 L, VBG Total CO2 22.5 L, VBG O2 Saturation 97.1 H, VBG Base Excess -4.2 L, VBG Lactic Acid 1.2 06/18/25 18:53: Troponin I 0.04 H 06/19/25 05:50: WBC 22.5 H*, RBC 3.33 L, Hgb 9.8 L, Hct 29.5 L, MCV 88.6, MCH 29.4, MCHC 33.2, RDW 13.9, Plt Count 158, MPV 11.0 H, Neut % (Auto) 95.2 H, Lymph % (Auto) 2.3 L, Cuming % (Auto) 1.1 L, Eos % (Auto) 0.0 L, Baso % (Auto) 0.1, Neut # (Auto) 21.4 H, Lymph # (Auto) 0.5 L, Cuming # (Auto) 0.2, Eos # (Auto) 0.0, Baso # (Auto) 0.0, Total Counted 100, Neutrophils % (Manual) 96 H, Band Neutrophils % 3.0, Lymphocytes % (Manual) 1 L, Platelet Estimate Normal, RBC Morphology Normal, Sodium 127 L, Potassium 4.1, Chloride 92 L, Carbon Dioxide 23, Anion Gap 16.1 H, Glucose 160 H, Calcium 8.3 L, Magnesium 2.2 D, Total Bilirubin 0.3, AST 25, ALT 15, Alkaline Phosphatase 112, Total Protein 6.7, Albumin 3.4 L, Globulin 3.3 H, Albumin/Globulin Ratio 1.0 L I & O for Labs for Last 24 Hours: Intake & Output 06/16/25 06/17/25 06/18/25 06/19/25 23:59 23:59 23:59 23:59 Intake Total 704 / 704 Output Total 1900 / 1900 700 / 700 Balance -1196 / -1196 -700 / -700 Weight 156 lb 156 lb 4.924 oz Microbiology Reports for the Last 24 Hours: Microbiology 06/18/25 20:37 Sputum - Expectorated Sputum Gram Stain - Final Constitutional: Present moderate distress Head: Present normocephalic and atraumatic ENT: Present normal exam, normal oropharynx and mucous membranes moist Neck: Present normal inspection and full ROM Respiratory: Present prolonged expiratory phase, respiratory distress, wheezes, diminished air movement and able to speak in complete sentences; Absent normal respiratory effort Cardiac: Present S1/S2, Tachycardia and radial pulses present GI: Present soft and distention; Absent tenderness or guarding Skin: Present intact; Absent cyanosis or jaundice Neuro: Present alert, awake and oriented x 3 Extremities: Present normal inspection; Absent clubbing or cyanosis Psychiatric: Present normal affect and cooperative Meds Home Medications and Allergies Home Medications ?Medication ?Instructions ?Recorded ?Confirmed ?Type aspirin 81 mg tablet,delayed 81 mg PO DAILY 05/25/19 06/18/25 History release ascorbate calcium (vitamin C) 500 500 mg PO DAILY 03/27/22 06/18/25 History mg tablet carvedilol 3.125 mg tablet 3.125 mg PO BID 30 days #60 tabs 05/05/25 06/18/25 Rx fluticasone furoate 200 1 inh inhalation DAILY 30 days #60 05/05/25 06/18/25 Rx mcg-vilanterol 25 mcg/dose ea inhalation powder (Breo Ellipta) ipratropium 20 mcg-albuterol 100 2 puff inhalation BID 30 days #4 05/05/25 06/18/25 Rx mcg/actuation mist for inhalation grams (Combivent Respimat) levothyroxine 50 mcg tablet 50 mcg PO DAILY 05/30/25 06/18/25 History lovastatin 20 mg tablet 20 mg PO DAILY 05/30/25 06/18/25 History finasteride 5 mg tablet 5 mg PO DAILY 05/31/25 06/18/25 History oxybutynin chloride 10 mg 10 mg PO DAILY 05/31/25 06/18/25 History tablet,extended release 24 hr pantoprazole 40 mg tablet,delayed 40 mg PO DAILY 05/31/25 06/18/25 History release pregabalin 25 mg capsule (Lyrica) 25 mg PO BID 05/31/25 06/18/25 History sodium bicarbonate 650 mg tablet 1,300 mg (2 x 650 mg) PO BID 30 05/31/25 06/18/25 Rx days #120 tabs tizanidine 2 mg capsule (Zanaflex) 2 mg PO TIDP PRN muscle pain 30 06/01/25 06/18/25 Rx days #90 caps New Prescriptions to Start Prescriptions: Allergies Allergy/AdvReac Type Severity Reaction Status Date / Time No Known Allergies Allergy Verified 06/05/25 10:31 Results Laboratory Findings 06/19/25 05:50 06/19/25 05:50 PT/INR, D-dimer PT 12.4 seconds (10.1-12.5) 06/18/25 12:51 INR 1.13 (0.9-1.1) H 06/18/25 12:51 D-Dimer 1.00 ug/mL (0.0-0.5) H 06/18/25 12:51 Abnormal lab findings: Abnormal Labs 06/18/25 06/18/25 06/18/25 12:51 14:30 18:35 WBC 29.2 H* RBC 3.15 L Hgb 9.4 L Hct 28.4 L MPV Neut % (Auto) 92.1 H Lymph % (Auto) 1.6 L Cuming % (Auto) Eos % (Auto) 0.0 L Neut # (Auto) 26.9 H Lymph # (Auto) 0.5 L Cuming # (Auto) 1.4 H Neutrophils % (Manual) 91 H Lymphocytes % (Manual) 4 L ESR 100 H INR 1.13 H APTT 39.0 H D-Dimer 1.00 H VBG pH 7.25 L VBG pCO2 54.5 H VBG pO2 50.7 H 96.3 H VBG HCO3 21.3 L VBG Total CO2 22.5 L VBG O2 Saturation 81.7 H 97.1 H VBG Base Excess -3.6 L -4.2 L Sodium 125 L Chloride 92 L Carbon Dioxide 21 L Anion Gap 16.3 H BUN 42 H Creatinine 3.40 H Estimated GFR 18 L* Est GFR ( Amer) 22 L Glucose 142 H Calcium 7.7 L Magnesium 1.2 L Troponin I C-Reactive Protein 203.4 H NT-Pro-B Natriuret Pep 79161 H Albumin Globulin Albumin/Globulin Ratio Urine Protein 2+ A Urine Blood 1+ A 06/18/25 06/19/25 18:53 05:50 WBC 22.5 H* RBC 3.33 L Hgb 9.8 L Hct 29.5 L MPV 11.0 H Neut % (Auto) 95.2 H Lymph % (Auto) 2.3 L Cuming % (Auto) 1.1 L Eos % (Auto) 0.0 L Neut # (Auto) 21.4 H Lymph # (Auto) 0.5 L Cuming # (Auto) Neutrophils % (Manual) 96 H Lymphocytes % (Manual) 1 L ESR INR APTT D-Dimer VBG pH VBG pCO2 VBG pO2 VBG HCO3 VBG Total CO2 VBG O2 Saturation VBG Base Excess Sodium 127 L Chloride 92 L Carbon Dioxide Anion Gap 16.1 H BUN Creatinine Estimated GFR Est GFR ( Amer) Glucose 160 H Calcium 8.3 L Magnesium Troponin I 0.04 H C-Reactive Protein NT-Pro-B Natriuret Pep Albumin 3.4 L Globulin 3.3 H Albumin/Globulin Ratio 1.0 L Urine Protein Urine Blood Assessment and Plan *Assessment and plan (1) COPD exacerbation: Status: Acute Category: Medical Code(s): J44.1 - Chronic obstructive pulmonary disease with (acute) exacerbation (2) Pneumonia: Status: Acute Category: Medical Code(s): J18.9 - Pneumonia, unspecified organism (3) Acute respiratory failure with hypoxia: Status: Acute Category: Medical Code(s): J96.01 - Acute respiratory failure with hypoxia Plan Mr. Ryder is a 74-year-old male with significant comorbidities including renal dysfunction neuropathy hypertension presented to ER with worsening respiratory distress and pulmonary was called for further evaluation and management. Afebrile. Hemodynamically stable. Neutrophilic from leukocytosis, worsening. Complains of respiratory viral PCR panel negative. CT chest upon admission no dense consolidative/airspace changes. No pleural effusions. Bilateral diffuse tree-in-bud opacities predominantly in the lower lobes consider atypical infection. Chronic respiratory failure improved on subsequent blood gases. Continue to show renal dysfunction. Currently receiving antibiotics and nebulization therapies. On examination moderate respiratory distress and diffuse wheezing noted on auscultation. On 2 L saturating 95%. Plan: Continue DuoNebs every 4 hours along with Pulmicort Q12 scheduled Oxygen supplementation to maintain O2 saturation goal 90% and above Continue prednisone 40 mg oral daily Continue ceftriaxone otherwise and pending sputum culture results.
[2025-06-19] MEDS: ACETAMINOPHEN 325MG TAB 650 MG PO ×2 (09:52→16:33)
--- NOTE | 2025-06-19 10:01 | HMH.OTEV ---
OT Evaluation Rehab OT IP Evaluation Start: 06/18/25 14:36 Freq: ONCE Status: Active Protocol: Document 06/19/25 09:29 DEVONTE (Rec: 06/19/25 10:00 [facility]ENTER[facility]ray[facility] [id number]) Rehab OT IP Assessment Subjective History Pt oriented x 2 on arrival. Pt agreeable to engage in therapy evaluation. Pt admitted on 06/18/25 due to hypoxia and Renal failure. History and physical: Mr. Ryder is a 74-year-old male with significant history of renal failure about a year ago that necessitated ICU admission along with complicating sepsis. He has struggled with poor renal function since. Continues to smoke. Has history of neuropathy and hypertension. He presented to the ER today at the urging of his due to shortness of breath, cough, wheeze. States has been getting worse for the past [address] of chest obtained showing no focal consolidation. Did have elevated BNP however and was hypoxic in the 70s on arrival. Placed on nasal cannula oxygen until his VBG was obtained showing pCO2 of 54 and pH of 7.25. Will initiate BiPAP. Given empiric antibiotics with azithromycin and ceftriaxone. Will admit to stepdown for further care. Patient denies nausea and vomiting. Was recently admitted a little over 3 weeks ago for similar presentation, at that time treated for left lower lobe pneumonia. Of note, has history of neurogenic bladder and In-N-Out caths 3-4 times a day. Medicine consulted due to complexity of patient with comorbidities and high risk of decompensation. Subjective pt alert and supine in bed upon arrival. pt agreeable and willing to participate in tx session. pt able to state name, but expressed some confusion with stating his date of . pt claims prior to hospital stay that he lived with his in a two- story home where he was able to complete all ADL and IADL tasks independently. pt expressed that his no longer lets him drive and that he has not used the steps to the second floor in his home for ~ 6 months. pt stated that he did not wear oxygen or use a walker to ambulate at home prior to hospital stay. pt engaged in bed mobility and functional transfer during tx session. pt was instructed to perform supine to sit, scooting to EoB. pt completed bed mobility with Sup A. Once seated EoB pt demonstrated good static sitting balance with Sup A. pt then completed LB dressing prior to performing transfer for functional mobility. pt doffed socks and donned house slippers at EoB with Sup A, demonstrating good dynamic sitting balance. pt then performed sit to stand Min x2. pt performed functional mobility ~ 8 ft Mod x2 with therapy providing support with B UE due to poor dynamic standing balance. pt was instructed to return to EoB due to safety concerns. pt performed stand to sit EoB Min x2. Once seated EoB, pt expressed symptoms of light headedness and dizziness to therapist. pt was educated on pursed lip breathing and instructed to remain seated for ~ 2 min. pt then performed functional mobility with a rolling walker due to safety concerns with LoB. pt performed sit to stand from EoB to rolling walker with CGA. Once standing, pt demonstrated good static standing balance. pt performed functional mobility ~ 8 ft with rolling walker and CGA, demonstrating slight improvements with dynamic standing balance. pt then returned to bed to perform stand to sit transfer and required Min verbal cueing for alignment of body with bed. pt doffed house slippers at EoB with Sup A and therapy donned socks on pt. pt returned to supine in bed and was left safely with call button and all other necessities within reach. Objective Patient Orientation Person,Place,Name,Birthday Right Upper WNL Extremity Gross ROM Left Upper Extremity WNL Gross ROM Bed Mobility bed mobility-scooting,bed mobility - supine/sit Assist Level Supervision/Stand by Transfer Training Sit/Stand Transfer,Sit/Stand/Step Transfer,Sit/Stand/ Pivot Transfer Assist Level Moderate x 2 (50% assist) Decrease in No Endurance Rehab OT IP prob,goals,plan Problems Date of Evaluation: 06/19/25 OT IP Problems Bed Mobility,Transfers,Balance,Self care,Safety Rehab Potential Rehab Potential Good Equipment Needs Assistive Devices Rolling / Wheeled Walker Plan OT intervention Plan Bed Mobility,Transfers,Balance,Self care,Safety, Therapeutic Exercise OT Plan Frequency Daily Duration LOS Discharge Goals Bed Mobility Ability Standby Assistance Sit to Stand Chair Minimal x 1 (25% assist) Transfer Ability Chair Transfer Minimal x 1 (25% assist) Ability Chair Transfer Sit to/from Ambulatory Technique Chair Transfer Rolling Walker Assistive Devices Feeding Ability Assist with Tray Set Up Lower Body Dressing Standby Assistance Ability Upper Body Dressing Standby Assistance Ability Performing Toilet Minimal Assistance Hygiene Ability Overall Commode/ Minimal Assistance Toilet Transfer Ability Commode/Toilet Sit to/from Ambulatory Transfer Technique Discharge Plan OT Discharge Plan Pt will continue to be seen for OT services while at [facility]. Pt can return home with 's assistance as needed. Therapist does recommend OT evaluation upon returning home for continued skilled therapy services to increase independence. Therapist also recommends a rolling walker during functional transfers to increase safety. Continued skilled therapy is important in order for patient to improve strength, safety, endurance, ADL independence, and functional transfers to reach PLOF. Eval Complexity Eval Charge Codes 46133 - Moderate Complexity PHYSICIAN CERTIFICATION: I certify the specified therapy services for Louie Ryder are required, authorized, and reviewed every 30 days.
[2025-06-19] MEDS: BUMETANIDE 1MG/4ML VIAL 2 MG IV ×2 (10:06→15:10)
[2025-06-19] MEDS: SPIRONOLACTONE 25MG TABLET 25 MG PO (10:06)
--- NOTE | 2025-06-19 10:44 | HMH.PTEV ---
Physical Therapy Evaluation Rehab PT IP Evaluation Start: 06/18/25 14:36 Freq: ONCE Status: Active Protocol: Document 06/19/25 10:40 AIMEE (Rec: 06/19/25 10:44 AIMEE [id number]) Subjective/History History History Per H&P: Mr. Ryder is a 74-year-old male with significant history of renal failure about a year ago that necessitated ICU admission along with complicating sepsis. He has struggled with poor renal function since. Continues to smoke. Has history of neuropathy and hypertension. He presented to the ER today at the urging of his due to shortness of breath, cough, wheeze. States has been getting worse for the past [address] of chest obtained showing no focal consolidation. Did have elevated BNP however and was hypoxic in the 70s on arrival. Placed on nasal cannula oxygen until his VBG was obtained showing pCO2 of 54 and pH of 7.25. Will initiate BiPAP. Given empiric antibiotics with azithromycin and ceftriaxone. Will admit to stepdown for further care. Patient denies nausea and vomiting. Was recently admitted a little over 3 weeks ago for similar presentation, at that time treated for left lower lobe pneumonia. Of note, has history of neurogenic bladder and In-N-Out caths 3-4 times a day. Medicine consulted due to complexity of patient with comorbidities and high risk of decompensation. Subjective Subjective Pt reports he lives with his in a 2-story home with no ALANA. Pt is able to stay on the first floor. Pt normally IND with ambulation without AD use. Pt does not drive. Pt's able to provide 24/7 assistance at home. Pt does not own a RW. New diagnosis of No cancer in past 12 months? [facility] [address] How much help from another person do you currently need... Turning from your None back to your side while in a flat bed without using bedrails? Moving from lying on A little back to sitting on the side of a flat bed without using bedrails? Moving to and from a A little bed to a chair ( including a wheelchair)? Standing up from a A little chair using your arms? (e.g., wheelchair, bedside chair) Walking in hospital A little room? Climbing 3-5 steps A little with a railing? Mobility Score [address] [facility] Mobility 6 Walk 10 steps or more Mobility Calculator Rehab PT IP Eval Objective Appearance Patient Behavior Appropriate,Cooperative Patient Orientation Person,Place Difficulty following none instructions Speech Pattern Clear Ambulation Patient Able to Yes Ambulate Ambulation Observation IP General Gait Wide Based Gait Pattern Observation Ambulation Distance 25 (feet) Ambulation Assistive Rolling Walker Device Ambulation Ability Minimal x 1 (25% assist) Balance Ability to Arise Able, uses arms to help Sitting Balance Steady, safe Standing Balance Steady, wide stance Dynamic Sitting Good Balance Ability Dynamic Standing Fair Balance Ability Transfers Bed Transfer Ability Minimal x 1 (25% assist) Chair Transfer Contact Guard/Hand Hold Ability Sit to Stand Bed Contact Guard/Hand Hold Transfer Ability Rehab PT IP prob,goals,plan Problems Date of Evaluation: 06/19/25 PT IP Problems Bed Mobility,Transfers,Gait,Balance,Self care,Safety Rehab Potential Rehab Potential Good Plan PT Intervention Plan Bed Mobility,Transfers,Gait,Self care,Safety, Therapeutic Exercise Other Intervention 1-2 times Plan PT Plan Frequency Daily Duration LOS Discharge Goals Bed Transfer Ability Independent Sit to Stand Chair Independent Transfer Ability Ambulation Distance 100 (feet) Discharge Plan PT Discharge Plan Initial physical therapy evaluation performed. Patient presents below baseline at this time in functional mobility, transfers, gait, and strength. Pt would benefit from skilled PT while at [facility] to prevent further functional decline and maximize safety with mobility. Pt most appropriate to d/c home with 24/7 assistance from . PT recommending home health PT services to address deficits. PT recommending pt use RW at all times when ambulating d/t impaired dynamic standing balance. PT updated CM of pt's need for RW prior to d/ c. Eval Complexity Eval Charge Codes 55849 - Moderate Complexity PHYSICIAN CERTIFICATION: I certify the specified therapy services for Louie Ryder are required, authorized, and reviewed every 30 days.
--- NOTE | 2025-06-19 11:42 | PC.NURSE ---
attempted to call report x2, no answer. Will try again.
--- NOTE | 2025-06-19 12:01 | PC.NURSE ---
pt left the unit with MANAS Thomson to go to the med surg floor
--- NOTE | 2025-06-19 12:04 | PC.NURSE ---
notified that patient moved to [facility] surg
[2025-06-19] MEDS: AZITHROMYCIN 500 MG in 0.9 % SODIUM CHLORIDE 250 ML 250 MG IV (13:38)
--- NOTE | 2025-06-19 14:22 | CA_ITS ---
APPROVED REPORT EXAM: Comprehensive 2D, Doppler, and color-flow Echocardiogram with contrast [employer] Gas: Neli Julien CRT Ht: 6 ft 1 in Wt: 156lbs BSA: 1.94 BP: 136/90 mmHg Indications: COPD, Shortness of Breath, Hypertension/HDD, AAA, CAD, AI, MR, mild Definity given, TDE pt up in bed on back due to SOB, lung interference, audible wheezing and coughing thru out exam Echo Enhancing Agent Indication: Endocardial border delineation Agent(s) / Amount(s) Used: Definity 2 cc Comments: Definity given M-Mode Dimensions RVDd 3.18 cm (0.9-2.6) LA Diam 3.49 cm (1.9-4.0) LVDd 5.98 cm (3.5-5.7) LVDs 4.24 cm (3.5-5.7) IVSd 1.40 cm (0.6-1.1) PWd 1.27 cm (0.6-1.1) EF (Teich) 55.00% FS 29.10% EDV (Teich) 178.60 mL TAPSE 2.13 (<1.7) ESV (Teich) 80.40 mL LV Diastology E Decel Time 150 (160-240 msec) E/A Ratio 1.16 MED A' 11.80 cm/s LAT A' 12.40 cm/s Aortic Valve CARLOS Index 0.77 cm2/m2 AoV Peak Arnold. 231.0 (50-130 cm/s) AI PHT 552.00 ms AO Peak GR. 21.40 mmHg AO Mean GR. 10.50 (<5 mmHg) AO VTI 47.2 (18-25 cm) CARLOS (VTI) 1.52 (2.5-4.5 cm2) Mitral Valve MV E Max Arnold. 179.0 (40-130 cm/s) MV A Velocity 154.0 (40-130 cm/s) E/A Ratio 1.16 MV PHT 44.0 ms Tricuspid Valve TR P. Velocity 281.00 cm/s RAP Estimate 10.00 mmHg RVSP 41.70 mmHg Left Ventricle The left ventricle is severely dilated. Left ventricular systolic function is mildly reduced. There is increased left ventricular wall thickness. There is moderate hypokinesis of the inferior, inferoseptal, and inferolateral LV ruiz. Grade 1 diastolic dysfunction is present. No left ventricle thrombus noted on this study. LVEF is 40-45% Right Ventricle The right ventricle is mildly dilated. The right ventricular systolic function is mildly reduced. Atria The left atrium is mildly dilated. The right atrium is mildly dilated. There is no color Doppler evidence of interatrial shunt. Aortic Valve The aortic valve is mildly thickened. Mild aortic stenosis is present. CARLOS by continuity equation is 1.6 cm2. Peak velocity is 2.3 m/s. Mean AV gradient 11 mmHg. Max AV gradient 21 mmHg. Mild aortic regurgitation is present. Mitral Valve There is possible posterior mitral valve prolapse present. No evidence of mitral valve stenosis. At least mild MR is present. The MR jet is very eccentric and anteriorly directed. The MR jet is likely underestimated. Tricuspid Valve The tricuspid valve leaflets are thin and pliable. Trace tricuspid regurgitation. There is insufficient TR jet to estimate RVSP. Pulmonic Valve The pulmonary valve is grossly normal in structure. Trace pulmonic valve regurgitation is present. Great Vessels The aortic root is normal in size. IVC is normal in size and collapses >50% with inspiration. Pericardium There is no pericardial effusion. Other Information Study Quality: Fair Conclusion Severe LV dilation with mildly reduced LV systolic function (LVEF 40-45%). Mild RV dilation with mild reduction in RV function. Biatrial dilation. Mild (CARLOS by continuity equation is 1.6 cm2. Peak velocity is 2.3 m/s. Mean AV gradient 11 mmHg. Max AV gradient 21 mmHg). Mild AI Possible posterior MV prolapse. At least mild MR (eccentric jet, likely underestimated). Electronically signed by : Ada Davenport MD 06/19/2025 10:33:59
--- NOTE | 2025-06-19 14:27 | EXP.CARD.CON ---
History of Present Illness History of Present Illness Consult date: 06/19/25 Requesting physician: Jose Polanco Consult reason: congestive heart failure Chief complaint: SOA, CHF Additional Medical History:: 1. CAD A. [facility], 2020, occluded small RCA with [id number] collaterals. EF 45% with mild CAD in remaining vessels 2. Chronic kidney disease A. Chronic anemia in the 9-10 range. B. Creatinine in the 3-4 range over the last year with GFR 14-16 3. Neurogenic bladder A. Self cath 3-4 times per day 4. AAA A. 5.1 x 5.3, 07/03/2025 compared to 4.5 x 4.7 in 2023 5. HFrEF A. EF 45% on beta-leela B. Unable to add RODERICK/ARB/ARNI due to CKD 6. Hypothyroidism on replacement History of present illness: Mr. Ryder is a 74-year-old male with significant history of renal failure about a year ago that necessitated ICU admission along with complicating sepsis. He has struggled with poor renal function since. Continues to smoke. Has history of neuropathy and hypertension. He presented to the ER today at the urging of his due to shortness of breath, cough, wheeze. States has been getting worse for the past [address] of chest obtained showing no focal consolidation. Did have elevated BNP however and was hypoxic in the 70s on arrival. Placed on nasal cannula oxygen until his VBG was obtained showing pCO2 of 54 and pH of 7.25. Will initiate BiPAP. Given empiric antibiotics with azithromycin and ceftriaxone. Will admit to stepdown for further care. Patient denies nausea and vomiting. Was recently admitted a little over 3 weeks ago for similar presentation, at that time treated for left lower lobe pneumonia. Of note, has history of neurogenic bladder and In-N-Out caths 3-4 times a day. Medicine consulted due to complexity of patient with comorbidities and high risk of decompensation. helped supplement history. On evaluation, patient is ill-appearing. The above per Dr. Polanco Cardiology consulted to help with suspected acute on chronic HFrEF. Patient was given a total of 3 mg of Bumex since admission with only about 1 L of urine output. Symptoms are mildly improved. [facility] Disclaimer: The information contained in this section may have been updated after the patient was seen, as this information can be updated by other users. Medical History (Updated 06/19/25 @ 14:37 by KAREN Mckeon) CKD (chronic kidney disease) stage 4, GFR 15-29 ml/min History of inguinal hernia Abdominal aortic aneurysm (AAA) PAD (peripheral artery disease) Coronary artery disease Abnormal electrocardiography Systolic CHF, chronic Elevated troponin Hypotension Aortic insufficiency Mitral regurgitation Bladder outlet obstruction Personal history of nicotine dependence COPD (chronic obstructive pulmonary disease) with acute bronchitis Chronic kidney disease Pancreatitis Hidradenitis suppurativa Surgical History (Updated 06/18/25 @ 15:42 by Susie Valentin RN) H/O cataract removal with insertion of prosthetic lens History of arthroscopy of knee History of hernia surgery Family History No significant family history Social History (Updated 06/18/25 @ 15:39 by Susie Valentin RN) Smoking Status: Current every day smoker tobacco type: cigarettes packs per day: 1 second hand exposure: No alcohol intake: never substance use type: denies use current occupational status: retired Travel in the last 8 weeks?: None household members: spouse housing: house current occupational exposures/hazards: No caffeine: No Have you lived/traveled outside [place] in past 30 days?: No Contact w/someone who lives/traveled outside [place] past 30 days?: No Exposure to someone with infectious disease in past 14 days?: No Do you have a fever (greater than 100.4 F or 38 C)?: No Have you tested positive for COVID-19?: No Exposed to someone with COVID-19 in past 14 days?: No Do you have a sore throat?: No Do you have a cough?: Yes Do you have any weakness?: Yes Do you have any diarrhea?: No Are you experiencing any unusual bleeding?: No Do you have any muscle aches/pain?: No Do you have any abdominal pain?: No Are you experiencing loss of taste or smell?: No Review of Systems Review of Systems Review of systems:: pertinent systems reviewed and negative unless documented below *Cardiovascular Cardiovascular: Denies chest pain, Reports dyspnea, Reports dyspnea on exertion and Reports leg edema *Respiratory Respiratory: Reports dyspnea and Reports dyspnea on exertion Exam Data for Last 24 hours Vital signs and Labs for Last 24 Hours: Temp Pulse Resp BP Pulse Ox O2 Del Method O2 Flow Rate 97.8 F 75 18 141/76 H 100 Nasal Cannula 3 06/19/25 12:00 06/19/25 13:16 06/19/25 12:00 06/19/25 12:00 06/19/25 13:16 06/19/25 13:16 06/19/25 13:16 FiO2 30 06/18/25 14:33 Laboratory Results - last 24 hr 06/18/25 12:51: ESR 100 H, PT 12.4, INR 1.13 H, APTT 39.0 H, Total Creatine Kinase 117, C-Reactive Protein 203.4 H, TSH 1.41 06/18/25 13:26: Chlamy pneumoniae PCR Not detected, Adenovirus (PCR) Not detected, B. pertussis DNA (PCR) Not detected, Coronavirus OC43 (PCR) Not detected, Coronavirus HKU1 (PCR) Not detected, Coronavirus 229E (PCR) Not detected, SARS-CoV-2 (PCR) Not detected, Coronavirus NL63 (PCR) Not detected, Human Metapneumovir PCR Not detected, Influenza A (H1) PCR Not detected, Influ A (H1N1/09) PCR Not detected, Influenza A (H3) PCR Not detected, Influenza Type A (PCR) Not detected, Influenza Type B (PCR) Not detected, M. pneumoniae (PCR) Not detected, Parainfluenza 1 (PCR) Not detected, Parainfluenza 2 (PCR) Not detected, Parainfluenza 3 (PCR) Not detected, Parainfluenza 4 (PCR) Not detected, RSV (PCR) Not detected, Entero/Rhino (PCR) Not detected 06/18/25 14:30: Urine Color Yellow, Urine Appearance Clear, Urine pH 6.5, Ur Specific [place] 1.015, Urine Protein 2+ A, Urine Glucose (UA) Negative, Urine Ketones Negative, Urine Blood 1+ A, Urine Nitrate Negative, Urine Bilirubin Negative, Urine Urobilinogen 1.0, Ur Leukocyte Esterase Negative, Urine RBC None, Urine WBC 5-10, Ur Squamous Epith Cells 3-5, Urine Bacteria 1+ 06/18/25 15:40: Troponin I 0.03 06/18/25 18:35: VBG pH 7.35, VBG pCO2 39.1, VBG pO2 96.3 H, VBG HCO3 21.3 L, VBG Total CO2 22.5 L, VBG O2 Saturation 97.1 H, VBG Base Excess -4.2 L, VBG Lactic Acid 1.2 06/18/25 18:53: Troponin I 0.04 H 06/19/25 05:50: WBC 22.5 H*, RBC 3.33 L, Hgb 9.8 L, Hct 29.5 L, MCV 88.6, MCH 29.4, MCHC 33.2, RDW 13.9, Plt Count 158, MPV 11.0 H, Neut % (Auto) 95.2 H, Lymph % (Auto) 2.3 L, [place] % (Auto) 1.1 L, Eos % (Auto) 0.0 L, Baso % (Auto) 0.1, Neut # (Auto) 21.4 H, Lymph # (Auto) 0.5 L, [place] # (Auto) 0.2, Eos # (Auto) 0.0, Baso # (Auto) 0.0, Total Counted 100, Neutrophils % (Manual) 96 H, Band Neutrophils % 3.0, Lymphocytes % (Manual) 1 L, Platelet Estimate Normal, RBC Morphology Normal, Sodium 127 L, Potassium 4.1, Chloride 92 L, Carbon Dioxide 23, Anion Gap 16.1 H, BUN 47 H, Creatinine 3.70 H, Estimated Creat Clear 18, Estimated GFR 16 L*, Est GFR ( Amer) 20 L, Glucose 160 H, Calcium 8.3 L, Magnesium 2.2 D, Total Bilirubin 0.3, AST 25, ALT 15, Alkaline Phosphatase 112, Total Protein 6.7, Albumin 3.4 L, Globulin 3.3 H, Albumin/Globulin Ratio 1.0 L I & O for Last 24 hours: Intake & Output 06/17/25 06/18/25 06/19/25 06/20/25 11:59 11:59 11:59 11:59 Intake Total 1179 / 1179 580 / 580 Output Total 2600 / 2600 Balance -1421 / -1421 580 / 580 Weight 156 lb 4.924 oz Microbiology Reports for the Last 24 Hours: Microbiology 06/18/25 13:47 Blood Blood Culture - Preliminary NO GROWTH AFTER 24 HOURS 06/18/25 13:43 Blood Blood Culture - Preliminary NO GROWTH AFTER 24 HOURS 06/18/25 20:37 Sputum - Expectorated Sputum Gram Stain - Final Constitutional Constitutional: no acute distress *Routine Respiratory Exam Respiratory: Present decreased breath sounds, rales, wheezes and diminished air movement *Routine Cardiovascular Exam Cardiovascular: Present RRR and murmur; Absent gallop or rubs *Routine Extremities Exam Extremities: Present edema *Routine Neurological Exam Neurological: Present alert, oriented X3 and CN II-XII intact Meds Home Medications and Allergies Home Medications ?Medication ?Instructions ?Recorded ?Confirmed ?Type aspirin 81 mg tablet,delayed 81 mg PO DAILY 05/25/19 06/18/25 History release ascorbate calcium (vitamin C) 500 500 mg PO DAILY 03/27/22 06/18/25 History mg tablet carvedilol 3.125 mg tablet 3.125 mg PO BID 30 days #60 tabs 05/05/25 06/18/25 Rx fluticasone furoate 200 1 inh inhalation DAILY 30 days #60 05/05/25 06/18/25 Rx mcg-vilanterol 25 mcg/dose ea inhalation powder (Breo Ellipta) ipratropium 20 mcg-albuterol 100 2 puff inhalation BID 30 days #4 05/05/25 06/18/25 Rx mcg/actuation mist for inhalation grams (Combivent Respimat) levothyroxine 50 mcg tablet 50 mcg PO DAILY 05/30/25 06/18/25 History lovastatin 20 mg tablet 20 mg PO DAILY 05/30/25 06/18/25 History finasteride 5 mg tablet 5 mg PO DAILY 05/31/25 06/18/25 History oxybutynin chloride 10 mg 10 mg PO DAILY 05/31/25 06/18/25 History tablet,extended release 24 hr pantoprazole 40 mg tablet,delayed 40 mg PO DAILY 05/31/25 06/18/25 History release pregabalin 25 mg capsule (Lyrica) 25 mg PO BID 05/31/25 06/18/25 History sodium bicarbonate 650 mg tablet 1,300 mg (2 x 650 mg) PO BID 30 05/31/25 06/18/25 Rx days #120 tabs tizanidine 2 mg capsule (Zanaflex) 2 mg PO TIDP PRN muscle pain 30 06/01/25 06/18/25 Rx days #90 caps New Prescriptions to Start Prescriptions: Allergies Allergy/AdvReac Type Severity Reaction Status Date / Time No Known Allergies Allergy Verified 06/05/25 10:31 Assessment and Plan *Assessment and plan (1) Acute respiratory failure with hypoxia and hypercarbia: Status: Acute Category: Medical Code(s): J96.01 - Acute respiratory failure with hypoxia; J96.02 - Acute respiratory failure with hypercapnia (2) Acute hypercapnic respiratory failure: Status: Acute Category: Medical Code(s): J96.02 - Acute respiratory failure with hypercapnia (3) Acute on chronic heart failure with mildly reduced ejection fraction (HFmrEF, 41-49%): Status: Acute Category: Medical Code(s): I50.23 - Acute on chronic systolic (congestive) heart failure (4) CKD (chronic kidney disease) stage 4, GFR 15-29 ml/min: Status: Acute Category: Medical Code(s): N18.4 - Chronic kidney disease, stage 4 (severe) (5) COPD (chronic obstructive pulmonary disease) with acute bronchitis: Status: Chronic Category: Medical Code(s): J44.0 - Chronic obstructive pulmonary disease with (acute) lower respiratory infection; J20.9 - Acute bronchitis, unspecified (6) Coronary artery disease: Problem Comment: Medical mgt JUN 2021 Status: Chronic Qualifiers: Coronary Disease-Associated Artery/Lesion type: [place] artery [place] vs. transplanted heart: [place] heart Associated angina: with stable angina Qualified Code(s): I25.118 - Atherosclerotic heart disease of [place] coronary artery with other forms of angina pectoris Category: Medical Code(s): I25.10 - Atherosclerotic heart disease of [place] coronary artery without angina pectoris (7) Abdominal aortic aneurysm (AAA): Status: Chronic Qualifiers: Presence of rupture: without rupture Qualified Code(s): I71.4 - Abdominal aortic aneurysm, without rupture Category: Medical Code(s): I71.40 - Abdominal aortic aneurysm, without rupture, unspecified Plan 1. Acute on chronic HFmrEF -Echo shows EF 40-45% but with severely enlarged LV compared to previous echo in 2020 -Will need additional diuretics but cautiously due to hyponatremia and CKD -BNP -Unable to add RODERICK/ARB/ARNI or spironolactone due to CKD stage IV -Unable to add SGLT2 inhibitor due to recurrent UTIs/urosepsis 2. Acute respiratory failure with hypoxia and hypercarbia in a background of COPD -Improved with supplemental oxygen -Patient continues to smoke 3. CKD, stage IV -Creatinine 3.7 with GFR of 16 4. CAD -Isolated troponin of 0.04 -On aspirin, statin and carvedilol therapy 5. Abdominal aortic aneurysm, 5.1 x 5.3 cm increased since 2023 study -Patient thinks he has an appointment to see vascular surgery later this month 6. Hyponatremia with sodium 125-127 7. Elevated sed rate of 100 and CRP of 203.4 8. Neurogenic bladder with self cath 3-4 times per day Would give bumex 2 mg BID for additional diuresis while monitoring sodium and CKD. Would recommend cardiac cath but due to CKD this would be high risk for proceeding to dialysis. If not improved tomorrow then consider transfer to tertiary center with nephrology and vascular availability.
--- NOTE | 2025-06-19 15:12 | EXP.PN ---
Subjective *Date: 06/19/25 *Time: 15:44 Interval history: Patient was having increased work of breathing this morning, diffuse moderate wheezing. Continues to have lower extremity edema. Denies chest pain. Will increase diuresis, continue breathing treatments and antibiotics. Exam Data for Last 24 hours Vital signs and Labs for Last 24 Hours: Temp Pulse Resp BP Pulse Ox O2 Del Method O2 Flow Rate 97.8 F 75 18 141/76 H 100 Room Air 3 06/19/25 12:00 06/19/25 13:16 06/19/25 12:00 06/19/25 12:00 06/19/25 13:16 06/19/25 14:48 06/19/25 13:16 FiO2 30 06/18/25 14:33 Laboratory Results - last 24 hr 06/18/25 12:51: ESR 100 H, TSH 1.41 06/18/25 13:26: Chlamy pneumoniae PCR Not detected, Adenovirus (PCR) Not detected, B. pertussis DNA (PCR) Not detected, Coronavirus OC43 (PCR) Not detected, Coronavirus HKU1 (PCR) Not detected, Coronavirus 229E (PCR) Not detected, SARS-CoV-2 (PCR) Not detected, Coronavirus NL63 (PCR) Not detected, Human Metapneumovir PCR Not detected, Influenza A (H1) PCR Not detected, Influ A (H1N1/09) PCR Not detected, Influenza A (H3) PCR Not detected, Influenza Type A (PCR) Not detected, Influenza Type B (PCR) Not detected, M. pneumoniae (PCR) Not detected, Parainfluenza 1 (PCR) Not detected, Parainfluenza 2 (PCR) Not detected, Parainfluenza 3 (PCR) Not detected, Parainfluenza 4 (PCR) Not detected, RSV (PCR) Not detected, Entero/Rhino (PCR) Not detected 06/18/25 14:30: Urine Color Yellow, Urine Appearance Clear, Urine pH 6.5, Ur Specific [place] 1.015, Urine Protein 2+ A, Urine Glucose (UA) Negative, Urine Ketones Negative, Urine Blood 1+ A, Urine Nitrate Negative, Urine Bilirubin Negative, Urine Urobilinogen 1.0, Ur Leukocyte Esterase Negative, Urine RBC None, Urine WBC 5-10, Ur Squamous Epith Cells 3-5, Urine Bacteria 1+ 06/18/25 15:40: Troponin I 0.03 06/18/25 18:35: VBG pH 7.35, VBG pCO2 39.1, VBG pO2 96.3 H, VBG HCO3 21.3 L, VBG Total CO2 22.5 L, VBG O2 Saturation 97.1 H, VBG Base Excess -4.2 L, VBG Lactic Acid 1.2 06/18/25 18:53: Troponin I 0.04 H 06/19/25 05:50: WBC 22.5 H*, RBC 3.33 L, Hgb 9.8 L, Hct 29.5 L, MCV 88.6, MCH 29.4, MCHC 33.2, RDW 13.9, Plt Count 158, MPV 11.0 H, Neut % (Auto) 95.2 H, Lymph % (Auto) 2.3 L, [place] % (Auto) 1.1 L, Eos % (Auto) 0.0 L, Baso % (Auto) 0.1, Neut # (Auto) 21.4 H, Lymph # (Auto) 0.5 L, [place] # (Auto) 0.2, Eos # (Auto) 0.0, Baso # (Auto) 0.0, Total Counted 100, Neutrophils % (Manual) 96 H, Band Neutrophils % 3.0, Lymphocytes % (Manual) 1 L, Platelet Estimate Normal, RBC Morphology Normal, Sodium 127 L, Potassium 4.1, Chloride 92 L, Carbon Dioxide 23, Anion Gap 16.1 H, BUN 47 H, Creatinine 3.70 H, Estimated Creat Clear 18, Estimated GFR 16 L*, Est GFR ( Amer) 20 L, Glucose 160 H, Calcium 8.3 L, Magnesium 2.2 D, Total Bilirubin 0.3, AST 25, ALT 15, Alkaline Phosphatase 112, Total Protein 6.7, Albumin 3.4 L, Globulin 3.3 H, Albumin/Globulin Ratio 1.0 L I & O for Last 24 hours: Intake & Output 06/16/25 06/17/25 06/18/25 06/19/25 23:59 23:59 23:59 23:59 Intake Total 704 / 704 1055 / 1055 Output Total 1900 / 1900 1350 / 1350 Balance -1196 / -1196 -295 / -295 Weight 70.76 kg 70.9 kg Microbiology Reports for the Last 24 Hours: Microbiology 06/18/25 13:47 Blood Blood Culture - Preliminary NO GROWTH AFTER 24 HOURS 06/18/25 13:43 Blood Blood Culture - Preliminary NO GROWTH AFTER 24 HOURS 06/18/25 20:37 Sputum - Expectorated Sputum Gram Stain - Final Constitutional Constitutional: mild distress and chronically ill appearing *Routine HEENT Exam Head: Present normocephalic Eye: Present EOMI and PERRL ENT: Present mucous membranes moist *Routine Neck Exam Neck: Present supple; Absent lymphadenopathy *Routine Respiratory Exam Respiratory: Present wheezes and diminished air movement; Absent CTA bilaterally *Routine Cardiovascular Exam Cardiovascular: Present RRR *Routine Abdominal Exam Abdominal: Present soft and normoactive bowel sounds; Absent tenderness *Routine Extremities Exam Extremities: Present edema; Absent cyanosis or clubbing *Routine Skin Exam Skin: Present warm; Absent rash *Routine Neurological Exam Neurological: Present alert and oriented X3 Assessment and Plan *Assessment and plan (1) CKD (chronic kidney disease) stage 4, GFR 15-29 ml/min: Status: Acute Category: Medical Code(s): N18.4 - Chronic kidney disease, stage 4 (severe) (2) Neurogenic bladder: Status: Acute Category: Medical Code(s): N31.9 - Neuromuscular dysfunction of bladder, unspecified (3) Obstructive uropathy: Status: Acute Category: Medical Code(s): N13.9 - Obstructive and reflux uropathy, unspecified (4) CHF (congestive heart failure): Status: Acute Category: Medical Code(s): I50.9 - Heart failure, unspecified (5) Acute respiratory failure with hypoxia and hypercarbia: Status: Acute Category: Medical Code(s): J96.01 - Acute respiratory failure with hypoxia; J96.02 - Acute respiratory failure with hypercapnia (6) Hidradenitis suppurativa: Problem Comment: Hidradenitis alone bilateral buttock and upper thigh region. No visible abscess Status: Acute Category: Medical Code(s): L73.2 - Hidradenitis suppurativa (7) Abdominal aortic aneurysm (AAA): Status: Chronic Qualifiers: Presence of rupture: without rupture Qualified Code(s): I71.4 - Abdominal aortic aneurysm, without rupture Category: Medical Code(s): I71.40 - Abdominal aortic aneurysm, without rupture, unspecified (8) PAD (peripheral artery disease): Status: Chronic Category: Medical Code(s): I73.9 - Peripheral vascular disease, unspecified (9) Tobacco abuse: Status: Acute Category: Medical Code(s): Z72.0 - Tobacco use (10) LLL pneumonia: Status: Acute Category: Medical Code(s): J18.9 - Pneumonia, unspecified organism (11) UTI (urinary tract infection): Status: Acute Category: Medical Code(s): N39.0 - Urinary tract infection, site not specified (12) COPD (chronic obstructive pulmonary disease) with acute bronchitis: Status: Chronic Category: Medical Code(s): J44.0 - Chronic obstructive pulmonary disease with (acute) lower respiratory infection; J20.9 - Acute bronchitis, unspecified (13) Bladder outlet obstruction: Status: Chronic Category: Medical Code(s): N32.0 - Bladder-neck obstruction (14) Neuropathy: Status: Acute Category: Medical Code(s): G62.9 - Polyneuropathy, unspecified (15) Acute hyponatremia: Status: Acute Category: Medical Code(s): E87.1 - Hypo-osmolality and hyponatremia Plan Mr. Ryder is a 74-year-old male with history of CKD 4, tobacco use disorder, COPD presented with shortness of breath and has been admitted for COPD exacerbation, HFrEF exacerbation #Acute hypoxic, hypercapnic respiratory failure ? Sequela of community-acquired pneumonia, COPD and HFpEF exacerbation. See separate problems below. ? Currently requiring 3 L nasal cannula, wean as tolerated. Baseline room air. #HFrEF exacerbation #Pulmonary edema #CAD #NSTEMI type II ? Presented with shortness of breath, with lower extremity edema and pelvic ascites, initial BNP 20,400. Troponin peaked at 0.04, EKG without acute ischemic changes. ? ECHO 06/19/2025 revealed LVEF 40 to 45%, mild RV dilatation with reduction in RV function, mild aortic stenosis, biatrial dilation. ? Started Bumex 2 mg twice daily, spironolactone 25 mg. Follow-up urine output, renal function, electrolytes. ? Continue aspirin, statin, carvedilol 3.125 mg twice daily. ? Cardiology consulted, recommended continuing diuresis. Advised against RODERICK/ARB/ARNI due to advanced CKD, SGLT2i due to recurrent sepsis from UTI. ? Cardiac diet, fluid and restriction. ? Follow-up morning CMP, magnesium. #COPD exacerbation #Community-acquired pneumonia #Tobacco use disorder ? Per my review of CT of chest, patient has pulmonary edema in lower lung waller. Scant thin effusion on the left side. No focal consolidation or airspace disease however. Initial white count elevated at 29. In acute distress on arrival. ? Initial VBG showed significant hypercapnic respiratory failure, improved with BiPAP therapy and weaned to 3 L nasal cannula. ? CT chest 06/18/2025 revealed bilateral lower lobe bronchopneumonia. Respiratory panel normal. ? WBC improved to 22.5, CRP up to 225 today. Procalcitonin normal. Will continue to monitor. ? Continue DuoNebs every 4 hours, Pulmicort twice daily. ? Continue prednisone 40 mg daily. ? Continue ceftriaxone, azithromycin day 10/19. ? Patient continues to have significant wheezing on exam. HFrEF is likely contributing, increase diuresis today. ? Pulmonology consulted, agree with plan of care. ? Follow-up sputum, blood cultures. Chronic renal obstruction CKD 4 Chronic hydronephrosis Neurogenic bladder Hyponatremia - Urinalysis obtained with placement of Juárez catheter. Urine somewhat abnormal. Previous culture from 3 weeks ago grew strep bovis. Patient has longstanding neurogenic bladder and catheterizes himself on a regular basis. Suspect he is colonized. - Culture from 3 weeks ago was resistant to gentamicin. Ceftriaxone should have some effect on this bacteria. Will consider penicillin G or clindamycin if concern symptoms are worsening. - Creatinine 3.7, GFR 16. Around baseline. - Close monitoring of renal function. Will renally dose medications. Repeat CBC, CMP, magnesium ordered for the morning. - Continue oxybutynin 10 mg daily, finasteride 5 mg daily AAA ? Stable infrarenal abdominal aortic aneurysm measures 5.1 x 5.5 cm, extending to the bifurcation on CT abdomen on admission. ? Continue close monitoring of blood pressures, recommended smoking cessation. ? Will refer to cardiology on discharge. Anemia: Hemoglobin 9.8, most consistent with chronic disease. Transfusion threshold hemoglobin less than 7 Chronic conditions: Stable Continue Levothyroxine 50 mcg daily for hypothyroid. TFT stable. Continue Pantoprazole 40 mg daily for GERD Continue Carvedilol 3.125 mg twice daily for hypertension Continue Lyrica 25 mg twice daily renally dosed for neuropathy Full code Lovenox 30 mg #Cardiac diet
[2025-06-19 15:21] LABS: C-Reactive Protein 225.5 mg/L (0-4)
[2025-06-19 15:32] LABS: Procalcitonin 0.342 ng/mL (0.0-2.0)
--- NOTE | 2025-06-19 18:38 | PC.NURSE ---
aox4, tolerating room air well. moves around independently in room.
[2025-06-19] MEDS: PANTOPRAZOLE 40MG TABLET 40 MG PO (20:39)
--- NOTE | 2025-06-19 22:08 | PC.NURSE ---
Addendum entered by Rosy Parker RN 06/20/25 00:56: *See provider notification intervention for 00:45. Addendum entered by Rosy Parker RN 06/20/25 00:10: Multiple attempts of reorientation were made by nursing staff. Patient was also educated about the significance of pulse oximetry, telemetry leads, Juárez catheter, importance of hospital stay, etc. Patient skeptic but cooperative at this time. Addendum entered by Rosy Parker RN 06/20/25 00:05: Patient remains resting upright in bed. Respirations are even and unlabored with scattered audible wheezing heard. Addendum entered by Rosy Parker RN 06/19/25 23:49: VBG obtained/resulted at 22:12. No new orders obtained. Increased irritability and confusion is ongoing. Upon initial assessment (since around 20:00), the patient was disoriented to place and situation; thus far, he remains disoriented to place and situation. Patient remains alert to self. He expresses awareness of being in a hospital, but his orientation would flip to thinking [he] was at home, and he had to go to the kitchen. Questions about whereabouts of , removing the Juárez catheter before bedtime, and whereabouts of Haja were also made. Patient became quite agitated around 23:30, has attempted to remove telemetry leads and oxygen device, and also made multiple attempts to get out of bed unassisted. Ernesto Alfonso MD was notified at 23:33 about the patient's increasing agitation. A one time order for Haloperidol 1 mg IV PRN (for agitation) was obtained and administered per NOV. Patient is currently resting upright in bed. Nasal cannula (requiring 2 L to 3 L) remains in place. Bed alarm on. Call light within reach. Original Note: notified hospitalist of patients confusion, irritability and current oxygen requirements of 3L NC - obtaining a VBG.
[2025-06-19 22:18] LABS: Lactate Venous 1.2 mmol/L (0.4-2.0); VBG HCO3 24.1 mmol/L (23-30); VBG PCO2 44.6 mmol/L (35-51); VBG PH 7.35 mmol/L (7.31-7.41); VBG PO2 42.3 mmol/L (28-40)
[2025-06-19] MEDS: HALOPERIDOL LACTATE 5 MG/ML VIAL 1 MG IV (23:45)
[2025-06-20] VITALS (25 sets, daily range): BP systolic 128–164; BP diastolic 85–100; PULSE 71–92; RESP 13–28; TEMP 36.4–36.9; O2SAT 91–98; BMI 20.9; BMI 21.2
[2025-06-20] MEDS: IPRATROPIUM/ALBUTEROL 3 ML NEB IH ×6 (01:45→22:09)
--- NOTE | 2025-06-20 04:25 | PC.NURSE ---
Patient is alert to self, remains disoriented to place and situation. Attempted to contact multiple times this shift (also per patient request) but was unable to reach her or leave a voicemail each time. He was observed to be awake throughout the majority of the night; did have a resting period (eyes closed) from approximately 01:00 to 04:00. Patient has pulled his telemetry leads off multiple times this shift despite education about the mechanism and importance of telemetry monitoring. Patient ended up refusing pulse ox placement after midnight. Patient refused vital sign assessment for 04:00 this shift. Haloperidol was given per MAR for agitation, and Benadryl was given per MAR for sleep aid. Scheduled medications and breathing treatments (given by RTs) were administered per MAR as well. Smoking policy reiterated to patient this morning (patient stated that he wanted to go outside to smoke, nursing staff explained smoking policy, nicotine patch to left outer arm intact). Remains on 3 L of oxygen via nasal cannula. Expiratory wheezing and diminished lung sounds were heard upon auscultation; also has scattered audible wheezing and a loose, wheezy, productive cough. Mild swelling (+1) noted to bilateral lower extremities; elevation of legs with a pillow was encouraged. Patient self-turns in bed without difficulties. Ambulates with assistance as needed. Juárez catheter remains intact; urine output documented accordingly (see I&O documentation). Urine appearance transparent and yellow in color. Patient is unsure of when last bowel movement occurred. Skin issues documented in biophysical for this shift. At this time, the patient is resting in bed without any further complaints. Reorientation ongoing. Bed alarm on. Call light within reach.
[2025-06-20] MEDS: LEVOTHYROXINE 50MCG (0.05MG) TAB 50 MCG PO (06:19)
[2025-06-20 06:20] LABS: Hematocrit 29.8 % (42.0-52.0); Hemoglobin 9.7 g/dL (14.1-18.0); Immature Granulocytes % 1.4 %; Mean Corpuscular HGB Conc 32.6 g/dL (31.8-35.4); Mean Corpuscular Hemoglobin 29.0 pg (27.0-31.2); Mean Corpuscular Volume 89.2 fl (80-94); Nucleated Red Blood Cells % 0 %; Platelet Count 193 K/mm3 (142-424); Red Blood Count 3.34 M/mm3 (4.60-6.20); Red Cell Distribution Width-SD 46.4 fL; White Blood Count 24.3 K/mm3 (4.8-10.8)
[2025-06-20] MEDS: BUDESONIDE 0.5MG/2ML NEB 0.5 MG IH ×2 (06:24→18:13)
[2025-06-20 06:28] LABS: Albumin Level 3.2 g/dl (3.5-5.0); Chloride 90 mmol/L (98-107)
[2025-06-20 06:29] LABS: Potassium 4.1 mmoL/L (3.5-5.1); Sodium 128 mmol/L (136-145)
[2025-06-20 06:31] LABS: Alanine Aminotransferase 14 U/L (12-78); Albumin/Globulin Ratio 1.0 (1.1-1.8); Anion Gap 15.1 mEq/L (5-15); Aspartate Amino Transferase 24 U/L (17-59); Carbon Dioxide 27 mmol/L (22.0-30.0); Globulin 3.2 g/dL (1.3-3.2); Total Protein,Serum 6.4 g/dl (6.3-8.2)
[2025-06-20 06:32] LABS: Alkaline Phosphatase 105 U/L (38-126); Calcium 8.3 mg/dl (8.4-10.2); Glucose 133 mg/dl (74-100); Magnesium 2.0 mg/dl (1.6-2.3)
[2025-06-20 06:56] LABS: Bilirubin,Total 0.1 mg/dl (0.2-1.3)
[2025-06-20 07:35] LABS: Blood Urea Nitrogen 51 mg/dl (9-20); Creatinine Clearance Estimated 18 mL/min (50-200); Creatinine,Serum 3.70 mg/dl (0.66-1.25); Estimated Glomerular Filt Rate 16 ml/min (>60); GFR (African American) 20 ML/MIN (>60)
[2025-06-20 07:50] LABS: RBC Morphology Normal; Total Cells Counted 100
[2025-06-20 08:21] LABS: C-Reactive Protein 106.5 mg/L (0-4)
[2025-06-20] MEDS: PREGABALIN 25MG CAPSULE 25 MG PO ×2 (09:42→21:15)
[2025-06-20] MEDS: FINASTERIDE 5MG TABLET 5 MG PO (09:43)
[2025-06-20] MEDS: SODIUM BICARBONATE 650MG TABLET 1300 MG PO ×2 (09:43→21:15)
[2025-06-20] MEDS: BUMETANIDE 1MG/4ML VIAL 2 MG IV ×2 (09:43→17:13)
[2025-06-20] MEDS: ASPIRIN EC 81MG TABLET 81 MG PO (09:44)
[2025-06-20] MEDS: SPIRONOLACTONE 25MG TABLET 25 MG PO (09:44)
--- NOTE | 2025-06-20 09:48 | P.PN_ITS ---
Subjective *Date: 06/20/25 *Time: 11:04 Interval history: Patient denies any new respiratory complaints Pulmonology Exam Inpatient Vital signs and Labs for Last 24 Hours: Temp Pulse Resp BP Pulse Ox O2 Del Method O2 Flow Rate 97.6 F 92 H 18 158/92 H 98 Nasal Cannula 2 06/20/25 00:00 06/20/25 08:00 06/20/25 08:00 06/20/25 08:00 06/20/25 08:00 06/20/25 08:00 06/20/25 08:00 FiO2 30 06/18/25 14:33 Laboratory Results - last 24 hr 06/19/25 05:50: BUN 47 H, Creatinine 3.70 H, Estimated Creat Clear 18, Estimated GFR 16 L*, Est GFR ( Amer) 20 L, C-Reactive Protein 225.5 H, Procalcitonin 0.342 06/19/25 22:12: VBG pH 7.35, VBG pCO2 44.6, VBG pO2 42.3 H, VBG HCO3 24.1, VBG Total CO2 25.5, VBG O2 Saturation 75.0 H, VBG Base Excess -1.5, VBG Lactic Acid 1.2 06/20/25 05:30: WBC 24.3 H*, RBC 3.34 L, Hgb 9.7 L, Hct 29.8 L, MCV 89.2, MCH 29.0, MCHC 32.6, RDW 14.1, Plt Count 193, MPV 11.1 H, Neut % (Auto) 92.0 H, Lymph % (Auto) 3.0 L, [place] % (Auto) 3.5, Eos % (Auto) 0.0 L, Baso % (Auto) 0.1, Neut # (Auto) 22.3 H, Lymph # (Auto) 0.7, [place] # (Auto) 0.9, Eos # (Auto) 0.0, Baso # (Auto) 0.0, Total Counted 100, Neutrophils % (Manual) 93 H, Lymphocytes % (Manual) 5 L, Monocytes % (Manual) 2, Platelet Estimate Normal, RBC Morphology Normal, Sodium 128 L, Potassium 4.1, Chloride 90 L, Carbon Dioxide 27, Anion Gap 15.1 H, BUN 51 H, Creatinine 3.70 H, Estimated Creat Clear 18, Estimated GFR 16 L*, Est GFR ( Amer) 20 L, Glucose 133 H, Calcium 8.3 L, Magnesium 2.0, Total Bilirubin 0.1 L, AST 24, ALT 14, Alkaline Phosphatase 105, C-Reactive Protein 106.5 H, Total Protein 6.4, Albumin 3.2 L, Globulin 3.2, Albumin/Globulin Ratio 1.0 L Temp Pulse Resp BP Pulse Ox O2 Del Method O2 Flow Rate 97.9 F 77 15 141/78 H 91 L Nasal Cannula 2 06/19/25 08:01 06/19/25 09:40 06/19/25 08:01 06/19/25 08:01 06/19/25 08:01 06/19/25 09:00 06/19/25 09:00 FiO2 30 06/18/25 14:33 Laboratory Results - last 24 hr 06/18/25 12:51: WBC 29.2 H*, RBC 3.15 L, Hgb 9.4 L, Hct 28.4 L, MCV 90.2, MCH 29.8, MCHC 33.1, RDW 14.4, Plt Count 148, MPV 10.2, Neut % (Auto) 92.1 H, Lymph % (Auto) 1.6 L, [place] % (Auto) 4.7, Eos % (Auto) 0.0 L, Baso % (Auto) 0.2, Neut # (Auto) 26.9 H, Lymph # (Auto) 0.5 L, [place] # (Auto) 1.4 H, Eos # (Auto) 0.0, Baso # (Auto) 0.1, Total Counted 100, Neutrophils % (Manual) 91 H, Lymphocytes % (Manual) 4 L, Monocytes % (Manual) 4, Eosinophils % (Manual) 1, Platelet Estimate Slight decrease, RBC Morphology Normal, ESR 100 H, PT 12.4, INR 1.13 H, APTT 39.0 H, D-Dimer 1.00 H, VBG pH 7.25 L, VBG pCO2 54.5 H, VBG pO2 50.7 H, VBG HCO3 23.6, VBG Total CO2 25.3, VBG O2 Saturation 81.7 H, VBG Base Excess -3.6 L, VBG Lactic Acid 1.5, Sodium 125 L, Potassium 4.3, Chloride 92 L, Carbon Dioxide 21 L, Anion Gap 16.3 H, BUN 42 H, Creatinine 3.40 H, Estimated Creat Clear 19, Estimated GFR 18 L*, Est GFR ( Amer) 22 L, Glucose 142 H, Calcium 7.7 L, Magnesium 1.2 L, Total Bilirubin 1.0, AST 25, ALT 15, Alkaline Phosphatase 118, Total Creatine Kinase 117, Troponin I 0.03, C-Reactive Protein 203.4 H, NT-Pro-B Natriuret Pep 71642 H, Total Protein 6.4, Albumin 3.6, Globulin 2.8, Albumin/Globulin Ratio 1.3, Lipase 49, TSH 1.41 06/18/25 13:26: Chlamy pneumoniae PCR Not detected, Adenovirus (PCR) Not detected, B. pertussis DNA (PCR) Not detected, Coronavirus OC43 (PCR) Not detected, Coronavirus HKU1 (PCR) Not detected, Coronavirus 229E (PCR) Not detected, SARS-CoV-2 (PCR) Not detected, Coronavirus NL63 (PCR) Not detected, Human Metapneumovir PCR Not detected, Influenza A (H1) PCR Not detected, Influ A (H1N1/09) PCR Not detected, Influenza A (H3) PCR Not detected, Influenza Type A (PCR) Not detected, Influenza Type B (PCR) Not detected, M. pneumoniae (PCR) Not detected, Parainfluenza 1 (PCR) Not detected, Parainfluenza 2 (PCR) Not detected, Parainfluenza 3 (PCR) Not detected, Parainfluenza 4 (PCR) Not detected, RSV (PCR) Not detected, Entero/Rhino (PCR) Not detected 06/18/25 14:30: Urine Color Yellow, Urine Appearance Clear, Urine pH 6.5, Ur Specific [place] 1.015, Urine Protein 2+ A, Urine Glucose (UA) Negative, Urine Ketones Negative, Urine Blood 1+ A, Urine Nitrate Negative, Urine Bilirubin Negative, Urine Urobilinogen 1.0, Ur Leukocyte Esterase Negative, Urine RBC None, Urine WBC 5-10, Ur Squamous Epith Cells 3-5, Urine Bacteria 1+ 06/18/25 15:40: Troponin I 0.03 06/18/25 18:35: VBG pH 7.35, VBG pCO2 39.1, VBG pO2 96.3 H, VBG HCO3 21.3 L, VBG Total CO2 22.5 L, VBG O2 Saturation 97.1 H, VBG Base Excess -4.2 L, VBG Lactic Acid 1.2 06/18/25 18:53: Troponin I 0.04 H 06/19/25 05:50: WBC 22.5 H*, RBC 3.33 L, Hgb 9.8 L, Hct 29.5 L, MCV 88.6, MCH 29.4, MCHC 33.2, RDW 13.9, Plt Count 158, MPV 11.0 H, Neut % (Auto) 95.2 H, Lymph % (Auto) 2.3 L, [place] % (Auto) 1.1 L, Eos % (Auto) 0.0 L, Baso % (Auto) 0.1, Neut # (Auto) 21.4 H, Lymph # (Auto) 0.5 L, [place] # (Auto) 0.2, Eos # (Auto) 0.0, Baso # (Auto) 0.0, Total Counted 100, Neutrophils % (Manual) 96 H, Band Neutrophils % 3.0, Lymphocytes % (Manual) 1 L, Platelet Estimate Normal, RBC Morphology Normal, Sodium 127 L, Potassium 4.1, Chloride 92 L, Carbon Dioxide 23, Anion Gap 16.1 H, Glucose 160 H, Calcium 8.3 L, Magnesium 2.2 D, Total Bilirubin 0.3, AST 25, ALT 15, Alkaline Phosphatase 112, Total Protein 6.7, Albumin 3.4 L, Globulin 3.3 H, Albumin/Globulin Ratio 1.0 L I & O for Labs for Last 24 Hours: Intake & Output 06/17/25 06/18/25 06/19/25 06/20/25 23:59 23:59 23:59 23:59 Intake Total 704 / 704 1425 / 1991 1187 / 1187 Output Total 1899 2775 / 3175 1475 / 1475 Balance -1196 / -1196 -1350 / -1183 -288 / -288 Weight 156 lb 156 lb 4.924 oz 158 lb 3.2 oz Intake & Output 06/16/25 06/17/25 06/18/25 06/19/25 23:59 23:59 23:59 23:59 Intake Total 704 / 704 Output Total 1900 / 1900 700 / 700 Balance -1196 / -1196 -700 / -700 Weight 156 lb 156 lb 4.924 oz Microbiology Reports for the Last 24 Hours: Microbiology 06/18/25 20:37 Sputum - Expectorated Sputum Gram Stain - Final 06/18/25 20:37 Sputum - Expectorated Sputum Sputum Culture - Preliminary 06/18/25 13:47 Blood Blood Culture - Preliminary NO GROWTH AFTER 24 HOURS 06/18/25 13:43 Blood Blood Culture - Preliminary NO GROWTH AFTER 24 HOURS Microbiology 06/18/25 20:37 Sputum - Expectorated Sputum Gram Stain - Final Constitutional: Present moderate distress Head: Present normocephalic and atraumatic ENT: Present normal exam, normal oropharynx and mucous membranes moist Neck: Present normal inspection and full ROM Respiratory: Present prolonged expiratory phase, respiratory distress, wheezes and diminished air movement; Absent normal respiratory effort or able to speak in complete sentences Cardiac: Present S1/S2, Tachycardia and radial pulses present GI: Present soft and distention; Absent tenderness or guarding Skin: Present intact; Absent cyanosis or jaundice Neuro: Present alert, awake and oriented x 3 Extremities: Present normal inspection; Absent clubbing or cyanosis Psychiatric: Present normal affect and cooperative Assessment and Plan *Assessment and plan (1) COPD exacerbation: Status: Acute Category: Medical Code(s): J44.1 - Chronic obstructive pulmonary disease with (acute) exacerbation (2) Pneumonia: Status: Acute Category: Medical Code(s): J18.9 - Pneumonia, unspecified organism (3) Acute respiratory failure with hypoxia: Status: Acute Category: Medical Code(s): J96.01 - Acute respiratory failure with hypoxia Plan Mr. Ryder is a 74-year-old male with significant comorbidities including renal dysfunction neuropathy hypertension presented to ER with worsening respiratory distress and pulmonary was called for further evaluation and management. Afebrile. Hemodynamically stable. Neutrophilic from leukocytosis, worsening. Complains of respiratory viral PCR panel negative. CT chest upon admission no dense consolidative/airspace changes. No pleural effusions. Bilateral diffuse tree-in-bud opacities predominantly in the lower lobes consider atypical infection. Chronic respiratory failure improved on subsequent blood gases. Continue to show renal dysfunction. Currently receiving antibiotics and nebulization therapies. On examination moderate respiratory distress and diffuse wheezing noted on auscultation. On 2 L saturating 95%. Interval update: No acute respiratory vents overnight. Slight worsening leukocytosis. No significant improvement in wheezing. Patient became delirious overnight. Blood gas from this morning hypercarbic respiratory failure with a pH of 7.275 and pCO2 57.4. From this morning stable with normal dense consolidative/airspace changes. Sputum less than 10 WBC. No organisms seen. Plan: Initiate BiPAP therapy at 16/8 FiO2 30% and rate of 16. Follow venous blood gas in 4 hours. Continue DuoNebs every 4 hours along with Pulmicort Q12 scheduled Oxygen supplementation to maintain O2 saturation goal 90% and above Continue prednisone 40 mg oral daily Continue ceftriaxone and azithromycin.
--- NOTE | 2025-06-20 09:49 | XR_ITS ---
FINAL REPORT CLINICAL HISTORY: Hypoxia COMPARISON: 06/18/2025 FINDINGS: A single PA view of the chest was obtained. There is no prior exam for comparison. The cardiac and mediastinal silhouettes are within normal limits. Chronic increased interstitial markings are present. No focal infiltrate is noted. There is no effusion or pneumothorax. IMPRESSION: Chronic increased interstitial markings are present, without focal infiltrate. No significant changes noted since the prior exam of 06/18/2025. Reviewed, Interpreted and Dictated by Yesica Wright MD Transcribed by Celia Saha Authenticated and [facility]
--- NOTE | 2025-06-20 09:49 | SW/DCPLANNER ---
Spoke with patient regarding home health services once he is medically stable and ready for discharge. Patient stated that he is not interested in having anyone come into his home at this time and feels like he does not need them. Nehemias QUIJANO [employer] Operator
[2025-06-20 10:24] LABS: Lactate Venous 1.6 mmol/L (0.4-2.0); VBG HCO3 26.1 mmol/L (23-30); VBG PCO2 57.4 mmol/L (35-51); VBG PH 7.28 mmol/L (7.31-7.41); VBG PO2 48.4 mmol/L (28-40)
--- OUTSIDE RECORDS SUMMARY | 2025-06-20 11:44 | XMS_ITS | Clinical Summary ---
Author Organization Healthcare Address [address] [place] [address] Care Team Providers Care Washing Machine Loader Name Role Phone Unavailable Primary Care Provider Unavailabl e Encounters Date Type Department Care Team Description 06/05/2025 Orders Only [facility] [address] [place] [address] [...] Nephrology, Bone & Mineral Metabolism [address] [facility], [address] [place] [address] Maxx Cisneros MD [address] [place] [address] Health Maintenance Due Date Last Done Comments [facility]-Depression Screening 1950 [facility]-Hepatitis C Screening 1950 [facility]-/Child/Adol SDOH Screenings 1950 [facility]- SDOH Screenings 1968 [facility]-Adult SDOH Screenings 1968 [facility]-DTaP,Tdap,and Td Vaccines (1 - Tdap) 1969 CT Colonography 1995 Colonoscopy 1995 FIT-DNA 1995 FIT 1995 FOBT 1995 Sigmoidoscopy 1995 [facility]-Colorectal Cancer Screening 1995 [facility]-Zoster Vaccines (1 of 2) 2000 [id number] Vaccine (3 - season) 2025 12/06/2020, 11/08/2020 [...]
--- OUTSIDE RECORDS SUMMARY | 2025-06-20 11:44 | XMS_ITS | Patient Health Record ---
Author Organization [facility] Address [address] [facility] [address] [place] [address] Care Team Providers Care Road Freight Brake Coupler Name Role Phone Emir Almodovar Primary Care Provider Migration, Provider Unavailable Unavailable Allergies No Known Allergies Medications Medication SIG (Take, Route, Frequency, Duration) Notes Start Date End Date Status Aspirin 81 MG 1 tab(s) orally once a day; Duration: 30 day(s) Active Zinc Sulfate 220 MG ONE TAB ORALLY BID; Duration: 30 DAYS *Please review and pick correct strength-formulatio n from Q.branch options. If intended option is not shown, discontinue and re-order from Quick Search* 04/10/2020 Active Tamsulosin HCl 0.4 MG 1 cap(s) orally once a day at night; Duration: 30 days 04/01/2016 Active Senna-Docusate Sodium 50 MG-8.6 MG 2 CAP(S) ORALLY ONCE A DAY (IN THE EVENING); Duration: 30 DAY(S) *Please review and pick correct strength-formulatio n from [place] options. If intended option is not shown, [...] Status Risk Notes Problem Diabetic renal disease (997612612) Type 2 diabetes mellitus with diabetic chronic kidney disease (E11.22) Active confirmed Problem Chronic pain (36093939) Other chronic pain (G89.29) Active confirmed Problem Panlobular emphysema (0858494) Panlobular emphysema (J43.1) Active confirmed Problem Slow transit constipation (12301147) Slow transit constipation (K59.01) Active confirmed Problem Rotator cuff arthropathy of left shoulder (disorder) (65424597066600186) Other specific arthropathies, not elsewhere classified, left shoulder (M12.812) Active confirmed Problem Low back pain (904710939) Low back pain (M54.5) Active confirmed Problem Nontraumatic rupture of muscle or tendon structure of rotator cuff of left shoulder (disorder) (7920993772039041) Unspecified rotator cuff tear or rupture of left shoulder, not specified as traumatic (M75.102) Active confirmed Problem Chronic kidney disease stage 3 (disorder) (505369362) Chronic kidney disease, stage 3 (moderate) (N18.3) Active confirmed Problem Paresthesia (finding) (88301182) Paresthesia of skin (R20.2) Active confirmed Problem Nicotine dependence (20869743) Personal history of nicotine dependence (Z87.891) Active confirmed Problem Hypothyroidism (05150396) Hypothyroidism (acquired) (E03.9) Active confirmed Problem Hyperlipidemia (25159182) Hyperlipemia, 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 Problem Essential hypertension (47768001) Hypertension, essential (I10) Active confirmed Problem Tobacco abuse (0473705289) Tobacco abuse (Z72.0) Active confirmed Problem Acute exacerbation of chronic obstructive airways disease (886157150) COPD exacerbation (J44.1) Active confirmed Problem Chronic kidney disease stage 4 (824604312) Chronic kidney disease (CKD) stage G4/A2, severely decreased glomerular filtration rate (GFR) between 15-29 mL/min/1.73 square meter and albuminuria creatinine ratio between 30-299 mg/g (N18.4) Active confirmed Problem 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 (195800363401432) Coronary artery disease involving hamilton coronary artery of hamilton heart without angina pectoris (I25.10) Active confirmed Problem Lower urinary tract symptoms due to benign prostatic hypertrophy (10035274443401) Benign non-nodular prostatic hyperplasia with lower urinary tract symptoms (N40.1) Active confirmed Problem Tobacco user (318952727) Cigarette nicotine dependence without complication (F17.210) Active confirmed Problem Pulmonary nodule (572753461) Pulmonary nodule (R91.1) Active confirmed Problem Chronic obstructive pulmonary disease with acute lower respiratory infection (208691973) Bronchitis, chronic obstructive w acute bronchitis (J44.0) Active confirmed Problem Dependence on supplemental oxygen (620222406352) 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) Active confirmed Problem Hearing loss (79168058) Bilateral hearing loss, unspecified hearing loss type (H91.93) Active confirmed Problem Osteophyte of vertebra (disorder) (332270433927329) Spinal osteophytosis (M25.78) Active confirmed Problem Bladder neck obstruction (765070427) Bladder neck obstruction (N32.0) Active confirmed Problem Pressure injury of buttock stage I (disorder) (99963825121227186) Pressure injury of buttock, stage 1, unspecified laterality (L89.301) Active confirmed Problem Gastroesophageal reflux disease (486480928) Gastroesophageal reflux disease, unspecified whether esophagitis present (K21.9) Active confirmed Encounters Encounter Location Date Provider Diagnosis [facility] [address] [facility] [address] [place] [address] 12/17/2024 Provider Migration Plan Of Treatment Pending Test Test Name Order Date N-CBC 09/08/2007 X-Lipid Profile 09/08/2007 Urinalysis 09/29/2017 N-PSA 08/10/2006 N-CMP 09/08/2007 Urine Drug Screen IH 03/21/2011 N-spep 10/26/2009 N-PSA Screening 09/08/2007 Physical Therapy : Wound Care 04/17/2020 H-24 HR CREATININE 06/30/2017 H-URINE 24 HOUR FOR PROTEIN 06/30/2017 C-TESTOSTERONE 09/22/2011 C-CBC 07/26/2014 C-CBC 09/22/2011 C-CBC 03/21/2011 C-CBC 09/12/2013 C-CBC 01/03/2013 C-CMP 01/03/2013 C-CMP 04/01/2013 C-CMP 11/21/2014 C-CMP 03/28/2014 C-CMP 07/17/2015 C-CMP 03/21/2011 C-CMP 09/12/2013 C-CMP 07/26/2014 C-CMP 12/04/2020 C-CMP 07/12/2012 C-LIPID PANEL 07/12/2012 C-LIPID PANEL 12/04/2020 C-LIPID PANEL 07/26/2014 C-LIPID PANEL 09/22/2011 C-LIPID PANEL 03/21/2011 C-LIPID PANEL 09/12/2013 C-LIPID PANEL 07/17/2015 C-LIPID PANEL 11/21/2014 C-LIPID PANEL 04/01/2013 C-LIPID PANEL 01/03/2013 C-TSH 01/03/2013 C-TSH 03/28/2014 C-TSH 11/21/2014 C-TSH 07/17/2015 C-TSH 09/12/2013 C-TSH 03/21/2011 C-TSH 09/22/2011 C-TSH 07/26/2014 C-TSH [...] End Date [place] [address] [id number] Louie Soto Self - patient is the insured [facility] [place] [address] [id number] Louie Soto Self - patient is the [...]
--- OUTSIDE RECORDS SUMMARY | 2025-06-20 11:44 | XMS_ITS | Encounter Summary ---
Author Organization Healthcare Address [address] [place] [address] Care Team Providers Care Nurse Executive Name Role Phone Unavailable Primary Care Provider Unavailabl e Encounter Details Date Type Department Care Team (Late Contact Info) Description 06/05/2025 Orders Only [facility] [address] [place] [address] Maruqita Alba CARTER (acute kidney injury) ([facility]) (Primary Dx); Vitamin D insufficiency Social History [...] Description 07/05/2025 3:20 PM EDT Office Visit [facility] Nephrology, Bone & Mineral Metabolism [address] [facility], [address] [place] [address] Maxx Cisneros MD [address] [place] [address] Scheduled Orders Name Type Priority Associated Diagnoses Orde r Schedule Renal Function Panel, Plasma Lab Routine CARTER (acute kidney injury) ([facility]) Expected: 06/05/2025 (Approximate), Expires: 12/03/2026 CBC and Differential Lab Routine CARTER (acute kidney injury) ([facility]/HCC) Expected: 06/05/2025 (Approximate), Expires: 12/03/2026 Creatinine, Random, Urine Lab Routine CARTER (acute kidney injury) (CMS/HCC) Expected: 06/05/2025 (Approximate), Expires: 12/03/2026 Protein, Random, Urine with Creatinine Lab Routine CARTER (acute kidney injury) (CMS/HCC) Expected: 06/05/2025 (Approximate), Expires: 12/03/2026 Urinalysis with reflex microscopic (Culture NOT Included) Lab Routine CARTER (acute kidney injury) ([facility]) Expected: 06/05/2025 (Approximate), Expires: 12/03/2026 PTH Intact Total Lab Routine CARTER (acute kidney injury) ([facility]) Vitamin D insufficiency Expected: 06/05/2025 (Approximate), Expires: 12/03/2026 Vitamin D 25 Hydroxy Lab Routine CARTER (acute kidney injury) ([facility]) Vitamin D insufficiency Expected: 06/05/2025 (Approximate), Expires: 12/03/2026 documented as of this encounter Visit Diagnoses Diagnosis CARTER (acute kidney injury)- Primary Vitamin D insufficiency documented in this encounter
--- OUTSIDE RECORDS SUMMARY | 2025-06-20 11:44 | XMS_ITS | Encounter Summary ---
[facility] Address [address] [place] [address] Care Team Providers Care Chain Builder Loom Control Name Role Phone David Mark MD Primary Care Provider +1- [phone] Encounter Details Date Type Department Care Team (Late st Contact Info) Description 06/07/2025 Telephone [facility] CARDIOTHORACIC SURGERY [address] [address] Carole Francois, NUCLEAR REACTOR OPERATOR [address] [address] Social History Tobacco Use Types [...] Job Start Date Job End Date retired [employer] Not on file Not on file Not [...] on filedocumented in this encounter Care Teams Chain Builder Loom Control Relationship Specialty Start Date End Date David Mark MD [address] [place] [address] PCP - General Family Medicine 12/23/24 documented as of this encounter
--- OUTSIDE RECORDS SUMMARY | 2025-06-20 11:44 | XMS_ITS | Clinical Summary ---
Author Organization [facility] Address [address] [place] [address] Care Team Providers Care Patent Lawyer Name Role Phone David Mark MD Primary Care Provider +1- [phone] Allergies No known active allergies Medications albuterol [...] Type Department Care Team Description 06/07/2025 Telephone [facility] CARDIOTHORACIC SURGERY [address] [place] [address] [address] [place] [address] Carole Francois APRN from Last [...] ADVANTAGE HMO [place] MEDICA[place] QMB Care Teams Patent Lawyer Relationship Specialty Start Date End Date David Mark MD [address] [facility] [address] [place] [id number] PCP - General Family Medicine 12/23/24
--- OUTSIDE RECORDS SUMMARY | 2025-06-20 11:44 | XMS_ITS | Referral Summary ---
Author Organization [employer] ([place], [place], [place], [place]) Address [address] [place] [address] Care Team Providers Care Trucker Hand Name Role Phone Unavailable Primary Care Provider [...] your living situation today? I have a [facility] place to live 03/22/2024 Think about [...] speak a language other than Estonian at [facility]? No 03/22/2024 Do you want help with [...] of Treatment Not on file Insurance [facility] ANTH MEDIBLUE ACCESS HMO MAP Advance Directives For more information, please contact: [phone] * Full Code (Latest Code Status on File) Date Activated Date Inactivated Comments 03/22/2024 3:32 AM 03/25/2024 4:39 PM
--- OUTSIDE RECORDS SUMMARY | 2025-06-20 11:44 | XMS_ITS | Clinical Summary ---
Author Organization [employer] ([place], [place], [place], [place]) Address [address] [place] [address] Care Team Providers Care Military Technology Specialist Name Role Phone Unavailable Primary Care Provider [...] your living situation today? I have a [facility] place to live 03/22/2024 Think about [...] Do you speak a language other than French at [facility]? No 03/22/2024 Do you want help [...] 3, 04/26/2019, 07/17/2015, Additional history exists Insurance [facility][1]O MAP Advance Directives For more information, please contact: [phone] * Full Code (Latest Code Status on File) Date Activated Date Inactivated Comments 03/22/2024 3:32 AM 03/25/2024 4:39 PM
--- NOTE | 2025-06-20 12:51 | PC.NURSE ---
Pt arrived to unit at approx 1205 via staff from [facility]
[2025-06-20] MEDS: AZITHROMYCIN 500 MG in 0.9 % SODIUM CHLORIDE 250 ML 250 MG IV (14:41)
--- NOTE | 2025-06-20 14:51 | PC.NURSE ---
Notified dr Payan face to face that pt has been increasingly confused since arrival on the unit. states that pt had a rough night and his sun-downers has potentially started early r/t the dreary weather outside.
[2025-06-20 15:49] LABS: Lactate Venous 1.3 mmol/L (0.4-2.0); VBG HCO3 23.1 mmol/L (23-30); VBG PCO2 40.5 mmol/L (35-51); VBG PH 7.37 mmol/L (7.31-7.41); VBG PO2 44.0 mmol/L (28-40)
--- NOTE | 2025-06-20 16:07 | P.PN_ITS ---
Subjective Subjective Date: 06/20/25 Time: 16:07 Principal diagnosis: CHF, Resp Failure Interval history: 74-year-old white male in the ICU on BiPAP. Pleasantly confused. is present and states that this happens frequently at home. He does not use BiPAP at home. Exam Data for Last 24 hours Vital signs and Labs for Last 24 Hours: Temp Pulse Resp BP Pulse Ox O2 Del Method O2 Flow Rate 97.6 F 80 13 135/88 95 BiPAP 2 06/20/25 00:00 06/20/25 14:10 06/20/25 14:00 06/20/25 14:00 06/20/25 14:56 06/20/25 15:05 06/20/25 09:49 FiO2 21 06/20/25 14:10 Laboratory Results - last 24 hr 06/19/25 22:12: VBG pH 7.35, VBG pCO2 44.6, VBG pO2 42.3 H, VBG HCO3 24.1, VBG Total CO2 25.5, VBG O2 Saturation 75.0 H, VBG Base Excess -1.5, VBG Lactic Acid 1.2 06/20/25 05:30: WBC 24.3 H*, RBC 3.34 L, Hgb 9.7 L, Hct 29.8 L, MCV 89.2, MCH 29.0, MCHC 32.6, RDW 14.1, Plt Count 193, MPV 11.1 H, Neut % (Auto) 92.0 H, Lymph % (Auto) 3.0 L, Phillips % (Auto) 3.5, Eos % (Auto) 0.0 L, Baso % (Auto) 0.1, Neut # (Auto) 22.3 H, Lymph # (Auto) 0.7, Phillips # (Auto) 0.9, Eos # (Auto) 0.0, Baso # (Auto) 0.0, Total Counted 100, Neutrophils % (Manual) 93 H, Lymphocytes % (Manual) 5 L, Monocytes % (Manual) 2, Platelet Estimate Normal, RBC Morphology Normal, Sodium 128 L, Potassium 4.1, Chloride 90 L, Carbon Dioxide 27, Anion Gap 15.1 H, BUN 51 H, Creatinine 3.70 H, Estimated Creat Clear 18, Estimated GFR 16 L*, Est GFR ( Amer) 20 L, Glucose 133 H, Calcium 8.3 L, Magnesium 2.0, Total Bilirubin 0.1 L, AST 24, ALT 14, Alkaline Phosphatase 105, C-Reactive Protein 106.5 H, Total Protein 6.4, Albumin 3.2 L, Globulin 3.2, Albumin/Globulin Ratio 1.0 L 06/20/25 10:21: VBG pH 7.28 L, VBG pCO2 57.4 H, VBG pO2 48.4 H, VBG HCO3 26.1, VBG Total CO2 27.8 H, VBG O2 Saturation 80.6 H, VBG Base Excess -0.8, VBG Lactic Acid 1.6 06/20/25 15:26: VBG pH 7.37, VBG pCO2 40.5, VBG pO2 44.0 H, VBG HCO3 23.1, VBG Total CO2 24.3, VBG O2 Saturation 77.9 H, VBG Base Excess -2.1, VBG Lactic Acid 1.3 I & O for Last 24 hours: Intake & Output 06/18/25 06/19/25 06/20/25 06/21/25 11:59 11:59 11:59 11:59 Intake Total 1179 / 1179 2137 / 2137 100 / 100 Output Total 2600 / 2600 4350 / 4350 Balance -1421 / -1421 -2213 / -2213 100 / 100 Weight 156 lb 4.924 oz 158 lb 3.2 oz 157 lb Microbiology Reports for the Last 24 Hours: Microbiology 06/18/25 13:43 Blood Blood Culture - Preliminary NO GROWTH AFTER 48 HOURS 06/18/25 13:47 Blood Blood Culture - Preliminary NO GROWTH AFTER 48 HOURS 06/18/25 20:37 Sputum - Expectorated Sputum Gram Stain - Final 06/18/25 20:37 Sputum - Expectorated Sputum Sputum Culture - Preliminary Constitutional Constitutional: no acute distress *Routine Respiratory Exam Respiratory: Present decreased breath sounds and diminished air movement; Absent wheezes *Routine Cardiovascular Exam Cardiovascular: Present RRR; Absent murmur, gallop or rubs Progress Note: A&P Assessment and plan (1) COPD exacerbation: Status: Acute (2) Pneumonia: Status: Acute (3) Acute respiratory failure with hypoxia: Status: Acute Assessment and Plan Assessment and Plan for All Diagnoses:: 1. Acute on chronic HFmrEF -Echo shows EF 40-45% but with severely enlarged LV compared to previous echo in 2020 -Will need additional diuretics but cautiously due to hyponatremia and CKD -BNP -Unable to add RODERICK/ARB/ARNI or spironolactone due to CKD stage IV -Unable to add SGLT2 inhibitor due to recurrent UTIs/urosepsis 2. Acute respiratory failure with hypoxia and hypercarbia in a background of COPD -Setback overnight/today with confusion, likely multifactorial -Patient continues to smoke 3. CKD, stage IV -Creatinine 3.7 with GFR of 16 -chronic anemia around 9-11 4. CAD -Isolated troponin of 0.04 -On aspirin, statin and carvedilol therapy 5. Abdominal aortic aneurysm, 5.1 x 5.3 cm increased since 2023 study -Patient thinks he has an appointment to see vascular surgery later this month 6. Hyponatremia with sodium 125-127 -Na up to 128 7. Elevated sed rate of 100 and CRP of 203.4 -on prednisone this admission 8. Neurogenic bladder -self cath 3-4 times per day Diuresing well on higher dose bumex with 3.5 liters output since admission Renal functions stable Pulmonary following
[2025-06-20] MEDS: POLYETHYLENE GLYCOL 3350 17 GM PACKET 34 GM PO (17:13)
--- NOTE | 2025-06-20 17:13 | P.PN_ITS ---
Subjective *Date: 06/20/25 *Time: 17:13 Interval history: Patient feels worse today, moved to stepdown unit due to worsening wheezing/rhonchi and hypercapnia. Improved with BiPAP. Will continue to closely monitor overnight. Follow-up VBG in the morning. Exam Data for Last 24 hours Vital signs and Labs for Last 24 Hours: Temp Pulse Resp BP Pulse Ox O2 Del Method O2 Flow Rate 98.0 F 83 15 134/85 97 Room Air 2 06/20/25 16:00 06/20/25 16:00 06/20/25 16:00 06/20/25 16:00 06/20/25 16:13 06/20/25 17:08 06/20/25 09:49 FiO2 21 06/20/25 14:10 Laboratory Results - last 24 hr 06/19/25 22:12: VBG pH 7.35, VBG pCO2 44.6, VBG pO2 42.3 H, VBG HCO3 24.1, VBG Total CO2 25.5, VBG O2 Saturation 75.0 H, VBG Base Excess -1.5, VBG Lactic Acid 1.2 06/20/25 05:30: WBC 24.3 H*, RBC 3.34 L, Hgb 9.7 L, Hct 29.8 L, MCV 89.2, MCH 29.0, MCHC 32.6, RDW 14.1, Plt Count 193, MPV 11.1 H, Neut % (Auto) 92.0 H, Lymph % (Auto) 3.0 L, [place] % (Auto) 3.5, Eos % (Auto) 0.0 L, Baso % (Auto) 0.1, Neut # (Auto) 22.3 H, Lymph # (Auto) 0.7, [place] # (Auto) 0.9, Eos # (Auto) 0.0, Baso # (Auto) 0.0, Total Counted 100, Neutrophils % (Manual) 93 H, Lymphocytes % (Manual) 5 L, Monocytes % (Manual) 2, Platelet Estimate Normal, RBC Morphology Normal, Sodium 128 L, Potassium 4.1, Chloride 90 L, Carbon Dioxide 27, Anion Gap 15.1 H, BUN 51 H, Creatinine 3.70 H, Estimated Creat Clear 18, Estimated GFR 16 L*, Est GFR ( Amer) 20 L, Glucose 133 H, Calcium 8.3 L, Magnesium 2.0, Total Bilirubin 0.1 L, AST 24, ALT 14, Alkaline Phosphatase 105, C-Reactive Protein 106.5 H, Total Protein 6.4, Albumin 3.2 L, Globulin 3.2, Albumin/Globulin Ratio 1.0 L 06/20/25 10:21: VBG pH 7.28 L, VBG pCO2 57.4 H, VBG pO2 48.4 H, VBG HCO3 26.1, VBG Total CO2 27.8 H, VBG O2 Saturation 80.6 H, VBG Base Excess -0.8, VBG Lactic Acid 1.6 06/20/25 15:26: VBG pH 7.37, VBG pCO2 40.5, VBG pO2 44.0 H, VBG HCO3 23.1, VBG Total CO2 24.3, VBG O2 Saturation 77.9 H, VBG Base Excess -2.1, VBG Lactic Acid 1.3 I & O for Last 24 hours: Intake & Output 06/17/25 06/18/25 06/19/25 06/20/25 23:59 23:59 23:59 23:59 Intake Total 704 / 704 1425 / 1991 1537 / 1537 Output Total 1900 / 1900 2775 / 3175 3425 / 3425 Balance -1196 / -1196 -1350 / -1183 -1888 / -1888 Weight 70.76 kg 70.9 kg 71.214 kg Microbiology Reports for the Last 24 Hours: Microbiology 06/18/25 13:43 Blood Blood Culture - Preliminary NO GROWTH AFTER 48 HOURS 06/18/25 13:47 Blood Blood Culture - Preliminary NO GROWTH AFTER 48 HOURS 06/18/25 20:37 Sputum - Expectorated Sputum Gram Stain - Final 06/18/25 20:37 Sputum - Expectorated Sputum Sputum Culture - Preliminary Constitutional Constitutional: mild distress and chronically ill appearing *Routine HEENT Exam Head: Present normocephalic Eye: Present EOMI and PERRL ENT: Present mucous membranes moist *Routine Neck Exam Neck: Present supple; Absent lymphadenopathy *Routine Respiratory Exam Respiratory: Present rhonchi, wheezes and diminished air movement; Absent CTA bilaterally *Routine Cardiovascular Exam Cardiovascular: Present RRR *Routine Abdominal Exam Abdominal: Present soft and normoactive bowel sounds; Absent tenderness *Routine Extremities Exam Extremities: Present edema; Absent cyanosis or clubbing *Routine Skin Exam Skin: Present warm; Absent rash *Routine Neurological Exam Neurological: Present alert and oriented X3 Assessment and Plan *Assessment and plan (1) CKD (chronic kidney disease) stage 4, GFR 15-29 ml/min: Status: Acute Category: Medical Code(s): N18.4 - Chronic kidney disease, stage 4 (severe) (2) Neurogenic bladder: Status: Acute Category: Medical Code(s): N31.9 - Neuromuscular dysfunction of bladder, unspecified (3) Obstructive uropathy: Status: Acute Category: Medical Code(s): N13.9 - Obstructive and reflux uropathy, unspecified (4) CHF (congestive heart failure): Status: Acute Category: Medical Code(s): I50.9 - Heart failure, unspecified (5) Acute respiratory failure with hypoxia and hypercarbia: Status: Acute Category: Medical Code(s): J96.01 - Acute respiratory failure with hypoxia; J96.02 - Acute respiratory failure with hypercapnia (6) Hidradenitis suppurativa: Problem Comment: Hidradenitis alone bilateral buttock and upper thigh region. No visible abscess Status: Acute Category: Medical Code(s): L73.2 - Hidradenitis suppurativa (7) Abdominal aortic aneurysm (AAA): Status: Chronic Qualifiers: Presence of rupture: without rupture Qualified Code(s): I71.4 - Abdominal aortic aneurysm, without rupture Category: Medical Code(s): I71.40 - Abdominal aortic aneurysm, without rupture, unspecified (8) PAD (peripheral artery disease): Status: Chronic Category: Medical Code(s): I73.9 - Peripheral vascular disease, unspecified (9) Tobacco abuse: Status: Acute Category: Medical Code(s): Z72.0 - Tobacco use (10) LLL pneumonia: Status: Acute Category: Medical Code(s): J18.9 - Pneumonia, unspecified organism (11) UTI (urinary tract infection): Status: Acute Category: Medical Code(s): N39.0 - Urinary tract infection, site not specified (12) COPD (chronic obstructive pulmonary disease) with acute bronchitis: Status: Chronic Category: Medical Code(s): J44.0 - Chronic obstructive pulmonary disease with (acute) lower respiratory infection; J20.9 - Acute bronchitis, unspecified (13) Bladder outlet obstruction: Status: Chronic Category: Medical Code(s): N32.0 - Bladder-neck obstruction (14) Neuropathy: Status: Acute Category: Medical Code(s): G62.9 - Polyneuropathy, unspecified (15) Acute hyponatremia: Status: Acute Category: Medical Code(s): E87.1 - Hypo-osmolality and hyponatremia Plan Mr. Ryder is a 74-year-old male with history of CKD 4, tobacco use disorder, COPD presented with shortness of breath and has been admitted for COPD exacerbation, HFrEF exacerbation #Acute hypoxic, hypercapnic respiratory failure ? Sequela of community-acquired pneumonia, COPD and HFpEF exacerbation. See separate problems below. ? Currently requiring 3 L nasal cannula, wean as tolerated. Baseline room air. #HFrEF exacerbation #Pulmonary edema #CAD #NSTEMI type II ? Presented with shortness of breath, with lower extremity edema and pelvic ascites, initial BNP 20,400. Troponin peaked at 0.04, EKG without acute ischemic changes. ? ECHO 06/19/2025 revealed LVEF 40 to 45%, mild RV dilatation with reduction in RV function, mild aortic stenosis, biatrial dilation. ? Continue Bumex 2 mg twice daily, spironolactone 25 mg. Follow-up urine output, renal function, electrolytes. Net -4400 mL. Kidney function stable. ? Continue aspirin, statin, carvedilol 3.125 mg twice daily. ? Cardiology consulted, recommended continuing diuresis. Advised against RODERICK/ARB/ARNI due to advanced CKD, SGLT2i due to recurrent sepsis from UTI. ? Cardiac diet, fluid and restriction. ? Follow-up morning CMP, magnesium. #COPD exacerbation #Community-acquired pneumonia #Tobacco use disorder ? Per my review of CT of chest, patient has pulmonary edema in lower lung waller. Scant thin effusion on the left side. No focal consolidation or airspace disease however. Initial white count elevated at 29. In acute distress on arrival. ? Initial VBG showed significant hypercapnic respiratory failure, improved with BiPAP therapy and weaned to 3 L nasal cannula. ? CT chest 06/18/2025 revealed bilateral lower lobe bronchopneumonia. Respiratory panel normal. ? WBC up from 22.5-24.3, CRP down to 106.5 today. Procalcitonin normal. Will continue to monitor. ?Patient had increased work of breathing this morning, ABG showed acute hypercapnia which gradually improved with BiPAP. Moved to stepdown unit for closer monitoring. ? Continue DuoNebs every 4 hours, Pulmicort twice daily. ? Continue prednisone 40 mg daily. ? Continue ceftriaxone, azithromycin day 3/5. ? Patient continues to have significant wheezing, rhonchi on exam. HFrEF is likely contributing, continue diuresis. ? Pulmonology consulted, agree with plan of care. ? Follow-up sputum, blood cultures. Chronic renal obstruction CKD 4 Chronic hydronephrosis Neurogenic bladder Hyponatremia - Urinalysis obtained with placement of Juárez catheter. Urine somewhat abnormal. Previous culture from 3 weeks ago grew strep bovis. Patient has longstanding neurogenic bladder and catheterizes himself on a regular basis. Suspect he is colonized. - Culture from 3 weeks ago was resistant to gentamicin. Ceftriaxone should have some effect on this bacteria. Will consider penicillin G or clindamycin if concern symptoms are worsening. - Creatinine 3.7, GFR 16 today. Around baseline. - Close monitoring of renal function. Will renally dose medications. Repeat CBC, CMP, magnesium ordered for the morning. - Continue oxybutynin 10 mg daily, finasteride 5 mg daily #Constipation ? Ordered MiraLAX 34 g, lactulose 20 g once. Continue with MiraLAX 17 g daily. AAA ? Stable infrarenal abdominal aortic aneurysm measures 5.1 x 5.5 cm, extending to the bifurcation on CT abdomen on admission. ? Continue close monitoring of blood pressures, recommended smoking cessation. ? Will refer to cardiology on discharge. Anemia: Hemoglobin 9.7, most consistent with chronic disease. Transfusion threshold hemoglobin less than 7 Chronic conditions: Stable Continue Levothyroxine 50 mcg daily for hypothyroid. TFT stable. Continue Pantoprazole 40 mg daily for GERD Continue Carvedilol 3.125 mg twice daily for hypertension Continue Lyrica 25 mg twice daily renally dosed for neuropathy Full code Lovenox 30 mg Cardiac diet
[2025-06-20] MEDS: PANTOPRAZOLE 40MG TABLET 40 MG PO (21:15)
[2025-06-20] MEDS: QUETIAPINE 25MG TABLET 25 MG PO (21:40)
[2025-06-20] MEDS: HALOPERIDOL LACTATE 5 MG/ML VIAL IV (23:42)
[2025-06-20] MEDS: NICOTINE 21MG/24HR PATCH 21 MG TD (23:42)
[2025-06-21] VITALS (15 sets, daily range): BP systolic 131–174; BP diastolic 82–104; PULSE 70–100; RESP 14–23; TEMP 36.3–37.1; O2SAT 90–100; BMI 20.9
[2025-06-21 01:13] LABS: Lactate Venous 1.0 mmol/L (0.4-2.0); VBG HCO3 23.7 mmol/L (23-30); VBG PCO2 33.8 mmol/L (35-51); VBG PH 7.46 mmol/L (7.31-7.41); VBG PO2 69.7 mmol/L (28-40)
[2025-06-21] MEDS: diazePAM 10MG/2ML SYRINGE 2.5 MG IV ×2 (02:46→23:34)
--- NOTE | 2025-06-21 02:47 | PC.NURSE ---
Primary RN and tech at bedside with patient who appears extremely agitated, yelling and repeatedly trying to climb out of bed. Patient also attempting to kick staff when staff attempts to help patient back into bed. I called Hospitalist and relayed information of patient presentation, and extreme agitation and also expressed concerns that if we placed patient in bilateral soft upper restraints that this will aggravate patient further. New orders received. See MAR.
[2025-06-21] MEDS: IPRATROPIUM/ALBUTEROL 3 ML NEB IH ×2 (05:49→18:52)
[2025-06-21] MEDS: BUDESONIDE 0.5MG/2ML NEB 0.5 MG IH (05:49)
[2025-06-21 05:56] LABS: Alanine Aminotransferase 16 U/L (12-78); Albumin Level 3.5 g/dl (3.5-5.0); Albumin/Globulin Ratio 1.2 (1.1-1.8); Alkaline Phosphatase 100 U/L (38-126); Anion Gap 16.8 mEq/L (5-15); Aspartate Amino Transferase 28 U/L (17-59); Bilirubin,Total 0.5 mg/dl (0.2-1.3); Blood Urea Nitrogen 59 mg/dl (9-20); Calcium 8.5 mg/dl (8.4-10.2); Carbon Dioxide 26 mmol/L (22.0-30.0); Chloride 91 mmol/L (98-107); Creatinine Clearance Estimated 16 mL/min (50-200); Estimated Glomerular Filt Rate 14 ml/min (>60); GFR (African American) 17 ML/MIN (>60); Globulin 2.9 g/dL (1.3-3.2); Glucose 77 mg/dl (74-100); Magnesium 1.8 mg/dl (1.6-2.3); Potassium 4.8 mmoL/L (3.5-5.1); Sodium 129 mmol/L (136-145); Total Protein,Serum 6.4 g/dl (6.3-8.2)
[2025-06-21 06:07] LABS: Hematocrit 30.4 % (42.0-52.0); Hemoglobin 10.2 g/dL (14.1-18.0); Immature Granulocytes % 0.9 %; Mean Corpuscular HGB Conc 33.6 g/dL (31.8-35.4); Mean Corpuscular Hemoglobin 29.7 pg (27.0-31.2); Mean Corpuscular Volume 88.4 fl (80-94); Nucleated Red Blood Cells % 0 %; Platelet Count 234 K/mm3 (142-424); Red Blood Count 3.44 M/mm3 (4.60-6.20); Red Cell Distribution Width-SD 45.2 fL; White Blood Count 22.8 K/mm3 (4.8-10.8)
[2025-06-21 06:15] LABS: Creatinine,Serum 4.10 mg/dl (0.66-1.25)
[2025-06-21] MEDS: LEVOTHYROXINE 50MCG (0.05MG) TAB 50 MCG PO (06:51)
--- NOTE | 2025-06-21 07:16 | PC.NURSE ---
Pt has become more confused throughout shift becoming combative and resistive to all care. Pt has required staff to sit 1 on 1 at bedside. MD notified of pt behavior and 5 mg Haldol was administered IV with little effect. 2.5mg Valium IV administered with little effect. Pt has not slept throughout shift. Pt attempted to pull on griffith catheter-mitts applied. Pt currently tolerating room air with sat 89-92%. Pt is currently sitting up in bed. Call light within reach.
[2025-06-21 07:59] LABS: Lactate Venous 1.5 mmol/L (0.4-2.0); VBG HCO3 29.9 mmol/L (23-30); VBG PCO2 54.3 mmol/L (35-51); VBG PH 7.36 mmol/L (7.31-7.41); VBG PO2 40.8 mmol/L (28-40)
[2025-06-21] MEDS: FINASTERIDE 5MG TABLET 5 MG PO (08:28)
[2025-06-21] MEDS: ASPIRIN EC 81MG TABLET 81 MG PO (08:28)
[2025-06-21] MEDS: POLYETHYLENE GLYCOL 3350 17 GM PACKET PO (08:29)
[2025-06-21] MEDS: SODIUM BICARBONATE 650MG TABLET 1300 MG PO ×2 (08:30→20:57)
[2025-06-21] MEDS: PREGABALIN 25MG CAPSULE 25 MG PO ×2 (08:33→20:58)
--- NOTE | 2025-06-21 08:43 | P.PN_ITS ---
Subjective *Date: 06/21/25 *Time: 08:43 Medical Exam Vital signs and Labs for Last 24 Hours: Vital Signs Temp Pulse Pulse Resp BP BP Pulse Ox 06/21/25 08:00 97.4 F L 97 H 14 139/88 95 06/21/25 07:32 06/21/25 07:00 06/21/25 06:00 92 H 19 160/90 H 100 06/21/25 05:47 91 H 06/21/25 05:47 95 H 06/21/25 05:47 91 L 06/21/25 05:00 06/21/25 04:00 100 H 06/21/25 04:00 98.7 F 95 H 19 135/93 H 95 06/21/25 03:00 06/21/25 02:00 92 L 06/21/25 02:00 84 21 142/95 H 92 L 06/21/25 01:00 06/21/25 00:00 87 06/21/25 00:00 97.8 F 86 16 157/93 H 95 06/20/25 23:00 06/20/25 22:37 06/20/25 22:36 78 06/20/25 22:35 77 06/20/25 22:00 87 19 148/87 H 94 L 06/20/25 21:00 06/20/25 20:00 88 06/20/25 20:00 91 L 06/20/25 20:00 98.4 F 88 15 147/93 H 92 L 06/20/25 19:00 06/20/25 18:46 92 H 28 H 162/100 H 92 L 06/20/25 18:15 77 06/20/25 18:00 79 06/20/25 17:08 06/20/25 16:13 97 06/20/25 16:00 98.0 F 83 15 134/85 97 06/20/25 16:00 81 06/20/25 15:05 06/20/25 14:56 95 06/20/25 14:10 80 06/20/25 14:10 79 06/20/25 14:10 98 06/20/25 14:00 13 135/88 06/20/25 13:58 06/20/25 12:58 97 06/20/25 12:56 06/20/25 12:29 80 06/20/25 12:21 82 17 163/97 H 98 06/20/25 12:20 06/20/25 11:19 86 20 164/92 H 96 06/20/25 11:00 06/20/25 09:49 87 06/20/25 09:49 84 06/20/25 09:49 98 06/20/25 09:00 O2 Del Method O2 Flow Rate FiO2 06/21/25 08:00 Nasal Cannula 1 06/21/25 07:32 Room Air 06/21/25 07:00 Room Air 06/21/25 06:00 Room Air 06/21/25 05:47 06/21/25 05:47 06/21/25 05:47 Room Air 06/21/25 05:00 Room Air 06/21/25 04:00 06/21/25 04:00 Room Air 06/21/25 03:00 Room Air 06/21/25 02:00 Room Air 06/21/25 02:00 Room Air 06/21/25 01:00 Room Air 06/21/25 00:00 06/21/25 00:00 Room Air 06/20/25 23:00 Room Air 06/20/25 22:37 21 06/20/25 22:36 06/20/25 22:35 06/20/25 22:00 BiPAP 18 21 06/20/25 21:00 Room Air 06/20/25 20:00 06/20/25 20:00 Room Air 06/20/25 20:00 Room Air 06/20/25 19:00 Room Air 06/20/25 18:46 Room Air 06/20/25 18:15 06/20/25 18:00 06/20/25 17:08 Room Air 06/20/25 16:13 BiPAP 06/20/25 16:00 BiPAP 06/20/25 16:00 06/20/25 15:05 BiPAP 06/20/25 14:56 BiPAP 06/20/25 14:10 06/20/25 14:10 06/20/25 14:10 BiPAP 21 06/20/25 14:00 06/20/25 13:58 BiPAP 06/20/25 12:58 BiPAP 06/20/25 12:56 21 06/20/25 12:29 06/20/25 12:21 06/20/25 12:20 21 06/20/25 11:19 Room Air 06/20/25 11:00 Room Air 06/20/25 09:49 06/20/25 09:49 06/20/25 09:49 Nasal Cannula 2 06/20/25 09:00 Room Air Intake and Output 06/20/25 06/21/25 06/21/25 23:59 07:59 15:59 Intake Total 430 / 1717 60 / 60 Output Total 3050 / 5325 1300 / 1600 300 / 1600 Balance -2620 / -3608 -1300 / -1540 -240 / -1540 Intake: Intake, Oral Amount 180 / 1367 60 / 60 Intake, Total IV Amount 250 / 350 Azithromycin 500 mg In 0.9 % 250 / 250 Sodium Chloride 250 ml @ 250 mls/hr IV Q24H REPLACED BY [facility] Rx#:[id number] Output: Output, Urine Amount 3050 / 3850 1300 / 1600 300 / 1600 Other: Number of Unmeasured Voids 0 0 0 Weight 71.214 kg 70.171 kg Patient Weight 06/21/25 23:59 Weight 70.171 kg Laboratory Results - last 24 hr 06/20/25 10:21: VBG pH 7.28 L, VBG pCO2 57.4 H, VBG pO2 48.4 H, VBG HCO3 26.1, VBG Total CO2 27.8 H, VBG O2 Saturation 80.6 H, VBG Base Excess -0.8, VBG Lactic Acid 1.6 06/20/25 15:26: VBG pH 7.37, VBG pCO2 40.5, VBG pO2 44.0 H, VBG HCO3 23.1, VBG Total CO2 24.3, VBG O2 Saturation 77.9 H, VBG Base Excess -2.1, VBG Lactic Acid 1.3 06/21/25 00:44: VBG pH 7.46 H, VBG pCO2 33.8 L, VBG pO2 69.7 H, VBG HCO3 23.7, VBG Total CO2 24.7, VBG O2 Saturation 94.1 H, VBG Base Excess -0.1, VBG Lactic Acid 1.0 06/21/25 05:34: WBC 22.8 H*, RBC 3.44 L, Hgb 10.2 L, Hct 30.4 L, MCV 88.4, MCH 29.7, MCHC 33.6, RDW 14.1, Plt Count 234, MPV 10.9 H, Neut % (Auto) 89.3 H, Lymph % (Auto) 4.5 L, [place] % (Auto) 5.1, Eos % (Auto) 0.0 L, Baso % (Auto) 0.2, Neut # (Auto) 20.3 H, Lymph # (Auto) 1.0, [place] # (Auto) 1.2 H, Eos # (Auto) 0.0, Baso # (Auto) 0.0, Sodium 129 L, Potassium 4.8, Chloride 91 L, Carbon Dioxide 26, Anion Gap 16.8 H, BUN 59 H, Creatinine 4.10 H, Estimated Creat Clear 16, Estimated GFR 14 L*, Est GFR ( Amer) 17 L*, Glucose 77, Calcium 8.5, Magnesium 1.8, Total Bilirubin 0.5, AST 28, ALT 16, Alkaline Phosphatase 100, Total Protein 6.4, Albumin 3.5, Globulin 2.9, Albumin/Globulin Ratio 1.2 06/21/25 07:34: VBG pH 7.36, VBG pCO2 54.3 H, VBG pO2 40.8 H, VBG HCO3 29.9, VBG Total CO2 31.6 H, VBG O2 Saturation 74.0 H, VBG Base Excess 4.5 H, VBG Lactic Acid 1.5 I & O for Labs for Last 24 Hours: Intake & Output 06/18/25 06/19/25 06/20/25 06/21/25 23:59 23:59 23:59 23:59 Intake Total 704 / 704 142 / 1991 1717 / 1717 60 / 60 Output Total 1900 / 1900 2775 / 3175 5325 / 5325 1600 / 1600 Balance -1196 / -1196 -1350 / -1183 -3608 / -3608 -1540 / -1540 Weight 70.76 kg 70.9 kg 71.214 kg 70.171 kg Microbiology Reports for the Last 24 Hours: Microbiology 06/18/25 20:37 Sputum - Expectorated Sputum Gram Stain - Final 06/18/25 20:37 Sputum - Expectorated Sputum Sputum Culture - Preliminary Gram Positive Cocci 06/18/25 13:43 Blood Blood Culture - Preliminary NO GROWTH AFTER 48 HOURS 06/18/25 13:47 Blood Blood Culture - Preliminary NO GROWTH AFTER 48 HOURS The patient's infection will respond to the chosen ABx?: Yes (BLOOD CX NO GROWTH AT 48 HR, SPUTUM GRAM POS COCCI, AFEBRILE OVER 24 HR) Is the patient receiving the right drug, dose, and route?: Yes Could a more targeted ABx be ordered?: No How long ABx needed (days)?: 5
[2025-06-21 08:51] LABS: RBC Morphology Normal; Total Cells Counted 100
--- NOTE | 2025-06-21 09:35 | EXP.PULM.PN ---
Subjective *Date: 06/21/25 *Time: 12:41 Interval history: No acute respiratory vents overnight. Admits improving respiratory symptoms. Pulmonology Exam Inpatient Vital signs and Labs for Last 24 Hours: Temp Pulse Resp BP Pulse Ox O2 Del Method O2 Flow Rate 97.4 F L 90 14 139/88 95 Room Air 1 06/21/25 08:00 06/21/25 08:00 06/21/25 08:00 06/21/25 08:00 06/21/25 08:00 06/21/25 09:00 06/21/25 08:00 FiO2 21 06/20/25 22:37 Laboratory Results - last 24 hr 06/20/25 10:21: VBG pH 7.28 L, VBG pCO2 57.4 H, VBG pO2 48.4 H, VBG HCO3 26.1, VBG Total CO2 27.8 H, VBG O2 Saturation 80.6 H, VBG Base Excess -0.8, VBG Lactic Acid 1.6 06/20/25 15:26: VBG pH 7.37, VBG pCO2 40.5, VBG pO2 44.0 H, VBG HCO3 23.1, VBG Total CO2 24.3, VBG O2 Saturation 77.9 H, VBG Base Excess -2.1, VBG Lactic Acid 1.3 06/21/25 00:44: VBG pH 7.46 H, VBG pCO2 33.8 L, VBG pO2 69.7 H, VBG HCO3 23.7, VBG Total CO2 24.7, VBG O2 Saturation 94.1 H, VBG Base Excess -0.1, VBG Lactic Acid 1.0 06/21/25 05:34: WBC 22.8 H*, RBC 3.44 L, Hgb 10.2 L, Hct 30.4 L, MCV 88.4, MCH 29.7, MCHC 33.6, RDW 14.1, Plt Count 234, MPV 10.9 H, Neut % (Auto) 89.3 H, Lymph % (Auto) 4.5 L, [place] % (Auto) 5.1, Eos % (Auto) 0.0 L, Baso % (Auto) 0.2, Neut # (Auto) 20.3 H, Lymph # (Auto) 1.0, [place] # (Auto) 1.2 H, Eos # (Auto) 0.0, Baso # (Auto) 0.0, Total Counted 100, Neutrophils % (Manual) 91 H, Lymphocytes % (Manual) 5 L, Monocytes % (Manual) 4, Platelet Estimate Normal, RBC Morphology Normal, Sodium 129 L, Potassium 4.8, Chloride 91 L, Carbon Dioxide 26, Anion Gap 16.8 H, BUN 59 H, Creatinine 4.10 H, Estimated Creat Clear 16, Estimated GFR 14 L*, Est GFR ( Amer) 17 L*, Glucose 77, Calcium 8.5, Magnesium 1.8, Total Bilirubin 0.5, AST 28, ALT 16, Alkaline Phosphatase 100, Total Protein 6.4, Albumin 3.5, Globulin 2.9, Albumin/Globulin Ratio 1.2 06/21/25 07:34: VBG pH 7.36, VBG pCO2 54.3 H, VBG pO2 40.8 H, VBG HCO3 29.9, VBG Total CO2 31.6 H, VBG O2 Saturation 74.0 H, VBG Base Excess 4.5 H, VBG Lactic Acid 1.5 Temp Pulse Resp BP Pulse Ox O2 Del Method O2 Flow Rate 97.9 F 77 15 141/78 H 91 L Nasal Cannula 2 06/19/25 08:01 06/19/25 09:40 06/19/25 08:01 06/19/25 08:01 06/19/25 08:01 06/19/25 09:00 06/19/25 09:00 FiO2 30 06/18/25 14:33 Laboratory Results - last 24 hr 06/18/25 12:51: WBC 29.2 H*, RBC 3.15 L, Hgb 9.4 L, Hct 28.4 L, MCV 90.2, MCH 29.8, MCHC 33.1, RDW 14.4, Plt Count 148, MPV 10.2, Neut % (Auto) 92.1 H, Lymph % (Auto) 1.6 L, [place] % (Auto) 4.7, Eos % (Auto) 0.0 L, Baso % (Auto) 0.2, Neut # (Auto) 26.9 H, Lymph # (Auto) 0.5 L, [place] # (Auto) 1.4 H, Eos # (Auto) 0.0, Baso # (Auto) 0.1, Total Counted 100, Neutrophils % (Manual) 91 H, Lymphocytes % (Manual) 4 L, Monocytes % (Manual) 4, Eosinophils % (Manual) 1, Platelet Estimate Slight decrease, RBC Morphology Normal, ESR 100 H, PT 12.4, INR 1.13 H, APTT 39.0 H, D-Dimer 1.00 H, VBG pH 7.25 L, VBG pCO2 54.5 H, VBG pO2 50.7 H, VBG HCO3 23.6, VBG Total CO2 25.3, VBG O2 Saturation 81.7 H, VBG Base Excess -3.6 L, VBG Lactic Acid 1.5, Sodium 125 L, Potassium 4.3, Chloride 92 L, Carbon Dioxide 21 L, Anion Gap 16.3 H, BUN 42 H, Creatinine 3.40 H, Estimated Creat Clear 19, Estimated GFR 18 L*, Est GFR ( Amer) 22 L, Glucose 142 H, Calcium 7.7 L, Magnesium 1.2 L, Total Bilirubin 1.0, AST 25, ALT 15, Alkaline Phosphatase 118, Total Creatine Kinase 117, Troponin I 0.03, C-Reactive Protein 203.4 H, NT-Pro-B Natriuret Pep 18221 H, Total Protein 6.4, Albumin 3.6, Globulin 2.8, Albumin/Globulin Ratio 1.3, Lipase 49, TSH 1.41 06/18/25 13:26: Chlamy pneumoniae PCR Not detected, Adenovirus (PCR) Not detected, B. pertussis DNA (PCR) Not detected, Coronavirus OC43 (PCR) Not detected, Coronavirus HKU1 (PCR) Not detected, Coronavirus 229E (PCR) Not detected, SARS-CoV-2 (PCR) Not detected, Coronavirus NL63 (PCR) Not detected, Human Metapneumovir PCR Not detected, Influenza A (H1) PCR Not detected, Influ A (H1N1/09) PCR Not detected, Influenza A (H3) PCR Not detected, Influenza Type A (PCR) Not detected, Influenza Type B (PCR) Not detected, M. pneumoniae (PCR) Not detected, Parainfluenza 1 (PCR) Not detected, Parainfluenza 2 (PCR) Not detected, Parainfluenza 3 (PCR) Not detected, Parainfluenza 4 (PCR) Not detected, RSV (PCR) Not detected, Entero/Rhino (PCR) Not detected 06/18/25 14:30: Urine Color Yellow, Urine Appearance Clear, Urine pH 6.5, Ur Specific [place] 1.015, Urine Protein 2+ A, Urine Glucose (UA) Negative, Urine Ketones Negative, Urine Blood 1+ A, Urine Nitrate Negative, Urine Bilirubin Negative, Urine Urobilinogen 1.0, Ur Leukocyte Esterase Negative, Urine RBC None, Urine WBC 5-10, Ur Squamous Epith Cells 3-5, Urine Bacteria 1+ 06/18/25 15:40: Troponin I 0.03 06/18/25 18:35: VBG pH 7.35, VBG pCO2 39.1, VBG pO2 96.3 H, VBG HCO3 21.3 L, VBG Total CO2 22.5 L, VBG O2 Saturation 97.1 H, VBG Base Excess -4.2 L, VBG Lactic Acid 1.2 06/18/25 18:53: Troponin I 0.04 H 06/19/25 05:50: WBC 22.5 H*, RBC 3.33 L, Hgb 9.8 L, Hct 29.5 L, MCV 88.6, MCH 29.4, MCHC 33.2, RDW 13.9, Plt Count 158, MPV 11.0 H, Neut % (Auto) 95.2 H, Lymph % (Auto) 2.3 L, [place] % (Auto) 1.1 L, Eos % (Auto) 0.0 L, Baso % (Auto) 0.1, Neut # (Auto) 21.4 H, Lymph # (Auto) 0.5 L, [place] # (Auto) 0.2, Eos # (Auto) 0.0, Baso # (Auto) 0.0, Total Counted 100, Neutrophils % (Manual) 96 H, Band Neutrophils % 3.0, Lymphocytes % (Manual) 1 L, Platelet Estimate Normal, RBC Morphology Normal, Sodium 127 L, Potassium 4.1, Chloride 92 L, Carbon Dioxide 23, Anion Gap 16.1 H, Glucose 160 H, Calcium 8.3 L, Magnesium 2.2 D, Total Bilirubin 0.3, AST 25, ALT 15, Alkaline Phosphatase 112, Total Protein 6.7, Albumin 3.4 L, Globulin 3.3 H, Albumin/Globulin Ratio 1.0 L I & O for Labs for Last 24 Hours: Intake & Output 06/18/25 06/19/25 06/20/25 06/21/25 23:59 23:59 23:59 23:59 Intake Total 704 / 704 1425 / 1991 1717 / 1717 60 / 60 Output Total 1900 / 1900 2775 / 3175 5325 / 5325 1600 / 1600 Balance -1196 / -1196 -1350 / -1183 -3608 / -3608 -1540 / -1540 Weight 156 lb 156 lb 4.924 oz 157 lb 154 lb 11.2 oz Intake & Output 06/16/25 06/17/25 06/18/25 06/19/25 23:59 23:59 23:59 23:59 Intake Total 704 / 704 Output Total 1900 / 1900 700 / 700 Balance -1196 / -1196 -700 / -700 Weight 156 lb 156 lb 4.924 oz Microbiology Reports for the Last 24 Hours: Microbiology 06/18/25 20:37 Sputum - Expectorated Sputum Gram Stain - Final 06/18/25 20:37 Sputum - Expectorated Sputum Sputum Culture - Preliminary Gram Positive Cocci 06/18/25 13:43 Blood Blood Culture - Preliminary NO GROWTH AFTER 48 HOURS 06/18/25 13:47 Blood Blood Culture - Preliminary NO GROWTH AFTER 48 HOURS Microbiology 06/18/25 20:37 Sputum - Expectorated Sputum Gram Stain - Final Constitutional: Present moderate distress Head: Present normocephalic and atraumatic ENT: Present normal exam, normal oropharynx and mucous membranes moist Neck: Present normal inspection and full ROM Respiratory: Present prolonged expiratory phase, respiratory distress, wheezes, diminished air movement and able to speak in complete sentences Cardiac: Present S1/S2, Tachycardia and radial pulses present GI: Present soft and distention; Absent tenderness or guarding Skin: Present intact; Absent cyanosis or jaundice Neuro: Present alert, awake and oriented x 3 Extremities: Present normal inspection; Absent clubbing or cyanosis Psychiatric: Present normal affect and cooperative Assessment and Plan *Assessment and plan (1) COPD exacerbation: Status: Acute Category: Medical Code(s): J44.1 - Chronic obstructive pulmonary disease with (acute) exacerbation (2) Pneumonia: Status: Acute Category: Medical Code(s): J18.9 - Pneumonia, unspecified organism (3) Acute respiratory failure with hypoxia: Status: Acute Category: Medical Code(s): J96.01 - Acute respiratory failure with hypoxia Plan Mr. Ryder is a 74-year-old male with significant comorbidities including renal dysfunction neuropathy hypertension presented to ER with worsening respiratory distress and pulmonary was called for further evaluation and management. Afebrile. Hemodynamically stable. Neutrophilic from leukocytosis, worsening. Complains of respiratory viral PCR panel negative. CT chest upon admission no dense consolidative/airspace changes. No pleural effusions. Bilateral diffuse tree-in-bud opacities predominantly in the lower lobes consider atypical infection. Chronic respiratory failure improved on subsequent blood gases. Continue to show renal dysfunction. Currently receiving antibiotics and nebulization therapies. On examination moderate respiratory distress and diffuse wheezing noted on auscultation. On 2 L saturating 95%. Interval update: Needed NIV yesterday for worsening hypercarbic respiratory failure but subsequent gases showed improvement in hypercarbia, continue to show chronic hypercarbic respiratory failure, blood gases 0.36 and pco2 54.3. Continued show leukocytosis, stable. Chest x-ray from yesterday no new pulmonary infiltrates. Continue to receive ceftriaxone and azithromycin. Plan: Change antibiotics to levofloxacin 750 mg IV daily. Previous sputum cultures less than 10 WBCs gram-positive cocci. Follow with repeat sputum cultures. Continue oxygen supplementation to maintain O2 saturation goal of 90% and above. Intermittent bleeding 1 to 2 L nasal cannula oxygen supplementation. Trelegy 200 inhaler along with DuoNebs 4 times daily as needed Chest percussion therapy twice daily. Flutter valve and incentive spirometry Oxygen supplementation to maintain O2 saturation goal 90% and above Continue prednisone 40 mg oral daily # Thank you for involving pulmonary in this patient care. Will continue to follow.
[2025-06-21] MEDS: AZITHROMYCIN 250MG TABLET 500 MG PO (09:40)
--- NOTE | 2025-06-21 11:06 | P.PN_ITS ---
Subjective Subjective Date: 06/21/25 Time: 08:00 Principal diagnosis: CHF, Resp Failure Interval history: Patient remains confused this morning. Morning labs reviewed. Maintaining oxygen saturation on room air. Exam Data for Last 24 hours Vital signs and Labs for Last 24 Hours: Temp Pulse Resp BP Pulse Ox O2 Del Method O2 Flow Rate 97.4 F L 84 14 156/90 H 92 L Room Air 1 06/21/25 08:00 06/21/25 10:01 06/21/25 10:06/21/25 10:06/21/25 10:06/21/25 10:06/21/25 08:00 FiO2 21 06/20/25 22:37 Laboratory Results - last 24 hr 06/20/25 15:26: VBG pH 7.37, VBG pCO2 40.5, VBG pO2 44.0 H, VBG HCO3 23.1, VBG T otal CO2 24.3, VBG O2 Saturation 77.9 H, VBG Base Excess -2.1, VBG Lactic Acid 1.3 06/21/25 00:44: VBG pH 7.46 H, VBG pCO2 33.8 L, VBG pO2 69.7 H, VBG HCO3 23.7, VBG Total CO2 24.7, VBG O2 Saturation 94.1 H, VBG Base Excess -0.1, VBG Lactic Acid 1.0 06/21/25 05:34: WBC 22.8 H*, RBC 3.44 L, Hgb 10.2 L, Hct 30.4 L, MCV 88.4, MCH 29.7, MCHC 33.6, RDW 14.1, Plt Count 234, MPV 10.9 H, Neut % (Auto) 89.3 H, Lymph % (Auto) 4.5 L, [place] % (Auto) 5.1, Eos % (Auto) 0.0 L, Baso % (Auto) 0.2, Neut # (Auto) 20.3 H, Lymph # (Auto) 1.0, [place] # (Auto) 1.2 H, Eos # (Auto) 0.0, Baso # (Auto) 0.0, Total Counted 100, Neutrophils % (Manual) 91 H, Lymphocytes % (Manual) 5 L, Monocytes % (Manual) 4, Platelet Estimate Normal, RBC Morphology Normal, Sodium 129 L, Potassium 4.8, Chloride 91 L, Carbon Dioxide 26, Anion Gap 16.8 H, BUN 59 H, Creatinine 4.10 H, Estimated Creat Clear 16, Estimated GFR 14 L*, Est GFR ( Amer) 17 L*, Glucose 77, Calcium 8.5, Magnesium 1.8, Total Bilirubin 0.5, AST 28, ALT 16, Alkaline Phosphatase 100, Total Protein 6.4, Albumin 3.5, Globulin 2.9, Albumin/Globulin Ratio 1.2 06/21/25 07:34: VBG pH 7.36, VBG pCO2 54.3 H, VBG pO2 40.8 H, VBG HCO3 29.9, VBG Total CO2 31.6 H, VBG O2 Saturation 74.0 H, VBG Base Excess 4.5 H, VBG Lactic Acid 1.5 I & O for Last 24 hours: Intake & Output 06/18/25 06/19/25 06/20/25 06/21/25 23:59 23:59 23:59 23:59 Intake Total 704 / 704 1425 / 1991 1717 / 1717 60 / 60 Output Total 1900 / 1900 2775 / 3175 5325 / 5325 1600 / 1600 Balance -1196 / -1196 -1350 / -1183 -3608 / -3608 -1540 / -1540 Weight 156 lb 156 lb 4.924 oz 157 lb 154 lb 11.2 oz Microbiology Reports for the Last 24 Hours: Microbiology 06/18/25 20:37 Sputum - Expectorated Sputum Gram Stain - Final 06/18/25 20:37 Sputum - Expectorated Sputum Sputum Culture - Preliminary Gram Positive Cocci 06/18/25 13:43 Blood Blood Culture - Preliminary NO GROWTH AFTER 48 HOURS 06/18/25 13:47 Blood Blood Culture - Preliminary NO GROWTH AFTER 48 HOURS Constitutional Constitutional: no acute distress and chronically ill appearing Comments: Confused *Routine Respiratory Exam Respiratory: Present wheezes and symmetric chest movement *Routine Cardiovascular Exam Cardiovascular: Present RRR, Normal S1 and Normal S2 *Routine Abdominal Exam Abdominal: Present soft and normoactive bowel sounds; Absent tenderness *Routine Extremities Exam Extremities: Present full ROM and normal capillary refill; Absent edema *Routine Skin Exam Skin: Present intact, dry and warm Detailed Neck Exam: Thyroids Thyroid: Absent bruit Progress Note: A&P Assessment and plan (1) COPD exacerbation: Status: Acute (2) Pneumonia: Status: Acute (3) Acute respiratory failure with hypoxia: Status: Acute Assessment and Plan Assessment and Plan for All Diagnoses:: 1. Acute on chronic HFmrEF -Echo shows EF 40-45% but with severely enlarged LV compared to previous echo in 2020 -BNP 06559 on admission -Unable to add RODERICK/ARB/ARNI or spironolactone due to CKD stage IV -Unable to add SGLT2 inhibitor due to recurrent UTIs/urosepsis -Bumex and Aldactone on hold due to creatinine of 4.1 2. Acute respiratory failure with hypoxia and hypercarbia in a background of COPD -Continues to have confusion, likely multifactorial -Patient continues to smoke 3. CKD, stage IV -Creatinine 4.1 -chronic anemia around 05-25 4. CAD -Isolated troponin of 0.04 -On aspirin, statin and carvedilol therapy 5. Abdominal aortic aneurysm, 5.1 x 5.3 cm increased since 2023 study -Patient thinks he has an appointment to see vascular surgery later this month 6. Hyponatremia with sodium 125-127 -Na up to 129 7. Elevated sed rate of 100 and CRP of 203.4 -on prednisone this admission 8. Neurogenic bladder -self cath 3-4 times per day 06/21/2025: Creatinine elevated to 4.1 today. Primary service is holding Bumex and Aldactone due to worsening kidney function. Patient is -7.6 liters today. WBC elevated to 22. Pulmonology is following.
--- NOTE | 2025-06-21 11:41 | SW/DCPLANNER ---
Addendum entered by Veronica Rivas 06/23/25 08:17: [facility] is able to accept patient. Will start Beginning of next week. Nehemias Quijano Director Of Quality Improvement Addendum entered by Veronica Rivas 06/23/25 07:40: [facility] is not able to accept patient due to at their capacity. I faxed patient's information to [facility] and will update once i hear back from them. Nehemias QUIJANO Director Of Quality Improvement Addendum entered by Veronica Rivas 06/22/25 14:17: I faxed patient's information to [facility] and will update once i hear back if they can accept patient or not. Nehemias QUIJANO Director Of Quality Improvement Addendum entered by Phuong Thompson 06/22/25 13:48: Patient was able to ambulate 100 ft w/ therapy this afternoon. I discussed w/ patient's and daughter. Family prefer to take patient home w/ home health services. Per MD patient will discharge home today. Addendum entered by Phuong Thompson 06/21/25 14:29: [facility] w/ [facility] is able to accept this patient. Per MD patient is not medically stable for discharge. I will continue to follow up w/ [facility] regarding when to start auth. Patient's family is agreeable w/ this plan. Addendum entered by Phuong Thompson 06/21/25 12:10: Patient information has been faxed to [facility] and [facility]. [facility] does not have a male bed open at this time. Original Note: I spoke w/ patient's and daughter regarding plans once medically stable for discharge. PT/OT evaluation from 06/19 recommended home w/ home health services. Due to decline therapy is recommending placement as of today. Patient is unable to answer questions at this time. and daughter are agreeable to placement and prefer [facility], [facility] or [facility] (in this order). I will follow up w/ facilities and fax patient information today. Discharge date is unknown at this time.
[2025-06-21] MEDS: SODIUM CHLORIDE 3% 15ML NEB 3 ML IH (11:55)
[2025-06-21] MEDS: LEVOFLOXACIN/D5W 750 MG/150 ML 750 MG/150 ML PIGGYBACK 100 MG IV (13:34)
--- NOTE | 2025-06-21 15:46 | PC.NURSE ---
Pt is less confused this afternoon. Answering questions more appropriately. He is currently on RA at this time. Pt has required O2 1-1.5L NC at times during eating or sleep due to desats as low as mid 80s. F/C draining to bedside. Pt is voiding well. Family is at bedside. Call light within reach.
[2025-06-21 16:17] LABS: C-Reactive Protein 72.7 mg/L (0-4)
--- NOTE | 2025-06-21 17:48 | P.PN_ITS ---
Subjective *Date: 06/21/25 *Time: 17:48 Interval history: Patient continues to have quite a bit of wheezing, rhonchi in airways. Weaned to room air however. White count still elevated at 22. Switched antibiotics to levofloxacin, follow-up on response. Exam Data for Last 24 hours Vital signs and Labs for Last 24 Hours: Temp Pulse Resp BP Pulse Ox O2 Del Method O2 Flow Rate 98.1 F 80 17 147/93 H 92 L Room Air 2 06/21/25 16:00 06/21/25 16:00 06/21/25 16:00 06/21/25 16:00 06/21/25 16:00 06/21/25 16:49 06/21/25 14:00 FiO2 21 06/20/25 22:37 Laboratory Results - last 24 hr 06/21/25 00:44: VBG pH 7.46 H, VBG pCO2 33.8 L, VBG pO2 69.7 H, VBG HCO3 23.7, VBG Total CO2 24.7, VBG O2 Saturation 94.1 H, VBG Base Excess -0.1, VBG Lactic Acid 1.0 06/21/25 05:34: WBC 22.8 H*, RBC 3.44 L, Hgb 10.2 L, Hct 30.4 L, MCV 88.4, MCH 29.7, MCHC 33.6, RDW 14.1, Plt Count 234, MPV 10.9 H, Neut % (Auto) 89.3 H, Lymph % (Auto) 4.5 L, [place] % (Auto) 5.1, Eos % (Auto) 0.0 L, Baso % (Auto) 0.2, Neut # (Auto) 20.3 H, Lymph # (Auto) 1.0, [place] # (Auto) 1.2 H, Eos # (Auto) 0.0, Baso # (Auto) 0.0, Total Counted 100, Neutrophils % (Manual) 91 H, Lymphocytes % (Manual) 5 L, Monocytes % (Manual) 4, Platelet Estimate Normal, RBC Morphology Normal, Sodium 129 L, Potassium 4.8, Chloride 91 L, Carbon Dioxide 26, Anion Gap 16.8 H, BUN 59 H, Creatinine 4.10 H, Estimated Creat Clear 16, Estimated GFR 14 L*, Est GFR ( Amer) 17 L*, Glucose 77, Calcium 8.5, Magnesium 1.8, Total Bilirubin 0.5, AST 28, ALT 16, Alkaline Phosphatase 100, C-Reactive Protein 72.7 H D, Total Protein 6.4, Albumin 3.5, Globulin 2.9, Albumin/Globulin Ratio 1.2 06/21/25 07:34: VBG pH 7.36, VBG pCO2 54.3 H, VBG pO2 40.8 H, VBG HCO3 29.9, VBG Total CO2 31.6 H, VBG O2 Saturation 74.0 H, VBG Base Excess 4.5 H, VBG Lactic Acid 1.5 I & O for Last 24 hours: Intake & Output 06/18/25 06/19/25 06/20/25 06/21/25 23:59 23:59 23:59 23:59 Intake Total 704 / 704 1425 / 1991 1717 / 1717 580 / 580 Output Total 1900 / 1900 2775 / 3175 5325 / 5325 2550 / 2550 Balance -1196 / -1196 -1350 / -1183 -3608 / -3608 -1970 / -1970 Weight 70.76 kg 70.9 kg 71.214 kg 70.171 kg Microbiology Reports for the Last 24 Hours: Microbiology 06/18/25 20:37 Sputum - Expectorated Sputum Gram Stain - Final 06/18/25 20:37 Sputum - Expectorated Sputum Sputum Culture - Preliminary Gram Positive Cocci 06/18/25 13:43 Blood Blood Culture - Preliminary NO GROWTH AFTER 48 HOURS 06/18/25 13:47 Blood Blood Culture - Preliminary NO GROWTH AFTER 48 HOURS Constitutional Constitutional: mild distress and chronically ill appearing *Routine HEENT Exam Head: Present normocephalic Eye: Present EOMI and PERRL ENT: Present mucous membranes moist *Routine Neck Exam Neck: Present supple; Absent lymphadenopathy *Routine Respiratory Exam Respiratory: Present rhonchi, wheezes and diminished air movement; Absent CTA bilaterally *Routine Cardiovascular Exam Cardiovascular: Present RRR *Routine Abdominal Exam Abdominal: Present soft and normoactive bowel sounds; Absent tenderness *Routine Extremities Exam Extremities: Present edema; Absent cyanosis or clubbing *Routine Skin Exam Skin: Present warm; Absent rash *Routine Neurological Exam Neurological: Present alert and oriented X3 Assessment and Plan *Assessment and plan (1) CKD (chronic kidney disease) stage 4, GFR 15-29 ml/min: Status: Acute Category: Medical Code(s): N18.4 - Chronic kidney disease, stage 4 (severe) (2) Neurogenic bladder: Status: Acute Category: Medical Code(s): N31.9 - Neuromuscular dysfunction of bladder, unspecified (3) Obstructive uropathy: Status: Acute Category: Medical Code(s): N13.9 - Obstructive and reflux uropathy, unspecified (4) CHF (congestive heart failure): Status: Acute Category: Medical Code(s): I50.9 - Heart failure, unspecified (5) Acute respiratory failure with hypoxia and hypercarbia: Status: Acute Category: Medical Code(s): J96.01 - Acute respiratory failure with hypoxia; J96.02 - Acute respiratory failure with hypercapnia (6) Hidradenitis suppurativa: Problem Comment: Hidradenitis alone bilateral buttock and upper thigh region. No visible abscess Status: Acute Category: Medical Code(s): L73.2 - Hidradenitis suppurativa (7) Abdominal aortic aneurysm (AAA): Status: Chronic Qualifiers: Presence of rupture: without rupture Qualified Code(s): I71.4 - Abdominal aortic aneurysm, without rupture Category: Medical Code(s): I71.40 - Abdominal aortic aneurysm, without rupture, unspecified (8) PAD (peripheral artery disease): Status: Chronic Category: Medical Code(s): I73.9 - Peripheral vascular disease, unspecified (9) Tobacco abuse: Status: Acute Category: Medical Code(s): Z72.0 - Tobacco use (10) LLL pneumonia: Status: Acute Category: Medical Code(s): J18.9 - Pneumonia, unspecified organism (11) UTI (urinary tract infection): Status: Acute Category: Medical Code(s): N39.0 - Urinary tract infection, site not specified (12) COPD (chronic obstructive pulmonary disease) with acute bronchitis: Status: Chronic Category: Medical Code(s): J44.0 - Chronic obstructive pulmonary disease with (acute) lower respiratory infection; J20.9 - Acute bronchitis, unspecified (13) Bladder outlet obstruction: Status: Chronic Category: Medical Code(s): N32.0 - Bladder-neck obstruction (14) Neuropathy: Status: Acute Category: Medical Code(s): G62.9 - Polyneuropathy, unspecified (15) Acute hyponatremia: Status: Acute Category: Medical Code(s): E87.1 - Hypo-osmolality and hyponatremia Plan Mr. Ryder is a 74-year-old male with history of CKD 4, tobacco use disorder, COPD presented with shortness of breath and has been admitted for COPD exacerbation, HFrEF exacerbation #Acute hypoxic, hypercapnic respiratory failure ? Sequela of community-acquired pneumonia, COPD and HFpEF exacerbation. See separate problems below. ?Weaned to room air. #HFrEF exacerbation #Pulmonary edema #CAD #NSTEMI type II ? Presented with shortness of breath, with lower extremity edema and pelvic ascites, initial BNP 20,400. Troponin peaked at 0.04, EKG without acute ischemic changes. ? ECHO 06/19/2025 revealed LVEF 40 to 45%, mild RV dilatation with reduction in RV function, mild aortic stenosis, biatrial dilation. ? Diuretics held today, patient is euvolemic. Creatinine bumped to 4.1. Net - 8.1L. ? Continue aspirin, statin, carvedilol 3.125 mg twice daily. ? Cardiology consulted, agree with plan of care. Advised against RODERICK/ARB/ARNI due to advanced CKD, SGLT2i due to recurrent sepsis from UTI. ? Cardiac diet, fluid and restriction. ? Follow-up morning CMP, magnesium. #COPD exacerbation #Community-acquired pneumonia #Tobacco use disorder ? Per my review of CT of chest, patient has pulmonary edema in lower lung waller. Scant thin effusion on the left side. No focal consolidation or airspace disease however. Initial white count elevated at 29. In acute distr ess on arrival. ? Initial VBG showed significant hypercapnic respiratory failure, improved with BiPAP therapy and weaned to 3 L nasal cannula. ? CT chest 06/18/2025 revealed bilateral lower lobe bronchopneumonia. Respiratory panel normal. ? WBC slightly down from 24.3-22.8, CRP down to 72.7 today. Procalcitonin normal. Will continue to monitor. ? Discussed with pulmonology, will switch antibiotics to levofloxacin 750 mg every 48 hours (renally dosed). Discontinue ceftriaxone, azithromycin. Started Trelegy 200, DuoNebs as needed. ? Continue prednisone 40 mg daily. ? Patient continues to have quite a bit of wheezing, rhonchi on exam. ? Follow-up sputum, blood cultures. Chronic renal obstruction CKD 4 Chronic hydronephrosis Neurogenic bladder Hyponatremia - Urinalysis obtained with placement of Juárez catheter. Urine somewhat abnormal. Previous culture from 3 weeks ago grew strep bovis. Patient has longstanding neurogenic bladder and catheterizes himself on a regular basis. Suspect he is colonized. - Culture from 3 weeks ago was resistant to gentamicin. Ceftriaxone should have some effect on this bacteria. Will consider penicillin G or clindamycin if concern symptoms are worsening. - Creatinine up to 4.1 today. Around baseline. - Close monitoring of renal function. Will renally dose medications. Repeat CBC, CMP, magnesium ordered for the morning. - Continue oxybutynin 10 mg daily, finasteride 5 mg daily #Constipation ? Continue with MiraLAX 17 g daily. AAA ? Stable infrarenal abdominal aortic aneurysm measures 5.1 x 5.5 cm, extending to the bifurcation on CT abdomen on admission. ? Continue close monitoring of blood pressures, recommended smoking cessation. ? Will refer to cardiology on discharge. Anemia: Hemoglobin 9.7, most consistent with chronic disease. Transfusion threshold hemoglobin less than 7 Chronic conditions: Stable Continue Levothyroxine 50 mcg daily for hypothyroid. TFT stable. Continue Pantoprazole 40 mg daily for GERD Continue Carvedilol 3.125 mg twice daily for hypertension Continue Lyrica 25 mg twice daily renally dosed for neuropathy Full code Lovenox 30 mg Cardiac diet
[2025-06-21] MEDS: ACETAMINOPHEN 325MG TAB 650 MG PO (19:01)
[2025-06-21] MEDS: NICOTINE 21MG/24HR PATCH 21 MG TD (20:56)
[2025-06-21] MEDS: QUETIAPINE 25MG TABLET 25 MG PO (20:57)
[2025-06-21] MEDS: PANTOPRAZOLE 40MG TABLET 40 MG PO (20:58)
--- NOTE | 2025-06-21 21:40 | DIET.NUTRFU ---
Patient continues to have quite a bit of wheezing, rhonchi in airways per MD Progress note. Pt PO intake with some improvement but poor at dinner. Will add Ensure on dinner trays. Will continue to monitor.
[2025-06-22] VITALS (7 sets, daily range): BP systolic 136–168; BP diastolic 80–108; PULSE 60–97; RESP 12–14; TEMP 36.4; O2SAT 88–97; BMI 20.2
[2025-06-22] MEDS: diazePAM 10MG/2ML SYRINGE 2.5 MG IV (01:21)
[2025-06-22 05:30] LABS: VBG HCO3 28.3 mmol/L (23-30); VBG PCO2 45.6 mmol/L (35-51); VBG PH 7.41 mmol/L (7.31-7.41); VBG PO2 32.4 mmol/L (28-40)
[2025-06-22 05:31] LABS: Lactate Venous 1.2 mmol/L (0.4-2.0)
[2025-06-22 05:41] LABS: Hematocrit 32.0 % (42.0-52.0); Hemoglobin 10.7 g/dL (14.1-18.0); Immature Granulocytes % 1.3 %; Mean Corpuscular HGB Conc 33.4 g/dL (31.8-35.4); Mean Corpuscular Hemoglobin 29.6 pg (27.0-31.2); Mean Corpuscular Volume 88.6 fl (80-94); Nucleated Red Blood Cells % 0 %; Platelet Count 269 K/mm3 (142-424); Red Blood Count 3.61 M/mm3 (4.60-6.20); Red Cell Distribution Width-SD 44.8 fL; White Blood Count 19.5 K/mm3 (4.8-10.8)
--- NOTE | 2025-06-22 05:42 | PC.NURSE ---
During 1999 assessment pt was able to tell me his name, , and where he was. Pt was cooperative and appropriate. Pt became aggressive towards staff and very adamant that he was getting out of bed at approximately 2300 on 06/21. Rg Loza notified and orders were placed, see NOV. Pt was received medication with minimal effect. Rg Loza notified again and another dose was ordered. Medication administered per NOV and pt was able to sleep for a few hours.
[2025-06-22 05:53] LABS: Alanine Aminotransferase 17 U/L (12-78); Albumin Level 3.4 g/dl (3.5-5.0); Albumin/Globulin Ratio 1.2 (1.1-1.8); Alkaline Phosphatase 98 U/L (38-126); Anion Gap 15.8 mEq/L (5-15); Aspartate Amino Transferase 30 U/L (17-59); Bilirubin,Total 0.5 mg/dl (0.2-1.3); Blood Urea Nitrogen 57 mg/dl (9-20); Calcium 8.8 mg/dl (8.4-10.2); Carbon Dioxide 30 mmol/L (22.0-30.0); Chloride 91 mmol/L (98-107); Creatinine Clearance Estimated 17 mL/min (50-200); Creatinine,Serum 3.60 mg/dl (0.66-1.25); Estimated Glomerular Filt Rate 17 ml/min (>60); GFR (African American) 20 ML/MIN (>60); Globulin 2.8 g/dL (1.3-3.2); Glucose 107 mg/dl (74-100); Magnesium 1.9 mg/dl (1.6-2.3); Potassium 4.8 mmoL/L (3.5-5.1); Sodium 132 mmol/L (136-145); Total Protein,Serum 6.2 g/dl (6.3-8.2)
[2025-06-22] MEDS: FLUTICASONE/UMECLIDIN/VILANTER 200/62.5/25MCG INHALER 1 PUFF IH (06:27)
[2025-06-22] MEDS: LEVOTHYROXINE 50MCG (0.05MG) TAB 50 MCG PO (06:58)
--- NOTE | 2025-06-22 07:45 | PC.NURSE ---
patient on room air 88% so 2l of nasal cannula placed
[2025-06-22 08:07] LABS: C-Reactive Protein 44.1 mg/L (0-4)
[2025-06-22] MEDS: PREGABALIN 25MG CAPSULE 25 MG PO (08:23)
[2025-06-22] MEDS: ASPIRIN EC 81MG TABLET 81 MG PO (08:23)
[2025-06-22] MEDS: SODIUM BICARBONATE 650MG TABLET 1300 MG PO (08:24)
[2025-06-22] MEDS: POLYETHYLENE GLYCOL 3350 17 GM PACKET PO (08:24)
[2025-06-22] MEDS: FINASTERIDE 5MG TABLET 5 MG PO (08:24)
[2025-06-22] MEDS: BUMETANIDE 1 MG TABLET PO (08:33)
--- NOTE | 2025-06-22 08:56 | EXP.PULM.PN ---
Subjective *Date: 06/22/25 *Time: 12:24 Interval history: No acute respiratory vents overnight. Pulmonology Exam Inpatient Vital signs and Labs for Last 24 Hours: Temp Pulse Resp BP Pulse Ox O2 Del Method O2 Flow Rate 97.6 F 75 13 136/80 97 Room Air 3 06/22/25 08:00 06/22/25 08:01 06/22/25 08:01 06/22/25 08:01 06/22/25 08:01 06/22/25 08:01 06/22/25 02:00 FiO2 21 06/20/25 22:37 Laboratory Results - last 24 hr 06/21/25 05:34: C-Reactive Protein 72.7 H D 06/22/25 05:19: WBC 19.5 H, RBC 3.61 L, Hgb 10.7 L, Hct 32.0 L, MCV 88.6, MCH 29.6, MCHC 33.4, RDW 13.8, Plt Count 269, MPV 10.4, Neut % (Auto) 84.2 H, Lymph % (Auto) 7.4 L, [place] % (Auto) 6.8, Eos % (Auto) 0.1, Baso % (Auto) 0.2, Neut # (Auto) 16.4 H, Lymph # (Auto) 1.4, [place] # (Auto) 1.3 H, Eos # (Auto) 0.0, Baso # (Auto) 0.0, VBG pH 7.41, VBG pCO2 45.6, VBG pO2 32.4, VBG HCO3 28.3, VBG Total CO2 29.7 H, VBG O2 Saturation 62.5, VBG Base Excess 3.7 H, VBG Lactic Acid 1.2, Sodium 132 L, Potassium 4.8, Chloride 91 L, Carbon Dioxide 30, Anion Gap 15.8 H, BUN 57 H, Creatinine 3.60 H, Estimated Creat Clear 17, Estimated GFR 17 L*, Est GFR ( Amer) 20 L, Glucose 107 H D, Calcium 8.8, Magnesium 1.9, Total Bilirubin 0.5, AST 30, ALT 17, Alkaline Phosphatase 98, C-Reactive Protein 44.1 H D, Total Protein 6.2 L, Albumin 3.4 L, Globulin 2.8, Albumin/Globulin Ratio 1.2 Temp Pulse Resp BP Pulse Ox O2 Del Method O2 Flow Rate 97.9 F 77 15 141/78 H 91 L Nasal Cannula 2 06/19/25 08:01 06/19/25 09:40 06/19/25 08:01 06/19/25 08:01 06/19/25 08:01 06/19/25 09:00 06/19/25 09:00 FiO2 30 06/18/25 14:33 Laboratory Results - last 24 hr 06/18/25 12:51: WBC 29.2 H*, RBC 3.15 L, Hgb 9.4 L, Hct 28.4 L, MCV 90.2, MCH 29.8, MCHC 33.1, RDW 14.4, Plt Count 148, MPV 10.2, Neut % (Auto) 92.1 H, Lymph % (Auto) 1.6 L, [place] % (Auto) 4.7, Eos % (Auto) 0.0 L, Baso % (Auto) 0.2, Neut # (Auto) 26.9 H, Lymph # (Auto) 0.5 L, [place] # (Auto) 1.4 H, Eos # (Auto) 0.0, Baso # (Auto) 0.1, Total Counted 100, Neutrophils % (Manual) 91 H, Lymphocytes % (Manual) 4 L, Monocytes % (Manual) 4, Eosinophils % (Manual) 1, Platelet Estimate Slight decrease, RBC Morphology Normal, ESR 100 H, PT 12.4, INR 1.13 H, APTT 39.0 H, D-Dimer 1.00 H, VBG pH 7.25 L, VBG pCO2 54.5 H, VBG pO2 50.7 H, VBG HCO3 23.6, VBG Total CO2 25.3, VBG O2 Saturation 81.7 H, VBG Base Excess -3.6 L, VBG Lactic Acid 1.5, Sodium 125 L, Potassium 4.3, Chloride 92 L, Carbon Dioxide 21 L, Anion Gap 16.3 H, BUN 42 H, Creatinine 3.40 H, Estimated Creat Clear 19, Estimated GFR 18 L*, Est GFR ( Amer) 22 L, Glucose 142 H, Calcium 7.7 L, Magnesium 1.2 L, Total Bilirubin 1.0, AST 25, ALT 15, Alkaline Phosphatase 118, Total Creatine Kinase 117, Troponin I 0.03, C-Reactive Protein 203.4 H, NT-Pro-B Natriuret Pep 41895 H, Total Protein 6.4, Albumin 3.6, Globulin 2.8, Albumin/Globulin Ratio 1.3, Lipase 49, TSH 1.41 06/18/25 13:26: Chlamy pneumoniae PCR Not detected, Adenovirus (PCR) Not detected, B. pertussis DNA (PCR) Not detected, Coronavirus OC43 (PCR) Not detected, Coronavirus HKU1 (PCR) Not detected, Coronavirus 229E (PCR) Not detected, SARS-CoV-2 (PCR) Not detected, Coronavirus NL63 (PCR) Not detected, Human Metapneumovir PCR Not detected, Influenza A (H1) PCR Not detected, Influ A (H1N1/09) PCR Not detected, Influenza A (H3) PCR Not detected, Influenza Type A (PCR) Not detected, Influenza Type B (PCR) Not detected, M. pneumoniae (PCR) Not detected, Parainfluenza 1 (PCR) Not detected, Parainfluenza 2 (PCR) Not detected, Parainfluenza 3 (PCR) Not detected, Parainfluenza 4 (PCR) Not detected, RSV (PCR) Not detected, Entero/Rhino (PCR) Not detected 06/18/25 14:30: Urine Color Yellow, Urine Appearance Clear, Urine pH 6.5, Ur Specific [place] 1.015, Urine Protein 2+ A, Urine Glucose (UA) Negative, Urine Ketones Negative, Urine Blood 1+ A, Urine Nitrate Negative, Urine Bilirubin Negative, Urine Urobilinogen 1.0, Ur Leukocyte Esterase Negative, Urine RBC None, Urine WBC 5-10, Ur Squamous Epith Cells 3-5, Urine Bacteria 1+ 06/18/25 15:40: Troponin I 0.03 06/18/25 18:35: VBG pH 7.35, VBG pCO2 39.1, VBG pO2 96.3 H, VBG HCO3 21.3 L, VBG Total CO2 22.5 L, VBG O2 Saturation 97.1 H, VBG Base Excess -4.2 L, VBG Lactic Acid 1.2 06/18/25 18:53: Troponin I 0.04 H 06/19/25 05:50: WBC 22.5 H*, RBC 3.33 L, Hgb 9.8 L, Hct 29.5 L, MCV 88.6, MCH 29.4, MCHC 33.2, RDW 13.9, Plt Count 158, MPV 11.0 H, Neut % (Auto) 95.2 H, Lymph % (Auto) 2.3 L, [place] % (Auto) 1.1 L, Eos % (Auto) 0.0 L, Baso % (Auto) 0.1, Neut # (Auto) 21.4 H, Lymph # (Auto) 0.5 L, [place] # (Auto) 0.2, Eos # (Auto) 0.0, Baso # (Auto) 0.0, Total Counted 100, Neutrophils % (Manual) 96 H, Band Neutrophils % 3.0, Lymphocytes % (Manual) 1 L, Platelet Estimate Normal, RBC Morphology Normal, Sodium 127 L, Potassium 4.1, Chloride 92 L, Carbon Dioxide 23, Anion Gap 16.1 H, Glucose 160 H, Calcium 8.3 L, Magnesium 2.2 D, Total Bilirubin 0.3, AST 25, ALT 15, Alkaline Phosphatase 112, Total Protein 6.7, Albumin 3.4 L, Globulin 3.3 H, Albumin/Globulin Ratio 1.0 L I & O for Labs for Last 24 Hours: Intake & Output 06/19/25 06/20/25 06/21/25 06/22/25 23:59 23:59 23:59 23:59 Intake Total 1425 / 1992 1717 / 1717 850 / 850 250 / 250 Output Total 2775 / 3175 5325 / 5325 3150 / 3950 2250 / 2250 Balance -1350 / -1183 -3608 / -3608 -2300 / -3100 -1999 / -2000 Weight 156 lb 4.924 oz 157 lb 154 lb 11.2 oz 149 lb 3.2 oz Intake & Output 06/16/25 06/17/25 06/18/25 06/19/25 23:59 23:59 23:59 23:59 Intake Total 704 / 704 Output Total 1900 / 1900 700 / 700 Balance -1196 / -1196 -700 / -700 Weight 156 lb 156 lb 4.924 oz Microbiology Reports for the Last 24 Hours: Microbiology 06/18/25 20:37 Sputum - Expectorated Sputum Gram Stain - Final 06/18/25 20:37 Sputum - Expectorated Sputum Sputum Culture - Final Staphylococcus aureus 06/21/25 14:10 Sputum - Expectorated Sputum Gram Stain - Final Microbiology 06/18/25 20:37 Sputum - Expectorated Sputum Gram Stain - Final Constitutional: Present moderate distress Head: Present normocephalic and atraumatic ENT: Present normal exam, normal oropharynx and mucous membranes moist Neck: Present normal inspection and full ROM Respiratory: Present prolonged expiratory phase, respiratory distress, wheezes, diminished air movement and able to speak in complete sentences Cardiac: Present S1/S2, Tachycardia and radial pulses present GI: Present soft and distention; Absent tenderness or guarding Skin: Present intact; Absent cyanosis or jaundice Neuro: Present awake; Absent alert or oriented x 3 Extremities: Present normal inspection; Absent clubbing or cyanosis Psychiatric: Present normal affect and cooperative Assessment and Plan *Assessment and plan (1) COPD exacerbation: Status: Acute Category: Medical Code(s): J44.1 - Chronic obstructive pulmonary disease with (acute) exacerbation (2) Pneumonia: Status: Acute Category: Medical Code(s): J18.9 - Pneumonia, unspecified organism (3) Acute respiratory failure with hypoxia: Status: Acute Category: Medical Code(s): J96.01 - Acute respiratory failure with hypoxia Plan Mr. Ryder is a 74-year-old male with significant comorbidities including renal dysfunction neuropathy hypertension presented to ER with worsening respiratory distress and pulmonary was called for further evaluation and management. Afebrile. Hemodynamically stable. Neutrophilic from leukocytosis, worsening. Complains of respiratory viral PCR panel negative. CT chest upon admission no dense consolidative/airspace changes. No pleural effusions. Bilateral diffuse tree-in-bud opacities predominantly in the lower lobes consider atypical infection. Chronic respiratory failure improved on subsequent blood gases. Continue to show renal dysfunction. Currently receiving antibiotics and nebulization therapies. On examination moderate respiratory distress and diffuse wheezing noted on auscultation. On 2 L saturating 95%. Interval update: No acute respiratory vents overnight. On Trelegy 200 inhaler. Antibiotics changed to levofloxacin yesterday concerning no significant improvement with continued wheezing and leukocytosis. Sputum cultures now growing Staph aureus, antibiotics will be changed to clindamycin to complete a total of 7-day course Patient appeared little lethargic. Received Ativan overnight. Will follow. Plan: Follow-up with VBG Change antibiotic clindamycin 450, 3 times daily to complete a total of 7-day course Continue oxygen supplementation to maintain O2 saturation goal of 90% and above. Intermittent needing 1 to 2 L nasal cannula oxygen supplementation. Trelegy 200 inhaler along with DuoNebs 4 times daily as needed Chest percussion therapy twice daily. Flutter valve and incentive spirometry upon discharge Oxygen supplementation to maintain O2 saturation goal 90% and above Continue prednisone 40 mg oral daily to complete 5-day course. Day 4 of 5 # Thank you for involving pulmonary in this patient care. Will continue to follow. Patient plans to be discharged to acute rehab. Will follow in pulmonary clinic 1 to 2 weeks postdischarge
[2025-06-22] MEDS: CLINDAMYCIN 150MG CAPSULE 450 MG PO ×2 (09:43→13:23)
--- NOTE | 2025-06-22 10:59 | P.PN_ITS ---
Subjective Subjective Date: 06/22/25 Time: 10:59 Principal diagnosis: CHF, Resp Failure Interval history: 74-year-old white male in ICU in bed in no acute distress. Still pleasantly confused. Currently off oxygen. Patient has diuresed over 10 L this admission Current BUN 57 creatinine 3.6 (improved compared to yesterday's 59 and 4.1) Exam Data for Last 24 hours Vital signs and Labs for Last 24 Hours: Temp Pulse Resp BP Pulse Ox O2 Del Method O2 Flow Rate 97.6 F 75 13 136/80 97 Room Air 3 06/22/25 08:00 06/22/25 08:01 06/22/25 08:01 06/22/25 08:01 06/22/25 08:01 06/22/25 09:00 06/22/25 02:00 FiO2 21 06/20/25 22:37 Laboratory Results - last 24 hr 06/21/25 05:34: C-Reactive Protein 72.7 H D 06/22/25 05:19: WBC 19.5 H, RBC 3.61 L, Hgb 10.7 L, Hct 32.0 L, MCV 88.6, MCH 29.6, MCHC 33.4, RDW 13.8, Plt Count 269, MPV 10.4, Neut % (Auto) 84.2 H, Lymph % (Auto) 7.4 L, [place] % (Auto) 6.8, Eos % (Auto) 0.1, Baso % (Auto) 0.2, Neut # (Auto) 16.4 H, Lymph # (Auto) 1.4, [place] # (Auto) 1.3 H, Eos # (Auto) 0.0, Baso # (Auto) 0.0, VBG pH 7.41, VBG pCO2 45.6, VBG pO2 32.4, VBG HCO3 28.3, VBG Total CO2 29.7 H, VBG O2 Saturation 62.5, VBG Base Excess 3.7 H, VBG Lactic Acid 1.2, Sodium 132 L, Potassium 4.8, Chloride 91 L, Carbon Dioxide 30, Anion Gap 15.8 H, BUN 57 H, Creatinine 3.60 H, Estimated Creat Clear 17, Estimated GFR 17 L*, Est GFR ( Amer) 20 L, Glucose 107 H D, Calcium 8.8, Magnesium 1.9, Total Bilirubin 0.5, AST 30, ALT 17, Alkaline Phosphatase 98, C-Reactive Protein 44.1 H D, Total Protein 6.2 L, Albumin 3.4 L, Globulin 2.8, Albumin/Globulin Ratio 1.2 I & O for Last 24 hours: Intake & Output 06/19/25 06/20/25 06/21/25 06/22/25 11:59 11:59 11:59 11:59 Intake Total 1179 / 1179 2137 / 2137 590 / 590 1040 / 1040 Output Total 2600 / 2600 4350 / 4350 4650 / 4650 3800 / 3800 Balance -1421 / -1421 -2213 / -2213 -4060 / -4060 -2760 / -2760 Weight 156 lb 4.924 oz 158 lb 3.2 oz 154 lb 11.2 oz 149 lb 3.2 oz Microbiology Reports for the Last 24 Hours: Microbiology 06/18/25 20:37 Sputum - Expectorated Sputum Gram Stain - Final 06/18/25 20:37 Sputum - Expectorated Sputum Sputum Culture - Final Staphylococcus aureus 06/21/25 14:10 Sputum - Expectorated Sputum Gram Stain - Final Constitutional Constitutional: no acute distress *Routine Respiratory Exam Respiratory: Present rhonchi and wheezes *Routine Cardiovascular Exam Cardiovascular: Present RRR; Absent murmur, gallop or rubs Progress Note: A&P Assessment and plan (1) COPD exacerbation: Status: Acute (2) Pneumonia: Status: Acute (3) Acute respiratory failure with hypoxia: Status: Acute Assessment and Plan Assessment and Plan for All Diagnoses:: 1. Acute on chronic HFmrEF -Echo shows EF 40-45% but with severely enlarged LV compared to previous echo in 2020. Mild with MVP/MR. -BNP on admission -Unable to add RODERICK/ARB/ARNI or spironolactone due to CKD stage IV -Unable to add SGLT2 inhibitor due to recurrent UTIs/urosepsis -on bumex 1 mg tablet daily 2. Acute respiratory failure with hypoxia and hypercarbia in a background of COPD -Continues to have confusion, likely multifactorial -Patient continues to smoke -On clindamycin and prednisone -Pulmonary following -Gram stain negative but sputum culture positive for MRSA 3. CKD, stage IV -Creatinine down to 3.6 today -chronic anemia around 9-11 4. CAD -Isolated troponin of 0.04 -On aspirin, statin and carvedilol therapy 5. Abdominal aortic aneurysm, 5.1 x 5.3 cm increased since 2023 study -Patient thinks he has an appointment to see vascular surgery later this month 6. Hyponatremia with sodium 125-127 -Na up to 132 7. Elevated sed rate of 100 and CRP of 203.4 -on prednisone this admission 8. Neurogenic bladder -self cath 3-4 times per day Continue Bumex and monitor renal functions check BNP and CRP in AM confusion has cleared (likely related to ativan overnight). OK for discharge home from cardiology standpoint. Follow-up in our office in 1 week with lab work including BMP Home medication recommendations: Bumex 1 mg daily Coreg 3.125 mg daily Aspirin 81 mg daily Lovastatin 20 mg daily
--- NOTE | 2025-06-22 12:43 | PC.NURSE ---
lab notified cynthia curry of mrsa result and this was immediately relayed to dr. gage
--- NOTE | 2025-06-22 14:12 | EXP.DC.SUM ---
General Admission date:: 06/18/25 HPI HPI HPI: Mr. Ryder is a 74-year-old male with significant history of renal failure about a year ago that necessitated ICU admission along with complicating sepsis. He has struggled with poor renal function since. Continues to smoke. Has history of neuropathy and hypertension. He presented to the ER today at the urging of his due to shortness of breath, cough, wheeze. States has been getting worse for the past [address] of chest obtained showing no focal consolidation. Did have elevated BNP however and was hypoxic in the 70s on arrival. Placed on nasal cannula oxygen until his VBG was obtained showing pCO2 of 54 and pH of 7.25. Will initiate BiPAP. Given empiric antibiotics with azithromycin and ceftriaxone. Will admit to stepdown for further care. Patient denies nausea and vomiting. Was recently admitted a little over 3 weeks ago for similar presentation, at that time treated for left lower lobe pneumonia. Of note, has history of neurogenic bladder and In-N-Out caths 3-4 times a day. Medicine consulted due to complexity of patient with comorbidities and high risk of decompensation. helped supplement history. On evaluation, patient is ill-appearing. Hospital Course Hospital Course Hospital Course: Mr. Ryder is a 74-year-old male with history of CKD 4, tobacco use disorder, COPD presented with shortness of breath and has been admitted for COPD exacerbation, HFrEF exacerbation #Acute hypoxic, hypercapnic respiratory failure ? Sequela of community-acquired pneumonia, COPD and HFpEF exacerbation. See separate problems below. ? Weaned to room air from BiPAP. #HFrEF exacerbation #Pulmonary edema #CAD #NSTEMI type II ? Presented with shortness of breath, with lower extremity edema and pelvic ascites, initial BNP 20,400. Troponin peaked at 0.04, EKG without acute ischemic changes. ? ECHO 06/19/2025 revealed LVEF 40 to 45%, mild RV dilatation with reduction in RV function, mild aortic stenosis, biatrial dilation. ? Volume status clinically improved with IV Bumex diuresis, transitioned to Bumex 1 mg daily. Diuresed well, net -8.1L. ? Continue aspirin, statin, carvedilol 3.125 mg twice daily for CAD. ? Cardiology consulted, agree with plan of care. Advised against RODERICK/ARB/ARNI due to advanced CKD, SGLT2i due to recurrent sepsis from UTI. ? Follow-up with cardiology within 1 week. #COPD exacerbation #Community-acquired pneumonia #Tobacco use disorder ?CT of chest on admission, patient has pulmonary edema in lower lung waller. Scant thin effusion on the left side. No focal consolidation or airspace disease however. Initial white count elevated at 29. In acute distress on arrival. ? Initial VBG showed significant hypercapnic respiratory failure, improved with BiPAP therapy and weaned to room air gradually. ? CT chest 06/18/2025 revealed bilateral lower lobe bronchopneumonia. Respiratory panel normal. ? Clinically improved with IV ceftriaxone, azithromycin (transition to levofloxacin), DuoNebs, prednisone, Trelegy. Weaned from BiPAP to room air. Of note, patient has chronic moderate wheezing and did well on walk test with appropriate saturations. ? Sputum culture ultimately resulted in MRSA pneumonia. Discussed with pulmonology, will transition to clindamycin. ? Discharged with clindamycin 450 mg 3 times daily for total of 7 days, Prednisone 40 mg for 1 more day, Trelegy 200 daily, DuoNebs as needed every 6 hours. Discontinued home Breo Ellipta and Combivent. ? Will follow-up with pulmonology within 2 weeks. Chronic renal obstruction CKD 4 Chronic hydronephrosis Neurogenic bladder Hyponatremia - Urinalysis obtained with placement of Juárez catheter. Urine somewhat abnormal. Previous culture from 3 weeks ago grew strep bovis. Patient has longstanding neurogenic bladder and catheterizes himself on a regular basis. Suspect he is colonized. Treated with ceftriaxone, levofloxacin regardless during admission for pneumonia. - Creatinine 3.6, GFR 17. Baseline for patient. - Continue oxybutynin 10 mg daily, finasteride 5 mg daily #Constipation ? Continue with MiraLAX 17 g daily. AAA ? Stable infrarenal abdominal aortic aneurysm measures 5.1 x 5.5 cm, extending to the bifurcation on CT abdomen on admission. ? Continue close monitoring of blood pressures, recommended smoking cessation. ? Will refer to cardiology on discharge. Anemia: Hemoglobin 10.7, most consistent with chronic disease. Transfusion threshold hemoglobin less than 7 Chronic conditions: Stable Continue Levothyroxine 50 mcg daily for hypothyroid. TFT stable. Continue Pantoprazole 40 mg daily for GERD Continue Carvedilol 3.125 mg twice daily for hypertension Continue Lyrica 25 mg twice daily renally dosed for neuropathy Total time spent on discharge: 32 minutes on chart review, counseling, documentation, and direct care with patient. Exam Data for Last 24 hours Vital signs and Labs for Last 24 Hours: Temp Pulse Resp BP Pulse Ox O2 Del Method O2 Flow Rate 97.6 F 75 13 136/80 97 Room Air 3 06/22/25 08:00 06/22/25 08:01 06/22/25 08:01 06/22/25 08:01 06/22/25 08:01 06/22/25 14:09 06/22/25 02:00 FiO2 21 06/20/25 22:37 Laboratory Results - last 24 hr 06/21/25 05:34: C-Reactive Protein 72.7 H D 06/22/25 05:19: WBC 19.5 H, RBC 3.61 L, Hgb 10.7 L, Hct 32.0 L, MCV 88.6, MCH 29.6, MCHC 33.4, RDW 13.8, Plt Count 269, MPV 10.4, Neut % (Auto) 84.2 H, Lymph % (Auto) 7.4 L, Daggett % (Auto) 6.8, Eos % (Auto) 0.1, Baso % (Auto) 0.2, Neut # (Auto) 16.4 H, Lymph # (Auto) 1.4, Daggett # (Auto) 1.3 H, Eos # (Auto) 0.0, Baso # (Auto) 0.0, VBG pH 7.41, VBG pCO2 45.6, VBG pO2 32.4, VBG HCO3 28.3, VBG Total CO2 29.7 H, VBG O2 Saturation 62.5, VBG Base Excess 3.7 H, VBG Lactic Acid 1.2, Sodium 132 L, Potassium 4.8, Chloride 91 L, Carbon Dioxide 30, Anion Gap 15.8 H, BUN 57 H, Creatinine 3.60 H, Estimated Creat Clear 17, Estimated GFR 17 L*, Est GFR ( Amer) 20 L, Glucose 107 H D, Calcium 8.8, Magnesium 1.9, Total Bilirubin 0.5, AST 30, ALT 17, Alkaline Phosphatase 98, C-Reactive Protein 44.1 H D, Total Protein 6.2 L, Albumin 3.4 L, Globulin 2.8, Albumin/Globulin Ratio 1.2 I & O for Last 24 hours: Intake & Output 06/19/25 06/20/25 06/21/25 06/22/25 23:59 23:59 23:59 23:59 Intake Total 1424 / 1991 1717 / 1717 850 / 850 490 / 490 Output Total 2775 / 3175 5325 / 5325 3150 / 3950 2250 / 2250 Balance -1350 / -1183 -3608 / -3608 -2300 / -3100 -1760 / -1760 Weight 70.9 kg 71.214 kg 70.171 kg 67.676 kg Microbiology Reports for the Last 24 Hours: Microbiology 06/18/25 13:47 Blood Blood Culture - Preliminary NO GROWTH AFTER 4 DAYS 06/18/25 13:43 Blood Blood Culture - Preliminary NO GROWTH AFTER 4 DAYS 06/18/25 20:37 Sputum - Expectorated Sputum Gram Stain - Final 06/18/25 20:37 Sputum - Expectorated Sputum Sputum Culture - Final Staphylococcus aureus 06/21/25 14:10 Sputum - Expectorated Sputum Gram Stain - Final Constitutional Constitutional: no acute distress and chronically ill appearing *Routine HEENT Exam Head: Present normocephalic Eye: Present EOMI and PERRL ENT: Present mucous membranes moist *Routine Neck Exam Neck: Present supple; Absent lymphadenopathy *Routine Respiratory Exam Respiratory: Present rhonchi and wheezes; Absent CTA bilaterally or diminished air movement *Routine Cardiovascular Exam Cardiovascular: Present RRR *Routine Abdominal Exam Abdominal: Present soft and normoactive bowel sounds; Absent tenderness *Routine Extremities Exam Extremities: Present edema; Absent cyanosis or clubbing *Routine Skin Exam Skin: Present warm; Absent rash *Routine Neurological Exam Neurological: Present alert and oriented X3 Results Data Completed and Pending Labs on day of discharge: Labs from last 24 hours 06/22/25 06/21/25 05:19 05:34 WBC 19.5 H RBC 3.61 L Hgb 10.7 L Hct 32.0 L MCV 88.6 MCH 29.6 MCHC 33.4 RDW 13.8 Plt Count 269 MPV 10.4 Neut % (Auto) 84.2 H Lymph % (Auto) 7.4 L Daggett % (Auto) 6.8 Eos % (Auto) 0.1 Baso % (Auto) 0.2 Neut # (Auto) 16.4 H Lymph # (Auto) 1.4 Daggett # (Auto) 1.3 H Eos # (Auto) 0.0 Baso # (Auto) 0.0 VBG pH 7.41 VBG pCO2 45.6 VBG pO2 32.4 VBG HCO3 28.3 VBG Total CO2 29.7 H VBG O2 Saturation 62.5 VBG Base Excess 3.7 H VBG Lactic Acid 1.2 Sodium 132 L Potassium 4.8 Chloride 91 L Carbon Dioxide 30 Anion Gap 15.8 H BUN 57 H Creatinine 3.60 H Estimated Creat Clear 17 Estimated GFR 17 L* Est GFR ( Amer) 20 L Glucose 107 H D Calcium 8.8 Magnesium 1.9 Total Bilirubin 0.5 AST 30 ALT 17 Alkaline Phosphatase 98 C-Reactive Protein 44.1 H D 72.7 H D Total Protein 6.2 L Albumin 3.4 L Globulin 2.8 Albumin/Globulin Ratio 1.2 Preliminary micro results at discharge 06/18/25 13:47 Blood Culture - Preliminary Blood NO GROWTH AFTER 4 DAYS 06/18/25 13:43 Blood Culture - Preliminary Blood NO GROWTH AFTER 4 DAYS DS: Diagnosis Discharge Diagnosis (1) COPD exacerbation: Status: Acute Code(s): J44.1 - Chronic obstructive pulmonary disease with (acute) exacerbation (2) Pneumonia: Status: Acute Code(s): J18.9 - Pneumonia, unspecified organism (3) Acute respiratory failure with hypoxia: Status: Acute Code(s): J96.01 - Acute respiratory failure with hypoxia Meds Home Medications and Allergies Home Medications ?Medication ?Instructions ?Recorded ?Confirmed ?Type aspirin 81 mg tablet,delayed 81 mg PO DAILY 05/25/19 06/18/25 History release ascorbate calcium (vitamin C) 500 500 mg PO DAILY 03/27/22 06/18/25 History mg tablet carvedilol 3.125 mg tablet 3.125 mg PO BID 30 days #60 tabs 05/05/25 06/18/25 Rx levothyroxine 50 mcg tablet 50 mcg PO DAILY 05/30/25 06/18/25 History lovastatin 20 mg tablet 20 mg PO DAILY 05/30/25 06/18/25 History finasteride 5 mg tablet 5 mg PO DAILY 05/31/25 06/18/25 History oxybutynin chloride 10 mg 10 mg PO DAILY 05/31/25 06/18/25 History tablet,extended release 24 hr pantoprazole 40 mg tablet,delayed 40 mg PO DAILY 05/31/25 06/18/25 History release pregabalin 25 mg capsule (Lyrica) 25 mg PO BID 05/31/25 06/18/25 History sodium bicarbonate 650 mg tablet 1,300 mg (2 x 650 mg) PO BID 30 05/31/25 06/18/25 Rx days #120 tabs tizanidine 2 mg capsule (Zanaflex) 2 mg PO TIDP PRN muscle pain 30 06/01/25 06/18/25 Rx days #90 caps bumetanide 1 mg tablet 1 mg PO DAILY 30 days #30 tabs 06/22/25 Rx clindamycin HCl 150 mg capsule 450 mg (3 x 150 mg) PO TID 7 days 06/22/25 Rx #62 caps fluticasone fur. 200 mcg-umeclid 1 inh inhalation DAILY 30 days #60 06/22/25 Rx 62.5 mcg-vilant 25 mcg ea inhalat.powder (Trelegy Ellipta) ipratropium 0.5 mg-albuterol 3 mg 3 ml inhalation Q6HP PRN Shortness 06/22/25 Rx (2.5 mg base)/3 mL nebulization Of Breath 30 days #90 mL soln prednisone 20 mg tablet 40 mg (2 x 20 mg) PO DAILY 1 day 06/22/25 Rx #2 tabs New Prescriptions to Start Prescriptions: bumetanide Filipe Payan clindamycin HCl Filipe Payan [id number] [Trelegy Ellipta] Filipe Payan ipratropium-albuterol Ora,Filipe prednisone Filipe Payan Allergies Allergy/AdvReac Type Severity Reaction Status Date / Time No Known Allergies Allergy Verified 06/05/25 10:31 Discharge Plan Disposition Patient Disposition: Home Health Service Condition: Fair Discharge Order Discharge Orders: Discharge Order (Routine); Ordered 06/22/25 Ordered By: Filipe Payan Follow up Plan Follow up with: Vikas Koehler PA [Physician Operations And Maintenance Supervisor, Cardiology] - 07/03/25 10:15 am Damion Waterman MD [Physician, Pulmonology] - 07/10/25 1:00 pm Prescriptions/Medication Reconciliation: New ipratropium-albuterol 0.5 mg-3 mg(2.5 mg base)/3 mL Solution For Nebulization 3 ml inhalation Q6HP PRN (Reason: Shortness Of Breath) 30 Days Qty: 90 0RF prednisone 20 mg Tablet 40 mg PO DAILY 1 Days Qty: 2 0RF clindamycin HCl 150 mg Capsule 450 mg PO TID 7 Days Qty: 62 0RF bumetanide 1 mg Tablet 1 mg PO DAILY 30 Days Qty: 30 0RF Trelegy Ellipta 200-62.5-25 mcg Blister With Device 1 inh inhalation DAILY 30 Days Qty: 60 0RF Continued ascorbate calcium (vitamin C) 500 mg tablet 500 mg PO DAILY carvedilol 3.125 mg tablet 3.125 mg PO BID 30 Days Qty: 60 2RF Rx Instructions: must administer with a meal/food tizanidine [Zanaflex] 2 mg capsule 2 mg PO TIDP PRN (Reason: muscle pain) 30 Days Qty: 90 2RF aspirin 81 MG tablet,delayed release (DR/EC) 81 mg PO DAILY levothyroxine 50 mcg tablet 50 mcg PO DAILY lovastatin 20 mg tablet 20 mg PO DAILY oxybutynin chloride 10 mg tablet extended release 24hr 10 mg PO DAILY pantoprazole 40 mg tablet,delayed release (DR/EC) 40 mg PO DAILY finasteride 5 mg tablet 5 mg PO DAILY pregabalin [Lyrica] 25 mg capsule 25 mg PO BID sodium bicarbonate 650 mg Tablet 1,300 mg PO BID 30 Days Qty: 120 0RF Discontinued fluticasone furoate-vilanterol [Breo Ellipta] 200-25 mcg/dose blister with device 1 inh inhalation DAILY 30 Days Qty: 60 2RF Combivent Respimat 20-100 mcg/actuation mist 2 puff inhalation BID 30 Days Qty: 4 2RF Problem Reconciliation Problems Reviewed?: Yes Patient Discharge Instructions Patient Instructions: DI for Kidney Failure, DI for Respiratory Failure, Stop Light Heart Failure Print Language: Tristanian Providers Primary Care Provider: David Mark Admit Provider: Jose Polanco Attending Provider: Jose Polanco
--- NOTE | 2025-06-22 14:32 | HMH.SLDYSPHA ---
Speech & Language Evaluation Speech/Language Dysphagia Evaluation Start: 06/22/25 13:52 Freq: ONCE Status: Active Protocol: Document 06/22/25 13:57 SIMA (Rec: 06/22/25 14:29 [facility] [id number]) Dysphagia Assess/Goals/Plan Assessment Date of Evaluation: 06/22/25 Evaluation Type Initial Certification Assessment/Problems dysphagia per MD order Does Patient Qualify Yes for Service Qualify/Failure Based on clinical observations made throughout CSE, Comment mastication/manipulation of bolus and swallowing WFL given age and dentition status, MACHINE DESIGN CHECKER will f/u for diet tolerance. Recommendations PHYSICIAN CERTIFICATION: The specified therapy services are required, authorized, and reviewed every 30 days. Pt will be seen # 1 times/week for # weeks 1 Diet Recommendations Mechanical Soft Liquid Type Normal/Thin Recommendations SL Swallow Alt bite w/sip thru meal,Standard Aspiration Prec. Guidelines Dysphagia Swallow Small Bites and Sips,Alternate Liquids/Solids Precautions/ Strategies Plan Pt/Guardian verbally Yes ack understanding of dx/prognosis/ goals G -code Required No Education Instructions Discussed CSE results, diet recommendations, and provided aspiration precautions with pt, nursing, and care management all of which expressed understanding. Pt/Caregiver able to Able to recall/restate recall information Reinforcement needed No Speech & Language HPI History Present Illness Description of MACHINE DESIGN CHECKER pulled following information from chart review and Patient Problem H&P, Mr. Ryder is a 74-year-old male with significant history of renal failure about a year ago that necessitated ICU admission along with complicating sepsis. He has struggled with poor renal function since. Continues to smoke. Has history of neuropathy and hypertension. He presented to the ER today at the urging of his due to shortness of breath, cough, wheeze. States has been getting worse for the past [address] of chest obtained showing no focal consolidation. Did have elevated BNP however and was hypoxic in the 70s on arrival. Placed on nasal cannula oxygen until his VBG was obtained showing pCO2 of 54 and pH of 7.25. Will initiate BiPAP. Given empiric antibiotics with azithromycin and ceftriaxone. Will admit to stepdown for further care. Patient denies nausea and vomiting. Was recently admitted a little over 3 weeks ago for similar presentation, at that time treated for left lower lobe pneumonia. Of note, has history of neurogenic bladder and In-N-Out caths 3-4 times a day. Medicine consulted due to complexity of patient with comorbidities and high risk of decompensation. helped supplement history. On evaluation, patient is ill-appearing. CXR impressions 06/20 Chronic increased interstitial markings are present, without focal infiltrate. No significant changes noted since the prior exam of 06/18/2025. Pt/Caregiver Pt was pleasantly confused at bedside unable to answer Concerns questions regarding swallowing Language Primary Language [place] Korean General Information General Current Food Regular,Thin Liquids Consistancy Dentition Edentulous Patient Orientation Person,Time Ability to Follow Good Directions Communication Mild Impairment Ability Dysphagia:Food Presentation Evaluation Food Type Pureed,Mechanical Soft,Regular,Liquid,Pudding Dysphagia Evaluation Pt was seen sitting upright in bed for CSE this Summary afternoon. Pt A&Ox2. Pleasantly confused at bedside. Stridor and cough observed at baseline. No overt s/sxs of aspiration observed across all bolus consistencies trialed. He was given all trials x2 to assess for consistency and/or fatigue. He was given the following: thin liquids (via ice chips, spoonful of water, open cup/straw sip, subsequent sips from open cup/straw), pudding, pureed applesauce, and mechanical soft ( nutrigrain bar.) Regular solids not trialed 2' edentulous status. Extended mastication on leonardo cracker 2' dentition, recommended to be placed on MS diet 2' this. Small sips and bites. MACHINE DESIGN CHECKER will f/u for diet tolerance. Stroke Dysphagia Assessment PHYSICIAN CERTIFICATION: I certify the specified therapy services for Louie Ryder are required, authorized, and reviewed every 30 days.
--- NOTE | 2025-06-26 10:42 | SW/DCPLANNER ---
Phoned patient x2. Left a message each time with name and a call back number. Nehemias Pandya
== END 2025-06-22 16:18 | disposition home health service (06) | DRG 177 ==
LOC: ER 14:22 → ICU 14:27 → 2ND 06-20 11:39
PROVIDERS: Internal Medicine; Internal Medicine Pulmonary Disease; Nurse Practitioner; Nurse Practitioner Family; Student in an Organized Health Care Education/Training Program; Admitting Provider Internal Medicine Adolescent Medicine; Emergency Provider Student in an Organized Health Care Education/Training Program; PCP Family Medicine; Visit Provider Internal Medicine Adolescent Medicine
DX: J15.212 Pneumonia due to Methicillin resistant Staphylococcus aureus (principal); I50.23 Acute on chronic systolic (congestive) heart failure; J96.02 Acute respiratory failure with hypercapnia; J96.01 Acute respiratory failure with hypoxia; I13.0 Hypertensive heart and chronic kidney disease with heart failure and stage 1 through stage 4 chronic kidney disease, or unspecified chronic kidney disease; J44.0 Chronic obstructive pulmonary disease with (acute) lower respiratory infection; N18.4 Chronic kidney disease, stage 4 (severe); E87.1 Hypo-osmolality and hyponatremia; N17.9 Acute kidney failure, unspecified; E87.20 Acidosis, unspecified; N13.6 Pyonephrosis; J44.1 Chronic obstructive pulmonary disease with (acute) exacerbation; N31.9 Neuromuscular dysfunction of bladder, unspecified; N13.9 Obstructive and reflux uropathy, unspecified; L73.2 Hidradenitis suppurativa; I73.9 Peripheral vascular disease, unspecified; J20.9 Acute bronchitis, unspecified; N32.0 Bladder-neck obstruction; G62.9 Polyneuropathy, unspecified; K59.00 Constipation, unspecified; I71.43 Infrarenal abdominal aortic aneurysm, without rupture; D63.1 Anemia in chronic kidney disease; E03.9 Hypothyroidism, unspecified; I25.10 Atherosclerotic heart disease of native coronary artery without angina pectoris; K21.9 Gastro-esophageal reflux disease without esophagitis; F17.210 Nicotine dependence, cigarettes, uncomplicated; R41.0 Disorientation, unspecified; Z79.82 Long term (current) use of aspirin; Z79.890 Hormone replacement therapy; Z79.899 Other long term (current) drug therapy; Z71.6 Tobacco abuse counseling
CPT/HCPCS: 0223U; 36415; 51702; 71045; 71250; 74176; 80053; 81001; 82550; 82803; 83690; 83735; 83880; 84145; 84443; 84484; 85007; 85025; 85378; 85610; 85651; 85730; 86140; 87040; 87070; 87077; 87186; 87205; 89220; 92610; 93005; 93306; 94640; 94660; 94667; 94761; 97162; 97166; 97530; 99285; J0456; J0696; J1630; J1644; J1650; J1939; J1956; J2919; J3360; J3475; J7050; Q9957

== ENCOUNTER 2025-07-10 15:19 | Outpatient (CLI) | payer MEDICARE, MEDICAID, SELFPAY ==
--- OUTSIDE RECORDS SUMMARY | 2025-07-10 16:02 | XMS_ITS | Encounter Summary ---
Author Organization Healthcare Address [address] [place] [address] Care Team Providers Care Pin Setter Name Role Phone Unavailable Primary Care Provider Unavailabl e Encounter Details Date Type Department Care Team (Late st Contact Info) Description 06/05/2025 Orders Only [facility] [address] [place] [address] Marquita Alba CARTER (acute kidney injury) ([facility]) (Primary Dx); Vitamin D insufficiency Social History Tobacco Use Types Packs/Day Years Used Date Smoking Tobacco: Never Assessed Sex and Gender Information Value Date Recorded Sex Assigned at Not on file Legal Sex Male 7:48 PM EDT Gender Identity Not on file Sexual Orientation Not on file documented as of this encounter Plan of Treatment Scheduled Orders Name Type Priority Associated Diagnoses Orde r Schedule Renal Function Panel, Plasma Lab Routine CARTER (acute kidney injury) ([facility]) Expected: 06/05/2025 (Approximate), Expires: 12/03/2026 CBC and Differential Lab Routine CARTER (acute kidney injury) ([facility]) Expected: 06/05/2025 (Approximate), Expires: 12/03/2026 Creatinine, Random, Urine Lab Routine CARTER (acute kidney injury) ([facility]) Expected: 06/05/2025 (Approximate), Expires: 12/03/2026 Protein, Random, Urine with Creatinine Lab Routine CARTER (acute kidney injury) ([facility]) Expected: 06/05/2025 (Approximate), Expires: 12/03/2026 Urinalysis with reflex microscopic (Culture NOT Included) Lab Routine CARTER (acute kidney injury) ([facility]) Expected: 06/05/2025 (Approximate), Expires: 12/03/2026 PTH Intact Total Lab Routine CARTER (acute kidney injury) ([facility]) Vitamin D insufficiency Expected: 06/05/2025 (Approximate), Expires: 12/03/2026 Vitamin D 25 Hydroxy Lab Routine CARTER (acute kidney injury) ([facility]) Vitamin D insufficiency Expected: 06/05/2025 (Approximate), Expires: 12/03/2026 documented as of this encounter Visit Diagnoses Diagnosis CARTER (acute kidney injury)- Primary Vitamin D insufficiency documented in this encounter
--- OUTSIDE RECORDS SUMMARY | 2025-07-10 16:02 | XMS_ITS | Clinical Summary ---
Author Organization [facility] Address [address] [place] [address] Care Team Providers Care An/Ssn 2 4 Operator Name Role Phone David Mark MD Primary Care Provider [phone] Allergies No known active allergies Medications albuterol [...] Type Department Care Team Description 06/07/2025 Telephone [facility] CARDIOTHORACIC SURGERY [address] [place] [address] [address] [place] [address] Carole Francois APRN from Last [...] of 2) 2000 COVID-19 Vaccine (3 - Modern a risk series) 01/03/2021 12/06/2020, 11/08/2020 ANNUAL WELLNESS VISIT 01/11/2025 HEPATITIS C SCREENING 01/11/2025 INFLUENZA VACCINE 04/14/2025 04/21/2024, , 06/18/2021, Additional history exists Pneumococcal Vaccine 50+ Completed 04/21/2023, 04/14 AAA SCREEN ONCE Completed 04/25/2025, 0509/2024, 01/11/2025 Insurance [employer] HMO [place] MEDICA[place] [employer] Care Teams An/Ssn 2 4 Operator Relationship Specialty Start Date End Date David Mark MD [address] [facility] [address] [place] [address] PCP - General Family Medicine 12/23/24
--- OUTSIDE RECORDS SUMMARY | 2025-07-10 16:02 | XMS_ITS | Clinical Summary ---
Author Organization [employer] ([place], [place], [place], [place]) Address [address] [place] [address] Care Team Providers Care Certified Driver Examiner Name Role Phone Unavailable Primary Care Provider [...] your living situation today? I have a [facility] place to live 03/22/2024 Think about [...] Do you speak a language other than Salvadorean at [facility]? No 03/22/2024 Do you want help [...] 3, 04/26/2019, 07/17/2015, Additional history exists [facility] Advance Directives For more information, please contact: [phone] * Full Code (Latest Code Status on File) Date Activated Date Inactivated Comments 03/22/2024 3:32 AM 03/25/2024 4:39 PM
--- OUTSIDE RECORDS SUMMARY | 2025-07-10 16:02 | XMS_ITS | Clinical Summary ---
Author Organization Healthcare Address [address] [place] [address] Care Team Providers Care Flower Planter Name Role Phone Unavailable Primary Care Provider Unavailabl e Encounters Date Type Department Care Team Description 06/05/2025 Orders Only [facility] [address] [place] [address] [...] Orientation Not on file Plan of Treatment Health Maintenance Due Date Last Done Comments [facility]-Depression Screening 1950 [facility]-Hepatitis C Screening 1950 [facility]-Medicare Annual Wellness (AWV) 1950 [facility]-Infant/Child/Adol SDOH Screenings 1950 [facility]- SDOH Screenings 1968 [facility]-Adult SDOH Screenings 1968 [facility]-DTaP,Tdap,and Td Vaccines (1 - Tdap) 1969 CT Colonography 1995 Colonoscopy 1995 FIT-DNA 1995 FIT 1995 FOBT 1995 Sigmoidoscopy 1995 [facility]-Colorectal Cancer Screening 1995 [facility]-Zoster Vaccines (1 of 2) 2000 [id number] Vaccine (3 - season) 2025 12/06/2020, 11/08/2020 [...] on patient's age to complete this topic Insurance [employer]ARE
--- OUTSIDE RECORDS SUMMARY | 2025-07-10 16:02 | XMS_ITS | Referral Summary ---
Author Organization [employer] ([place], [place], [place], [place]) Address [address] [place] [address] Care Team Providers Care Set Staff Fitter Name Role Phone Unavailable Primary Care Provider [...] your living situation today? I have a [facility] place to live 03/22/2024 Think about [...] Do you speak a language other than [place] Citizen at [facility]? No 03/22/2024 Do you want help [...] Plan of Treatment Not on file Insurance [facility] [employer] H[employer] MAP Advance Directives For more information, please contact: [phone] * Full Code (Latest Code Status on File) Date Activated Date Inactivated Comments 03/22/2024 3:32 AM 03/25/2024 4:39 PM
--- OUTSIDE RECORDS SUMMARY | 2025-07-10 16:02 | XMS_ITS ---
Author Organization [facility] Care Team Providers Care Field Technical Support Consultant Name Role Phone Ignacio Vaz Unavailable Unavailable Saira Phelps Unavailable Unavailable Allergies and adverse reactions No Known Allergies Care Team Name Role Address Phone Organization Dates Ignacio Vaz PCP [address] [facility], [place] [address], [facility] (Office): : (Pager): [facility] 06/22/2024 - 06/30/2024 Saira Phelps [address] (Office): [facility] 06/22/2024 - 06/30/2024 Immunizations Immunization Status Vaccine Details Vaccine Code CodeSystem Date Notes Influenza completed Influenza, high-dose, split virus, quadrivalent, injectable, preservative free Given intramuscularly 197 CVX created date: 06/25/2024 administer ed date: 04/21/2024 Had at md office TB 2 Step Mantoux Skin Test new tuberculin skin test; unspecified formulation 98 CVX created date: 07/28/2024 consent date: 06/22/2024 TB 2 Step Mantoux Skin Test completed tuberculin skin test; unspecified formulation lotNumber: [id number] expiry: 01/16/2027 Mfg: [employer]of[employer] Given 0.1 ml Right Forearm intradermally Step 1 of Multi-step with next step required 98 CVX created date: 06/23/2024 consent date: 06/22/2024 administer ed date: 06/22/2024 Pneumococcal Conjugate, unspecified formulation completed Pneumococcal Conjugate, unspecified formulation 152 CVX created date: 06/26/2024 administer ed date: 04/22/2023 Mental Status Section Date Assessment Total Score Description 06/30/2024 BIMS 13 cognitively int act CAM 0 No delirium ind icated PHQ-9 00 06/28/2024 BIMS 13 cognitively int act CAM 0 No delirium ind icated PHQ-9 01 minimal depress ion Insurance Providers Problems Problem # Description Date of onset Resolved Date Code CodeSystem Concern Status 1 ACUTE KIDNEY FAILURE, UNSPECIFIED 06/22/[address] active 2 ASCORBIC ACID DEFICIENCY 06/22/[address] active 3 BENIGN PROSTATIC HYPERPLASIA WITH LOWER URINARY TRACT SYMPTOMS 06/22/[address] active 4 BLADDER-NECK OBSTRUCTION 06/22/[address] active 5 CHRONIC KIDNEY DISEASE, STAGE 3 UNSPECIFIED 06/22/[address] active 6 CHRONIC OBSTRUCTIVE PULMONARY DISEASE, UNSPECIFIED 06/22/[address] active 7 CHRONIC SYSTOLIC (CONGESTIVE) HEART FAILURE 06/22/[address] active 8 CONSTIPATION, UNSPECIFIED 06/22/[address] active 9 ENCOUNTER FOR FITTING AND ADJUSTMENT OF URINARY DEVICE 06/22/[address] active 10 GASTRO-ESOPHAGEAL REFLUX DISEASE WITHOUT ESOPHAGITIS 06/22/[address] active 11 HYPERLIPIDEMIA, UNSPECIFIED 06/22/[address] active 12 HYPERTENSIVE HEART AND CHRONIC KIDNEY DISEASE WITH HEART FAILURE AND STAGE 1 THROUGH STAGE 4 CHRONIC KIDNEY DISEASE, OR UNSPECIFIED CHRONIC KIDNEY DISEASE 06/22/[address] active 13 HYPOMAGNESEMIA 06/22/[address] ac tive 14 HYPOTHYROIDISM, UNSPECIFIED 06/22/[address] active 15 IRON DEFICIENCY ANEMIA, UNSPECIFIED 06/22/[address] active 16 METABOLIC ENCEPHALOPATHY 06/22/[address] active 17 NONRHEUMATIC AORTIC (VALVE) STENOSIS WITH INSUFFICIENCY 06/22/[address] active 18 NONRHEUMATIC MITRAL (VALVE) INSUFFICIENCY 06/22/[address] active 19 OTHER MALAISE 06/22/[address] act sage 20 OTHER MUSCLE SPASM 06/22/[address] active 21 POLYNEUROPATHY, UNSPECIFIED 06/22/[address] active 22 RETENTION OF URINE, UNSPECIFIED 06/22/[address] active 23 UNILATERAL INGUINAL HERNIA, WITH OBSTRUCTION, WITHOUT GANGRENE, NOT SPECIFIED RECURRENT 06/22/[address] active 24 URINARY TRACT INFECTION, SITE NOT SPECIFIED 06/22/[address] active 25 WEAKNESS 06/22/[address] active Reason for Referral No Reasons for Referral Entered Social History Social History Observation Description Start Date End Date Code Code System Current Smoking Status Tobacco smoking consumption unknown 644665451 SNOMED CT Sex Assigned At Male 1950 57819-[address] [facility] Gender Identity Male 73951412538621 [address] Sexual Orientation Heterosexual (finding) 85128927 SNOMED CT Vital Signs Code Code System Vitals Name Values and Units Timing Information 9279-[address] [facility] Respiratory Rate Value=16.0 Units=/m in 06/30/2024 8462-[address] [facility] Blood Pressure-Diastolic Value=82 Un its=mmHg 06/30/2024 8480-[address] [facility] Blood Pressure-Systolic Pmdic=309 Un its=mmHg 06/30/2024 8310-[address] [facility] Body Temperature Value=98.5 Units= F 06/30/2024 8867-[address] [facility] Heart rate Value=80.0 Units=/min 97693-[address] [facility] O2 % BldC Oximetry Value=96.0 Units= % 06/30/2024 60357-[address] [facility] Pain Level Value=2.0 06/29/2024 99221-5 LOINC Weight Fvybv=437.0 Units=Lbs 8302-2 LOINC Height Value=70.0 Units=Inches 06/22/2024
--- OUTSIDE RECORDS SUMMARY | 2025-07-10 16:02 | XMS_ITS | Encounter Summary ---
[facility] Address [address] [place] [address] Care Team Providers Care Balance Wheel Facer Name Role Phone David Mark MD Primary Care Provider [phone]- [phone] Encounter Details Date Type Department Care Team (Late st Contact Info) Description 06/07/2025 Telephone [facility] CARDIOTH[facility]ACIC SURGERY [address] [address] Carole Francois, TRUCK CHAUFFEUR [address] [address] Social History Tobacco Use Types [...] Job Start Date Job End Date retired [employer] Not on file Not on file Not [...] on filedocumented in this encounter Care Teams Balance Wheel Facer Relationship Specialty Start Date End Date David Mark MD [address] [place] [address] PCP - General Family Medicine 12/23/24 documented as of this encounter
[2025-07-10 17:12] LABS: Anion Gap 13.8 mEq/L (5-15); Blood Urea Nitrogen 70 mg/dl (9-20); Calcium 7.8 mg/dl (8.4-10.2); Carbon Dioxide 21 mmol/L (22.0-30.0); Chloride 100 mmol/L (98-107); Creatinine,Serum 3.30 mg/dl (0.66-1.25); Estimated Glomerular Filt Rate 18 ml/min (>60); GFR (African American) 22 ML/MIN (>60); Glucose 92 mg/dl (74-100); Potassium 4.8 mmoL/L (3.5-5.1); Sodium 130 mmol/L (136-145)
== END 2025-07-10 23:59 | disposition home or self-care (01) ==
LOC: LAB 15:20
PROVIDERS: PCP Family Medicine; Visit Provider Internal Medicine
DX: I25.10 Atherosclerotic heart disease of native coronary artery without angina pectoris (principal)
CPT/HCPCS: 36415; 80048

== ENCOUNTER 2025-07-19 18:06 | Outpatient (CLI) | payer MEDICARE, MEDICAID, SELFPAY ==
--- OUTSIDE RECORDS SUMMARY | 2025-07-19 18:08 | XMS_ITS ---
Author Organization [facility] Care Team Providers Care Cable Operator Name Role Phone Ignacio Vaz Unavailable Unavailable Saira Phelps Unavailable Unavailable Allergies and adverse reactions No Known Allergies Care Team Name Role Address Phone Organization Dates Ignacio Vaz PCP [address] [facility], [place] [address], [facility] (Office): : (Pager): [facility] 06/22/2024 - 06/30/2024 Saira Phelps [address] (Office): [facility] 06/22/2024 - 06/30/2024 Immunizations Immunization Status [...] completed tuberculin skin test; unspecified formulation lotNumber: [id number] expiry: 01/16/2027 Mfg: [employer] Given [...] Status 1 ACUTE KIDNEY FAILURE, UNSPECIFIED 06/22/[address] active 2 ASCORBIC ACID DEFICIENCY 06/22/[address] active 3 BENIGN PROSTATIC HYPERPLASIA WITH LOWER URINARY TRACT SYMPTOMS 06/22/[address] active 4 BLADDER-NECK OBSTRUCTION 06/22/[address] active 5 CHRONIC KIDNEY DISEASE, STAGE 3 UNSPECIFIED 06/22/[address] active 6 CHRONIC OBSTRUCTIVE PULMONARY DISEASE, UNSPECIFIED 06/22/[address] active 7 CHRONIC SYSTOLIC (CONGESTIVE) HEART FAILURE 06/22/[address] active 8 CONSTIPATION, UNSPECIFIED 06/22/[address] active 9 ENCOUNTER FOR FITTING AND ADJUSTMENT OF URINARY DEVICE 06/22/[address] active 10 GASTRO-ESOPHAGEAL REFLUX DISEASE WITHOUT ESOPHAGITIS 06/22/[address] active 11 HYPERLIPIDEMIA, UNSPECIFIED 06/22/[address] active 12 HYPERTENSIVE HEART AND CHRONIC KIDNEY DISEASE WITH HEART FAILURE AND STAGE 1 THROUGH STAGE 4 CHRONIC KIDNEY DISEASE, OR UNSPECIFIED CHRONIC KIDNEY DISEASE 06/22/[address] active 13 HYPOMAGNESEMIA 06/22/[address] ac tive 14 HYPOTHYROIDISM, UNSPECIFIED 06/22/[address] active 15 IRON DEFICIENCY ANEMIA, UNSPECIFIED 06/22/[address] active 16 METABOLIC ENCEPHALOPATHY 06/22/[address] active 17 NONRHEUMATIC AORTIC (VALVE) STENOSIS WITH INSUFFICIENCY 06/22/[address] active 18 NONRHEUMATIC MITRAL (VALVE) INSUFFICIENCY 06/22/[address] active 19 OTHER MALAISE 06/22/[address] act sage 20 OTHER MUSCLE SPASM 06/22/[address] active 21 POLYNEUROPATHY, UNSPECIFIED 06/22/[address] active 22 RETENTION OF URINE, UNSPECIFIED 06/22/[address] active 23 UNILATERAL INGUINAL HERNIA, WITH OBSTRUCTION, WITHOUT GANGRENE, NOT SPECIFIED RECURRENT 06/22/[address] active 24 URINARY TRACT INFECTION, SITE NOT SPECIFIED 06/22/[address] active 25 WEAKNESS 06/22/[address] active Reason for Referral No Reasons for Referral Entered Social History Social History Observation Description Start Date End Date Code Code System Current Smoking Status Tobacco smoking consumption unknown 845361400 SNOMED CT Sex Assigned At Male 1950 25379-3 [facility] Gender Identity Male 03256373788087 [address] Sexual Orientation Heterosexual (finding) 74840968 SNOMED CT Vital Signs Code Code System Vitals Name Values and Units Timing Information 9279-1 [facility] Respiratory Rate Value=16.0 Units=/m in 06/30/2024 8462-4 [facility] Blood Pressure-Diastolic Value=82 Un its=mmHg 06/30/2024 8480-6 [facility] Blood Pressure-Systolic Mezsr=889 Un its=mmHg 06/30/2024 8310-5 [facility] Body Temperature Value=98.5 Units= F 06/30/2024 8867-4 [facility] Heart rate Value=80.0 Units=/min 67923-1 [facility] O2 % BldC Oximetry Value=96.0 Units= % 06/30/2024 79200-2 [facility] Pain Level Value=2.0 06/29/2024 97333-2 LOINC Weight Rscps=676.0 Units=Lbs 8302-2 LOINC Height Value=70.0 Units=Inches 06/22/2024
--- OUTSIDE RECORDS SUMMARY | 2025-07-19 18:08 | XMS_ITS | Clinical Summary ---
Author Organization Healthcare Address [address] [place] [address] Care Team Providers Care Behavioral Therapist Name Role Phone Unavailable Primary Care Provider [...] Date Last Done Comments [facility]-Depression Screening 1950 [facility]-/Child/Adol SDOH Screenings 1950 [facility]- SDOH Screenings 1968 [facility]-Adult SDOH Screenings 1968 [facility]-DTaP,Tdap,and Td Vaccines (1 - Tdap) 1969 CT Colonography 1995 Colonoscopy 1995 FIT-DNA 1995 FIT 1995 FOBT 1995 Sigmoidoscopy 1995 [facility]-Colorectal Cancer Screening 1995 [facility]-Zoster Vaccines (1 of 2) 2000 [id number] Vaccine (3 - 2024- season) 2025 12/06/2020, 11/08/2020 [facility]-Influenza Vaccine (#1) [...]
--- OUTSIDE RECORDS SUMMARY | 2025-07-19 18:08 | XMS_ITS | Clinical Summary ---
Author Organization [facility] Address [address] [place] [address] Care Team Providers Care Rac Specialist Name Role Phone David Mark MD Primary Care Provider +1- [phone] Allergies No known active allergies Medications albuterol [...] Type Department Care Team Description 06/07/2025 Telephone [facility] CARDI[facility]IC SURGERY [address] [place] [address] [address] [place] [address] Carole Francois APRN from Last [...] ADVANTAGE HMO [place] MED[place] Q[place] Care Teams Rac Specialist Relationship Specialty Start Date End Date David Mark MD [address] [facility] [address] [place] [address] PCP - General Family Medicine 12/23/24
--- OUTSIDE RECORDS SUMMARY | 2025-07-19 18:08 | XMS_ITS | Encounter Summary ---
[facility] [address] [place] [address] Care Team Providers Care Hi Teacher Name Role Phone David Mark MD Primary Care Provider +1- [phone] Encounter Details Date Type Department Care Team (Late st Contact Info) Description 06/07/2025 Telephone [facility] CARDI[facility] SURGERY [address] [address] Carole Francois, DATA TRANSCRIBER [address] [address] Social History Tobacco Use Types [...] Job Start Date Job End Date retired [employer] Not on file Not on file Not [...] on filedocumented in this encounter Care Teams Hi Teacher Relationship Specialty Start Date End Date David Mark MD [address] [place] [address] PCP - General Family Medicine 12/23/24 documented as of this encounter
--- OUTSIDE RECORDS SUMMARY | 2025-07-19 18:08 | XMS_ITS | Clinical Summary ---
Author Organization [facility] ([place], [place], [place], [place], [place]) Address [address] [place] [address] Care Team Providers Care Production Tester Name Role Phone Unavailable Primary Care Provider [...] your living situation today? I have a [facility] place to live 03/22/2024 Think about [...] Do you speak a language other than Palau[place] at [facility]? No 03/22/2024 Do you want help [...] 3, 04/26/2019, 07/17/2015, Additional history exists Insurance [facility] ACCESS O MAP Advance Directives For more information, please contact: [phone] * Full Code (Latest Code Status on File) Date Activated Date Inactivated Comments 03/22/2024 3:32 AM 03/25/2024 4:39 PM
--- OUTSIDE RECORDS SUMMARY | 2025-07-19 18:08 | XMS_ITS | Referral Summary ---
Author Organization [facility] [employer] ([place], [place], [place], [place], [place]) Address [address] [place] [address] Care Team Providers Care Cheese Weigher Name Role Phone Unavailable Primary Care Provider [...] your living situation today? I have a [facility] place to live 03/22/2024 Think [...] Do you speak a language other than Egyptian at [facility]? No 03/22/2024 Do you want help [...] Plan of Treatment Not on file Insurance [facility] ACCESS HMO MAP Advance Directives For more information, please contact: [phone] * Full Code (Latest Code Status on File) Date Activated Date Inactivated Comments 03/22/2024 3:32 AM 03/25/2024 4:39 PM
--- OUTSIDE RECORDS SUMMARY | 2025-07-19 18:09 | XMS_ITS | Encounter Summary ---
Author Organization Healthcare Address [address] [place] [address] Care Team Providers Care [employer] Industrial Arts Teacher Name Role Phone Unavailable Primary Care Provider Unavailabl e Encounter Details Date Type Department Care Team (Late st Contact Info) Description 06/05/2025 Orders Only [facility] [address] [place] [address] Marquita Alba CARTER (acute kidney injury) ([facility]) (Primary Dx); Vitamin D insufficiency Social History [...] Plasma Lab Routine CARTER (acute kidney injury) ([facility]) Expected: 06/05/2025 (Approximate), Expires: 12/03/2026 CBC and Differential Lab Routine CARTER (acute kidney injury) ([facility]) Expected: 06/05/2025 (Approximate), Expires: 12/03/2026 Creatinine, Random, Urine Lab Routine CARTER (acute kidney injury) ([facility]) Expected: 06/05/2025 (Approximate), Expires: 12/03/2026 Protein, Random, Urine with Creatinine Lab Routine CARTER (acute kidney injury) ([facility]) Expected: 06/05/2025 (Approximate), Expires: 12/03/2026 Urinalysis with reflex microscopic (Culture NOT Included) Lab Routine CARTER (acute kidney injury) ([facility]) Expected: 06/05/2025 (Approximate), Expires: 12/03/2026 PTH Intact Total Lab Routine CARTER (acute kidney injury) ([facility]) Vitamin D insufficiency Expected: 06/05/2025 (Approximate), Expires: 12/03/2026 Vitamin D 25 Hydroxy Lab Routine CARTER (acute kidney injury) ([facility]) Vitamin D insufficiency Expected: 06/05/2025 (Approximate), Expires: 12/03/2026 documented as of this encounter Visit Diagnoses Diagnosis CARTER (acute kidney injury)- Primary Vitamin D insufficiency documented in this encounter
[2025-07-19 18:50] LABS: Chloride 98 mmol/L (98-107); Sodium 131 mmol/L (136-145)
[2025-07-19 18:51] LABS: Potassium 5.0 mmoL/L (3.5-5.1)
[2025-07-19 18:53] LABS: Blood Urea Nitrogen 46 mg/dl (9-20); Creatinine,Serum 3.50 mg/dl (0.66-1.25); Estimated Glomerular Filt Rate 17 ml/min (>60); GFR (African American) 21 ML/MIN (>60)
[2025-07-19 18:54] LABS: Anion Gap 15.0 mEq/L (5-15); Calcium 8.1 mg/dl (8.4-10.2); Carbon Dioxide 23 mmol/L (22.0-30.0); Glucose 91 mg/dl (74-100)
== END 2025-07-19 23:59 | disposition home or self-care (01) ==
LOC: LAB.DROPOF 18:06
PROVIDERS: PCP Family Medicine; Visit Provider Family Medicine
DX: N17.9 Acute kidney failure, unspecified (principal)
CPT/HCPCS: 80048